=== PATIENT | male | born 1940 | race Caucasian/White ===

== ENCOUNTER 2017-09-17 08:35 | Inpatient (IN) | payer MEDICARE, BC ==
[2017-09-17] MEDS ORDERED: SODIUM CHLORIDE 0.9% 1,000 ML IV STA (09:01)
--- NOTE | 2017-09-17 09:06 | ED ---
General Adult HPI - General Chief complaint: Weakness Stated complaint: weakness Time Seen by Provider: 09/17/17 08:50 Source: patient, EMS, RN notes reviewed Mode of arrival: EMS Limitations: no limitations - History of Present Illness Initial comments: This is a 77-year-old male who presents emergency Department with a past medical history significant for neuropathy, atrial fibrillation and is on Coumadin for that. Patient comes in today stating over the last week or 2 is becoming weaker and weaker he is also noted distention of his abdomen. Patient states he is still having bowel movements but not as much but he notes that he is not eating as much either. Patient states she's also dizzy upon standing quite often. Patient denies any recent fever chills or cough. Patient denies any chest pain patient denies any palpitations patient denies any abdominal pain. Patient denies any nausea vomiting. Patient denies any headache patient denies numbness weakness patient denies any dysuria hematuria urinary frequency - Related Data Home Medications Medication Instructions Recorded Confirmed Allopurinol [Zyloprim] 300 mg PO MOWEFR 09/17/17 09/17/17 Digoxin [Lanoxin] 250 mcg PO DAILY 09/17/17 09/17/17 Furosemide [Lasix] 40 mg PO BID 09/17/17 09/17/17 Indomethacin [Indocin] 50 mg PO HS 09/17/17 09/17/17 Insulin NPH Hum/Reg Insulin Hm 15 unit SQ AC-BID 09/17/17 09/17/17 [NovoLIN 70-30 100 UNIT/ML VIAL] Lutein 10 mg PO HS 09/17/17 09/17/17 Multivit-Min/FA/Lycopen/Lutein 1 tab PO DAILY 09/17/17 09/17/17 [Centrum Silver Tablet] Potassium Chloride [Klor-Con 20] 20 meq PO DAILY 09/17/17 09/17/17 Quinapril HCl [Accupril] 5 mg PO DAILY 09/17/17 09/17/17 Tamsulosin HCl [Flomax] 0.4 mg PO HS 09/17/17 09/17/17 Warfarin [Coumadin] 5 mg PO MOTUTHFRSA 09/17/17 09/17/17 guaiFENesin-DM 600/30MG [Mucinex 1 tab PO Q12HR 09/17/17 09/17/17 Dm] Allergies Allergy/AdvReac Type Severity Reaction Status Date / Time No Known Allergies Allergy Verified 09/17/17 09:11 Review of Systems ROS Statement: Those systems with pertinent positive or pertinent negative responses have been documented in the HPI. ROS Other: All systems not noted in ROS Statement are negative. Past Medical History Past Medical History: Atrial Fibrillation, Diabetes Mellitus, Prostate Disorder Additional Past Medical History / Comment(s): Gout History of Any Multi-Drug Resistant Organisms: None Reported Past Surgical History: Cholecystectomy Additional Past Surgical History / Comment(s): bilateral cataract Past Psychological History: No Psychological Hx Reported Smoking Status: Former smoker Past Alcohol Use History: Rare Past Drug Use History: None Reported General Exam - General Exam Comments Initial Comments: GENERAL: Patient is well-developed and well-nourished. Patient is nontoxic and well- hydrated and is in mild distress. ENT: Neck is soft and supple. No significant lymphadenopathy is noted. Oropharynx is clear. Moist mucous membranes. Neck has full range of motion without eliciting any pain. EYES: The sclera were anicteric and conjunctiva were pink and moist. Extraocular movements were intact and pupils were equal round and reactive to light. Eyelids were unremarkable. PULMONARY: Patient has decreased breath sounds in the right base CARDIOVASCULAR: There is a regular rate and rhythm patient has a 1/6 murmur ABDOMEN: Soft and nontender with normal bowel sounds. Abdomen does appear distended. SKIN: Skin is clear with no lesions or rashes and otherwise unremarkable. NEUROLOGIC: Patient is alert and oriented x3. Cranial nerves II through XII are grossly intact. Motor and sensory are also intact. Normal speech, volume and content. Symmetrical smile. MUSCULOSKELETAL: Normal extremities with adequate strength and full range of motion. Patient has a wound on the medial aspect of the left leg LYMPHATICS: No significant lymphadenopathy is noted PSYCHIATRIC: Normal psychiatric evaluation. Limitations: no limitations Course Vital Signs 09/17/17 09/17/17 09/17/17 08:49 09:46 10:19 Temperature 98.5 F Pulse Rate 95 94 Pulse Rate [ 98 Sitting] Pulse Rate [ 101 H Standing] Pulse Rate [ 93 Supine] Respiratory 18 16 Rate Blood Pressure 123/74 140/72 Blood Pressure 139/75 [Sitting] Blood Pressure 140/72 [Standing] Blood Pressure 149/65 [Supine] O2 Sat by Pulse 99 96 Oximetry 09/17/17 11:06 Temperature Pulse Rate 90 Pulse Rate [ Sitting] Pulse Rate [ Standing] Pulse Rate [ Supine] Respiratory 16 Rate Blood Pressure Blood Pressure [Sitting] Blood Pressure [Standing] Blood Pressure [Supine] O2 Sat by Pulse Oximetry Medical Decision Making - Medical Decision Making EKG shows atrial fibrillation with occasional PVCs at a rate of 95 bpm QRS is 92 QT interval 350 QTC is 439. Patient's EKG shows no ST segment elevation or depression or T wave abnormalities are noted. - Lab Data Result diagrams: 09/17/17 08:43 09/17/17 08:43 Lab Results 09/17/17 09/17/17 09/17/17 Range/Units 08:43 08:43 08:43 WBC 6.7 (3.8-10.6) k/uL RBC 4.02 L (4.30-5.90) m/uL Hgb 10.5 L (13.0-17.5) gm/dL Hct 32.5 L (39.0-53.0) % MCV 80.7 (80.0-100.0) fL MCH 26.0 (25.0-35.0) pg MCHC 32.2 (31.0-37.0) g/dL RDW 17.8 H (11.5-15.5) % Plt Count 213 (150-450) k/uL Neutrophils % 66 % Lymphocytes % 22 % Monocytes % 7 % Eosinophils % 2 % Basophils % 1 % Neutrophils # 4.5 (1.3-7.7) k/uL Lymphocytes # 1.5 (1.0-4.8) k/uL Monocytes # 0.5 (0-1.0) k/uL Eosinophils # 0.1 (0-0.7) k/uL Basophils # 0.1 (0-0.2) k/uL Hypochromasia Slight Anisocytosis Slight Microcytosis Slight PT (9.0-12.0) sec INR (<1.2) APTT (22.0-30.0) sec Sodium 145 (137-145) mmol/L Potassium 4.0 (3.5-5.1) mmol/L Chloride 104 (98-107) mmol/L Carbon Dioxide 24 (22-30) mmol/L Anion Gap 17 mmol/L BUN 73 H (9-20) mg/dL Creatinine 1.12 (0.66-1.25) mg/dL Est GFR (CKD-EPI)AfAm 73 (>60 ml/min/1.73 sqM) Est GFR (CKD-EPI)NonAf 63 (>60 ml/min/1.73 sqM) Glucose 53 L (74-99) mg/dL POC Glucose (mg/dL) (75-99) mg/dL POC Glu Cosmetic Sales ID Plasma Lactic Acid Finn (0.7-2.0) mmol/L Calcium 9.2 (8.4-10.2) mg/dL Magnesium 2.5 H (1.6-2.3) mg/dL Total Bilirubin 2.7 H (0.2-1.3) mg/dL AST 23 (17-59) U/L ALT 19 L (21-72) U/L Alkaline Phosphatase 286 H (38-126) U/L Total Creatine Kinase 64 (55-170) U/L CK-MB (CK-2) 2.3 (0.0-2.4) ng/mL CK-MB (CK-2) Rel Index 3.6 Troponin I 0.056 H* (0.000-0.034) ng/mL Total Protein 7.5 (6.3-8.2) g/dL Albumin 4.0 (3.5-5.0) g/dL Urine Color Urine Appearance (Clear) Urine pH (5.0-8.0) Ur Specific Stella (1.001-1.035) Urine Protein (Negative) Urine Glucose (UA) (Negative) Urine Ketones (Negative) Urine Blood (Negative) Urine Nitrite (Negative) Urine Bilirubin (Negative) Urine Urobilinogen (<2.0) mg/dL Ur Leukocyte Esterase (Negative) 09/17/17 09/17/17 09/17/17 Range/Units 08:43 08:43 09:51 WBC (3.8-10.6) k/uL RBC (4.30-5.90) m/uL Hgb (13.0-17.5) gm/dL Hct (39.0-53.0) % MCV (80.0-100.0) fL MCH (25.0-35.0) pg MCHC (31.0-37.0) g/dL RDW (11.5-15.5) % Plt Count (150-450) k/uL Neutrophils % % Lymphocytes % % Monocytes % % Eosinophils % % Basophils % % Neutrophils # (1.3-7.7) k/uL Lymphocytes # (1.0-4.8) k/uL Monocytes # (0-1.0) k/uL Eosinophils # (0-0.7) k/uL Basophils # (0-0.2) k/uL Hypochromasia Anisocytosis Microcytosis PT 13.7 H (9.0-12.0) sec INR 1.5 H (<1.2) APTT 23.5 (22.0-30.0) sec Sodium (137-145) mmol/L Potassium (3.5-5.1) mmol/L Chloride (98-107) mmol/L Carbon Dioxide (22-30) mmol/L Anion Gap mmol/L BUN (9-20) mg/dL Creatinine (0.66-1.25) mg/dL Est GFR (CKD-EPI)AfAm (>60 ml/min/1.73 sqM) Est GFR (CKD-EPI)NonAf (>60 ml/min/1.73 sqM) Glucose (74-99) mg/dL POC Glucose (mg/dL) (75-99) mg/dL POC Glu Cosmetic Sales ID Plasma Lactic Acid Finn 1.4 (0.7-2.0) mmol/L Calcium (8.4-10.2) mg/dL Magnesium (1.6-2.3) mg/dL Total Bilirubin (0.2-1.3) mg/dL AST (17-59) U/L ALT (21-72) U/L Alkaline Phosphatase (38-126) U/L Total Creatine Kinase (55-170) U/L CK-MB (CK-2) (0.0-2.4) ng/mL CK-MB (CK-2) Rel Index Troponin I (0.000-0.034) ng/mL Total Protein (6.3-8.2) g/dL Albumin (3.5-5.0) g/dL Urine Color Yellow Urine Appearance Clear (Clear) Urine pH 5.0 (5.0-8.0) Ur Specific Stella 1.008 (1.001-1.035) Urine Protein Trace H (Negative) Urine Glucose (UA) Negative (Negative) Urine Ketones Negative (Negative) Urine Blood Negative (Negative) Urine Nitrite Negative (Negative) Urine Bilirubin Negative (Negative) Urine Urobilinogen <2.0 (<2.0) mg/dL Ur Leukocyte Esterase Negative (Negative) 09/17/17 09/17/17 Range/Units 11:01 12:28 WBC (3.8-10.6) k/uL RBC (4.30-5.90) m/uL Hgb (13.0-17.5) gm/dL Hct (39.0-53.0) % MCV (80.0-100.0) fL MCH (25.0-35.0) pg MCHC (31.0-37.0) g/dL RDW (11.5-15.5) % Plt Count (150-450) k/uL Neutrophils % % Lymphocytes % % Monocytes % % Eosinophils % % Basophils % % Neutrophils # (1.3-7.7) k/uL Lymphocytes # (1.0-4.8) k/uL Monocytes # (0-1.0) k/uL Eosinophils # (0-0.7) k/uL Basophils # (0-0.2) k/uL Hypochromasia Anisocytosis Microcytosis PT (9.0-12.0) sec INR (<1.2) APTT (22.0-30.0) sec Sodium (137-145) mmol/L Potassium (3.5-5.1) mmol/L Chloride (98-107) mmol/L Carbon Dioxide (22-30) mmol/L Anion Gap mmol/L BUN (9-20) mg/dL Creatinine (0.66-1.25) mg/dL Est GFR (CKD-EPI)AfAm (>60 ml/min/1.73 sqM) Est GFR (CKD-EPI)NonAf (>60 ml/min/1.73 sqM) Glucose (74-99) mg/dL POC Glucose (mg/dL) 71 L 111 H (75-99) mg/dL POC Glu Cosmetic Sales ID Amy Chowdhury Erin Plasma Lactic Acid Finn (0.7-2.0) mmol/L Calcium (8.4-10.2) mg/dL Magnesium (1.6-2.3) mg/dL Total Bilirubin (0.2-1.3) mg/dL AST (17-59) U/L ALT (21-72) U/L Alkaline Phosphatase (38-126) U/L Total Creatine Kinase (55-170) U/L CK-MB (CK-2) (0.0-2.4) ng/mL CK-MB (CK-2) Rel Index Troponin I (0.000-0.034) ng/mL Total Protein (6.3-8.2) g/dL Albumin (3.5-5.0) g/dL Urine Color Urine Appearance (Clear) Urine pH (5.0-8.0) Ur Specific Stella (1.001-1.035) Urine Protein (Negative) Urine Glucose (UA) (Negative) Urine Ketones (Negative) Urine Blood (Negative) Urine Nitrite (Negative) Urine Bilirubin (Negative) Urine Urobilinogen (<2.0) mg/dL Ur Leukocyte Esterase (Negative) Disposition Clinical Impression: Hyperbilirubinemia, Hypoglycemia, Pleural effusion, Ascites, Cirrhosis, Elevated troponin Disposition: ADMITTED IP TO THIS [facility] Referrals: Dov Smith MD [Primary Care Provider] - 1-2 days Time of Disposition: 12:28
[2017-09-17 09:20] LABS: Anisocytosis Slight; Basophils # (A) 0.1 k/uL (0-0.2); Basophils % (A) 1 %; Eosinophils # (A) 0.1 k/uL (0-0.7); Eosinophils % (A) 2 %; HCT 32.5 % (39.0-53.0); HGB 10.5 gm/dL (13.0-17.5); Hypochromasia Slight; Lymphocytes # (A) 1.5 k/uL (1.0-4.8); Lymphocytes % (A) 22 %; MCHC 32.2 g/dL (31.0-37.0); MCV 80.7 fL (80.0-100.0); Mean Platelet Volume 6.7; Microcytosis Slight; Monocytes # (A) 0.5 k/uL (0-1.0); Monocytes % (A) 7 %; Neutrophils # (A) 4.5 k/uL (1.3-7.7); Neutrophils % (A) 66 %; Platelet Count 213 k/uL (150-450); RBC 4.02 m/uL (4.30-5.90); RDW 17.8 % (11.5-15.5); WBC 6.7 k/uL (3.8-10.6)
[2017-09-17 09:27] LABS: INR 1.5 (<1.2); Partial Thromboplastin Time 23.5 sec (22.0-30.0); Prothrombin Time 13.7 sec (9.0-12.0)
[2017-09-17 09:29] LABS: Calcium 9.2 mg/dL (8.4-10.2); Magnesium 2.5 mg/dL (1.6-2.3); Total Bilirubin 2.7 mg/dL (0.2-1.3); Total Protein 7.5 g/dL (6.3-8.2)
[2017-09-17 09:44] LABS: Creatine Kinase MB 2.3 ng/mL (0.0-2.4)
[2017-09-17 09:52] LABS: Troponin I 0.056 ng/mL (0.000-0.034)
[2017-09-17 10:36] LABS: Appearance,Urine Clear (Clear); Bilirubin,Urine Negative (Negative); Blood,Urine Negative (Negative); Color,Urine Yellow; Glucose,Urine (UA) Negative (Negative); Ketones,Urine Negative (Negative); Leukocyte Esterase,Urine Negative (Negative); Nitrite,Urine Negative (Negative); Protein,Urine Trace (Negative); Specific Gravity,Urine 1.008 (1.001-1.035); Urobilinogen,Urine <2.0 mg/dL (<2.0)
--- NOTE | 2017-09-17 10:43 | XR ---
EXAMINATION TYPE: XR chest 2V DATE OF EXAM: 09/17/2017 COMPARISON: NONE HISTORY: Weakness. TECHNIQUE: Frontal and lateral views of the chest are obtained. FINDINGS: Low lung volumes with patchy bibasilar atelectasis is seen.. The cardiac silhouette size i s enlarged with atherosclerotic and ectatic aorta causing mass effect on trachea. Multilevel spurring in the spine is present. Osseous structures are demineralized. IMPRESSION: Low lung volumes and cardiomegaly with patchy bibasilar atelectasis and/or infiltrate.
--- NOTE | 2017-09-17 10:45 | XR ---
EXAMINATION TYPE: XR KUB DATE OF EXAM: 09/17/2017 10:36 AM CLINICAL HISTORY: Abdominal pain and distention with fluid retention TECHNIQUE: 3 supine KUB images of the abdomen are obtained. COMPARISON: None. FINDINGS: Evaluation is suboptimal secondary to patient's large body habitus. Scattered gas is seen i n non-distended small bowel loops. Gas and fecal material is seen in non-distended colon. Cholecystec ruth clips are present. There is moderate multilevel spurring and disc space narrowing most prominent in the mid to lower lumbar spine. There is moderate spurring in both hip joints. Vascular calcificat ion in the bilateral pelvis extending into groin regions is present. IMPRESSION: Overall nonobstructive bowel gas pattern.
[2017-09-17 11:03] LABS: Glucose,Whole Blood 71 mg/dL (75-99)
[2017-09-17] MEDS ORDERED: RX INFO: IV CONTRAST WAS GIVEN 1 EACH MISC MISCELLANE PRN ×2 (11:11→11:15)
--- NOTE | 2017-09-17 12:12 | CT ---
EXAMINATION TYPE: CT ChestAbdPelvis w con DATE OF EXAM: 09/17/2017 COMPARISON: NONE HISTORY: Weakness, shortness of breath CT DLP: 2771 mGycm. Automated Exposure Control for Dose Reduction was Utilized. CONTRAST: CT scan of the thorax, abdomen and pelvis is performed with IV Contrast, patient injected with 80 mL of Isovue 370. Lack of oral contrast limits evaluation of the bowel FINDINGS: LUNGS: There is a moderate right pleural effusion with associated compressive subsegmental atelectasi s. Otherwise the lungs are clear. No left pleural effusion. No pneumothorax. Main tracheobronchial tr ee is patent. MEDIASTINUM: No central pulmonary embolus is identified. The main pulmonary artery is enlarged measur ing 4.2 cm, suggesting underlying pulmonary arterial hypertension. There are no greater than 1 cm hil ar or mediastinal lymph nodes. Moderate three-vessel coronary artery calcifications are present as we ll as atheromatous changes of the thoracic aorta and cardiac valves. Scant pericardial effusion is se en LIVER/GB: There is diffuse low attenuation of the hepatic parenchyma and a nodular contour with cirrh otic morphology of the liver and hepatic atrophy. Gallbladder surgically absent. Large volume abdomin opelvic ascites is present. Phase of contrast limits evaluation for portal venous thrombus. PANCREAS: Pancreas is difficult to visualize given the surrounding abdominal ascites. SPLEEN: No splenomegaly. No splenic varices are seen. ADRENALS: Adrenal glands are symmetrically enlarged but maintain adreniform shape, most compatible wi th adrenal gland hyperplasia. KIDNEYS: No significant abnormality is seen. No hydronephrosis. BOWEL: Bowel is nondilated. Appendix is air-filled and within normal limits. GENITAL ORGANS: Prostate gland is enlarged impressing upon the urinary bladder LYMPH NODES: No gross evidence of greater than 1cm abdominal or pelvic lymph nodes are appreciated. E valuation is limited given the ascites. OSSEOUS STRUCTURES: Extensive arthropathy of the glenohumeral joints are seen. Severe multilevel dege nerative changes of the spine are present. Osseous structures are grossly intact. Moderate to severe bilateral femoral acetabular arthropathy is present. OTHER: Moderate anasarca is present. Extensive atheromatous plaquing of the abdominal aorta and its b ranches. Small umbilical hernia contains mesenteric fat and ascites. Right inguinal canal is fluid-fi lled and ascites is extends into the scrotal sac on the right. IMPRESSION: 1. Moderate right pleural effusion with associated right subsegmental multifocal compressive atelecta sis. 2. Cirrhotic morphology of the liver with abdominopelvic ascites and anasarca. No splenomegaly or eitan ss evidence of splenic varices. Evaluation of the portal vein is limited given the phase of contrast. 3. Enlarged main pulmonary artery suggesting underlying pulmonary arterial hypertension. 4. Scant pericardial effusion.
[2017-09-17 12:29] LABS: Glucose,Whole Blood 111 mg/dL (75-99)
[2017-09-17] MEDS ORDERED: SODIUM CHLORIDE 0.9% 1,000 ML IV ONE (12:31)
--- NOTE | 2017-09-17 13:57 | P.HPIM ---
History of Present Illness H&P Date: 09/17/17 Chief Complaint: Fatigue and lightheadedness, shortness of air with abdominal distention The patient is a 77-year-old male the past focal history of atrial fibrillation on anticoagulation with Coumadin who presented to the ER via EMS with chief complaint of increasing fatigue, abdominal distention occurring over the last week. The patient also reports progressing worsening dyspnea during this time, he complains of a nonproductive cough for a week along with shortness of breath. Today in particular the patient was increasingly lightheaded and dizzy with symptoms worsened from going from recumbent to sitting up. The patient has had increasing lower extremity swelling and reports a ruptured left lower extremity blister occurring 2 days ago. The patient does have a right lower extremity chronic diabetic ulcer that is seen by wound care nurse at home for the last 2 months. The patient apparently in place with a walker but has had decreased activity during to his fatigue and weakness. The patient denies any chest pain, or palpitations. The patient denies any history of severe alcohol use, he reports to being a social drinker. There is no reports of confusion, focal weakness or slurred speech. The patient denies being on oxygen chronically but is currently on nasal cannula feels much better. In the ER the patient had a comprehensive workup which included CT of the chest abdomen and pelvis that showed a moderate right pleural effusion with associated right subsegmental multifocal compressive atelectasis, cirrhotic morphology of the liver with abdominal pelvic ascites and anasarca and enlarged pulmonary artery suggesting pulmonary artery hypertension with scant pericardial effusion, patient's INR was noted to be 1.5 with a hemoglobin of 10.5 and elevated serum bilirubin at 2.5 with troponin of 0.056 Review of Systems All other 12 point of systems are negative except per HPI Past Medical History Past Medical History: Atrial Fibrillation, Diabetes Mellitus, Prostate Disorder Additional Past Medical History / Comment(s): Gout History of Any Multi-Drug Resistant Organisms: None Reported Past Surgical History: Cholecystectomy Additional Past Surgical History / Comment(s): bilateral cataract Past Psychological History: No Psychological Hx Reported Smoking Status: Former smoker Past Alcohol Use History: Rare Past Drug Use History: None Reported - Past Family History Father Family Medical History: No Reported History Additional Family Medical History / Comment(s): Father lived to be 91 yrs old. Mother Family Medical History: Cancer Additional Family Medical History / Comment(s): Mother had blood cancer and heart problems. She lived to be 83 yrs old. Medications and Allergies Home Medications Medication Instructions Recorded Confirmed Type Allopurinol [Zyloprim] 300 mg PO MOWEFR 09/17/17 09/17/17 History Digoxin [Lanoxin] 250 mcg PO DAILY 09/17/17 09/17/17 History Furosemide [Lasix] 40 mg PO BID 09/17/17 09/17/17 History Indomethacin [Indocin] 50 mg PO HS 09/17/17 09/17/17 History Insulin NPH Hum/Reg Insulin Hm 15 unit SQ AC-BID 09/17/17 09/17/17 History [NovoLIN 70-30 100 UNIT/ML VIAL] Lutein 10 mg PO HS 09/17/17 09/17/17 History Multivit-Min/FA/Lycopen/Lutein 1 tab PO DAILY 09/17/17 09/17/17 History [Centrum Silver Tablet] Potassium Chloride [Klor-Con 20] 20 meq PO DAILY 09/17/17 09/17/17 History Quinapril HCl [Accupril] 5 mg PO DAILY 09/17/17 09/17/17 History Tamsulosin HCl [Flomax] 0.4 mg PO HS 09/17/17 09/17/17 History Warfarin [Coumadin] 5 mg PO MOTUTHFRSA 09/17/17 09/17/17 History guaiFENesin-DM 600/30MG [Mucinex 1 tab PO Q12HR 09/17/17 09/17/17 History Dm] Allergies Allergy/AdvReac Type Severity Reaction Status Date / Time No Known Allergies Allergy Verified 09/17/17 09:11 Physical Exam Vitals: Vital Signs Temp Pulse Pulse Pulse Pulse Resp BP 09/17/17 11:06 90 16 09/17/17 10:19 94 16 140/72 09/17/17 09:46 98 101 H 93 09/17/17 08:49 98.5 F 95 18 123/74 BP BP BP Pulse Ox 09/17/17 11:06 09/17/17 10:19 96 09/17/17 09:46 139/75 140/72 149/65 09/17/17 08:49 99 Intake and Output 09/16/17 09/17/17 09/17/17 22:59 06:59 14:59 Other: Weight 123.196 kg Constitutional: Moderate respiratory distress, conversant, pleasant Eyes: Anicteric sclerae, moist conjunctiva, no lid-lag, PERRLA ENMT: NC/AT,Oropharynx clear, no erythema, exudates Neck:Supple, FROM, no masses, or JVD, No carotid bruits; No thyromegaly Lungs: Diminished in the bases, Clear to percussion, moderate respiratory distress in incomplete sentences with accessory muscle use Cardiovascular: Heart regular in rate and rhythm, No murmurs, gallops, or rubs , +2 pitting pedal peripheral edema Abdominal: Soft Nontender, moderate distended, no guarding, no rebound or rigidity, Normoactive bowel sounds No hepatomegaly, No splenomegaly, No palpable mass No abdominal wall hernia noted Skin: Normal temperature, tone, texture, turgor, No induration No subcutaneous nodules, No rash, lesions, No ulcers, ruptured skin blister on the left lower extremity Extremities:No digital cyanosis No clubbing, Pedal pulses intact and symmetrical Radial pulses intact and symmetrical Normal gait and station, No calf tenderness Psychiatric: Alert and oriented to person, place and time, Appropriate affect Intact judgement Neuro: Muscles Strength 5/5 in all 4 extremities, Sensation to light touch grossly present throughout, Cranial nerves II-XII grossly intact. No focal sensory deficits Results CBC & Chem 7: 09/17/17 08:43 09/17/17 08:43 Labs: Abnormal Lab Results - Last 24 Hours (Table) 09/17/17 09/17/17 09/17/17 Range/Units 08:43 08:43 08:43 RBC 4.02 L (4.30-5.90) m/uL Hgb 10.5 L (13.0-17.5) gm/dL Hct 32.5 L (39.0-53.0) % RDW 17.8 H (11.5-15.5) % PT (9.0-12.0) sec INR (<1.2) BUN 73 H (9-20) mg/dL Glucose 53 L (74-99) mg/dL POC Glucose (mg/dL) (75-99) mg/dL Magnesium 2.5 H (1.6-2.3) mg/dL Total Bilirubin 2.7 H (0.2-1.3) mg/dL ALT 19 L (21-72) U/L Alkaline Phosphatase 286 H (38-126) U/L Troponin I 0.056 H* (0.000-0.034) ng/mL Urine Protein (Negative) 09/17/17 09/17/17 09/17/17 Range/Units 08:43 09:51 11:01 RBC (4.30-5.90) m/uL Hgb (13.0-17.5) gm/dL Hct (39.0-53.0) % RDW (11.5-15.5) % PT 13.7 H (9.0-12.0) sec INR 1.5 H (<1.2) BUN (9-20) mg/dL Glucose (74-99) mg/dL POC Glucose (mg/dL) 71 L (75-99) mg/dL Magnesium (1.6-2.3) mg/dL Total Bilirubin (0.2-1.3) mg/dL ALT (21-72) U/L Alkaline Phosphatase (38-126) U/L Troponin I (0.000-0.034) ng/mL Urine Protein Trace H (Negative) 09/17/17 Range/Units 12:28 RBC (4.30-5.90) m/uL Hgb (13.0-17.5) gm/dL Hct (39.0-53.0) % RDW (11.5-15.5) % PT (9.0-12.0) sec INR (<1.2) BUN (9-20) mg/dL Glucose (74-99) mg/dL POC Glucose (mg/dL) 111 H (75-99) mg/dL Magnesium (1.6-2.3) mg/dL Total Bilirubin (0.2-1.3) mg/dL ALT (21-72) U/L Alkaline Phosphatase (38-126) U/L Troponin I (0.000-0.034) ng/mL Urine Protein (Negative) Assessment and Plan (1) Dyspnea Current Visit: Yes Status: Acute Code(s): R06.00 - DYSPNEA, UNSPECIFIED SNOMED Code(s): 667372947 (2) Ascites Current Visit: Yes Status: Acute Code(s): R18.8 - OTHER ASCITES SNOMED Code(s): 381651036 (3) Cirrhosis Current Visit: Yes Status: Acute Code(s): K74.60 - UNSPECIFIED CIRRHOSIS OF LIVER SNOMED Code(s): 70666242 (4) Elevated troponin Current Visit: Yes Status: Acute Code(s): R74.8 - ABNORMAL LEVELS OF OTHER SERUM ENZYMES SNOMED Code(s): 076019340 (5) Hyperbilirubinemia Current Visit: Yes Status: Acute Code(s): E80.6 - OTHER DISORDERS OF BILIRUBIN METABOLISM SNOMED Code(s): 63081258 (6) Pleural effusion Current Visit: Yes Status: Acute Code(s): J90 - PLEURAL EFFUSION, NOT ELSEWHERE CLASSIFIED SNOMED Code(s): 77916837 (7) Atrial fibrillation Current Visit: Yes Status: Acute Code(s): I48.91 - UNSPECIFIED ATRIAL FIBRILLATION SNOMED Code(s): 41696148 Plan: The patient is admitted with dyspnea secondary to symptomatic ascites and pleural effusion with compressive atelectasis anticipated greater than 2 midnight stay. GI and pulmonology her consulted for possible paracentesis and thoracentesis respectively. Continue with supplemental oxygen. We'll workup his anemia with Hemoccult iron studies, cardiology is consulted regarding his elevated serum troponin will continue to cycle troponins, EKG consistent with A. fib with controlled ventricular rate. We'll order echocardiogram and consult IR for ultrasound guided paracentesis. We'll resume the patient's digoxin, hold the Coumadin, patient reported being taken off his beta raymon approximately a month ago due to hypotension. Check A1c Accu-Cheks and resume his home insulin regimen. Await feedback from consultants and continue his clinical course
[2017-09-17] MEDS ORDERED: FUROSEMIDE 40 MG TAB PO SCH (16:00)
[2017-09-17 17:45] LABS: Glucose,Whole Blood 94 mg/dL (75-99)
[2017-09-17] MEDS: ALLOPURINOL 300 MG TAB PO SCH (18:52)
[2017-09-17] MEDS: DIGOXIN 250 MCG TAB PO SCH (18:53)
[2017-09-17] MEDS: INSULIN NPH/REG INSULIN 70/30 300 UNIT/3 ML VIAL SQ SCH (18:53)
[2017-09-17] MEDS: TAMSULOSIN 0.4 MG CAP.ER.24H PO SCH (20:45)
[2017-09-17 20:53] LABS: Glucose,Whole Blood 137 mg/dL (75-99)
--- NOTE | 2017-09-17 20:59 | ECHOF ---
Referral Reason:volume overload/ hx of CHF MEASUREMENTS -------- HEIGHT: 190.5 cm WEIGHT: 122.9 kg BP: 149/65 RVIDd: 3.2 cm (< 3.3) IVSd: 1.0 cm (0.6 - 1.1) LVIDd: 4.9 cm (3.9 - 5.3) LVPWd: 1.0 cm (0.6 - 1.1) IVSs: 1.3 cm LVIDs: 4.3 cm LVPWs: 1.3 cm LAESV Index (A-L): 47.44 ml/m Ao Diam: 3.2 cm (2.0 - 3.7) AV Cusp: 0.8 cm (1.5 - 2.6) LA Diam: 5.2 cm (2.7 - 3.8) MV E Britton: 1.29 m/s MV DecT: 152 ms MV A Britton: 0.01 m/s MV E/A Ratio: 215.60 AV maxP.54 mmHg AV meanP.15 mmHg RAP: 15.00 mmHg RVSP: 91.85 mmHg FINDINGS -------- Atrial fibrillation. This was a technically difficult study with suboptimal views. The left ventricular size is normal. Left ventricular wall thickness is normal. There is severe g lobal hypokinesis of LV . Overall left ventricular systolic function is severely impaired with, an EF between 25 - 30 %. The right ventricle is mildly enlarged. LA is severely dilated >40 ml/m2 The right atrium is markedly enlarged. 3ml of Lumason was utilized for enhancement of images. There is severe aortic valve sclerosis. There is moderate aortic regurgitation. There is moderate -to-severe aortic stenosis present. Peak/mean gradient across the Aortic Valve is 61.54mmHg / 38.15 mmHg. The mitral valve leaflets are mild to moderately thickened. Moderate mitral annular calcification present. Severe mitral regurgitation is present. Severe tricuspid regurgitation present. There is severe pulmonary hypertension. The right ventric ular systolic pressure, as measured by Doppler, is 91.85mmHg. The pulmonic valve was not well visualized. The aortic root size is normal. The inferior vena cava is dilated with no significant inspiratory collapse which is consistent estima olivia right atrial pressure of >20 mmHg. There is a small, generalized pericardial effusion present. CONCLUSIONS -------- 1. Atrial fibrillation. 2. This was a technically difficult study with suboptimal views. 3. The left ventricular size is normal. 4. Left ventricular wall thickness is normal. 5. There is severe global hypokinesis of LV . 6. Overall left ventricular systolic function is severely impaired with, an EF between 25 - 30 %. 7. The right ventricle is mildly enlarged. 8. LA is severely dilated >40 ml/m2 9. The right atrium is markedly enlarged. 10. 3ml of Lumason was utilized for enhancement of images. 11. There is severe aortic valve sclerosis. 12. There is moderate aortic regurgitation. 13. There is [id number] aortic stenosis present. 14. Peak/mean gradient across the Aortic Valve is 61.54mmHg / 38.15mmHg. 15. The mitral valve leaflets are mild to moderately thickened. 16. Moderate mitral annular calcification present. 17. Severe mitral regurgitation is present. 18. Severe tricuspid regurgitation present. 19. There is severe pulmonary hypertension. 20. The right ventricular systolic pressure, as measured by Doppler, is 91.85mmHg. 21. The pulmonic valve was not well visualized. 22. The aortic root size is normal. 23. The inferior vena cava is dilated with no significant inspiratory collapse which is consistent es timated right atrial pressure of >20 mmHg. 24. There is a small, generalized pericardial effusion present. [employer]ALL MOLDER: Ozzy Hess RDCS
[2017-09-17] MEDS ORDERED: INDOMETHACIN 25 MG CAP PO SCH (21:00)
[2017-09-18 05:33] LABS: Hemoglobin A1C 6.5 % (4.0-6.0)
[2017-09-18 06:06] LABS: Glucose,Whole Blood 86 mg/dL (75-99)
[2017-09-18 06:58] LABS: Anisocytosis Slight; Basophils % (A) 1 %; Eosinophils # (A) 0.2 k/uL (0-0.7); Eosinophils % (A) 3 %; HCT 31.1 % (39.0-53.0); HGB 9.7 gm/dL (13.0-17.5); Hypochromasia Moderate; Lymphocytes # (A) 1.1 k/uL (1.0-4.8); Lymphocytes % (A) 24 %; MCH 25.7 pg (25.0-35.0); MCHC 31.2 g/dL (31.0-37.0); MCV 82.5 fL (80.0-100.0); Mean Platelet Volume 7.4; Microcytosis Slight; Monocytes # (A) 0.4 k/uL (0-1.0); Monocytes % (A) 9 %; Neutrophils # (A) 2.9 k/uL (1.3-7.7); Neutrophils % (A) 61 %; Platelet Count 163 k/uL (150-450); RBC 3.77 m/uL (4.30-5.90); RDW 18.1 % (11.5-15.5); WBC 4.7 k/uL (3.8-10.6)
[2017-09-18 07:27] LABS: Albumin 3.1 g/dL (3.5-5.0); Calcium 8.4 mg/dL (8.4-10.2); Potassium 3.9 mmol/L (3.5-5.1); Total Protein 6.2 g/dL (6.3-8.2)
--- NOTE | 2017-09-18 08:40 | P.CRDCN ---
History of Present Illness Consult date: 09/18/17 Requesting physician: Giuseppe Ferrara Consult reason: shortness of breath Chief complaint: Dizziness, Shortness of breath, abdominal and leg swelling History of present illness: This is a 77-year-old gentleman with history of chronic persistent atrial fibrillation, hypertension, diabetes, who presented to the hospital with symptoms of dizziness, shortness of breath, significant swelling in his abdomen and bilateral lower extremities. Apparently the symptoms of shortness of breath and dizziness have only been going on for the past 2-3 days according to the patient, but the swelling in his abdomen has been noticeable for some time. Patient denies any history of significant cardiac problems, no myocardial infarction in the past, never been told to have any congestive cardiac failure. Chest x-ray performed on admission here showed low lung volumes and cardiomegaly with patchy bibasilar atelectasis. KUB revealed overall nonobstructive bowel gas pattern. EKG showed atrial fibrillation with occasional PVC, nonspecific ST-T wave changes. CT of the chest, abdomen, and pelvis revealed a moderate right pleural effusion. Cirrhotic morphology of the liver with abdominopelvic ascites and anasarca. No splenomegaly or gross evidence of splenic varices. Enlarged main pulmonary artery suggesting underlying pulmonary arterial hypertension and a scant amount of pericardial effusion. An echocardiogram with Doppler study was performed which revealed an ejection fraction of 25-30%. Global hypokinesia of the LV. RV mildly enlarged. Moderate to severe aortic stenosis, severe mitral regurg, severe tricuspid regurg and severe pulmonary hypertension. Blood pressure on arrival 122/70 with a heart rate in the 90s, 99% on 2 L of oxygen. Laboratory data was reviewed, white blood cell count is normal, hemoglobin on admission 10.5, 9.7 this morning. Platelet count 163, sodium 142, potassium 3.9, BUN 65, creatinine 1.1. Magnesium level 2.5. Iron level 51, total bilirubin 2.7 on admission 2.0 this morning. Alkaline phosphatase 286 on admission 224 this morning. INR on admission 1.5. Troponin 0.056, BNP level 16,300. Patient's weight on admission was documented to be 123, it is 119 this morning. He does state that he was urinating a significant amount through the night last night. He is not on IV Lasix. At the time of my examination this morning, patient continues to have significant swelling of the abdomen and edema of the lower extremities. He does state overall that he feels his breathing is mildly improved. Telemetry strips show atrial fibrillation with frequent PVCs. Past Medical History Past Medical History: Atrial Fibrillation, Diabetes Mellitus, Prostate Disorder Additional Past Medical History / Comment(s): Gout History of Any Multi-Drug Resistant Organisms: None Reported Past Surgical History: Cholecystectomy Additional Past Surgical History / Comment(s): bilateral cataract Past Anesthesia/Blood Transfusion Reactions: No Reported Reaction Past Psychological History: No Psychological Hx Reported Smoking Status: Former smoker Past Alcohol Use History: Rare Past Drug Use History: None Reported - Past Family History Father Family Medical History: No Reported History Additional Family Medical History / Comment(s): Father lived to be 91 yrs old. Mother Family Medical History: Cancer Additional Family Medical History / Comment(s): Mother had blood cancer and heart problems. She lived to be 83 yrs old. Medications and Allergies Home Medications Medication Instructions Recorded Confirmed Type Allopurinol [Zyloprim] 300 mg PO MOWEFR 09/17/17 09/17/17 History Digoxin [Lanoxin] 250 mcg PO DAILY 09/17/17 09/17/17 History Furosemide [Lasix] 40 mg PO BID 09/17/17 09/17/17 History Indomethacin [Indocin] 50 mg PO HS 09/17/17 09/17/17 History Insulin NPH Hum/Reg Insulin Hm 15 unit SQ AC-BID 09/17/17 09/17/17 History [NovoLIN 70-30 100 UNIT/ML VIAL] Lutein 10 mg PO HS 09/17/17 09/17/17 History Multivit-Min/FA/Lycopen/Lutein 1 tab PO DAILY 09/17/17 09/17/17 History [Centrum Silver Tablet] Potassium Chloride [Klor-Con 20] 20 meq PO DAILY 09/17/17 09/17/17 History Quinapril HCl [Accupril] 5 mg PO DAILY 09/17/17 09/17/17 History Tamsulosin HCl [Flomax] 0.4 mg PO HS 09/17/17 09/17/17 History Warfarin [Coumadin] 5 mg PO MOTUTHFRSA 09/17/17 09/17/17 History guaiFENesin-DM 600/30MG [Mucinex 1 tab PO Q12HR 09/17/17 09/17/17 History Dm] Allergies Allergy/AdvReac Type Severity Reaction Status Date / Time No Known Allergies Allergy Verified 09/17/17 09:11 Physical Exam Vitals: Vital Signs Temp Pulse Pulse Pulse Pulse Resp BP 09/18/17 07:30 09/18/17 04:00 97.8 F 81 18 09/18/17 03:58 18 09/18/17 00:00 98.2 F 72 72 18 09/17/17 20:00 98.3 F 94 94 18 09/17/17 18:04 68 68 68 16 09/17/17 17:07 118/62 09/17/17 17:05 97.4 F L 103 H 18 09/17/17 15:00 22 09/17/17 14:00 97.3 F L 84 18 111/73 09/17/17 11:06 90 16 09/17/17 10:19 94 16 140/72 09/17/17 09:46 98 101 H 93 09/17/17 08:49 98.5 F 95 18 123/74 BP BP BP Pulse Ox 09/18/17 07:30 99 09/18/17 04:00 114/61 99 09/18/17 03:58 09/18/17 00:00 117/58 99 09/17/17 20:00 120/62 98 09/17/17 18:04 111/69 99 09/17/17 17:07 09/17/17 17:05 99 09/17/17 15:00 96 09/17/17 14:00 97 09/17/17 11:06 09/17/17 10:19 96 09/17/17 09:46 139/75 140/72 149/65 09/17/17 08:49 99 Intake and Output 09/17/17 09/18/17 09/18/17 22:59 06:59 14:59 Other: Voiding Method Urinal # Voids 0 Weight 119.5 kg PHYSICAL EXAMINATION: HEENT: Head is atraumatic, normocephalic. Pupils equal, round. Neck is supple. There is elevated jugular venous pressure up to the angle of the jaw. HEART EXAMINATION: Heart S1-S2 not audible, systolic ejection murmur heard CHEST EXAMINATION: Lungs reveal diminished air entry bilaterally, on the right senior living up. ABDOMEN: [ Soft, distended, positive thrill. Bowel sounds are heard. EXTREMITIES:[ 1+ peripheral pulses with 1-2+ evidence of peripheral edema patient does have a dressing in place to the right and lower extremity, ulcerated weeping area underneath. NEUROLOGIC patient is awake, alert and oriented -3. . Results 09/18/17 05:51 09/18/17 05:51 Cardiac Enzymes 09/17/17 09/17/17 09/18/17 Range/Units 08:43 08:43 05:51 AST 23 20 (17-59) U/L CK-MB (CK-2) 2.3 (0.0-2.4) ng/mL Troponin I 0.056 H* (0.000-0.034) ng/mL Coagulation 09/17/17 Range/Units 08:43 PT 13.7 H (9.0-12.0) sec APTT 23.5 (22.0-30.0) sec CBC 09/17/17 09/18/17 Range/Units 08:43 05:51 WBC 6.7 4.7 (3.8-10.6) k/uL RBC 4.02 L 3.77 L (4.30-5.90) m/uL Hgb 10.5 L 9.7 L (13.0-17.5) gm/dL Hct 32.5 L 31.1 L (39.0-53.0) % Plt Count 213 163 (150-450) k/uL Comprehensive Metabolic Panel 09/17/17 09/18/17 Range/Units 08:43 05:51 Sodium 145 142 (137-145) mmol/L Potassium 4.0 3.9 (3.5-5.1) mmol/L Chloride 104 105 (98-107) mmol/L Carbon Dioxide 24 24 (22-30) mmol/L BUN 73 H 65 H (9-20) mg/dL Creatinine 1.12 1.13 (0.66-1.25) mg/dL Glucose 53 L 75 (74-99) mg/dL Calcium 9.2 8.4 (8.4-10.2) mg/dL AST 23 20 (17-59) U/L ALT 19 L 22 (21-72) U/L Alkaline Phosphatase 286 H 224 H (38-126) U/L Total Protein 7.5 6.2 L (6.3-8.2) g/dL Albumin 4.0 3.1 L (3.5-5.0) g/dL Current Medications Generic Name Dose Route Start Last Admin Trade Name Freq PRN Reason Stop Dose Admin Allopurinol 300 mg 09/17/17 14:00 09/17/17 18:52 Zyloprim PO 300 mg MoWeFr@0900 CHRIS Administration Digoxin 250 mcg 09/17/17 14:00 09/17/17 18:53 Lanoxin PO 250 mcg DAILY CHRIS Administration Furosemide 40 mg 09/17/17 16:00 09/17/17 18:53 Lasix PO 40 mg BID@0900,1600 CHRIS Administration Indomethacin 50 mg 09/17/17 21:00 09/17/17 20:46 Indocin PO 50 mg HS CHRIS Administration Insulin Human Isoph/Insulin Regular 15 unit 09/17/17 17:30 09/17/17 18:53 Humulin 70/30 Vial SQ 10 unit AC-BID CHRIS Administration Lisinopril 5 mg 09/18/17 09:00 Zestril PO DAILY [facility] Miscellaneous Information 1 each 09/17/17 11:11 Rx Info: Iv Contrast Was Given MISCELLANE 09/19/17 11:11 DAILY PRN Per Protocol Miscellaneous Information 1 each 09/17/17 11:15 Rx Info: Iv Contrast Was Given MISCELLANE 09/19/17 11:15 DAILY PRN Per Protocol Potassium Chloride 20 meq 09/18/17 09:00 K-Dur 20 PO DAILY [facility] Spironolactone 100 mg 09/18/17 09:00 Aldactone PO DAILY [facility] Tamsulosin HCl 0.4 mg 09/17/17 21:00 09/17/17 20:45 Flomax PO 0.4 mg HS CHRIS Administration Intake and Output 09/17/17 09/18/17 09/18/17 22:59 06:59 14:59 Other: Voiding Method Urinal # Voids 0 Weight 119.5 kg 09/18/17 05:51 09/18/17 05:51 EKG Interpretations (text) EKG shows atrial fibrillation with occasional PVCs. Assessment and Plan Plan: Assessment and plan #1 dyspnea, evidence of congestive heart failure, systolic, acute on chronic. Echocardiogram with Doppler study reveals an ejection fraction of 25-30%, daughter to severe aortic stenosis, severe mitral regurg and severe tricuspid regurg noted. Severe pulmonary hypertension. Evidence of significant right- sided pleural effusion. #2 chronic persistent atrial fibrillation, on Coumadin for anticoagulation, INR and admission 1.5. #3 hypertension, according to the significant other, blood pressure has been running low at home, patient had been on metoprolol which was stopped because of hypotension by the patient. #4 diabetes #5 ascites #6 abnormal troponin, likely secondary to supply and demand mismatch #7 anemia Plan We will start the patient on IV Lasix, continue Aldactone, lisinopril, discontinue Indocin, continue Lanoxin, we will also start the patient on a small dose of beta raymon as well as a statin. I did speak with the patient and his significant other regarding the new her anticoagulants, we will check to see if the patient has coverage. Further recommendations to follow. DNP note has been reviewed, I agree with a documented findings and plan of care. Patient was seen and examined.
[2017-09-18] MEDS: INSULIN NPH/REG INSULIN 70/30 300 UNIT/3 ML VIAL SQ SCH ×2 (09:09→17:19)
[2017-09-18] MEDS: DIGOXIN 250 MCG TAB PO SCH (09:25)
[2017-09-18] MEDS: LISINOPRIL 5 MG TAB PO SCH (09:25)
[2017-09-18] MEDS: POTASSIUM CHLORIDE ER 20 MEQ TAB.ER PO SCH (09:25)
[2017-09-18] MEDS: FUROSEMIDE 250 MG in SODIUM CHLORIDE 0.9% 225 ML IVP SCH (09:26)
[2017-09-18] MEDS: SPIRONOLACTONE 25 MG TAB PO SCH (09:28)
[2017-09-18] MEDS ORDERED: APIXABAN 5 MG TAB PO SCH (09:30)
[2017-09-18] MEDS: ATORVASTATIN 40 MG TAB PO SCH (09:38)
[2017-09-18] MEDS: METOPROLOL TARTRATE 12.5 MG TAB PO SCH ×2 (09:38→19:40)
--- NOTE | 2017-09-18 09:48 | P.CONS ---
History of Present Illness - Reason for Consult Consult date: 09/18/17 Ascites cirrhosis Requesting physician: Giuseppe Ferrara - History of Present Illness 77-year-old gentleman with a history of atrial fibrillation maintained on warfarin, diabetes mellitus, gout, cholecystectomy, and BPH presented with increasing abdominal distention over the last week as well as fatigue and shortness of breath. Consult requested for ascites. CT abdomen and pelvis reported a moderate right pleural effusion with cirrhotic morphology of the liver with abdominopelvic ascites. Echocardiogram ejection fraction 25-30% with global hypokinesia of the LV. Moderate to severe aortic stenosis severe pulmonary hypertension. BNP 16,300. White count 6.7. Hemoglobin 10.5. Platelet 213. INR 1.5. Total bilirubin 2.7. AST 23. ALT 19. Alkaline phosphatase 286. Albumin 4. BUN 73. Creatinine 1.1. Iron 51. No history of known liver disorders. No history of alcoholism or hepatitis. No history of ascites. Denies hematemesis hematochezia melena fever or chills. No history of EGD colonoscopy. Review of Systems Constitutional: Denies fever, chills, sweats, weight gain, or loss. Reports fatigue. HEENT: Negative for migraines, blurred vision or loss, earaches, drainage, tinnitus, oral mucosal lesions, dysphagia, or odynophagia. Cardiac: Negative for chest pain, arrhythmias, or palpitation. Respiratory: Admitted with shortness of breath. Negative for shortness of breath, hemoptysis, cough, or sputum production. Gastrointestinal: See HPI for pertinent findings. Genitourinary: Negative for hematuria, urgency, frequency, polyuria, dysuria, or penile discharge. Musculoskeletal: Negative for muscle aches, swelling, arthritis, and arthralgias. Neurologic: Negative for stroke or TIA. Endocrine: Negative for thyroid problems. Skin: Negative for rash or itching. Psychiatric: Negative history for depression and anxiety Past Medical History Past Medical History: Atrial Fibrillation, Diabetes Mellitus, Prostate Disorder Additional Past Medical History / Comment(s): Gout History of Any Multi-Drug Resistant Organisms: None Reported Past Surgical History: Cholecystectomy Additional Past Surgical History / Comment(s): bilateral cataract Past Anesthesia/Blood Transfusion Reactions: No Reported Reaction Past Psychological History: No Psychological Hx Reported Smoking Status: Former smoker Past Alcohol Use History: Rare Past Drug Use History: None Reported - Past Family History Father Family Medical History: No Reported History Additional Family Medical History / Comment(s): Father lived to be 91 yrs old. Mother Family Medical History: Cancer Additional Family Medical History / Comment(s): Mother had blood cancer and heart problems. She lived to be 83 yrs old. Medications and Allergies Home Medications Medication Instructions Recorded Confirmed Type Allopurinol [Zyloprim] 300 mg PO MOWEFR 09/17/17 09/17/17 History Digoxin [Lanoxin] 250 mcg PO DAILY 09/17/17 09/17/17 History Furosemide [Lasix] 40 mg PO BID 09/17/17 09/17/17 History Indomethacin [Indocin] 50 mg PO HS 09/17/17 09/17/17 History Insulin NPH Hum/Reg Insulin Hm 15 unit SQ AC-BID 09/17/17 09/17/17 History [NovoLIN 70-30 100 UNIT/ML VIAL] Lutein 10 mg PO HS 09/17/17 09/17/17 History Multivit-Min/FA/Lycopen/Lutein 1 tab PO DAILY 09/17/17 09/17/17 History [Centrum Silver Tablet] Potassium Chloride [Klor-Con 20] 20 meq PO DAILY 09/17/17 09/17/17 History Quinapril HCl [Accupril] 5 mg PO DAILY 09/17/17 09/17/17 History Tamsulosin HCl [Flomax] 0.4 mg PO HS 09/17/17 09/17/17 History Warfarin [Coumadin] 5 mg PO MOTUTHFRSA 09/17/17 09/17/17 History guaiFENesin-DM 600/30MG [Mucinex 1 tab PO Q12HR 09/17/17 09/17/17 History Dm] Allergies Allergy/AdvReac Type Severity Reaction Status Date / Time No Known Allergies Allergy Verified 09/17/17 09:11 Physical Exam Vitals: Vital Signs Temp Pulse Pulse Pulse Pulse Resp BP 09/18/17 04:00 97.8 F 81 18 09/18/17 03:58 18 09/18/17 00:00 98.2 F 72 72 18 09/17/17 20:00 98.3 F 94 94 18 09/17/17 18:04 68 68 68 16 09/17/17 17:07 118/62 09/17/17 17:05 97.4 F L 103 H 18 09/17/17 15:00 22 09/17/17 14:00 97.3 F L 84 18 111/73 09/17/17 11:06 90 16 09/17/17 10:19 94 16 140/72 09/17/17 09:46 98 101 H 93 09/17/17 08:49 98.5 F 95 18 123/74 BP BP BP Pulse Ox 09/18/17 04:00 114/61 99 09/18/17 03:58 09/18/17 00:00 117/58 99 09/17/17 20:00 120/62 98 09/17/17 18:04 111/69 99 09/17/17 17:07 09/17/17 17:05 99 09/17/17 15:00 96 09/17/17 14:00 97 09/17/17 11:06 09/17/17 10:19 96 09/17/17 09:46 139/75 140/72 149/65 09/17/17 08:49 99 Intake and Output 09/17/17 09/18/17 09/18/17 22:59 06:59 14:59 Other: Voiding Method Urinal # Voids 0 Weight 119.5 kg General appearance: The patient is alert, oriented, in no acute distress. HET: Head is normocephalic and atraumatic. Pupils are equal and reactive. Oropharynx is clear without lesions. Neck: Supple without lymphadenopathy. Trachea midline. Heart: S1 S2. Regular rate and rhythm. Lungs: No crackles or wheezes are heard. Abdomen: Soft, distended with moderate ascites nontender with bowel sounds. No peritoneal signs. No palpable organomegaly or masses. Extremities: +2 bilateral lower extremity edema with bilateral lower leg dressings edematous feet. Neurological: No focal deficits. Strength and sensation are grossly intact. Results CBC & Chem 7: 09/19/17 05:25 09/19/17 05:25 Labs: Abnormal Lab Results - Last 24 Hours (Table) 09/17/17 09/17/17 09/17/17 Range/Units 08:43 08:43 08:43 RBC 4.02 L (4.30-5.90) m/uL Hgb 10.5 L (13.0-17.5) gm/dL Hct 32.5 L (39.0-53.0) % RDW 17.8 H (11.5-15.5) % PT (9.0-12.0) sec INR (<1.2) BUN 73 H (9-20) mg/dL Glucose 53 L (74-99) mg/dL POC Glucose (mg/dL) (75-99) mg/dL Magnesium 2.5 H (1.6-2.3) mg/dL Total Bilirubin 2.7 H (0.2-1.3) mg/dL ALT 19 L (21-72) U/L Alkaline Phosphatase 286 H (38-126) U/L Troponin I 0.056 H* (0.000-0.034) ng/mL Urine Protein (Negative) 09/17/17 09/17/17 09/17/17 Range/Units 08:43 09:51 11:01 RBC (4.30-5.90) m/uL Hgb (13.0-17.5) gm/dL Hct (39.0-53.0) % RDW (11.5-15.5) % PT 13.7 H (9.0-12.0) sec INR 1.5 H (<1.2) BUN (9-20) mg/dL Glucose (74-99) mg/dL POC Glucose (mg/dL) 71 L (75-99) mg/dL Magnesium (1.6-2.3) mg/dL Total Bilirubin (0.2-1.3) mg/dL ALT (21-72) U/L Alkaline Phosphatase (38-126) U/L Troponin I (0.000-0.034) ng/mL Urine Protein Trace H (Negative) 09/17/17 09/17/17 Range/Units 12:28 20:52 RBC (4.30-5.90) m/uL Hgb (13.0-17.5) gm/dL Hct (39.0-53.0) % RDW (11.5-15.5) % PT (9.0-12.0) sec INR (<1.2) BUN (9-20) mg/dL Glucose (74-99) mg/dL POC Glucose (mg/dL) 111 H 137 H (75-99) mg/dL Magnesium (1.6-2.3) mg/dL Total Bilirubin (0.2-1.3) mg/dL ALT (21-72) U/L Alkaline Phosphatase (38-126) U/L Troponin I (0.000-0.034) ng/mL Urine Protein (Negative) CT scan - abdomen: report reviewed (Dr. Berry) Assessment and Plan (1) Cirrhosis Narrative/Plan: 77-year-old male admitted with shortness of breath worsening abdominal distention with radiographic imaging reporting a cirrhotic liver and abdominal pelvic ascites pleural effusion. Etiology of cirrhosis unclear at this time possible NAFLD possible ARMSTRONG possible autoimmune. Current Visit: Yes Status: Acute Code(s): K74.60 - UNSPECIFIED CIRRHOSIS OF LIVER SNOMED Code(s): 59182934 (2) Ascites Current Visit: Yes Status: Acute Code(s): R18.8 - OTHER ASCITES SNOMED Code(s): 559994391 (3) Elevated liver enzymes Narrative/Plan: Suspect secondary to passive venous congestion from underlying heart failure elevated BNP Current Visit: Yes Status: Acute Code(s): R74.8 - ABNORMAL LEVELS OF OTHER SERUM ENZYMES SNOMED Code(s): 478627162 (4) Diabetes mellitus Current Visit: Yes Status: Acute Code(s): E11.9 - TYPE 2 DIABETES MELLITUS WITHOUT COMPLICATIONS SNOMED Code(s): 51226020 (5) Warfarin-induced coagulopathy Current Visit: Yes Status: Acute Code(s): D68.32 - HEMORRHAGIC DISORD D/T EXTRINSIC CIRCULATING ANTICOAGULANTS; T45.515A - ADVERSE EFFECT OF ANTICOAGULANTS, INITIAL ENCOUNTER SNOMED Code(s): 78683166 (6) Atrial fibrillation Current Visit: Yes Status: Acute Code(s): I48.91 - UNSPECIFIED ATRIAL FIBRILLATION SNOMED Code(s): 97373094 (7) Dyspnea Current Visit: Yes Status: Acute Code(s): R06.00 - DYSPNEA, UNSPECIFIED SNOMED Code(s): 661106763 (8) Congestive heart failure Current Visit: Yes Status: Acute Code(s): I50.9 - HEART FAILURE, UNSPECIFIED SNOMED Code(s): 30460207 (9) Pleural effusion Current Visit: Yes Status: Acute Code(s): J90 - PLEURAL EFFUSION, NOT ELSEWHERE CLASSIFIED SNOMED Code(s): 12556123 Plan: 1. Diagnostic therapeutic paracentesis with cytology. Full serologic workup for chronic liver disease. Hepatitis screen. Patient to be started on intravenous Lasix drip. Hold anticoagulation until paracentesis is completed. Healthy heart low-salt diet. We'll follow closely with you. Thank you for this kind referral and the opportunity to participate in the care of your patient. This consultation was discussed with Dr. Berry. The impression and plan of care have been directed as dictated.
--- NOTE | 2017-09-18 11:16 | P.PN ---
Subjective Progress Note Date: 09/18/17 Patient reports improvement shortness of breath, reports normal diet, still complaining of abdominal distention. Has not been up and ambulatory thus far, he denies any history of congestive heart failure or PR. No acute events overnight, apparently patient is scheduled to have his abdominal paracentesis later this evening. Patient denies any fevers chills or night sweats Objective - Vital Signs Vital signs: Vital Signs Temp 97.5 F L 09/18/17 09:15 Pulse 83 09/18/17 09:15 Resp 18 09/18/17 09:15 BP 115/55 09/18/17 09:15 Pulse Ox 99 09/18/17 09:15 Intake & Output 09/17/17 09/18/17 09/18/17 18:59 06:59 18:59 Intake Total 818 Balance 818 Weight 123.196 kg 119.5 kg 119.5 kg Intake: Intake, IV Titration 20 Amount Furosemide 250 mg In 10 Sodium Chloride 0.9% 225 ml @ 10 MG/HR 10 mls/hr IVP .Q24H [facility] Rx#: [id number] Sodium Chloride 0.9% 1, 10 000 ml @ 75 mls/hr IV . [id number] [facility] Rx#:[id number] Oral 798 Other: Voiding Method Urinal Urinal # Voids 0 - Exam Constitutional: No acute distress, conversant, pleasant Eyes: Anicteric sclerae, moist conjunctiva, no lid-lag, PERRLA ENMT: NC/AT,Oropharynx clear, no erythema, exudates Neck:Supple, FROM, no masses, or JVD, No carotid bruits; No thyromegaly Lungs: Diminished in the bases with bibasilar crackles, increased tactile fremitus, Normal respiratory effort on 2 L nasal cannula, no accessory muscle use Cardiovascular: Irregularly irregular, No murmurs, gallops, or rubs no +2 pitting peripheral edema Abdominal: Soft Nontender, moderately distended, no guarding, no rebound or rigidity, Normoactive bowel sounds No hepatomegaly, No splenomegaly, No palpable mass No abdominal wall hernia noted Skin: Normal temperature, tone, texture, turgor, No induration No subcutaneous nodules, No rash, lesions, No ulcers Extremities:No digital cyanosis No clubbing, Pedal pulses intact and symmetrical Radial pulses intact and symmetrical Normal gait and station, No calf tenderness Psychiatric: Alert and oriented to person, place and time, Appropriate affect Intact judgement Neuro: Muscles Strength 5/5 in all 4 extremities, Sensation to light touch grossly present throughout, Cranial nerves II-XII grossly intact. No focal sensory deficits - Labs CBC & Chem 7: 09/18/17 05:51 09/18/17 05:51 Labs: Abnormal Lab Results - Last 24 Hours (Table) 09/17/17 09/17/17 09/17/17 Range/Units 08:42 08:43 09:51 RBC (4.30-5.90) m/uL Hgb (13.0-17.5) gm/dL Hct (39.0-53.0) % RDW (11.5-15.5) % BUN (9-20) mg/dL POC Glucose (mg/dL) (75-99) mg/dL Hemoglobin A1c 6.5 H (4.0-6.0) % Iron 51 L (65-175) ug/dL Total Bilirubin (0.2-1.3) mg/dL Alkaline Phosphatase (38-126) U/L Troponin I (0.000-0.034) ng/mL Total Protein (6.3-8.2) g/dL Albumin (3.5-5.0) g/dL Urine Protein Trace H (Negative) 09/17/17 09/17/17 09/17/17 Range/Units 11:01 12:28 20:52 RBC (4.30-5.90) m/uL Hgb (13.0-17.5) gm/dL Hct (39.0-53.0) % RDW (11.5-15.5) % BUN (9-20) mg/dL POC Glucose (mg/dL) 71 L 111 H 137 H (75-99) mg/dL Hemoglobin A1c (4.0-6.0) % Iron (65-175) ug/dL Total Bilirubin (0.2-1.3) mg/dL Alkaline Phosphatase (38-126) U/L Troponin I (0.000-0.034) ng/mL Total Protein (6.3-8.2) g/dL Albumin (3.5-5.0) g/dL Urine Protein (Negative) 09/18/17 09/18/1709/18/18 Range/Units 05:51 05:51 05:51 RBC 3.77 L (4.30-5.90) m/uL Hgb 9.7 L (13.0-17.5) gm/dL Hct 31.1 L (39.0-53.0) % RDW 18.1 H (11.5-15.5) % BUN 65 H (9-20) mg/dL POC Glucose (mg/dL) (75-99) mg/dL Hemoglobin A1c (4.0-6.0) % Iron (65-175) ug/dL Total Bilirubin 2.0 H (0.2-1.3) mg/dL Alkaline Phosphatase 224 H (38-126) U/L Troponin I 0.071 H* (0.000-0.034) ng/mL Total Protein 6.2 L (6.3-8.2) g/dL Albumin 3.1 L (3.5-5.0) g/dL Urine Protein (Negative) Assessment and Plan (1) Acute systolic CHF (congestive heart failure), NYHA class 4 Narrative/Plan: * Continue diuresis with IV Lasix drip with ongoing medical management continue Aldactone, lisinopril and low-dose beta raymon * ProBNP 16 300 , Echocardiogram ejection fraction of 25-30% severely dilated left atrium with moderate to severe aortic stenosis * Cardiology following appreciate recommendations Current Visit: Yes Status: Acute Code(s): I50.21 - ACUTE SYSTOLIC ( CONGESTIVE) HEART FAILURE SNOMED Code(s): 993209378 (2) Ascites Narrative/Plan: * GI consulted Dr. 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 fib rate is controlled * Continue digoxin, patient started on low dose beta raymon, INR subtherapeutic at 1.5 continue to hold onto coagulation until post procedure Current Visit: Yes Status: Acute Code(s): I48.91 - UNSPECIFIED ATRIAL FIBRILLATION SNOMED Code(s): 69113161 (5) Elevated troponin Current Visit: Yes Status: Acute Code(s): R74.8 - ABNORMAL LEVELS OF OTHER SERUM ENZYMES SNOMED Code(s): 337604145 (6) Hyperbilirubinemia Current Visit: Yes Status: Acute Code(s): E80.6 - OTHER DISORDERS OF BILIRUBIN METABOLISM SNOMED Code(s): 36871701 (7) Pleural effusion Current Visit: Yes Status: Acute Code(s): J90 - PLEURAL EFFUSION, NOT ELSEWHERE CLASSIFIED SNOMED Code(s): 03279741 Plan: Continue to follow anticipate discharge in the next 2-3 days, will consult PTOT
[2017-09-18 11:47] LABS: Glucose,Whole Blood 120 mg/dL (75-99)
[2017-09-18] MEDS: METOLAZONE 5 MG TAB PO SCH (12:00)
--- NOTE | 2017-09-18 13:23 | P.CNPUL ---
History of Present Illness Consult date: 09/18/17 Reason for consult: dyspnea, pleural effusion History of present illness: This is a 77-year-old male patient with known history of chronic atrial fibrillation, chronic lumbar degenerative disc disease with limited mobility and impaired performance and functional status at baseline. He is also known to have diabetes, gout, and prostate enlargement. The patient comes in with worsening shortness of breath and addition to generalized weakness and some dizziness. His chest x-ray showed low lung volumes and cardiomegaly and possibly some right-sided pleural effusion. EKG showed chronic atrial fibrillation with some nonspecific ST segment changes. Based on that the patient a CAT scan of the chest abdomen and pelvis and the CAT scan showed a small to moderate-sized right-sided pleural effusion in addition to some changes in the liver consistent with liver cirrhosis and ascites with anasarca. The patient also reports some increased lower oximetry edema and further investigation with an echo of the heart showed an ejection fraction of 25-30% and global hypokinesis of the left ventricle, RV was mildly enlarged, moderate to severe aortic stenosis, severe mitral regurgitation, severe tricuspid regurgitation, severe pulmonary hypertension was also noted. The patient is currently on 2 L of oxygen nasal cannula. His INR is at 1.5 as the patient is on warfarin. The patient's creatinine is at 1.1 and the patient was started on diuretics and he seems to be responding. He feels less short of breath compared to yesterday. He feels that the abdomen is also less distended. He is lower extremity edema is also improving. He was seen by cardiology. He was also seen by gastroenterology. He is not a drinker. No significant hepatitis. Most of alcoholism. No history of GI bleeding. The patient will have a paracentesis with the next 24 hours regarding his ascites. He is able to lay down to 20 bed elevation without any major difficulties. Review of Systems Constitutional: Denies fever, chills, sweats, weight gain, or loss. Reports fatigue. HEENT: Negative for migraines, blurred vision or loss, earaches, drainage, tinnitus, oral mucosal lesions, dysphagia, or odynophagia. Cardiac: Negative for chest pain, arrhythmias, or palpitation. Respiratory: Admitted with shortness of breath. Negative for shortness of breath, hemoptysis, cough, or sputum production. Gastrointestinal: See HPI for pertinent findings. At the same time the patient has noted some increased abdominal distention and girth consistent with ascites. Genitourinary: Negative for hematuria, urgency, frequency, polyuria, dysuria, or penile discharge. Musculoskeletal: Negative for muscle aches, swelling, arthritis, and arthralgias. There is increased lower extremities edema bilaterally Neurologic: Negative for stroke or TIA. Endocrine: Negative for thyroid problems. Skin: Negative for rash or itching. Psychiatric: Negative history for depression and anxiety Past Medical History Past Medical History: Atrial Fibrillation, Diabetes Mellitus, Prostate Disorder Additional Past Medical History / Comment(s): Gout History of Any Multi-Drug Resistant Organisms: None Reported Past Surgical History: Cholecystectomy Additional Past Surgical History / Comment(s): bilateral cataract Past Anesthesia/Blood Transfusion Reactions: No Reported Reaction Past Psychological History: No Psychological Hx Reported Smoking Status: Former smoker Past Alcohol Use History: Rare Past Drug Use History: None Reported - Past Family History Father Family Medical History: No Reported History Additional Family Medical History / Comment(s): Father lived to be 91 yrs old. Mother Family Medical History: Cancer Additional Family Medical History / Comment(s): Mother had blood cancer and heart problems. She lived to be 83 yrs old. Medications and Allergies Home Medications Medication Instructions Recorded Confirmed Type Allopurinol [Zyloprim] 300 mg PO MOWEFR 09/17/17 09/17/17 History Digoxin [Lanoxin] 250 mcg PO DAILY 09/17/17 09/17/17 History Furosemide [Lasix] 40 mg PO BID 09/17/17 09/17/17 History Indomethacin [Indocin] 50 mg PO HS 09/17/17 09/17/17 History Insulin NPH Hum/Reg Insulin Hm 15 unit SQ AC-BID 09/17/17 09/17/17 History [NovoLIN 70-30 100 UNIT/ML VIAL] Lutein 10 mg PO HS 09/17/17 09/17/17 History Multivit-Min/FA/Lycopen/Lutein 1 tab PO DAILY 09/17/17 09/17/17 History [Centrum Silver Tablet] Potassium Chloride [Klor-Con 20] 20 meq PO DAILY 09/17/17 09/17/17 History Quinapril HCl [Accupril] 5 mg PO DAILY 09/17/17 09/17/17 History Tamsulosin HCl [Flomax] 0.4 mg PO HS 09/17/17 09/17/17 History Warfarin [Coumadin] 5 mg PO MOTUTHFRSA 09/17/17 09/17/17 History guaiFENesin-DM 600/30MG [Mucinex 1 tab PO Q12HR 09/17/17 09/17/17 History Dm] Allergies Allergy/AdvReac Type Severity Reaction Status Date / Time No Known Allergies Allergy Verified 09/17/17 09:11 Physical Exam Vitals: Vital Signs Temp Pulse Pulse Pulse Pulse Resp BP 09/18/17 12:00 83 83 83 18 09/18/17 09:15 97.5 F L 83 83 83 16 09/18/17 07:30 09/18/17 04:00 97.8 F 81 18 09/18/17 03:58 18 09/18/17 00:00 98.2 F 72 72 18 09/17/17 20:00 98.3 F 94 94 18 09/17/17 18:04 68 68 68 16 09/17/17 17:07 118/62 09/17/17 17:05 97.4 F L 103 H 18 09/17/17 15:00 22 09/17/17 14:00 97.3 F L 84 18 111/73 BP BP Pulse Ox 09/18/17 12:00 09/18/17 09:15 115/55 99 09/18/17 07:30 99 09/18/17 04:00 114/61 99 09/18/17 03:58 09/18/17 00:00 117/58 99 09/17/17 20:00 120/62 98 09/17/17 18:04 111/69 99 09/17/17 17:07 09/17/17 17:05 99 09/17/17 15:00 96 09/17/17 14:00 97 Intake and Output 09/17/17 09/18/17 09/18/17 22:59 06:59 14:59 Intake Total 818 Balance 818 Intake: Intake, IV Titration 20 Amount Furosemide 250 mg In 10 Sodium Chloride 0.9% 225 ml @ 10 MG/HR 10 mls/hr IVP .Q24H [facility] Rx#: [id number] Sodium Chloride 0.9% 1, 10 000 ml @ 75 mls/hr IV . [id number] [facility] Rx#:[id number] Oral 798 Other: Voiding Method Urinal Urinal # Voids 0 Weight 119.5 kg 119.5 kg General appearance: The patient is alert, oriented, in no acute distress. The patient does not seem to be in acute respiratory distress. No use of excess amount of the breathing. HET: Head is normocephalic and atraumatic. Pupils are equal and reactive. Oropharynx is clear without lesions. Neck: Supple without lymphadenopathy. Trachea midline. There is significant jugular venous distention bilaterally. Neck is overall supple and there is no goiter or neck masses. Heart: The patient has a harsh systolic ejection murmur grade 4/6 heard throughout the precordium. The rhythm is irregular. The murmur is radiating to his neck. No right ventricular heave or thrill. Lungs: No crackles or wheezes are heard. There is diminished breath on the right lung base consistent with his underlying pleural effusion. Abdomen: Soft, distended with moderate ascites nontender with bowel sounds. No peritoneal signs. No palpable organomegaly or masses. Extremities: +1 bilateral lower extremity edema with bilateral lower leg dressings edematous feet. Neurological: No focal deficits. Strength and sensation are grossly intact. Examination of the skin revealed no evidence of significant rashes, suspicious appearing nevi or other concerning lesions. Psychiatric the patient has normal mood and affect Results - Laboratory Findings CBC and BMP: 09/18/17 05:51 09/18/17 05:51 PT/INR, D-dimer PT 13.7 sec (9.0-12.0) H 09/17/17 08:43 INR 1.5 (<1.2) H 09/17/17 08:43 Abnormal lab findings: Abnormal Labs 09/17/17 09/17/17 09/17/17 08:42 08:43 08:43 RBC 4.02 L Hgb 10.5 L Hct 32.5 L RDW 17.8 H PT INR BUN Glucose POC Glucose (mg/dL) Hemoglobin A1c 6.5 H Magnesium Iron Total Bilirubin ALT Alkaline Phosphatase Troponin I 0.056 H* Total Protein Albumin Urine Protein 09/17/17 09/17/17 09/17/17 08:43 08:43 08:43 RBC Hgb Hct RDW PT 13.7 H INR 1.5 H BUN 73 H Glucose 53 L POC Glucose (mg/dL) Hemoglobin A1c Magnesium 2.5 H Iron 51 L Total Bilirubin 2.7 H ALT 19 L Alkaline Phosphatase 286 H Troponin I Total Protein Albumin Urine Protein 09/17/17 09/17/17 09/17/17 09:51 11:01 12:28 RBC Hgb Hct RDW PT INR BUN Glucose POC Glucose (mg/dL) 71 L 111 H Hemoglobin A1c Magnesium Iron Total Bilirubin ALT Alkaline Phosphatase Troponin I Total Protein Albumin Urine Protein Trace H 09/17/17 09/18/17 09/18/17 20:52 05:51 05:51 RBC 3.77 L Hgb 9.7 L Hct 31.1 L RDW 18.1 H PT INR BUN 65 H Glucose POC Glucose (mg/dL) 137 H Hemoglobin A1c Magnesium Iron Total Bilirubin 2.0 H ALT Alkaline Phosphatase 224 H Troponin I Total Protein 6.2 L Albumin 3.1 L Urine Protein 09/18/17 09/18/17 05:51 11:45 RBC Hgb Hct RDW PT INR BUN Glucose POC Glucose (mg/dL) 120 H Hemoglobin A1c Magnesium Iron Total Bilirubin ALT Alkaline Phosphatase Troponin I 0.071 H* Total Protein Albumin Urine Protein - Diagnostic Findings Chest x-ray: image reviewed CT scan - chest: image reviewed Assessment and Plan Plan: Assessment 1 right-sided pleural effusion likely on the basis of congestion heart failure. 2 CHF with impaired left a ejection fraction of 25%. In addition the patient has severe aortic stenosis, mitral regurgitation, severe tricuspid regurgitation secondary pulmonary hypertension. 3 chronic atrial fibrillation 4 ascites and anasarca secondary to above 5 questionable liver cirrhosis although the findings could be also related to cardiac cirrhosis 6 long-term anticoagulation with warfarin and the patient's INR is at 1.5 6 diabetes mellitus 7 gout 8 BPH Plan The pleural effusions most likely related to his underlying cardiac disease. The patient is likely CHF with obvious signs of biventricular failure. The patient has diffuse anasarca. The patient will need diuretics and the patient has been started on Lasix drip at 10 mg an hour. He was also started on Zaroxolyn 5 mg by mouth daily. He was also started on Aldactone 100 mg by mouth daily. Monitor electrolytes. Monitor fluid balance. Proceed with abdominal ascitic fluid paracentesis to give the patient isn't symptomatic relieve and the fluid can be sent for evaluation. Pleural effusion may be drained at a later stage if the patient continues to BE short of breath. We'll continue to follow.
[2017-09-18 16:46] LABS: Glucose,Whole Blood 156 mg/dL (75-99)
[2017-09-18 18:43] LABS: Hepatitis A Antibody IgM Non-Reactive (Non-Reactive); Hepatitis B Core IgM Non-Reactive (Non-Reactive)
[2017-09-18] MEDS: TAMSULOSIN 0.4 MG CAP.ER.24H PO SCH (19:40)
[2017-09-18 19:55] LABS: Calcium 8.6 mg/dL (8.4-10.2); Magnesium 2.4 mg/dL (1.6-2.3); Potassium 4.6 mmol/L (3.5-5.1)
[2017-09-18 21:02] LABS: Glucose,Whole Blood 140 mg/dL (75-99)
[2017-09-19 03:30] LABS: Glucose,Whole Blood 90 mg/dL (75-99)
[2017-09-19 06:01] LABS: Glucose,Whole Blood 79 mg/dL (75-99)
[2017-09-19] MEDS: INSULIN NPH/REG INSULIN 70/30 300 UNIT/3 ML VIAL SQ SCH ×2 (06:06→17:42)
[2017-09-19] MEDS: FUROSEMIDE 250 MG in SODIUM CHLORIDE 0.9% 225 ML IVP SCH (06:22)
[2017-09-19 06:52] LABS: Anisocytosis Slight; Basophils # (A) 0.1 k/uL (0-0.2); Basophils % (A) 1 %; Eosinophils # (A) 0.2 k/uL (0-0.7); Eosinophils % (A) 3 %; HCT 31.2 % (39.0-53.0); HGB 9.5 gm/dL (13.0-17.5); Hypochromasia Slight; Lymphocytes # (A) 1.4 k/uL (1.0-4.8); Lymphocytes % (A) 21 %; MCH 25.1 pg (25.0-35.0); MCHC 30.5 g/dL (31.0-37.0); MCV 82.4 fL (80.0-100.0); Mean Platelet Volume 6.5; Monocytes # (A) 0.6 k/uL (0-1.0); Monocytes % (A) 8 %; Neutrophils # (A) 4.3 k/uL (1.3-7.7); Neutrophils % (A) 65 %; Platelet Count 176 k/uL (150-450); RBC 3.79 m/uL (4.30-5.90); RDW 17.8 % (11.5-15.5); WBC 6.7 k/uL (3.8-10.6)
[2017-09-19] MEDS: SPIRONOLACTONE 25 MG TAB PO SCH (08:31)
[2017-09-19] MEDS: POTASSIUM CHLORIDE ER 20 MEQ TAB.ER PO SCH (08:31)
[2017-09-19] MEDS: ATORVASTATIN 40 MG TAB PO SCH (08:32)
[2017-09-19] MEDS: ALLOPURINOL 300 MG TAB PO SCH (08:32)
[2017-09-19] MEDS: METOPROLOL TARTRATE 12.5 MG TAB PO SCH ×2 (08:32→20:15)
[2017-09-19] MEDS: METOLAZONE 5 MG TAB PO SCH (08:32)
[2017-09-19] MEDS: LISINOPRIL 5 MG TAB PO SCH (08:32)
[2017-09-19 09:29] LABS: INR 1.6 (<1.2); Prothrombin Time 14.6 sec (9.0-12.0)
--- NOTE | 2017-09-19 10:16 | P.PN ---
Subjective Progress Note Date: 09/19/17 Patient reports improvement shortness of breath, reports normal appetite, still complaining of abdominal distention. apparently patient is scheduled to have his abdominal paracentesis.. Patient has neuropathy and would like to restart his gabapentin Patient denies any fevers chills or night sweats.No acute events overnight. Objective - Vital Signs Vital signs: Vital Signs Temp 97.4 F L 09/19/17 08:00 Pulse 67 09/19/17 08:00 Resp 18 09/19/17 08:00 BP 92/51 09/19/17 08:00 Pulse Ox 98 09/19/17 08:00 Intake & Output 09/18/17 09/19/17 09/19/17 18:59 06:59 18:59 Intake Total 1818 809.333 490 Output Total 950 1125 Balance 868 -315.667 490 Weight 119.5 kg 118.9 kg Intake: Intake, IV Titration 20 209.333 Amount Furosemide 250 mg In 10 209.333 Sodium Chloride 0.9% 225 ml @ 10 MG/HR 10 mls/hr IVP .Q24H [facility] Rx#: [id number] Sodium Chloride 0.9% 1, 10 000 ml @ 75 mls/hr IV . [id number] ONE Rx#:[id number] Oral 1798 600 490 Output: Urine 950 1125 Other: Voiding Method Urinal Urinal # Voids 1 # Bowel Movements 1 - Exam Constitutional: No acute distress, conversant, pleasant Eyes: Anicteric sclerae, moist conjunctiva, no lid-lag, PERRLA ENMT: NC/AT,Oropharynx clear, no erythema, exudates Neck:Supple, FROM, no masses, or JVD, No carotid bruits; No thyromegaly Lungs: Diminished in the bases with bibasilar crackles, increased tactile fremitus, Normal respiratory effort on 2 L nasal cannula, no accessory muscle use Cardiovascular: Irregularly irregular, No murmurs, gallops, or rubs no +2 pitting peripheral edema Abdominal: Soft Nontender, moderately distended, no guarding, no rebound or rigidity, Normoactive bowel sounds No hepatomegaly, No splenomegaly, No palpable mass No abdominal wall hernia noted Skin: Normal temperature, tone, texture, turgor, No induration No subcutaneous nodules, No rash, lesions, No ulcers Extremities:No digital cyanosis No clubbing, Pedal pulses intact and symmetrical Radial pulses intact and symmetrical Normal gait and station, No calf tenderness Psychiatric: Alert and oriented to person, place and time, Appropriate affect Intact judgement Neuro: Muscles Strength 5/5 in all 4 extremities, Sensation to light touch grossly present throughout, Cranial nerves II-XII grossly intact. No focal sensory deficits - Labs CBC & Chem 7: 09/19/17 05:25 09/18/17 19:20 Labs: Abnormal Lab Results - Last 24 Hours (Table) 09/18/17 09/18/17 09/18/17 Range/Units 11:45 14:17 16:44 RBC (4.30-5.90) m/uL Hgb (13.0-17.5) gm/dL Hct (39.0-53.0) % MCHC (31.0-37.0) g/dL RDW (11.5-15.5) % PT (9.0-12.0) sec INR (<1.2) BUN (9-20) mg/dL Creatinine (0.66-1.25) mg/dL Glucose (74-99) mg/dL POC Glucose (mg/dL) 120 H 156 H (75-99) mg/dL Magnesium (1.6-2.3) mg/dL Troponin I 0.054 H* (0.000-0.034) ng/mL 09/18/17 09/18/17 09/18/17 Range/Units 19:20 19:20 21:00 RBC (4.30-5.90) m/uL Hgb (13.0-17.5) gm/dL Hct (39.0-53.0) % MCHC (31.0-37.0) g/dL RDW (11.5-15.5) % PT (9.0-12.0) sec INR (<1.2) BUN 66 H (9-20) mg/dL Creatinine 1.30 H (0.66-1.25) mg/dL Glucose 157 H (74-99) mg/dL POC Glucose (mg/dL) 140 H (75-99) mg/dL Magnesium 2.4 H (1.6-2.3) mg/dL Troponin I 0.056 H* (0.000-0.034) ng/mL 09/19/17 09/19/17 Range/Units 05:25 09:09 RBC 3.79 L (4.30-5.90) m/uL Hgb 9.5 L (13.0-17.5) gm/dL Hct 31.2 L (39.0-53.0) % MCHC 30.5 L (31.0-37.0) g/dL RDW 17.8 H (11.5-15.5) % PT 14.6 H (9.0-12.0) sec INR 1.6 H (<1.2) BUN (9-20) mg/dL Creatinine (0.66-1.25) mg/dL Glucose (74-99) mg/dL POC Glucose (mg/dL) (75-99) mg/dL Magnesium (1.6-2.3) mg/dL Troponin I (0.000-0.034) ng/mL Assessment and Plan (1) Acute systolic CHF (congestive heart failure), NYHA class 4 Narrative/Plan: * Continue diuresis with IV Lasix drip and metalozone with ongoing medical management continue Aldactone, lisinopril and low-dose beta raymon * ProBNP 16 300 , Echocardiogram ejection fraction of 25-30% severely dilated left atrium with moderate to severe aortic stenosis * Cardiology following appreciate recommendations Current Visit: Yes Status: Acute Code(s): I50.21 - ACUTE SYSTOLIC ( CONGESTIVE) HEART FAILURE SNOMED Code(s): 398425872 (2) Ascites Narrative/Plan: * GI consulted Dr. 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 fib rate is controlled * Continue digoxin, patient started on low dose beta raymon, INR subtherapeutic at 1.5 continue to hold onto coagulation until post procedure Current Visit: Yes Status: Acute Code(s): I48.91 - UNSPECIFIED ATRIAL FIBRILLATION SNOMED Code(s): 16472584 (5) Elevated troponin Current Visit: Yes Status: Acute Code(s): R74.8 - ABNORMAL LEVELS OF OTHER SERUM ENZYMES SNOMED Code(s): 797595850 (6) Hyperbilirubinemia Current Visit: Yes Status: Acute Code(s): E80.6 - OTHER DISORDERS OF BILIRUBIN METABOLISM SNOMED Code(s): 41113169 (7) Pleural effusion Current Visit: Yes Status: Acute Code(s): J90 - PLEURAL EFFUSION, NOT ELSEWHERE CLASSIFIED SNOMED Code(s): 01013608 Plan: Continue to follow anticipate discharge in the next 2-3 days
[2017-09-19 11:48] LABS: Glucose,Whole Blood 152 mg/dL (75-99)
[2017-09-19] MEDS: GABAPENTIN 300 MG CAP PO SCH (11:56)
[2017-09-19 12:13] LABS: Albumin 3.4 g/dL (3.5-5.0); Calcium 8.5 mg/dL (8.4-10.2); Potassium 4.3 mmol/L (3.5-5.1); Total Bilirubin 1.7 mg/dL (0.2-1.3); Total Protein 6.5 g/dL (6.3-8.2)
--- NOTE | 2017-09-19 13:15 | P.PN ---
Subjective Progress Note Date: 09/19/17 Principal diagnosis: Right-sided pleural effusion suspect secondary to congestive heart failure. This is a 77-year-old male patient with known history of chronic atrial fibrillation, chronic lumbar degenerative disc disease with limited mobility and impaired performance and functional status at baseline. He is also known to have diabetes, gout, and prostate enlargement. The patient comes in with worsening shortness of breath and addition to generalized weakness and some dizziness. His chest x-ray showed low lung volumes and cardiomegaly and possibly some right-sided pleural effusion. EKG showed chronic atrial fibrillation with some nonspecific ST segment changes. Based on that the patient a CAT scan of the chest abdomen and pelvis and the CAT scan showed a small to moderate-sized right-sided pleural effusion in addition to some changes in the liver consistent with liver cirrhosis and ascites with anasarca. The patient also reports some increased lower oximetry edema and further investigation with an echo of the heart showed an ejection fraction of 25-30% and global hypokinesis of the left ventricle, RV was mildly enlarged, moderate to severe aortic stenosis, severe mitral regurgitation, severe tricuspid regurgitation, severe pulmonary hypertension was also noted. The patient is currently on 2 L of oxygen nasal cannula. His INR is at 1.5 as the patient is on warfarin. The patient's creatinine is at 1.1 and the patient was started on diuretics and he seems to be responding. He feels less short of breath compared to yesterday. He feels that the abdomen is also less distended. He is lower extremity edema is also improving. He was seen by cardiology. He was also seen by gastroenterology. He is not a drinker. No significant hepatitis. Most of alcoholism. No history of GI bleeding. The patient will have a paracentesis with the next 24 hours regarding his ascites. He is able to lay down to 20 bed elevation without any major difficulties. The patient seen again today 09/19/2017 in follow-up on the selective care unit. He is currently sitting up at bedside. He is awake and alert in no acute distress. His abdomen remains quite distended. He is still this moment with minimal exertion. He is maintaining O2 saturations in the upper 90s on 1.5 L/m per nasal cannula. He is currently afebrile. Hemodynamically stable. INR is 1.6 today. IR will possibly do a paracentesis tomorrow. He is voiding well and remains in a negative balance. His weight is down 1 kg. Objective - Vital Signs Vital signs: Vital Signs Temp 96.2 F L 09/19/17 12:00 Pulse 75 09/19/17 12:00 Resp 18 09/19/17 12:00 BP 103/61 09/19/17 12:00 Pulse Ox 99 09/19/17 12:00 Intake & Output 09/18/17 09/19/17 09/19/17 18:59 06:59 18:59 Intake Total 1818 809.333 490 Output Total 950 1125 Balance 868 -315.667 490 Weight 119.5 kg 118.9 kg Intake: Intake, IV Titration 20 209.333 Amount Furosemide 250 mg In 10 209.333 Sodium Chloride 0.9% 225 ml @ 10 MG/HR 10 mls/hr IVP .Q24H [facility] Rx#: [id number] Sodium Chloride 0.9% 1, 10 000 ml @ 75 mls/hr IV . [id number] [facility] Rx#:[id number] Oral 1798 600 490 Output: Urine 950 1125 Other: Voiding Method Urinal Urinal # Voids 1 # Bowel Movements 1 - Exam General appearance: The patient is alert, oriented, in no acute distress. The patient does not seem to be in acute respiratory distress. No use of excess amount of the breathing. HET: Head is normocephalic and atraumatic. Pupils are equal and reactive. Oropharynx is clear without lesions. Neck: Supple without lymphadenopathy. Trachea midline. There is significant jugular venous distention bilaterally. Neck is overall supple and there is no goiter or neck masses. Heart: The patient has a harsh systolic ejection murmur grade 4/6 heard throughout the precordium. The rhythm is irregular. The murmur is radiating to his neck. No right ventricular heave or thrill. Lungs: No crackles or wheezes are heard. There is diminished breath on the right lung base consistent with his underlying pleural effusion. Abdomen: Soft, distended with moderate ascites nontender with bowel sounds. No peritoneal signs. No palpable organomegaly or masses. Extremities: +1 bilateral lower extremity edema with bilateral lower leg dressings edematous feet. Neurological: No focal deficits. Strength and sensation are grossly intact. Examination of the skin revealed no evidence of significant rashes, suspicious appearing nevi or other concerning lesions. Psychiatric the patient has normal mood and affect - Labs CBC & Chem 7: 09/19/17 05:25 09/19/17 05:25 Labs: Abnormal Lab Results - Last 24 Hours (Table) 09/18/17 09/18/17 09/18/17 Range/Units 14:17 16:44 19:20 RBC (4.30-5.90) m/uL Hgb (13.0-17.5) gm/dL Hct (39.0-53.0) % MCHC (31.0-37.0) g/dL RDW (11.5-15.5) % PT (9.0-12.0) sec INR (<1.2) BUN (9-20) mg/dL Creatinine (0.66-1.25) mg/dL Glucose (74-99) mg/dL POC Glucose (mg/dL) 156 H (75-99) mg/dL Magnesium (1.6-2.3) mg/dL Total Bilirubin (0.2-1.3) mg/dL Alkaline Phosphatase (38-126) U/L Troponin I 0.054 H* 0.056 H* (0.000-0.034) ng/mL Albumin (3.5-5.0) g/dL 09/18/17 09/18/17 09/19/17 Range/Units 19:20 21:00 05:25 RBC 3.79 L (4.30-5.90) m/uL Hgb 9.5 L (13.0-17.5) gm/dL Hct 31.2 L (39.0-53.0) % MCHC 30.5 L (31.0-37.0) g/dL RDW 17.8 H (11.5-15.5) % PT (9.0-12.0) sec INR (<1.2) BUN 66 H (9-20) mg/dL Creatinine 1.30 H (0.66-1.25) mg/dL Glucose 157 H (74-99) mg/dL POC Glucose (mg/dL) 140 H (75-99) mg/dL Magnesium 2.4 H (1.6-2.3) mg/dL Total Bilirubin (0.2-1.3) mg/dL Alkaline Phosphatase (38-126) U/L Troponin I (0.000-0.034) ng/mL Albumin (3.5-5.0) g/dL 09/19/17 09/19/17 09/19/17 Range/Units 05:25 09:09 11:45 RBC (4.30-5.90) m/uL Hgb (13.0-17.5) gm/dL Hct (39.0-53.0) % MCHC (31.0-37.0) g/dL RDW (11.5-15.5) % PT 14.6 H (9.0-12.0) sec INR 1.6 H (<1.2) BUN 69 H (9-20) mg/dL Creatinine 1.35 H (0.66-1.25) mg/dL Glucose 61 L (74-99) mg/dL POC Glucose (mg/dL) 152 H (75-99) mg/dL Magnesium (1.6-2.3) mg/dL Total Bilirubin 1.7 H (0.2-1.3) mg/dL Alkaline Phosphatase 228 H (38-126) U/L Troponin I (0.000-0.034) ng/mL Albumin 3.4 L (3.5-5.0) g/dL Assessment and Plan Assessment: Assessment 1 right-sided pleural effusion likely on the basis of congestion heart failure. 2 CHF with impaired left a ejection fraction of 25%. In addition the patient has severe aortic stenosis, mitral regurgitation, severe tricuspid regurgitation secondary pulmonary hypertension. 3 chronic atrial fibrillation 4 ascites and anasarca secondary to above 5 questionable liver cirrhosis although the findings could be also related to cardiac cirrhosis 6 long-term anticoagulation with warfarin and the patient's INR is at 1.6 6 diabetes mellitus 7 gout 8 BPH Plan 1 The patient was seen and evaluated by Dr. Armas. The patient's INR is 1.6 and the plan is for possible paracentesis tomorrow. He would prefer to do a thoracentesis on the right after the paracentesis if the patient does not get significant relief. He remains on a Lasix drip at 10 mg per hour. Continue Zaroxolyn and Aldactone. Continue to hold the Eliquis/warfarin. We will continue to follow and make further recommendations based on his clinical status. I, the cosigning physician, performed a history & physical examination of the patient. Lungs sounds with crackles more so on the right. Diminished. Maintaining good O2 saturations in the 90s on 1.5 L/m per nasal cannula. I discussed the assessment and plan of care with my nurse practitioner, Mackenzie Plata. I attest to the above note as dictated by her.
--- NOTE | 2017-09-19 14:29 | P.PN ---
Subjective Progress Note Date: 09/19/17 This is a 77-year-old gentleman with history of chronic persistent atrial fibrillation, hypertension, diabetes, who presented to the hospital with symptoms of dizziness, shortness of breath, significant swelling in his abdomen and bilateral lower extremities. Apparently the symptoms of shortness of breath and dizziness have only been going on for the past 2-3 days according to the patient, but the swelling in his abdomen has been noticeable for some time. Patient denies any history of significant cardiac problems, no myocardial infarction in the past, never been told to have any congestive cardiac failure. Chest x-ray performed on admission here showed low lung volumes and cardiomegaly with patchy bibasilar atelectasis. KUB revealed overall nonobstructive bowel gas pattern. EKG showed atrial fibrillation with occasional PVC, nonspecific ST-T wave changes. CT of the chest, abdomen, and pelvis revealed a moderate right pleural effusion. Cirrhotic morphology of the liver with abdominopelvic ascites and anasarca. No splenomegaly or gross evidence of splenic varices. Enlarged main pulmonary artery suggesting underlying pulmonary arterial hypertension and a scant amount of pericardial effusion. An echocardiogram with Doppler study was performed which revealed an ejection fraction of 25-30%. Global hypokinesia of the LV. RV mildly enlarged. Moderate to severe aortic stenosis, severe mitral regurg, severe tricuspid regurg and severe pulmonary hypertension. Blood pressure on arrival 122/70 with a heart rate in the 90s, 99% on 2 L of oxygen. Laboratory data was reviewed, white blood cell count is normal, hemoglobin on admission 10.5, 9.7 this morning. Platelet count 163, sodium 142, potassium 3.9, BUN 65, creatinine 1.1. Magnesium level 2.5. Iron level 51, total bilirubin 2.7 on admission 2.0 this morning. Alkaline phosphatase 286 on admission 224 this morning. INR on admission 1.5. Troponin 0.056, BNP level 16,300. Patient's weight on admission was documented to be 123, it is 119 this morning. He does state that he was urinating a significant amount through the night last night. He is not on IV Lasix. At the time of my examination this morning, patient continues to have significant swelling of the abdomen and edema of the lower extremities. He does state overall that he feels his breathing is mildly improved. Telemetry strips show atrial fibrillation with frequent PVCs. 09/19/2017 Patient was seen and examined this morning, he does state overall that he feels his breathing is improving. He is scheduled for paracentesis tomorrow. Weight today is down 1 kg, creatinine 1.3. Echocardiogram with Doppler study revealed an ejection fraction of 25-30%. Moderate to severe aortic stenosis, severe mitral regurgitation and severe tricuspid regurgitation. Objective - Vital Signs Vital signs: Vital Signs Temp 96.2 F L 09/19/17 12:00 Pulse 75 09/19/17 12:00 Resp 18 09/19/17 12:00 BP 103/61 09/19/17 12:00 Pulse Ox 99 09/19/17 12:00 Intake & Output 09/18/17 09/19/17 09/19/17 18:59 06:59 18:59 Intake Total 1818 809.333 608 Output Total 950 1125 Balance 868 -315.667 608 Weight 119.5 kg 118.9 kg Intake: Intake, IV Titration 20 209.333 Amount Furosemide 250 mg In 10 209.333 Sodium Chloride 0.9% 225 ml @ 10 MG/HR 10 mls/hr IVP .Q24H [facility] Rx#: [id number] Sodium Chloride 0.9% 1, 10 000 ml @ 75 mls/hr IV . [id number] [facility] Rx#:[id number] Oral 1798 600 608 Output: Urine 950 1125 Other: Voiding Method Urinal Urinal # Voids 1 # Bowel Movements 1 - Exam PHYSICAL EXAMINATION: HEENT: Head is atraumatic, normocephalic. Pupils equal, round. Neck is supple. There is elevated jugular venous pressure up to the angle of the jaw. HEART EXAMINATION: Heart S1-S2 not audible, systolic ejection murmur heard CHEST EXAMINATION: Lungs reveal diminished air entry bilaterally, on the right mcfp up. ABDOMEN: [ Soft, distended, positive thrill. Bowel sounds are heard. EXTREMITIES:[ 1+ peripheral pulses with 1-2+ evidence of peripheral edema patient does have a dressing in place to the right and lower extremity, ulcerated weeping area underneath. NEUROLOGIC patient is awake, alert and oriented -3. - Labs CBC & Chem 7: 09/19/17 05:25 09/19/17 05:25 Labs: Abnormal Lab Results - Last 24 Hours (Table) 09/18/17 09/18/17 09/18/17 Range/Units 14:17 16:44 19:20 RBC (4.30-5.90) m/uL Hgb (13.0-17.5) gm/dL Hct (39.0-53.0) % MCHC (31.0-37.0) g/dL RDW (11.5-15.5) % PT (9.0-12.0) sec INR (<1.2) BUN (9-20) mg/dL Creatinine (0.66-1.25) mg/dL Glucose (74-99) mg/dL POC Glucose (mg/dL) 156 H (75-99) mg/dL Magnesium (1.6-2.3) mg/dL Total Bilirubin (0.2-1.3) mg/dL Alkaline Phosphatase (38-126) U/L Troponin I 0.054 H* 0.056 H* (0.000-0.034) ng/mL Albumin (3.5-5.0) g/dL 09/18/17 09/18/17 09/19/17 Range/Units 19:20 21:00 05:25 RBC 3.79 L (4.30-5.90) m/uL Hgb 9.5 L (13.0-17.5) gm/dL Hct 31.2 L (39.0-53.0) % MCHC 30.5 L (31.0-37.0) g/dL RDW 17.8 H (11.5-15.5) % PT (9.0-12.0) sec INR (<1.2) BUN 66 H (9-20) mg/dL Creatinine 1.30 H (0.66-1.25) mg/dL Glucose 157 H (74-99) mg/dL POC Glucose (mg/dL) 140 H (75-99) mg/dL Magnesium 2.4 H (1.6-2.3) mg/dL Total Bilirubin (0.2-1.3) mg/dL Alkaline Phosphatase (38-126) U/L Troponin I (0.000-0.034) ng/mL Albumin (3.5-5.0) g/dL 09/19/17 09/19/17 09/19/17 Range/Units 05:25 09:09 11:45 RBC (4.30-5.90) m/uL Hgb (13.0-17.5) gm/dL Hct (39.0-53.0) % MCHC (31.0-37.0) g/dL RDW (11.5-15.5) % PT 14.6 H (9.0-12.0) sec INR 1.6 H (<1.2) BUN 69 H (9-20) mg/dL Creatinine 1.35 H (0.66-1.25) mg/dL Glucose 61 L (74-99) mg/dL POC Glucose (mg/dL) 152 H (75-99) mg/dL Magnesium (1.6-2.3) mg/dL Total Bilirubin 1.7 H (0.2-1.3) mg/dL Alkaline Phosphatase 228 H (38-126) U/L Troponin I (0.000-0.034) ng/mL Albumin 3.4 L (3.5-5.0) g/dL Assessment and Plan Plan: Assessment and plan #1 dyspnea, evidence of congestive heart failure, systolic, acute on chronic. Echocardiogram with Doppler study reveals an ejection fraction of 25-30%, moderate to severe aortic stenosis, severe mitral regurg and severe tricuspid regurg noted. Severe pulmonary hypertension. Evidence of significant right- sided pleural effusion. #2 chronic persistent atrial fibrillation, on Coumadin for anticoagulation, INR and admission 1.6. Coumadin continues to be on hold, patient is scheduled for paracentesis tomorrow. #3 hypertension, according to the significant other, blood pressure has been running low at home, patient had been on metoprolol which was stopped because of hypotension by the patient. #4 diabetes #5 ascites #6 abnormal troponin, likely secondary to supply and demand mismatch #7 anemia Plan Cardiology's perspective, we will continue the current Lasix drip. We will continue to hold the Coumadin as the patient is scheduled tomorrow to undergo paracentesis. DNP note has been reviewed, I agree with a documented findings and plan of care. Patient was seen and examined.
[2017-09-19 16:39] LABS: Glucose,Whole Blood 145 mg/dL (75-99)
[2017-09-19] MEDS: TAMSULOSIN 0.4 MG CAP.ER.24H PO SCH (20:16)
[2017-09-19 20:43] LABS: Protein, Total 6.7 g/dL (6.2-8.2)
[2017-09-19 20:52] LABS: Glucose,Whole Blood 163 mg/dL (75-99)
[2017-09-19 20:56] LABS: Alpha Fetoprotein, Tumor Mkr <1.3 ng/mL (0.0-7.9)
[2017-09-20] MEDS: FUROSEMIDE 250 MG in SODIUM CHLORIDE 0.9% 225 ML IVP SCH (04:44)
[2017-09-20 05:48] LABS: Glucose,Whole Blood 97 mg/dL (75-99)
[2017-09-20] MEDS: INSULIN NPH/REG INSULIN 70/30 300 UNIT/3 ML VIAL SQ SCH ×2 (05:50→17:40)
[2017-09-20] MEDS ORDERED: LIDOCAINE (PF) 10 MG/ML 5ML AMP SQ STA (09:28)
--- NOTE | 2017-09-20 09:56 | P.PN ---
Subjective Progress Note Date: 09/20/17 Patient reports improvement shortness of breath, reports normal appetite, still complaining of abdominal distention. apparently patient is scheduled to have his abdominal paracentesis this am. Apparently the procedures been delayed by the fact that the patient got eliquis as on Sunday Patient has neuropathy and would like to restart his gabapentin Patient denies any fevers chills or night sweats.No acute events overnight. Patient complains of left shoulder pain and requests a referral for intra-articular steroid shot. Left requesting a rehab consultation Objective - Vital Signs Vital signs: Vital Signs Temp 97.5 F L 09/20/17 04:00 Pulse 82 09/20/17 09:43 Resp 16 09/20/17 09:43 BP 87/39 09/20/17 09:43 Pulse Ox 100 09/20/17 09:43 Intake & Output 09/19/17 09/20/17 09/20/17 18:59 06:59 18:59 Intake Total 808 823.667 Output Total 625 525 Balance 183 298.667 Weight 119.8 kg Intake: Intake, IV Titration 223.667 Amount Furosemide 250 mg In 223.667 Sodium Chloride 0.9% 225 ml @ 10 MG/HR 10 mls/hr IVP .Q24H [facility] Rx#: [id number] Oral 808 600 Output: Urine 625 525 Other: Voiding Method Urinal # Voids 1 # Bowel Movements 1 - Exam Constitutional: No acute distress, conversant, pleasant Eyes: Anicteric sclerae, moist conjunctiva, no lid-lag, PERRLA ENMT: NC/AT,Oropharynx clear, no erythema, exudates Neck:Supple, FROM, no masses, or JVD, No carotid bruits; No thyromegaly Lungs: Diminished in the bases with bibasilar crackles, increased tactile fremitus, Normal respiratory effort on 2 L nasal cannula, no accessory muscle use Cardiovascular: Irregularly irregular, No murmurs, gallops, or rubs no +2 pitting peripheral edema Abdominal: Soft Nontender, moderately distended, no guarding, no rebound or rigidity, Normoactive bowel sounds No hepatomegaly, No splenomegaly, No palpable mass No abdominal wall hernia noted Skin: Normal temperature, tone, texture, turgor, No induration No subcutaneous nodules, No rash, lesions, No ulcers Extremities:No digital cyanosis No clubbing, Pedal pulses intact and symmetrical Radial pulses intact and symmetrical Normal gait and station, No calf tenderness, painful range of motion in the left shoulder Psychiatric: Alert and oriented to person, place and time, Appropriate affect Intact judgement Neuro: Muscles Strength 5/5 in all 4 extremities, Sensation to light touch grossly present throughout, Cranial nerves II-XII grossly intact. No focal sensory deficits - Labs CBC & Chem 7: 09/19/17 05:25 09/19/17 05:25 Labs: Abnormal Lab Results - Last 24 Hours (Table) 09/19/17 09/19/17 09/19/17 Range/Units 05:25 05:25 11:45 BUN 69 H (9-20) mg/dL Creatinine 1.35 H (0.66-1.25) mg/dL Glucose 61 L (74-99) mg/dL POC Glucose (mg/dL) 152 H (75-99) mg/dL Total Bilirubin 1.7 H (0.2-1.3) mg/dL Alkaline Phosphatase 228 H (38-126) U/L Albumin 3.4 L (3.5-5.0) g/dL ARIES Screen POSITIVE H (NEGATIVE) 09/19/17 09/19/17 Range/Units 16:36 20:50 BUN (9-20) mg/dL Creatinine (0.66-1.25) mg/dL Glucose (74-99) mg/dL POC Glucose (mg/dL) 145 H 163 H (75-99) mg/dL Total Bilirubin (0.2-1.3) mg/dL Alkaline Phosphatase (38-126) U/L Albumin (3.5-5.0) g/dL ARIES Screen (NEGATIVE) Assessment and Plan (1) Acute systolic CHF (congestive heart failure), NYHA class 4 Narrative/Plan: * Continue diuresis with IV Lasix drip and metalozone with ongoing medical management continue Aldactone, lisinopril and low-dose beta raymon * ProBNP 16 300 , Echocardiogram ejection fraction of 25-30% severely dilated left atrium with moderate to severe aortic stenosis * Cardiology following appreciate recommendations * Continue daily weights patient weight is down approximately 4 kg. Continue to monitor Current Visit: Yes Status: Acute Code(s): I50.21 - ACUTE SYSTOLIC ( CONGESTIVE) HEART FAILURE SNOMED Code(s): 305826273 (2) Ascites Narrative/Plan: * GI consulted Dr. 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012 - PRIMARY OSTEOARTHRITIS, LEFT SHOULDER SNOMED Code(s): 441489535 (5) Atrial fibrillation Narrative/Plan: * Chronic A. fib rate is controlled * Continue digoxin, patient started on low dose beta raymon, INR subtherapeutic at 1.5 continue to hold onto coagulation until post procedure Current Visit: Yes Status: Acute Code(s): I48.91 - UNSPECIFIED ATRIAL FIBRILLATION SNOMED Code(s): 55709689 (6) Elevated troponin Current Visit: Yes Status: Acute Code(s): R74.8 - ABNORMAL LEVELS OF OTHER SERUM ENZYMES SNOMED Code(s): 541135796 (7) Hyperbilirubinemia Current Visit: Yes Status: Acute Code(s): E80.6 - OTHER DISORDERS OF BILIRUBIN METABOLISM SNOMED Code(s): 87864417 (8) Pleural effusion Current Visit: Yes Status: Acute Code(s): J90 - PLEURAL EFFUSION, NOT ELSEWHERE CLASSIFIED SNOMED Code(s): 39775380 Plan: Anticipate discharge in the next 1-2 days, consultation for orthopedics and rehab placed. Continue with diuresis
[2017-09-20 10:56] LABS: Ceruloplasmin 27.3 mg/dL (20.0-60.0)
[2017-09-20 11:02] LABS: ANA Pattern Speckled
[2017-09-20 11:50] LABS: Glucose,Whole Blood 93 mg/dL (75-99)
--- NOTE | 2017-09-20 12:17 | XR ---
EXAMINATION TYPE: XR shoulder complete LT DATE OF EXAM: 09/20/2017 COMPARISON: NONE HISTORY: Pain TECHNIQUE: Three views are submitted. FINDINGS: The osseous structures are intact. There is no acute fracture or dislocation. Marked arthropathy of the AC joint and glenohumeral joint. Diffuse osteopenia. IMPRESSION: 1. Marked arthropathy of the AC joint and glenohumeral joint.
--- NOTE | 2017-09-20 12:18 | US ---
Therapeutic paracentesis. DATE OF EXAM: 09/20/2017 CLINICAL HISTORY: Ascites The procedure was discussed with the patient. The risks, complications, benefits, and alternatives we re discussed and any questions were answered. Informed consent was obtained. The patient was placed s upine on the ultrasound table and prepped and draped in the usual sterile fashion. All elements of maximal barrier technique were utilized. Under ultrasound guidance, access into the right lower quadrant was obtained, via the paracentesis catheter system and direct ultrasound guidanc e. Approximately 14.1 liters of straw-colored fluid was removed. The patient was stable throughout the p rocedure and remained stable upon discharge from Department of Radiology. IMPRESSION: Successful therapeutic paracentesis under ultrasound guidance.
[2017-09-20] MEDS: SPIRONOLACTONE 25 MG TAB PO SCH (12:47)
[2017-09-20] MEDS: METOPROLOL TARTRATE 12.5 MG TAB PO SCH ×2 (12:48→20:23)
[2017-09-20] MEDS: POTASSIUM CHLORIDE ER 20 MEQ TAB.ER PO SCH (12:49)
[2017-09-20] MEDS: ATORVASTATIN 40 MG TAB PO SCH (12:49)
[2017-09-20] MEDS: METOLAZONE 5 MG TAB PO SCH (12:49)
[2017-09-20] MEDS: GABAPENTIN 300 MG CAP PO SCH (12:50)
[2017-09-20] MEDS: LISINOPRIL 5 MG TAB PO SCH ×2 (12:50→12:54)
--- NOTE | 2017-09-20 13:26 | P.CNOR ---
History of Present Illness - [facility] Consult date: 09/20/17 Consult reason: joint pain History of present illness: This is a 77-year-old male who was seen and evaluated today at bedside. Patient has been Halley Yecenia Lu over the last few days on the selective care unit with regards to an extensive medical workup involving increasing fatigue and shortness of breath. Patient was noted to have a pleural effusion and significant ascites on the abdomen. He recently went for a abdominal paracentesis. He is being followed by multiple medical specialties at this point. While in hospital, he mentioned to the internal medicine group that his left shoulder had been bothering him on and off over the last few months. A consult was placed for group to evaluate the patient's left shoulder. Patient was seen today, he denies any previous surgery involving the left shoulder. He admits to pain and discomfort over the last few months. He notes stiffness in the shoulder with different positions. Patient denies any right upper extremity pain, bilateral lower extremity pain. He denies any previous orthopedic surgery involving the hips or knees. He describes a recent fall last week, there is no acute musculoskeletal skeletal injuries. Patient is a history of significant diabetes and neuropathy involving the bilateral feet. He has bilateral lower extremity ulcers from lower extremity edema. Patient states he is feeling a lot better today with regards to the shortness of breath and fatigue. Review of Systems Constitutional: Reports as per [facility] Past Medical History Past Medical History: Atrial Fibrillation, Diabetes Mellitus, Prostate Disorder Additional Past Medical History / Comment(s): Gout History of Any Multi-Drug Resistant Organisms: None Reported Past Surgical History: Cholecystectomy Additional Past Surgical History / Comment(s): bilateral cataract Past Anesthesia/Blood Transfusion Reactions: No Reported Reaction Past Psychological History: No Psychological Hx Reported Smoking Status: Former smoker Past Alcohol Use History: Rare Past Drug Use History: None Reported - Past Family History Father Family Medical History: No Reported History Additional Family Medical History / Comment(s): Father lived to be 91 yrs old. Mother Family Medical History: Cancer Additional Family Medical History / Comment(s): Mother had blood cancer and heart problems. She lived to be 83 yrs old. Medications and Allergies Home Medications Medication Instructions Recorded Confirmed Type Allopurinol [Zyloprim] 300 mg PO MOWEFR 09/17/17 09/17/17 History Digoxin [Lanoxin] 250 mcg PO DAILY 09/17/17 09/17/17 History Furosemide [Lasix] 40 mg PO BID 09/17/17 09/17/17 History Indomethacin [Indocin] 50 mg PO HS 09/17/17 09/17/17 History Insulin NPH Hum/Reg Insulin Hm 15 unit SQ AC-BID 09/17/17 09/17/17 History [NovoLIN 70-30 100 UNIT/ML VIAL] Lutein 10 mg PO HS 09/17/17 09/17/17 History Multivit-Min/FA/Lycopen/Lutein 1 tab PO DAILY 09/17/17 09/17/17 History [Centrum Silver Tablet] Potassium Chloride [Klor-Con 20] 20 meq PO DAILY 09/17/17 09/17/17 History Quinapril HCl [Accupril] 5 mg PO DAILY 09/17/17 09/17/17 History Tamsulosin HCl [Flomax] 0.4 mg PO HS 09/17/17 09/17/17 History Warfarin [Coumadin] 5 mg PO MOTUTHFRSA 09/17/17 09/17/17 History guaiFENesin-DM 600/30MG [Mucinex 1 tab PO Q12HR 09/17/17 09/17/17 History Dm] Allergies Allergy/AdvReac Type Severity Reaction Status Date / Time No Known Allergies Allergy Verified 09/17/17 09:11 Physical Examination Left upper extremity: There is no obvious open lesions or sores present at the extremity There are multiple areas of ecchymosis along the left upper extremity No significant malalignment of the shoulders noted Crepitus is felt over the anterior glenoid humeral joint line with palpation He's slightly tender with palpation of the anterior glenoid humeral joint line with palpation Patient's range of motion is intact in both forward elevation and abduction. He notices difficulty with internal rotation, there is some weakness associated with these range of motion to. Sensation to light touch is intact throughout the upper extremity Radial pulses 2+ Results - Labs Labs: Abnormal Lab Results - Last 24 Hours (Table) 09/19/17 09/19/17 09/19/17 Range/Units 05:25 16:36 20:50 POC Glucose (mg/dL) 145 H 163 H (75-99) mg/dL GEOVANI Screen POSITIVE H (NEGATIVE) H & H 09/17/17 09/18/17 09/19/17 Range/Units 08:43 05:51 05:25 Hgb 10.5 L 9.7 L 9.5 L (13.0-17.5) gm/dL Hct 32.5 L 31.1 L 31.2 L (39.0-53.0) % Coagulation 18 09/19/17 Range/Units 08:43 09:09 INR 1.5 H 1.6 H (<1.2) Result Diagrams: 09/19/17 05:25 09/19/17 05:25 - Diagnostic results Shoulder MRI: report reviewed, image reviewed Assessment and Plan Plan: Imaging: Multiple views of the left shoulder were obtained and reviewed. Images demonstrate severe glenohumeral joint osteoarthritis. There is evidence of sclerosis involving the greater tuberosity in the left shoulder. Assessment: 1. Left shoulder pain 2. Severe left shoulder osteoarthritis 3. Multiple medical comorbidities Plan: I was able to discuss the case, this including both physical exam findings imaging studies my attending Dr. Nguyen. Patient is interested in a possible cortisone injection. Patient is not a great surgical candidate at this time. I advised the patient that the cortisone injection is not a permanent fix, but it may provide symptomatic relief. I also advised the patient that his blood sugar will likely increase with administration of a cortisone injection, he is in good understanding. We will proceed with a intra-articular cortisone injection of the left shoulder , this be done on 09/21/2017. Range of motion as tolerated with regards to left upper extremity Plan for follow-up in the outpatient setting for further treatment options after discharge Patient will likely be discharged to rehab in the next few days Time with Patient: Less than 30
--- NOTE | 2017-09-20 13:42 | P.PN ---
Subjective This patient has a severe aortic stenosis and biventricular failure. 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 Patient underwent a paracentesis today and about 14 L of the fluid was removed better as any orthopnea or PND we will do ultrasound of the chest to assess the pleural effusion Objective - Vital Signs Vital signs: Vital Signs Temp 97.5 F L 09/20/17 04:00 Pulse 80 09/20/17 11:00 Resp 14 09/20/17 11:00 BP 104/59 09/20/17 11:00 Pulse Ox 100 09/20/17 11:00 Intake & Output 09/19/17 09/20/17 09/20/17 18:59 06:59 18:59 Intake Total 808 823.667 472 Output Total 625 525 71985 Balance 183 298.667 -63848 Weight 119.8 kg Intake: Intake, IV Titration 223.667 Amount Furosemide 250 mg In 223.667 Sodium Chloride 0.9% 225 ml @ 10 MG/HR 10 mls/hr IVP .Q24H [facility] Rx#: [id number] Oral 808 600 472 Output: Urine 042 574 8114 Other [id number] Other: Voiding Method Urinal Urinal # Voids 1 # Bowel Movements 1 - Exam Patient's vital signs are reviewed. The patient is alert awake and in no acute distress. HEENT negative. Neck-supple no increase in JVP noted no carotid bruits noted. Chest-symmetrical. Heart-first and second heart sounds are normal. No S3 or S4 is noted. Grade 3/ 6 ejection systolic murmur noted Lungs bilateral good at entry is noted. Bilateral diminished at entry Abdomen-soft. Liver and spleen are not enlarged. The bowel sounds are normal. No tenderness noted Extremities-peripheral pulses since are 2+. 2+ edema is noted Neuro-no significant gross abnormality noted. - Labs CBC & Chem 7: 09/19/17 05:25 09/19/17 05:25 Labs: Abnormal Lab Results - Last 24 Hours (Table) 09/19/17 09/19/17 09/19/17 Range/Units 05:25 16:36 20:50 POC Glucose (mg/dL) 145 H 163 H (75-99) mg/dL GEOVANI Screen POSITIVE H (NEGATIVE) Assessment and Plan Assessment: Congestive heart failure is improving. We will continue the current medications ultrasound of the chest would be done.
--- NOTE | 2017-09-20 15:08 | P.PN ---
Subjective Progress Note Date: 09/20/17 Principal diagnosis: Right-sided pleural effusion likely secondary to congestive heart failure This is a 77-year-old male patient with known history of chronic atrial fibrillation, chronic lumbar degenerative disc disease with limited mobility and impaired performance and functional status at baseline. He is also known to have diabetes, gout, and prostate enlargement. The patient comes in with worsening shortness of breath and addition to generalized weakness and some dizziness. His chest x-ray showed low lung volumes and cardiomegaly and possibly some right-sided pleural effusion. EKG showed chronic atrial fibrillation with some nonspecific ST segment changes. Based on that the patient a CAT scan of the chest abdomen and pelvis and the CAT scan showed a small to moderate-sized right-sided pleural effusion in addition to some changes in the liver consistent with liver cirrhosis and ascites with anasarca. The patient also reports some increased lower oximetry edema and further investigation with an echo of the heart showed an ejection fraction of 25-30% and global hypokinesis of the left ventricle, RV was mildly enlarged, moderate to severe aortic stenosis, severe mitral regurgitation, severe tricuspid regurgitation, severe pulmonary hypertension was also noted. The patient is currently on 2 L of oxygen nasal cannula. His INR is at 1.5 as the patient is on warfarin. The patient's creatinine is at 1.1 and the patient was started on diuretics and he seems to be responding. He feels less short of breath compared to yesterday. He feels that the abdomen is also less distended. He is lower extremity edema is also improving. He was seen by cardiology. He was also seen by gastroenterology. He is not a drinker. No significant hepatitis. Most of alcoholism. No history of GI bleeding. The patient will have a paracentesis with the next 24 hours regarding his ascites. He is able to lay down to 20 bed elevation without any major difficulties. The patient seen again today 09/19/2017 in follow-up on the selective care unit. He is currently sitting up at bedside. He is awake and alert in no acute distress. His abdomen remains quite distended. He is still this moment with minimal exertion. He is maintaining O2 saturations in the upper 90s on 1.5 L/m per nasal cannula. He is currently afebrile. Hemodynamically stable. INR is 1.6 today. IR will possibly do a paracentesis tomorrow. He is voiding well and remains in a negative balance. His weight is down 1 kg. On 09/20/2017 patient seen in follow-up on selective care unit, he is status post large volume paracentesis of approximately 14.1 L of straw-colored fluid. Patient tolerated the procedure well. Her weight resting in bed, in no acute distress, abdomen is a lot less distended, soft, nontender. Patient is having some soreness along the left costal margin, mild, but no acute distress. Oxygenation improved, patient is currently on 1/2 L per nasal cannula, he reports his breathing easier, vital signs are stable, he is afebrile. Patient has been started on IV Lasix drip at 10 mg per hour, in addition to the Zaroxolyn. Patient continues on potassium and Aldactone,, and lisinopril. Overall his breathing is improved, continue with current medical treatment, will obtain a follow-up chest x-ray in the morning Objective - Vital Signs Vital signs: Vital Signs Temp 97.5 F L 09/20/17 04:00 Pulse 80 09/20/17 11:00 Resp 14 09/20/17 11:00 BP 104/59 09/20/17 11:00 Pulse Ox 100 09/20/17 11:00 Intake & Output 09/19/17 09/20/17 09/20/17 18:59 06:59 18:59 Intake Total 808 823.667 472 Output Total 625 525 28239 Balance 183 298.667 -32827 Weight 119.8 kg Intake: Intake, IV Titration 223.667 Amount Furosemide 250 mg In 223.667 Sodium Chloride 0.9% 225 ml @ 10 MG/HR 10 mls/hr IVP .Q24H [facility] Rx#: [id number] Oral 808 600 472 Output: Urine 471 664 4129 Other [id number] Other: Voiding Method Urinal Urinal # Voids 1 # Bowel Movements 1 - Exam General appearance: The patient is alert, oriented, in no acute distress. The patient does not seem to be in acute respiratory distress. No use of excess amount of the breathing. HET: Head is normocephalic and atraumatic. Pupils are equal and reactive. Oropharynx is clear without lesions. Neck: Supple without lymphadenopathy. Trachea midline. There is significant jugular venous distention bilaterally. Neck is overall supple and there is no goiter or neck masses. Heart: The patient has a harsh systolic ejection murmur grade 4/6 heard throughout the precordium. The rhythm is irregular. The murmur is radiating to his neck. No right ventricular heave or thrill. Lungs: No crackles or wheezes are heard. There is diminished breath on the right lung base consistent with his underlying pleural effusion. Abdomen: Soft, nondistended, patient is status post large volume paracentesis would removal of 14.1 L of ascitic fluid. No peritoneal signs. No palpable organomegaly or masses. Extremities: +1 bilateral lower extremity edema with bilateral lower leg dressings edematous feet. Neurological: No focal deficits. Strength and sensation are grossly intact. Examination of the skin revealed no evidence of significant rashes, suspicious appearing nevi or other concerning lesions. Psychiatric the patient has normal mood and affect - Labs CBC & Chem 7: 09/19/17 05:25 09/19/17 05:25 Labs: Abnormal Lab Results - Last 24 Hours (Table) 09/19/17 09/19/17 09/19/17 Range/Units 05:25 05:25 16:36 POC Glucose (mg/dL) 145 H (75-99) mg/dL GEOVANI Screen POSITIVE H (NEGATIVE) Anti-Smooth Muscle Ab 55 H (<20) UNITS 09/19/17 Range/Units 20:50 POC Glucose (mg/dL) 163 H (75-99) mg/dL GEOVANI Screen (NEGATIVE) Anti-Smooth Muscle Ab (<20) UNITS Assessment and Plan Plan: Assessment: 1 right-sided pleural effusion likely on the basis of congestion heart failure. 2 CHF with impaired left a ejection fraction of 25%. In addition the patient has severe aortic stenosis, mitral regurgitation, severe tricuspid regurgitation secondary pulmonary hypertension. 3 chronic atrial fibrillation 4 ascites and anasarca secondary to above, there is post large volume paracentesis with removal of 14.1 L of ascitic fluid 5 questionable liver cirrhosis although the findings could be also related to cardiac cirrhosis 6 long-term anticoagulation with warfarin and the patient's INR is at 1.6 6 diabetes mellitus 7 gout 8 BPH Plan: Patient is status post large volume paracentesis with removal of 14.1 L of ascitic fluid today and on 09/20/2017, tolerated the procedure well, and he states his breathing is easier. Oxygenation is improved, FiO2 is down to 1 a half liters per nasal cannula. Patient has been started on Lasix drip and Zaroxolyn per cardiology. Monitor intake and output, vital signs, renal profile , and electrolytes. Will obtain follow-up chest x-ray in the morning. I performed a history & physical examination of the patient and discussed their management with my nurse practitioner, Sydnee Blanco. I reviewed the nurse practitioner's note and agree with the documented findings and plan of care. Lung sounds are positive for a few bibasilar crackles. The findings and the impression was discussed with the patient. I attest to the documentation by the nurse practitioner. Time with Patient: Less than 30
--- NOTE | 2017-09-20 16:20 | P.CONS ---
History of Present Illness - Chief Complaint Debility - History of Present Illness I had the opportunity to see patient for inpatient consultation with regard to debility. He was admitted to [facility] September 17 with abdominal distention and shortness of breath. Other problems of cirrhosis with ascites, atrial fibrillation with Coumadin coagulopathy, ejection fraction 25%. Seen by cardiology, Dr. Armas for right pleural effusion and CHF in orthopedist for left shoulder pain. Chest x-ray demonstrates cardiomegaly and atelectasis. KUB with nonobstructive gas pattern. CT of abdomen and pelvis demonstrated moderate right pleural effusion, cirrhosis with ascites, scant or cardial effusion and enlarged pulmonary artery. Left shoulder x-ray with moderate arthritic AC joint and glenohumeral. PT and OT prescribed but unable to see patient due to paracentesis which patient recently underwent. Previous functional history as elicited patient corroborative by and grandson: 77-year-old right-handed white male who is [facility]. does cooking, laundry, driving. Patient retired. Patient independent with sitdown shower and gait with 4 wheeled walker. History smoking in the remote past. Rare drink. Regular doctors Dr. Smith. Family history mother with cancer. Review of Systems Review of systems: ENT: Denies sneezes or discharge. Eyes: Denies discharge or photophobia. Cardiac: Denies chest pain or palpitation. Pulmonary: Shortness of breath improved. Gastrointestinal: Abdominal discomfort improved. Genitourinary: Denies discharge or frequency. Musculoskeletal: Denies muscle or bone aches. Neurologic: Denies motor or sensory change. Endocrine: Denies shakes or sweats. Oncology: Denies cancers. Dermatologic: Lower extremity cellulitic changes. ALLERGY/immunology: Denies sneezes, rashes. Past Medical History Past Medical History: Atrial Fibrillation, Diabetes Mellitus, Prostate Disorder Additional Past Medical History / Comment(s): Gout History of Any Multi-Drug Resistant Organisms: None Reported Past Surgical History: Cholecystectomy Additional Past Surgical History / Comment(s): bilateral cataract Past Anesthesia/Blood Transfusion Reactions: No Reported Reaction Past Psychological History: No Psychological Hx Reported Smoking Status: Former smoker Past Alcohol Use History: Rare Past Drug Use History: None Reported - Past Family History Father Family Medical History: No Reported History Additional Family Medical History / Comment(s): Father lived to be 91 yrs old. Mother Family Medical History: Cancer Additional Family Medical History / Comment(s): Mother had blood cancer and heart problems. She lived to be 83 yrs old. Medications and Allergies Home Medications Medication Instructions Recorded Confirmed Type Allopurinol [Zyloprim] 300 mg PO MOWEFR 09/17/17 09/17/17 History Digoxin [Lanoxin] 250 mcg PO DAILY 09/17/17 09/17/17 History Furosemide [Lasix] 40 mg PO BID 09/17/17 09/17/17 History Indomethacin [Indocin] 50 mg PO HS 09/17/17 09/17/17 History Insulin NPH Hum/Reg Insulin Hm 15 unit SQ AC-BID 09/17/17 09/17/17 History [NovoLIN 70-30 100 UNIT/ML VIAL] Lutein 10 mg PO HS 09/17/17 09/17/17 History Multivit-Min/FA/Lycopen/Lutein 1 tab PO DAILY 09/17/17 09/17/17 History [Centrum Silver Tablet] Potassium Chloride [Klor-Con 20] 20 meq PO DAILY 09/17/17 09/17/17 History Quinapril HCl [Accupril] 5 mg PO DAILY 09/17/17 09/17/17 History Tamsulosin HCl [Flomax] 0.4 mg PO HS 09/17/17 09/17/17 History Warfarin [Coumadin] 5 mg PO MOTUTHFRSA 09/17/17 09/17/17 History guaiFENesin-DM 600/30MG [Mucinex 1 tab PO Q12HR 09/17/17 09/17/17 History Dm] Allergies Allergy/AdvReac Type Severity Reaction Status Date / Time No Known Allergies Allergy Verified 09/17/17 09:11 Physical Exam Vitals: Vital Signs Temp Pulse Resp BP Pulse Ox 09/20/17 12:00 97.3 F L 70 16 112/56 99 09/20/17 11:00 80 14 104/59 100 09/20/17 10:31 77 16 105/65 100 09/20/17 10:08 75 16 98/59 100 09/20/17 09:54 73 16 103/63 100 09/20/17 09:43 82 16 87/39 100 09/20/17 09:21 85 16 104/57 100 09/20/17 08:00 77 18 09/20/17 04:00 97.5 F L 66 16 94/52 99 09/20/17 00:00 97.5 F L 80 18 101/64 99 09/19/17 20:00 97.3 F L 82 18 98/56 97 Intake and Output 09/20/17 09/20/17 09/20/17 06:59 14:59 22:59 Intake Total 523.667 472 Output Total 350 41475 Balance 173.667 -75232 Intake: Intake, IV Titration 223.667 Amount Furosemide 250 mg In 223.667 Sodium Chloride 0.9% 225 ml @ 10 MG/HR 10 mls/hr IVP .Q24H [facility] Rx#: [id number] Oral 300 472 Output: Urine 350 1031 Other 06153 Other: Voiding Method Urinal Urinal Weight 119.8 kg Skin: Forelegs with cellulitic discolorations.. General: Medium build and comfortable appearance. Head: Normocephalic, atraumatic. Eyes: Symmetric. Pupils equal round. Ears: Symmetric. Hearing within normal limits. Mouth: Clear. Neck: Supple. Carotid without bruit. Cardiac: Regular rate and rhythm. Lungs: Clear anteriorly and posteriorly. Abdomen: Soft active nontender. Extremities: Normal tone. Neurological: Mental status: Alert, cooperative, pleasant. Cranial nerves: Symmetric facial tone and trapezius. Motor: Active movement all 4 limbs. Sensation: Intact throughout. DTRs: Symmetric and equal throughout. Mobility: Would require minimal to moderate assistance for bed mobility and sitting. Results CBC & Chem 7: 09/19/17 05:25 09/19/17 05:25 Labs: Abnormal Lab Results - Last 24 Hours (Table) 09/19/17 09/19/17 09/19/17 Range/Units 05:25 05:25 16:36 POC Glucose (mg/dL) 145 H (75-99) mg/dL GEOVANI Screen POSITIVE H (NEGATIVE) Anti-Smooth Muscle Ab 55 H (<20) UNITS 09/19/17 Range/Units 20:50 POC Glucose (mg/dL) 163 H (75-99) mg/dL GEOVANI Screen (NEGATIVE) Anti-Smooth Muscle Ab (<20) UNITS Chest x-ray: report reviewed (Cardiomegaly and atelectasis.) CT scan - abdomen: report reviewed (Moderate right pleural effusion, cirrhosis with ascites change, scant pericardial effusion, enlarged pulmonary artery.) Assessment and Plan (1) Acute systolic CHF (congestive heart failure), NYHA class 4 Current Visit: Yes Status: Acute Code(s): I50.21 - ACUTE SYSTOLIC ( CONGESTIVE) HEART FAILURE SNOMED Code(s): 869148145 (2) Arthritis of left shoulder region Current Visit: Yes Status: Acute Code(s): M19.012 - PRIMARY OSTEOARTHRITIS, LEFT SHOULDER SNOMED Code(s): 622254311 (3) Ascites Current Visit: Yes Status: Acute Code(s): R18.8 - OTHER ASCITES SNOMED Code(s): 839701870 (4) Atrial fibrillation Current Visit: Yes Status: Acute Code(s): I48.91 - UNSPECIFIED ATRIAL FIBRILLATION SNOMED Code(s): 69574300 (5) Congestive heart failure Current Visit: Yes Status: Acute Code(s): I50.9 - HEART FAILURE, UNSPECIFIED SNOMED Code(s): 78599252 Plan: Impression: 1. Medical debility. 2. Cirrhosis with ascites and anasarca. 3. Congestive heart failure with with effusion. 4. Atrial fibrillation with Coumadin coagulopathy. 5. Moderate arthritis right shoulder at acromioclavicular and glenohumeral joint. 6. Lumbar DDD. 7. Diabetes. Comments and plan: At this time PT and OT are ordered. Follow therapies with yourself. has expressed concerns about taking patient home currently because of medical debility issues. Port of otherwise.
[2017-09-20 16:43] LABS: Glucose,Whole Blood 245 mg/dL (75-99)
[2017-09-20] MEDS ORDERED: WARFARIN 5 MG TAB PO SCH (18:00)
[2017-09-20] MEDS ORDERED: GABAPENTIN 100 MG CAP PO SCH (19:30)
[2017-09-20] MEDS ORDERED: GABAPENTIN 100 MG CAP PO PRN (20:08)
[2017-09-20] MEDS: TAMSULOSIN 0.4 MG CAP.ER.24H PO SCH (20:24)
[2017-09-20] MEDS: GABAPENTIN 300 MG CAP PO PRN (20:30)
[2017-09-20 20:47] LABS: Glucose,Whole Blood 144 mg/dL (75-99)
[2017-09-20 20:47] LABS: Appearance,BF Hazy; Color,BF Yellow
[2017-09-20 20:48] LABS: Mononuclear WBC,Body Fluid 95 %; Nucleated Cells, Body Fluid 310 /uL; Polynuclear WBC,Body Fluid 4 %; RBC, Body Fluid 5285 /uL
[2017-09-21] MEDS ORDERED: SODIUM CHLORIDE 0.9% 250 ML IV SCH (01:30)
[2017-09-21] MEDS ORDERED: SODIUM CHLORIDE 0.9% 250 ML IV ONE (01:41)
[2017-09-21] MEDS ORDERED: SODIUM CHLORIDE 0.9% 500 ML IV ONE ×2 (01:41→06:08)
[2017-09-21 06:12] LABS: Glucose,Whole Blood 109 mg/dL (75-99)
[2017-09-21] MEDS: INSULIN NPH/REG INSULIN 70/30 300 UNIT/3 ML VIAL SQ SCH ×2 (06:12→17:23)
[2017-09-21] MEDS ORDERED: SODIUM CHLORIDE 0.9% 1,000 ML IV SCH (06:15)
--- NOTE | 2017-09-21 08:12 | US ---
EXAMINATION TYPE: US chest DATE OF EXAM: 09/20/2017 COMPARISON: CXR CLINICAL HISTORY: possible thorocentesis. Pleural effusion EXAM MEASUREMENTS: Right Pleural Effusion fluid pocket: 7.8 cm Right skin to fluid thickness: 4.3 cm Right side marked for possible thoracentesis outside the dept. Pulmonologists are able to review the images in the patient?s EMR. IMPRESSIONS: Right-sided pleural effusion as noted.
--- NOTE | 2017-09-21 08:17 | XR ---
EXAMINATION TYPE: XR chest 2V DATE OF EXAM: 09/21/2017 COMPARISON: 09/17/2017 HISTORY: Shortness of breath TECHNIQUE: Frontal and lateral views of the chest are obtained. FINDINGS: Scattered senescent parenchymal changes noted. Hyperinflation compatible with COPD. Persistent right basilar pleural effusion and underlying compressive atelectasis. Heart size is stable. Mediastinal structures are stable and grossly unremarkable. No evidence for hilar prominence. Degenerative changes dorsal spine. IMPRESSION: 1. Persistent right basilar pleural effusion and underlying compressive atelectasis.
[2017-09-21 09:40] LABS: Albumin 2.7 g/dL (3.5-5.0); Calcium 7.7 mg/dL (8.4-10.2); Potassium 4.7 mmol/L (3.5-5.1); Total Bilirubin 1.2 mg/dL (0.2-1.3); Total Protein 5.4 g/dL (6.3-8.2)
[2017-09-21] MEDS: FUROSEMIDE 250 MG in SODIUM CHLORIDE 0.9% 225 ML IVP SCH (10:18)
[2017-09-21] MEDS: METOPROLOL TARTRATE 12.5 MG TAB PO SCH ×2 (10:26→21:36)
[2017-09-21] MEDS: SPIRONOLACTONE 25 MG TAB PO SCH (10:26)
[2017-09-21] MEDS: POTASSIUM CHLORIDE ER 20 MEQ TAB.ER PO SCH (10:27)
[2017-09-21] MEDS: ALLOPURINOL 300 MG TAB PO SCH (10:27)
[2017-09-21] MEDS: ATORVASTATIN 40 MG TAB PO SCH (10:27)
[2017-09-21] MEDS: METOLAZONE 5 MG TAB PO SCH (10:28)
--- NOTE | 2017-09-21 10:32 | P.PN ---
Subjective Progress Note Date: 09/21/17 Principal diagnosis: Left shoulder osteoarthritis Patient is seen today resting in his hospital bed, his is present at bedside. Patient states the shoulders feeling okay at this point. He notes no acute changes. He would still like to proceed with intra-articular cortisone injection today. Objective - Vital Signs Vital signs: Vital Signs Temp 97.6 F 09/21/17 08:40 Pulse 79 09/21/17 08:40 Resp 18 09/21/17 08:40 BP 87/53 09/21/17 08:40 Pulse Ox 100 09/21/17 08:40 Intake & Output 09/20/17 09/21/17 09/21/17 18:59 06:59 18:59 Intake Total 708 240 Output Total 41264 300 Balance -38401 -300 240 Weight 106 kg Intake: Oral 708 240 Output: Urine 1031 300 Other [id number] Other: Voiding Method Urinal # Voids 1 - Exam Right upper extremity: No changes from initial exam, please see orthopedic consult note for further detail - Labs CBC & Chem 7: 09/19/17 05:25 09/21/17 09:11 Labs: Abnormal Lab Results - Last 24 Hours (Table) 09/19/17 09/20/17 09/20/17 Range/Units 05:25 16:41 20:45 Sodium (137-145) mmol/L BUN (9-20) mg/dL Creatinine (0.66-1.25) mg/dL Glucose (74-99) mg/dL POC Glucose (mg/dL) 245 H 144 H (75-99) mg/dL Calcium (8.4-10.2) mg/dL Alkaline Phosphatase (38-126) U/L Total Protein (6.3-8.2) g/dL Albumin (3.5-5.0) g/dL Anti-Smooth Muscle Ab 55 H (<20) UNITS 09/21/17 09/21/17 Range/Units 06: 09:11 Sodium 134 L (137-145) mmol/L BUN 77 H (9-20) mg/dL Creatinine 1.48 H (0.66-1.25) mg/dL Glucose 140 H (74-99) mg/dL POC Glucose (mg/dL) 109 H (75-99) mg/dL Calcium 7.7 L (8.4-10.2) mg/dL Alkaline Phosphatase 187 H (38-126) U/L Total Protein 5.4 L (6.3-8.2) g/dL Albumin 2.7 L (3.5-5.0) g/dL Anti-Smooth Muscle Ab (<20) UNITS Microbiology - Last 24 Hours (Table) 09/20/17 09:30 Gram Stain - Preliminary Ascites Fluid Body Fluid Culture - Preliminary Assessment and Plan Plan: Assessment: 1. Left shoulder pain 2. Severe left shoulder osteoarthritis 3. Multiple medical comorbidities Plan: The procedure was again discussed with the patient and his . He was again notified that the blood sugars likely neuritis to the steroid. He is in good understanding would like to proceed. Please see procedure note further detail On orthopedics standpoint, patient is stable for discharge to rehab when medically cleared Time with Patient: Less than 30
--- NOTE | 2017-09-21 10:34 | P.PCN ---
Date of Procedure: 09/21/17 Preoperative Diagnosis: Left shoulder pain, left shoulder osteoarthritis Postoperative Diagnosis: Same Procedure(s) Performed: Left shoulder intra-articular steroid injection Implants: None Anesthesia: regional Surgeon: Jaziel Dooley Estimated Blood Loss (ml): 0 Pathology: none sent Condition: stable Disposition: no change Indications for Procedure: Left shoulder pain Description of Procedure: Patient was sitting bedside, the shoulder was prepped with 1 Betadine swab and one alcohol swabs. A 25-gauge needle was used to inject 1 mL of quarter percent plain Marcaine and 40 mg of Depo-Medrol into the glenohumeral joint via the anterior approach. Patient tolerated the procedure well. Patient was placed. No acute changes noted the procedure
--- NOTE | 2017-09-21 10:42 | P.PN ---
Subjective Progress Note Date: 09/21/17 Principal diagnosis: cirrhosis Status post diagnostic therapeutic paracentesis yesterday with 14 L removed. Possible thoracentesis today. Systolic blood pressures running on the lower side in the 80s but asymptomatic. Patient feels much better easier to breathe. Serologic workup for chronic liver disease with initiated earlier this week GEOVANI positive with speckled appearance 1:160, smooth muscle antibody elevated at 55. Liver enzymes stable unremarkable with the exception of alkaline phosphatase 187. Objective - Vital Signs Vital signs: Vital Signs Temp 97.6 F 09/21/17 08:40 Pulse 79 09/21/17 08:40 Resp 18 09/21/17 08:40 BP 87/53 09/21/17 08:40 Pulse Ox 100 09/21/17 08:40 Intake & Output 09/20/17 09/21/17 09/21/17 18:59 06:59 18:59 Intake Total 708 240 Output Total 27965 300 Balance -41764 -300 240 Weight 106 kg Intake: Oral 708 240 Output: Urine 1031 300 Other [id number] Other: Voiding Method Urinal # Voids 1 - Exam General appearance: The patient is alert, oriented, in no acute distress. HET: Head is normocephalic and atraumatic. Pupils are equal and reactive. Oropharynx is clear without lesions. Neck: Supple without lymphadenopathy. Trachea midline. Heart: S1 S2. Regular rate and rhythm. Lungs: Diminished in bases bilaterally rate her on right than left. Abdomen: Soft, nontender, minimally bloated minimal ascites much improved from previous exam with bowel sounds. No peritoneal signs. No palpable organomegaly or masses. Extremities: +2 lower extremity edema Neurological: No focal deficits. Strength and sensation are grossly intact. - Labs CBC & Chem 7: 09/19/17 05:25 09/21/17 09:11 Labs: Abnormal Lab Results - Last 24 Hours (Table) 09/19/17 09/20/17 09/20/17 Range/Units 05:25 16:41 20:45 Sodium (137-145) mmol/L BUN (9-20) mg/dL Creatinine (0.66-1.25) mg/dL Glucose (74-99) mg/dL POC Glucose (mg/dL) 245 H 144 H (75-99) mg/dL Calcium (8.4-10.2) mg/dL Alkaline Phosphatase (38-126) U/L Total Protein (6.3-8.2) g/dL Albumin (3.5-5.0) g/dL Anti-Smooth Muscle Ab 55 H (<20) UNITS 09/21/17 09/21/17 Range/Units 06:11 09:11 Sodium 134 L (137-145) mmol/L BUN 77 H (9-20) mg/dL Creatinine 1.48 H (0.66-1.25) mg/dL Glucose 140 H (74-99) mg/dL POC Glucose (mg/dL) 109 H (75-99) mg/dL Calcium 7.7 L (8.4-10.2) mg/dL Alkaline Phosphatase 187 H (38-126) U/L Total Protein 5.4 L (6.3-8.2) g/dL Albumin 2.7 L (3.5-5.0) g/dL Anti-Smooth Muscle Ab (<20) UNITS Microbiology - Last 24 Hours (Table) 09/20/17 09:30 Gram Stain - Preliminary Ascites Fluid Body Fluid Culture - Preliminary Assessment and Plan (1) Cirrhosis Narrative/Plan: 77-year-old male admitted with shortness of breath worsening abdominal distention with radiographic imaging reporting a cirrhotic liver and abdominal pelvic ascites pleural effusion. Etiology of cirrhosis unclear at this time possible cryptogenic secondary to NAFLD possible ARMSTRONG. Autoimmune cirrhosis cannot be entirely excluded but felt to be less likely considering LFTs within normal limits most likely LFTs were elevated to underlying heart failure and is since improved secondary to diuresis additional serologic workup for chronic liver disease still processing. Current Visit: Yes Status: Acute Code(s): K74.60 - UNSPECIFIED CIRRHOSIS OF LIVER SNOMED Code(s): 99270434 (2) Ascites Current Visit: Yes Status: Acute Code(s): R18.8 - OTHER ASCITES SNOMED Code(s): 607489956 (3) Elevated liver enzymes Narrative/Plan: Suspect secondary to passive venous congestion from underlying heart failure elevated BNP Current Visit: Yes Status: Acute Code(s): R74.8 - ABNORMAL LEVELS OF OTHER SERUM ENZYMES SNOMED Code(s): 839770435 (4) Diabetes mellitus Current Visit: Yes Status: Acute Code(s): E11.9 - TYPE 2 DIABETES MELLITUS WITHOUT COMPLICATIONS SNOMED Code(s): 84819555 (5) Warfarin-induced coagulopathy Current Visit: Yes Status: Acute Code(s): D68.32 - HEMORRHAGIC DISORD D/T EXTRINSIC CIRCULATING ANTICOAGULANTS; T45.515A - ADVERSE EFFECT OF ANTICOAGULANTS, INITIAL ENCOUNTER SNOMED Code(s): 60759802 (6) Atrial fibrillation Current Visit: Yes Status: Acute Code(s): I48.91 - UNSPECIFIED ATRIAL FIBRILLATION SNOMED Code(s): 23564758 (7) Dyspnea Current Visit: Yes Status: Acute Code(s): R06.00 - DYSPNEA, UNSPECIFIED SNOMED Code(s): 042068237 (8) Congestive heart failure Current Visit: Yes Status: Acute Code(s): I50.9 - HEART FAILURE, UNSPECIFIED SNOMED Code(s): 00397049 (9) Pleural effusion Current Visit: Yes Status: Acute Code(s): J90 - PLEURAL EFFUSION, NOT ELSEWHERE CLASSIFIED SNOMED Code(s): 93281472 Plan: 1. Dr. Berry has reviewed present laboratory studies and suspect cirrhosis is most likely cryptogenic. Continue with Aldactone 100 mg daily and Lasix 40 mg daily on discharge. Return to office in 2-3 weeks for reevaluation. Discharge per medicine and consultants. Low-salt diet. Assessment and plan a care discussed with Dr. Berry
[2017-09-21] MEDS: LISINOPRIL 5 MG TAB PO SCH (10:56)
--- NOTE | 2017-09-21 10:56 | P.PN ---
Subjective Progress Note Date: 09/21/17 Patient feeling better today, had approximately 14.1 L of ascites fluid drained yesterday during his paracentesis, patient did not receive any albumin, since then patient's blood pressures have been in the 80s systolically the patient has been asymptomatic. Reports not receiving his steroid shot as yet but was still like to proceed, does complain of hoarseness for the last 3 weeks, recommended that the patient follow up with his primary care provider. Patient worked with physical therapy was able to stand up with assistance. Patient is amenable to rehab at [facility]. No acute events overnight, patient had chest ultrasound earlier this morning still showing right-sided pleural effusion Objective - Vital Signs Vital signs: Vital Signs Temp 97.6 F 09/21/17 08:40 Pulse 79 09/21/17 08:40 Resp 18 09/21/17 08:40 BP 87/53 09/21/17 08:40 Pulse Ox 100 09/21/17 08:40 Intake & Output 09/20/17 09/21/17 09/21/17 18:59 06:59 18:59 Intake Total 708 240 Output Total 74740 300 Balance -39926 -300 240 Weight 106 kg Intake: Oral 708 240 Output: Urine 1031 300 Other [id number] Other: Voiding Method Urinal # Voids 1 - Exam Constitutional: No acute distress, conversant, pleasant Eyes: Anicteric sclerae, moist conjunctiva, no lid-lag, PERRLA ENMT: NC/AT,Oropharynx clear, no erythema, exudates Neck:Supple, FROM, no masses, or JVD, No carotid bruits; No thyromegaly Lungs: Improved aeration, mild bibasilar crackles Normal respiratory effort on room air no accessory muscle use Cardiovascular: Irregularly irregular, No murmurs, gallops, or rubs no trace peripheral edema Abdominal: Soft Nontender, moderately distended, no guarding, no rebound or rigidity, Normoactive bowel sounds No hepatomegaly, No splenomegaly, No palpable mass No abdominal wall hernia noted Skin: Normal temperature, tone, texture, turgor, No induration No subcutaneous nodules, No rash, lesions, No ulcers Extremities:No digital cyanosis No clubbing, Pedal pulses intact and symmetrical Radial pulses intact and symmetrical Normal gait and station, No calf tenderness, painful range of motion in the left shoulder Psychiatric: Alert and oriented to person, place and time, Appropriate affect Intact judgement Neuro: Muscles Strength 5/5 in all 4 extremities, Sensation to light touch grossly present throughout, Cranial nerves II-XII grossly intact. No focal sensory deficits - Labs CBC & Chem 7: 18 05:25 09/21/17 09:11 Labs: Abnormal Lab Results - Last 24 Hours (Table) 09/19/17 09/20/17 09/20/17 Range/Units 05: 16:41 20:45 Sodium (137-145) mmol/L BUN (9-20) mg/dL Creatinine (0.66-1.25) mg/dL Glucose (74-99) mg/dL POC Glucose (mg/dL) 245 H 144 H (75-99) mg/dL Calcium (8.4-10.2) mg/dL Alkaline Phosphatase (38-126) U/L Total Protein (6.3-8.2) g/dL Albumin (3.5-5.0) g/dL Anti-Smooth Muscle Ab 55 H (<20) UNITS 09/21/17 09/21/17 Range/Units 06:11 09:11 Sodium 134 L (137-145) mmol/L BUN 77 H (9-20) mg/dL Creatinine 1.48 H (0.66-1.25) mg/dL Glucose 140 H (74-99) mg/dL POC Glucose (mg/dL) 109 H (75-99) mg/dL Calcium 7.7 L (8.4-10.2) mg/dL Alkaline Phosphatase 187 H (38-126) U/L Total Protein 5.4 L (6.3-8.2) g/dL Albumin 2.7 L (3.5-5.0) g/dL Anti-Smooth Muscle Ab (<20) UNITS Microbiology - Last 24 Hours (Table) 09/20/17 09:30 Gram Stain - Preliminary Ascites Fluid Body Fluid Culture - Preliminary Assessment and Plan (1) Acute systolic CHF (congestive heart failure), NYHA class 4 Narrative/Plan: * Continue diuresis with IV Lasix drip and metalozone with ongoing medical management continue Aldactone, lisinopril and low-dose beta raymon * ProBNP 16 300 , Echocardiogram ejection fraction of 25-30% severely dilated left atrium with moderate to severe aortic stenosis * Cardiology following appreciate recommendations r Current Visit: Yes Status: Acute Code(s): I50.21 - ACUTE SYSTOLIC ( CONGESTIVE) HEART FAILURE SNOMED Code(s): 024710728 (2) Ascites Narrative/Plan: * GI consulted Dr. Berry and Amparo following * Approximately 14.1 L removed yesterday via paracentesis * Patient scheduled for abdominal paracentesis later today, workup pending hepatitis screen, ascites fluid analysis * Patient with to volume overload states idiopathic cirrhosis superimposed on severe systolic CHF Current Visit: Yes Status: Acute Code(s): R18.8 - OTHER ASCITES SNOMED Code(s): 541477215 (3) Cirrhosis Narrative/Plan: * GI following * Workup with ceruloplasmin, AFP, hepatitis panel, alpha-1 antitrypsin, Aries and ferritin, Anti-smooth muscle all pending * Continues with Lasix and Aldactone Current Visit: Yes Status: Acute Code(s): K74.60 - UNSPECIFIED CIRRHOSIS OF LIVER SNOMED Code(s): 00451183 (4) Arthritis of left shoulder region Narrative/Plan: * X-ray confirming severe left shoulder arthropathy of AC joint * Patient scheduled to have steroid shot later today Current Visit: Yes Status: Acute Code(s): M19.012 - PRIMARY OSTEOARTHRITIS, LEFT SHOULDER SNOMED Code(s): 562234348 (5) Atrial fibrillation Narrative/Plan: * Chronic A. fib rate is controlled * Continue digoxin, patient started on low dose beta raymon, INR subtherapeutic at 1.5 continue to hold onto coagulation until post procedure Current Visit: Yes Status: Acute Code(s): I48.91 - UNSPECIFIED ATRIAL FIBRILLATION SNOMED Code(s): 68872287 (6) Elevated troponin Current Visit: Yes Status: Acute Code(s): R74.8 - ABNORMAL LEVELS OF OTHER SERUM ENZYMES SNOMED Code(s): 325152865 (7) Hyperbilirubinemia Current Visit: Yes Status: Acute Code(s): E80.6 - OTHER DISORDERS OF BILIRUBIN METABOLISM SNOMED Code(s): 65132813 (8) Pleural effusion Narrative/Plan: * Likely cardiogenic in etiology * Chest ultrasound confirming pleural effusion pocket 7.8 cm Current Visit: Yes Status: Acute Code(s): J90 - PLEURAL EFFUSION, NOT ELSEWHERE CLASSIFIED SNOMED Code(s): 30302020 Plan: Patient will likely be discharged Bob, doing much better today .
[2017-09-21] MEDS: SODIUM CHLORIDE 0.9% 1,000 ML IV SCH ×2 (11:02→23:10)
[2017-09-21 11:43] LABS: Glucose,Whole Blood 159 mg/dL (75-99)
--- NOTE | 2017-09-21 13:48 | P.PN ---
Subjective Progress Note Date: 09/21/17 This is a 77-year-old male patient with known history of chronic atrial fibrillation, chronic lumbar degenerative disc disease with limited mobility and impaired performance and functional status at baseline. He is also known to have diabetes, gout, and prostate enlargement. The patient comes in with worsening shortness of breath and addition to generalized weakness and some dizziness. His chest x-ray showed low lung volumes and cardiomegaly and possibly some right-sided pleural effusion. EKG showed chronic atrial fibrillation with some nonspecific ST segment changes. Based on that the patient a CAT scan of the chest abdomen and pelvis and the CAT scan showed a small to moderate-sized right-sided pleural effusion in addition to some changes in the liver consistent with liver cirrhosis and ascites with anasarca. The patient also reports some increased lower oximetry edema and further investigation with an echo of the heart showed an ejection fraction of 25-30% and global hypokinesis of the left ventricle, RV was mildly enlarged, moderate to severe aortic stenosis, severe mitral regurgitation, severe tricuspid regurgitation, severe pulmonary hypertension was also noted. The patient is currently on 2 L of oxygen nasal cannula. His INR is at 1.5 as the patient is on warfarin. The patient's creatinine is at 1.1 and the patient was started on diuretics and he seems to be responding. He feels less short of breath compared to yesterday. He feels that the abdomen is also less distended. He is lower extremity edema is also improving. He was seen by cardiology. He was also seen by gastroenterology. He is not a drinker. No significant hepatitis. Most of alcoholism. No history of GI bleeding. The patient will have a paracentesis with the next 24 hours regarding his ascites. He is able to lay down to 20 bed elevation without any major difficulties. The patient seen again today 09/19/2017 in follow-up on the selective care unit. He is currently sitting up at bedside. He is awake and alert in no acute distress. His abdomen remains quite distended. He is still this moment with minimal exertion. He is maintaining O2 saturations in the upper 90s on 1.5 L/m per nasal cannula. He is currently afebrile. Hemodynamically stable. INR is 1.6 today. IR will possibly do a paracentesis tomorrow. He is voiding well and remains in a negative balance. His weight is down 1 kg. On 09/20/2017 patient seen in follow-up on selective care unit, he is status post large volume paracentesis of approximately 14.1 L of straw-colored fluid. Patient tolerated the procedure well. Her weight resting in bed, in no acute distress, abdomen is a lot less distended, soft, nontender. Patient is having some soreness along the left costal margin, mild, but no acute distress. Oxygenation improved, patient is currently on 1/2 L per nasal cannula, he reports his breathing easier, vital signs are stable, he is afebrile. Patient has been started on IV Lasix drip at 10 mg per hour, in addition to the Zaroxolyn. Patient continues on potassium and Aldactone,, and lisinopril. Overall his breathing is improved, continue with current medical treatment, will obtain a follow-up chest x-ray in the morning On 09/21/2017, the patient is awake and alert. The patient is looking much better as the patient had significant large volume paracentesis with evacuation of more than 10 L from the abdomen. In fact the total amount was 14 L. Subsequent chest x-ray showed a presence of a right-sided pleural effusion which is moderate in size. Nevertheless, the patient denies having any significant shortness of breath and he is not wanting a thoracentesis for the time being. I think it's reasonable as long as the patient has significant improvement in her breathing with large volume paracentesis. Meanwhile, the patient has become slightly prerenal on today's blood work. BUN is up to 77 and the creatinine is up to 1.48. The patient is currently on Lasix drip at 10 mg an hour. The patient is also on Zaroxolyn 5 mg by mouth daily. The patient is also on Aldactone 100 mg by mouth daily. No major edema lower extremities. Note that the blood work also showed positivity and GEOVANI and anti-smooth muscle antibodies were also positive raising the possibility of an underlying autoimmune related hepatitis/liver disease. This antibodies positive for autoimmune liver disease as such as primary biliary cholangitis and autoimmune hepatitis. Note that the patient also has cardiomyopathy Contributing to His Profound Edema and Fluid Overload. Objective - Vital Signs Vital signs: Vital Signs Temp 97.6 F 09/21/17 08:40 Pulse 79 09/21/17 08:40 Resp 18 09/21/17 08:40 BP 87/53 09/21/17 08:40 Pulse Ox 100 09/21/17 08:40 Intake & Output 09/20/17 09/21/17 09/21/17 18:59 06:59 18:59 Intake Total 708 240 Output Total 64447 300 Balance -56412 -300 240 Weight 106 kg Intake: Oral 708 240 Output: Urine 1031 300 Other 95975 Other: Voiding Method Urinal # Voids 1 - Exam General appearance: The patient is alert, oriented, in no acute distress. The patient does not seem to be in acute respiratory distress. No use of excess amount of the breathing. HET: Head is normocephalic and atraumatic. Pupils are equal and reactive. Oropharynx is clear without lesions. Neck: Supple without lymphadenopathy. Trachea midline. There is significant jugular venous distention bilaterally. Neck is overall supple and there is no goiter or neck masses. Heart: The patient has a harsh systolic ejection murmur grade 4/6 heard throughout the precordium. The rhythm is irregular. The murmur is radiating to his neck. No right ventricular heave or thrill. Lungs: No crackles or wheezes are heard. There is diminished breath on the right lung base consistent with his underlying pleural effusion. Abdomen: Soft, nondistended, patient is status post large volume paracentesis would removal of 14.1 L of ascitic fluid. No peritoneal signs. No palpable organomegaly or masses. Extremities: +1 bilateral lower extremity edema with bilateral lower leg dressings edematous feet. Neurological: No focal deficits. Strength and sensation are grossly intact. Examination of the skin revealed no evidence of significant rashes, suspicious appearing nevi or other concerning lesions. Psychiatric the patient has normal mood and affect - Labs CBC & Chem 7: 09/19/17 05:25 09/21/17 09:11 Labs: Abnormal Lab Results - Last 24 Hours (Table) 09/19/17 09/20/17 09/20/17 Range/Units 05:25 16:41 20:45 Sodium (137-145) mmol/L BUN (9-20) mg/dL Creatinine (0.66-1.25) mg/dL Glucose (74-99) mg/dL POC Glucose (mg/dL) 245 H 144 H (75-99) mg/dL Calcium (8.4-10.2) mg/dL Alkaline Phosphatase (38-126) U/L Total Protein (6.3-8.2) g/dL Albumin (3.5-5.0) g/dL Anti-Smooth Muscle Ab 55 H (<20) UNITS 09/21/17 09/21/17 09/21/17 Range/Units 06:11 09:11 11:41 Sodium 134 L (137-145) mmol/L BUN 77 H (9-20) mg/dL Creatinine 1.48 H (0.66-1.25) mg/dL Glucose 140 H (74-99) mg/dL POC Glucose (mg/dL) 109 H 159 H (75-99) mg/dL Calcium 7.7 L (8.4-10.2) mg/dL Alkaline Phosphatase 187 H (38-126) U/L Total Protein 5.4 L (6.3-8.2) g/dL Albumin 2.7 L (3.5-5.0) g/dL Anti-Smooth Muscle Ab (<20) UNITS Microbiology - Last 24 Hours (Table) 09/20/17 09:30 Gram Stain - Preliminary Ascites Fluid Body Fluid Culture - Preliminary Assessment and Plan Plan: Assessment: 1 right-sided pleural effusion likely on the basis of congestion heart failure. Possibility of chronic liver disease causing ascites and right-sided pleural effusion/hydrothorax cannot be completely excluded. 2 CHF with impaired left a ejection fraction of 25%. In addition the patient has severe aortic stenosis, mitral regurgitation, severe tricuspid regurgitation secondary pulmonary hypertension. 3 chronic atrial fibrillation 4 ascites and anasarca secondary to above, there is post large volume paracentesis with removal of 14.1 L of ascitic fluid 5 questionable liver cirrhosis although the findings could be also related to cardiac cirrhosis. The patient has positive anti-smooth muscle antibodies. Rule out autoimmune hepatitis. Rule out other immune related biliary disease with positive anti-smooth muscle antibodies. 6 long-term anticoagulation with warfarin 6 diabetes mellitus 7 gout 8 BPH Plan: The patient is becoming slightly prerenal with diuretics. Suggested stopping the Lasix drip. Continue oral Lasix, Zaroxolyn and Aldactone. Salt and fluid restriction. Monitor fluid balance. Awaiting results of the ascitic fluid chemical analysis and cytology. Cardiology to follow-up on the heart failure. The patient has positive anti-smooth muscle antibodies and with be awaiting further input from gastroenterology. Meanwhile, the right pleural effusion is stable and the patient is not having any significant shortness of breath and he is not ready to undergo the thoracentesis knowing that he is got significant relief following his paracentesis. We will consider thoracentesis later stage if the patient develops any worsening shortness of breath. His condition is stable for now. We'll continue to follow. The patient is looking to go to [facility] for further rehabilitation.
[2017-09-21 16:56] LABS: Glucose,Whole Blood 289 mg/dL (75-99)
[2017-09-21] MEDS: GABAPENTIN 300 MG CAP PO PRN (18:12)
[2017-09-21 20:47] LABS: Glucose,Whole Blood 342 mg/dL (75-99)
[2017-09-21] MEDS: TAMSULOSIN 0.4 MG CAP.ER.24H PO SCH (21:36)
[2017-09-21] MEDS: INSULIN ASPART 100 UNIT/ML 1 ML 10 ML VIAL SQ SCH (22:30)
[2017-09-22 03:40] LABS: Glucose,Whole Blood 199 mg/dL (75-99)
[2017-09-22 06:02] LABS: Glucose,Whole Blood 204 mg/dL (75-99)
[2017-09-22] MEDS: INSULIN ASPART 100 UNIT/ML 1 ML 10 ML VIAL SQ SCH ×4 (06:25→20:29)
[2017-09-22] MEDS: INSULIN NPH/REG INSULIN 70/30 300 UNIT/3 ML VIAL SQ SCH ×2 (06:28→17:12)
[2017-09-22] MEDS ORDERED: INSULIN ASPART 100 UNIT/ML 1 ML 10 ML VIAL SQ SCH (07:30)
[2017-09-22] MEDS: ATORVASTATIN 40 MG TAB PO SCH (08:51)
[2017-09-22] MEDS: SODIUM CHLORIDE 0.9% 1,000 ML IV SCH ×2 (08:51→21:13)
[2017-09-22] MEDS: POTASSIUM CHLORIDE ER 20 MEQ TAB.ER PO SCH (08:51)
[2017-09-22 08:52] LABS: Calcium 7.6 mg/dL (8.4-10.2); Potassium 5.2 mmol/L (3.5-5.1)
[2017-09-22] MEDS: LISINOPRIL 5 MG TAB PO SCH (10:54)
[2017-09-22] MEDS: METOPROLOL TARTRATE 12.5 MG TAB PO SCH ×2 (10:55→20:24)
--- NOTE | 2017-09-22 12:19 | P.PN ---
Subjective Progress Note Date: 09/22/17 This is a 77-year-old gentleman with history of chronic persistent atrial fibrillation, hypertension, diabetes, who presented to the hospital with symptoms of dizziness, shortness of breath, significant swelling in his abdomen and bilateral lower extremities. Apparently the symptoms of shortness of breath and dizziness have only been going on for the past 2-3 days according to the patient, but the swelling in his abdomen has been noticeable for some time. Patient denies any history of significant cardiac problems, no myocardial infarction in the past, never been told to have any congestive cardiac failure. Chest x-ray performed on admission here showed low lung volumes and cardiomegaly with patchy bibasilar atelectasis. KUB revealed overall nonobstructive bowel gas pattern. EKG showed atrial fibrillation with occasional PVC, nonspecific ST-T wave changes. CT of the chest, abdomen, and pelvis revealed a moderate right pleural effusion. Cirrhotic morphology of the liver with abdominopelvic ascites and anasarca. No splenomegaly or gross evidence of splenic varices. Enlarged main pulmonary artery suggesting underlying pulmonary arterial hypertension and a scant amount of pericardial effusion. An echocardiogram with Doppler study was performed which revealed an ejection fraction of 25-30%. Global hypokinesia of the LV. RV mildly enlarged. Moderate to severe aortic stenosis, severe mitral regurg, severe tricuspid regurg and severe pulmonary hypertension. Blood pressure on arrival 122/70 with a heart rate in the 90s, 99% on 2 L of oxygen. Laboratory data was reviewed, white blood cell count is normal, hemoglobin on admission 10.5, 9.7 this morning. Platelet count 163, sodium 142, potassium 3.9, BUN 65, creatinine 1.1. Magnesium level 2.5. Iron level 51, total bilirubin 2.7 on admission 2.0 this morning. Alkaline phosphatase 286 on admission 224 this morning. INR on admission 1.5. Troponin 0.056, BNP level 16,300. Patient's weight on admission was documented to be 123, it is 119 this morning. He does state that he was urinating a significant amount through the night last night. He is not on IV Lasix. At the time of my examination this morning, patient continues to have significant swelling of the abdomen and edema of the lower extremities. He does state overall that he feels his breathing is mildly improved. Telemetry strips show atrial fibrillation with frequent PVCs. 09/19/2017 Patient was seen and examined this morning, he does state overall that he feels his breathing is improving. He is scheduled for paracentesis tomorrow. Weight today is down 1 kg, creatinine 1.3. Echocardiogram with Doppler study revealed an ejection fraction of 25-30%. Moderate to severe aortic stenosis, severe mitral regurgitation and severe tricuspid regurgitation. 09/22/2017 Patient was seen and examined this morning up ambulating in the hallway today with physical therapy. Blood pressure 92/40 with a heart rate in the 70s. Overall patient states he's feeling better. Diuretics are currently still on hold, patient is on lisinopril 5 mg daily and metoprolol twice a day. Patient continues to be on hydration at 75 mL an hour. If blood pressure improves, we will reinitiate diuretics tomorrow. Continue PEARL inhibitor, beta raymon, patient is not currently on Aldactone because of elevated potassium, once that improves we will also initiate some Aldactone on this patient. Objective - Vital Signs Vital signs: Vital Signs Temp 96.7 F L 09/22/17 08:42 Pulse 74 09/22/17 08:42 Resp 18 09/22/17 08:42 BP 90/43 09/22/17 08:42 Pulse Ox 97 09/22/17 08:42 Intake & Output 09/21/17 09/22/17 09/22/17 18:59 06:59 18:59 Intake Total 1320 Output Total 275 300 Balance 1045 -300 Weight 111 kg Intake: Intake, IV Titration 600 Amount Sodium Chloride 0.9% 1, 600 000 ml @ 75 mls/hr IV . [id number] [facility] Rx#:[id number] Oral 720 Output: Urine 275 300 Other: Voiding Method Urinal # Voids 1 # Bowel Movements 0 - Exam PHYSICAL EXAMINATION: HEENT: Head is atraumatic, normocephalic. Pupils equal, round. Neck is supple. There is elevated jugular venous pressure up to the angle of the jaw. HEART EXAMINATION: Heart S1-S2 not audible, systolic ejection murmur heard CHEST EXAMINATION: Lungs clear to auscultation. ABDOMEN: [ Soft, distended, positive thrill. Bowel sounds are heard. EXTREMITIES:[ 1+ peripheral pulses with 1+ evidence of peripheral edema patient does have a dressing in place to the right and lower extremity, ulcerated weeping area underneath. NEUROLOGIC patient is awake, alert and oriented -3. - Labs CBC & Chem 7: 09/19/17 05:25 09/22/17 08:24 Labs: Abnormal Lab Results - Last 24 Hours (Table) 09/21/17 09/21/17 09/22/17 Range/Units 16:55 20:46 03:38 Sodium (137-145) mmol/L Potassium (3.5-5.1) mmol/L Carbon Dioxide (22-30) mmol/L BUN (9-20) mg/dL Creatinine (0.66-1.25) mg/dL Glucose (74-99) mg/dL POC Glucose (mg/dL) 289 H 342 H 199 H (75-99) mg/dL Calcium (8.4-10.2) mg/dL 09/22/17 09/22/17 Range/Units 06:00 08:24 Sodium 131 L (137-145) mmol/L Potassium 5.2 H (3.5-5.1) mmol/L Carbon Dioxide 21 L (22-30) mmol/L BUN 79 H (9-20) mg/dL Creatinine 1.37 H (0.66-1.25) mg/dL Glucose 227 H (74-99) mg/dL POC Glucose (mg/dL) 204 H (75-99) mg/dL Calcium 7.6 L (8.4-10.2) mg/dL Microbiology - Last 24 Hours (Table) 09/20/17 09:30 Gram Stain - Preliminary Ascites Fluid Body Fluid Culture - Preliminary Assessment and Plan Plan: Assessment and plan #1 dyspnea, evidence of congestive heart failure, systolic, acute on chronic. Echocardiogram with Doppler study reveals an ejection fraction of 25-30%, moderate to severe aortic stenosis, severe mitral regurg and severe tricuspid regurg noted. Severe pulmonary hypertension. Evidence of significant right- sided pleural effusion. #2 chronic persistent atrial fibrillation, on Coumadin for anticoagulation, INR and admission 1.6. Coumadin continues to be on hold, patient is scheduled for paracentesis tomorrow. #3 hypertension, according to the significant other, blood pressure has been running low at home, patient had been on metoprolol which was stopped because of hypotension by the patient. #4 diabetes #5 ascites #6 abnormal troponin, likely secondary to supply and demand mismatch #7 anemia Plan Cardiology's perspective, we'll continue to hold diuretics, continue IV fluids at 75 mL per hour. If the patient's blood pressure improves tomorrow we will reinitiate oral diuretics. Patient is currently not on Aldactone because of elevated potassium, once that level improves we will also consider the addition of Aldactone. DNP note has been reviewed, I agree with a documented findings and plan of care. Patient was seen and examined.
[2017-09-22 12:21] LABS: Glucose,Whole Blood 209 mg/dL (75-99)
--- NOTE | 2017-09-22 12:45 | P.PN ---
Subjective Progress Note Date: 09/22/17 This is a 77-year-old male patient with known history of chronic atrial fibrillation, chronic lumbar degenerative disc disease with limited mobility and impaired performance and functional status at baseline. He is also known to have diabetes, gout, and prostate enlargement. The patient comes in with worsening shortness of breath and addition to generalized weakness and some dizziness. His chest x-ray showed low lung volumes and cardiomegaly and possibly some right-sided pleural effusion. EKG showed chronic atrial fibrillation with some nonspecific ST segment changes. Based on that the patient a CAT scan of the chest abdomen and pelvis and the CAT scan showed a small to moderate-sized right-sided pleural effusion in addition to some changes in the liver consistent with liver cirrhosis and ascites with anasarca. The patient also reports some increased lower oximetry edema and further investigation with an echo of the heart showed an ejection fraction of 25-30% and global hypokinesis of the left ventricle, RV was mildly enlarged, moderate to severe aortic stenosis, severe mitral regurgitation, severe tricuspid regurgitation, severe pulmonary hypertension was also noted. The patient is currently on 2 L of oxygen nasal cannula. His INR is at 1.5 as the patient is on warfarin. The patient's creatinine is at 1.1 and the patient was started on diuretics and he seems to be responding. He feels less short of breath compared to yesterday. He feels that the abdomen is also less distended. He is lower extremity edema is also improving. He was seen by cardiology. He was also seen by gastroenterology. He is not a drinker. No significant hepatitis. Most of alcoholism. No history of GI bleeding. The patient will have a paracentesis with the next 24 hours regarding his ascites. He is able to lay down to 20 bed elevation without any major difficulties. The patient seen again today 09/19/2017 in follow-up on the selective care unit. He is currently sitting up at bedside. He is awake and alert in no acute distress. His abdomen remains quite distended. He is still this moment with minimal exertion. He is maintaining O2 saturations in the upper 90s on 1.5 L/m per nasal cannula. He is currently afebrile. Hemodynamically stable. INR is 1.6 today. IR will possibly do a paracentesis tomorrow. He is voiding well and remains in a negative balance. His weight is down 1 kg. On 09/20/2017 patient seen in follow-up on selective care unit, he is status post large volume paracentesis of approximately 14.1 L of straw-colored fluid. Patient tolerated the procedure well. Her weight resting in bed, in no acute distress, abdomen is a lot less distended, soft, nontender. Patient is having some soreness along the left costal margin, mild, but no acute distress. Oxygenation improved, patient is currently on 1/2 L per nasal cannula, he reports his breathing easier, vital signs are stable, he is afebrile. Patient has been started on IV Lasix drip at 10 mg per hour, in addition to the Zaroxolyn. Patient continues on potassium and Aldactone,, and lisinopril. Overall his breathing is improved, continue with current medical treatment, will obtain a follow-up chest x-ray in the morning On 09/21/2017, the patient is awake and alert. The patient is looking much better as the patient had significant large volume paracentesis with evacuation of more than 10 L from the abdomen. In fact the total amount was 14 L. Subsequent chest x-ray showed a presence of a right-sided pleural effusion which is moderate in size. Nevertheless, the patient denies having any significant shortness of breath and he is not wanting a thoracentesis for the time being. I think it's reasonable as long as the patient has significant improvement in her breathing with large volume paracentesis. Meanwhile, the patient has become slightly prerenal on today's blood work. BUN is up to 77 and the creatinine is up to 1.48. The patient is currently on Lasix drip at 10 mg an hour. The patient is also on Zaroxolyn 5 mg by mouth daily. The patient is also on Aldactone 100 mg by mouth daily. No major edema lower extremities. Note that the blood work also showed positivity and GEOVANI and anti-smooth muscle antibodies were also positive raising the possibility of an underlying autoimmune related hepatitis/liver disease. This antibodies positive for autoimmune liver disease as such as primary biliary cholangitis and autoimmune hepatitis. Note that the patient also has cardiomyopathy Contributing to His Profound Edema and Fluid Overload. On 09/22/2017, the patient has no specific complaints. Hemodynamically stable. The patient is currently off the Lasix drip. The patient will be started on Aldactone.. The patient has no abdominal pain. Abdominal distention is improved. We decided not to drain the pleural effusion in the lung volume the patient has been having no significant respiratory distress at this point in time. The renal function is stable and the creatinine is at 1.37. Objective - Vital Signs Vital signs: Vital Signs Temp 96.7 F L 09/22/17 08:42 Pulse 74 09/22/17 08:42 Resp 18 09/22/17 08:42 BP 90/43 09/22/17 08:42 Pulse Ox 97 09/22/17 08:42 Intake & Output 09/21/17 09/22/17 09/22/17 18:59 06:59 18:59 Intake Total 1320 Output Total 275 300 Balance 1045 -300 Weight 111 kg Intake: Intake, IV Titration 600 Amount Sodium Chloride 0.9% 1, 600 000 ml @ 75 mls/hr IV . [id number] [facility] Rx#:[id number] Oral 720 Output: Urine 275 300 Other: Voiding Method Urinal # Voids 1 # Bowel Movements 0 - Exam General appearance: The patient is alert, oriented, in no acute distress. The patient does not seem to be in acute respiratory distress. No use of excess amount of the breathing. HET: Head is normocephalic and atraumatic. Pupils are equal and reactive. Oropharynx is clear without lesions. Neck: Supple without lymphadenopathy. Trachea midline. There is significant jugular venous distention bilaterally. Neck is overall supple and there is no goiter or neck masses. Heart: The patient has a harsh systolic ejection murmur grade 4/6 heard throughout the precordium. The rhythm is irregular. The murmur is radiating to his neck. No right ventricular heave or thrill. Lungs: No crackles or wheezes are heard. There is diminished breath on the right lung base consistent with his underlying pleural effusion. Abdomen: Soft, nondistended, patient is status post large volume paracentesis would removal of 14.1 L of ascitic fluid. No peritoneal signs. No palpable organomegaly or masses. Extremities: +1 bilateral lower extremity edema with bilateral lower leg dressings edematous feet. Neurological: No focal deficits. Strength and sensation are grossly intact. Examination of the skin revealed no evidence of significant rashes, suspicious appearing nevi or other concerning lesions. Psychiatric the patient has normal mood and affect - Labs CBC & Chem 7: 09/19/17 05:25 09/22/17 08:24 Labs: Abnormal Lab Results - Last 24 Hours (Table) 09/21/17 09/21/17 09/22/17 Range/Units 16:55 20:46 03:38 Sodium (137-145) mmol/L Potassium (3.5-5.1) mmol/L Carbon Dioxide (22-30) mmol/L BUN (9-20) mg/dL Creatinine (0.66-1.25) mg/dL Glucose (74-99) mg/dL POC Glucose (mg/dL) 289 H 342 H 199 H (75-99) mg/dL Calcium (8.4-10.2) mg/dL 09/22/17 09/22/17 09/22/17 Range/Units 06:00 08:24 11:51 Sodium 131 L (137-145) mmol/L Potassium 5.2 H (3.5-5.1) mmol/L Carbon Dioxide 21 L (22-30) mmol/L BUN 79 H (9-20) mg/dL Creatinine 1.37 H (0.66-1.25) mg/dL Glucose 227 H (74-99) mg/dL POC Glucose (mg/dL) 204 H 209 H (75-99) mg/dL Calcium 7.6 L (8.4-10.2) mg/dL Microbiology - Last 24 Hours (Table) 09/20/17 09:30 Gram Stain - Preliminary Ascites Fluid Body Fluid Culture - Preliminary Assessment and Plan Plan: Assessment: 1 right-sided pleural effusion likely on the basis of congestion heart failure. Possibility of chronic liver disease causing ascites and right-sided pleural effusion/hydrothorax cannot be completely excluded. 2 CHF with impaired left a ejection fraction of 25%. In addition the patient has severe aortic stenosis, mitral regurgitation, severe tricuspid regurgitation secondary pulmonary hypertension. 3 chronic atrial fibrillation 4 ascites and anasarca secondary to above, there is post large volume paracentesis with removal of 14.1 L of ascitic fluid 5 questionable liver cirrhosis although the findings could be also related to cardiac cirrhosis. The patient has positive anti-smooth muscle antibodies. Rule out autoimmune hepatitis. Rule out other immune related biliary disease with positive anti-smooth muscle antibodies. 6 long-term anticoagulation with warfarin 6 diabetes mellitus 7 gout 8 BPH Plan: Pulmonary status is stable. Start Aldactone. Start PEARL inhibitor's and the patient was started gently on 5 mg of Zestril and the renal function was monitored very closely in addition to potassium level. Anticoagulation per cardiology. Pulmonary we'll sign off the case.
--- NOTE | 2017-09-22 16:16 | P.PN ---
Subjective Progress Note Date: 09/22/17 Principal diagnosis: Patient reports that his breathing is much better, and he is feeling much better since they have removed about 40 L of fluid from his abdomen couple days ago. Patient said that his appetite is getting better also. Patient's blood pressure is running between 80s to 90s systolic and per cardiology recommendation low-grade IV hydration. Patient will be discharged after the weekend to subacute rehabilitation. Patient did complain of having hoarseness for 3 full weeks and is persisting. She denies chest pain, palpitation, nausea , vomiting, fever, chills, diaphoresis, dizziness and denies rest of the review of system. Patient was seen by the cardiology and they pulmonary team and their recommendation appreciated. Patient potassium slightly elevated at 5.2 and I will hold on for Aldactone. Patient's blood glucose log was reviewed. Nurses report no other issues with the patient. Objective - Vital Signs Vital signs: Vital Signs Temp 96.7 F L 09/22/17 08:42 Pulse 76 09/22/17 12:00 Resp 18 09/22/17 12:00 BP 84/55 09/22/17 12:00 Pulse Ox 98 09/22/17 12:00 Intake & Output 09/21/17 09/22/17 09/22/17 18:59 06:59 18:59 Intake Total 1320 Output Total 275 300 Balance 1045 -300 Weight 111 kg Intake: Intake, IV Titration 600 Amount Sodium Chloride 0.9% 1, 600 000 ml @ 75 mls/hr IV . [id number] [facility] Rx#:[id number] Oral 720 Output: Urine 275 300 Other: Voiding Method Urinal # Voids 1 # Bowel Movements 0 - Constitutional General appearance: Present: cooperative, obese - EENT Eyes: Present: EOMI, normal appearance - Respiratory Respiratory: bilateral: CTA, negative: diminished, dullness, rales, rhonchi, wheezing, prolonged expiration, prolonged inspiration - Cardiovascular Details: Chronic 1+ bilteral lower extremity edema. Rhythm: irregularly irregular Heart sounds: normal: S1, S2 Abnormal Heart Sounds: Present: systolic murmur - Murmur systolic murmur (1) Type: mid Location: left sternal border Grade: IV/ Radiation: none - Gastrointestinal General gastrointestinal: Present: normal bowel sounds, soft. Absent: distended , rigid, tenderness - Neurologic Neurologic: Present: CNII-XII intact, focal deficits - Psychiatric Psychiatric: Present: A&O x's 3, appropriate affect, intact judgment & insight - Labs CBC & Chem 7: 09/19/17 05:25 09/22/17 08:24 Labs: Abnormal Lab Results - Last 24 Hours (Table) 09/21/17 09/21/17 09/22/17 Range/Units 16:55 20:46 03:38 Sodium (137-145) mmol/L Potassium (3.5-5.1) mmol/L Carbon Dioxide (22-30) mmol/L BUN (9-20) mg/dL Creatinine (0.66-1.25) mg/dL Glucose (74-99) mg/dL POC Glucose (mg/dL) 289 H 342 H 199 H (75-99) mg/dL Calcium (8.4-10.2) mg/dL 09/22/17 09/22/17 09/22/17 Range/Units 06:00 08:24 11:51 Sodium 131 L (137-145) mmol/L Potassium 5.2 H (3.5-5.1) mmol/L Carbon Dioxide 21 L (22-30) mmol/L BUN 79 H (9-20) mg/dL Creatinine 1.37 H (0.66-1.25) mg/dL Glucose 227 H (74-99) mg/dL POC Glucose (mg/dL) 204 H 209 H (75-99) mg/dL Calcium 7.6 L (8.4-10.2) mg/dL Microbiology - Last 24 Hours (Table) 09/20/17 09:30 Gram Stain - Preliminary Ascites Fluid Body Fluid Culture - Preliminary Assessment and Plan (1) Hoarseness of voice Current Visit: Yes Status: Acute Priority: High Onset Date: ~08/23/17 Code(s): R49.0 - DYSPHONIA SNOMED Code(s): 32959088 (2) Ascites Current Visit: Yes Status: Acute Priority: High Code(s): R18.8 - OTHER ASCITES SNOMED Code(s): 589077078 (3) Atrial fibrillation Current Visit: Yes Status: Acute Priority: High Code(s): I48.91 - UNSPECIFIED ATRIAL FIBRILLATION SNOMED Code(s): 57761541 (4) Cirrhosis Current Visit: Yes Status: Acute Priority: High Code(s): K74.60 - UNSPECIFIED CIRRHOSIS OF LIVER SNOMED Code(s): 85050087 (5) Congestive heart failure Current Visit: Yes Status: Acute Priority: High Code(s): I50.9 - HEART FAILURE, UNSPECIFIED SNOMED Code(s): 74846048 (6) Diabetes mellitus Current Visit: Yes Status: Acute Priority: Medium Code(s): E11.9 - TYPE 2 DIABETES MELLITUS WITHOUT COMPLICATIONS SNOMED Code(s): 62220631 (7) Warfarin-induced coagulopathy Current Visit: Yes Status: Acute Priority: High Code(s): D68.32 - HEMORRHAGIC DISORD D/T EXTRINSIC CIRCULATING ANTICOAGULANTS; T45.515A - ADVERSE EFFECT OF ANTICOAGULANTS, INITIAL ENCOUNTER SNOMED Code(s): 85293605 Plan: Patient medications were reviewed and will be continued. Patient will be continued on IV hydration cautiously and blood pressure will be monitored. Plan is to avoid hypotensive episodes. Patient appetite is getting better and he is eating better. Will continue current management. Patient was recommended to have Aldactone per pulmonary but due to hyperkalemia I will hold it. Patient's hoarseness will be evaluated by the ENT surgeon may need indirect versus direct laryngoscopy. This can be accomplished as an inpatient versus outpatient depending upon the data security consultant's choice. We'll continue to monitor patient's medical condition while he is in the hospital. No further changes are recommended. Patient left in. Checked in the morning. Time with Patient: Less than 30
[2017-09-22 16:38] LABS: Glucose,Whole Blood 191 mg/dL (75-99)
[2017-09-22 20:23] LABS: Glucose,Whole Blood 141 mg/dL (75-99)
[2017-09-22] MEDS: TAMSULOSIN 0.4 MG CAP.ER.24H PO SCH (20:25)
[2017-09-23 05:49] LABS: Glucose,Whole Blood 111 mg/dL (75-99)
[2017-09-23 06:09] LABS: Calcium 7.8 mg/dL (8.4-10.2); Potassium 5.4 mmol/L (3.5-5.1)
[2017-09-23] MEDS: GABAPENTIN 300 MG CAP PO PRN (06:31)
[2017-09-23] MEDS: INSULIN ASPART 100 UNIT/ML 1 ML 10 ML VIAL SQ SCH ×2 (06:32→12:15)
[2017-09-23] MEDS: INSULIN NPH/REG INSULIN 70/30 300 UNIT/3 ML VIAL SQ SCH (07:08)
[2017-09-23] MEDS: POTASSIUM CHLORIDE ER 20 MEQ TAB.ER PO SCH (08:01)
[2017-09-23] MEDS: METOPROLOL TARTRATE 12.5 MG TAB PO SCH ×2 (08:14→21:06)
[2017-09-23] MEDS: LISINOPRIL 5 MG TAB PO SCH (08:14)
[2017-09-23] MEDS: ATORVASTATIN 40 MG TAB PO SCH (08:14)
[2017-09-23] MEDS ORDERED: LISINOPRIL 2.5 MG TAB PO SCH (08:16)
[2017-09-23 08:29] LABS: Anisocytosis Slight; HGB 9.7 gm/dL (13.0-17.5); Hypochromasia Slight; MCH 25.7 pg (25.0-35.0); MCHC 31.2 g/dL (31.0-37.0); MCV 82.4 fL (80.0-100.0); Mean Platelet Volume 7.5; Microcytosis Slight; Platelet Count 163 k/uL (150-450); RBC 3.76 m/uL (4.30-5.90); RDW 18.2 % (11.5-15.5)
[2017-09-23] MEDS: SODIUM CHLORIDE 0.9% 1,000 ML IV SCH ×2 (11:02→18:06)
[2017-09-23 11:54] LABS: Glucose,Whole Blood 137 mg/dL (75-99)
[2017-09-23] MEDS ORDERED: DOPamine DRIP 800 MG in DEXTROSE/WATER 1 500ML.BAG IV SCH (12:00)
--- NOTE | 2017-09-23 12:10 | P.PN ---
Subjective Progress Note Date: 09/23/17 This is a 77-year-old now patient who presented to the hospital with significant dependent edema. He also had symptoms of shortness of breath and dizziness for approximately 2-3 days prior to admission. He is being treated for acute systolic heart failure but IV Lasix is on hold due to hypo-tension. Kidney function remained stable. He denies any shortness of breath at rest or chest discomfort. He continues to have significant lower extremity edema. He is somewhat hypotensive and we will start him on a dopamine drip at 5 g. Decrease his IV fluids to KVO. Objective - Vital Signs Vital signs: Vital Signs Temp 96.7 F L 09/23/17 08:00 Pulse 90 09/23/17 08:00 Resp 18 09/23/17 08:00 BP 95/51 09/23/17 08:00 Pulse Ox 96 09/23/17 08:00 Intake & Output 09/22/17 09/23/17 09/23/17 18:59 06:59 18:59 Intake Total 825 300 300 Output Total 550 Balance 825 -250 300 Weight 110.5 kg Intake: IV 825 Sodium Chloride 0.9% 1, 825 000 ml @ 75 mls/hr IV . [id number] [facility] Rx#:[id number] Oral 300 300 Output: Urine 550 Other: Voiding Method Urinal # Voids 1 1 - Constitutional General appearance: Present: morbidly obese - EENT Eyes: Present: normal appearance ENT: Present: normal oropharynx Ears: bilateral: normal - Neck Details: No JVD Neck: Present: normal ROM Carotids: bilateral: upstroke normal - Respiratory Respiratory: bilateral: diminished - Cardiovascular Rhythm: regular Heart sounds: normal: S1, S2 Abnormal Heart Sounds: Present: systolic murmur - Peripheral edema leg Peripheral Edema: bilateral: 2+ - Gastrointestinal General gastrointestinal: Present: soft - Integumentary Integumentary: Present: normal - Neurologic Neurologic: Present: CNII-XII intact - Musculoskeletal Musculoskeletal: Present: generalized weakness - Psychiatric Psychiatric: Present: A&O x's 3 - Labs CBC & Chem 7: 09/23/17 05:13 09/23/17 05:13 Labs: Abnormal Lab Results - Last 24 Hours (Table) 09/22/17 09/22/17 09/22/17 Range/Units 11:51 16:37 20:21 RBC (4.30-5.90) m/uL Hgb (13.0-17.5) gm/dL Hct (39.0-53.0) % RDW (11.5-15.5) % Sodium (137-145) mmol/L Potassium (3.5-5.1) mmol/L Carbon Dioxide (22-30) mmol/L BUN (9-20) mg/dL Creatinine (0.66-1.25) mg/dL POC Glucose (mg/dL) 209 H 191 H 141 H (75-99) mg/dL Calcium (8.4-10.2) mg/dL 09/23/17 09/23/17 09/23/17 Range/Units 05:13 05:13 05:48 RBC 3.76 L (4.30-5.90) m/uL Hgb 9.7 L (13.0-17.5) gm/dL Hct 31.0 L (39.0-53.0) % RDW 18.2 H (11.5-15.5) % Sodium 133 L (137-145) mmol/L Potassium 5.4 H (3.5-5.1) mmol/L Carbon Dioxide 21 L (22-30) mmol/L BUN 83 H* (9-20) mg/dL Creatinine 1.50 H (0.66-1.25) mg/dL POC Glucose (mg/dL) 111 H (75-99) mg/dL Calcium 7.8 L (8.4-10.2) mg/dL 09/23/17 Range/Units 11:53 RBC (4.30-5.90) m/uL Hgb (13.0-17.5) gm/dL Hct (39.0-53.0) % RDW (11.5-15.5) % Sodium (137-145) mmol/L Potassium (3.5-5.1) mmol/L Carbon Dioxide (22-30) mmol/L BUN (9-20) mg/dL Creatinine (0.66-1.25) mg/dL POC Glucose (mg/dL) 137 H (75-99) mg/dL Calcium (8.4-10.2) mg/dL Microbiology - Last 24 Hours (Table) 09/20/17 09:30 Gram Stain - Preliminary Ascites Fluid Body Fluid Culture - Preliminary Assessment and Plan Assessment: Acute exacerbation of systolic heart failure Chronic persistent atrial fibrillation Hypertension currently hypotensive Diabetes Ascites Elevated troponin secondary to supply demand mismatch Anemia, stable Plan: Stop IV fluids. Start dopamine at 5 g. Strict I&O and daily weights. Hold lisinopril for now. Parameters were placed on Lopressor. When the patient's blood pressure improves we will consider restarting IV Lasix and Aldactone. We will continue to follow him closely.
[2017-09-23] MEDS ORDERED: PROPOFOL 1,000 MG in EMPTY BAG 1 BAG IV SCH (13:15)
[2017-09-23 13:26] LABS: Glucose,Whole Blood 196 mg/dL (75-99)
[2017-09-23] MEDS ORDERED: NOREPINEPHRIN 4 MG-0.9% NS PMX 4 MG/250 ML ML IV ONE (13:45)
--- NOTE | 2017-09-23 13:47 | XR ---
EXAMINATION TYPE: XR chest 1V portable DATE OF EXAM: 09/23/2017 HISTORY: Tube placement. REFERENCE: Previous study dated 09/21/2017. FINDINGS: The patient has been intubated. ET tube is in satisfactory position with its tip lying 5.6 cm above the andrea. An NG tube is been passed. Its tip cannot be followed beyond the lower esophagus . The heart is enlarged. There is left basilar airspace disease and a left-sided effusion. IMPRESSION: 1. SATISFACTORY ET TUBE PLACEMENT. 2. CARDIOMEGALY. 3. RIGHT BASILAR AIRSPACE DISEASE WITH A CONCOMITANT EFFUSION.
[2017-09-23] MEDS: PROPOFOL 1,000 MG in EMPTY BAG 1 BAG IV SCH ×2 (14:00→19:06)
[2017-09-23 14:16] LABS: ABG Base Excess -4.3 mmol/L; ABG HCO3 21 mmol/L (21-25); ABG PCO2 36 mmHg (35-45); ABG PH 7.37 (7.35-7.45); ABG PO2 300 mmHg (83-108); ABG TCO2 22 mmol/L (19-24)
--- NOTE | 2017-09-23 14:25 | XR ---
EXAMINATION TYPE: XR chest 1V confirm line [facility] DATE OF EXAM: 09/23/2017 COMPARISON: 09/23/2017 HISTORY: Central line placement TECHNIQUE: Single frontal view of the chest is obtained. FINDINGS: Left-sided central venous line has been placed in the interim terminating in the superior vena cava just proximal to the cavoatrial junction. Remainder the exam is similar to the prior earlie r on the same day with stable endotracheal and enteric tube placement, cardiomegaly, small layering r ight pleural effusion, bibasilar airspace disease, and extensive degenerative changes of the osseous structures. No postprocedural pneumothorax. IMPRESSION: Newly placed left-sided central venous catheter terminating in the superior vena cava. R emainder of the exam is stable from the prior earlier on the same day
[2017-09-23] MEDS ORDERED: NALOXONE 0.4 MG/ML 1 ML VIAL IV PRN (14:54)
--- NOTE | 2017-09-23 14:59 | P.PN ---
Subjective Progress Note Date: 09/23/17 This is a 77-year-old male patient with known history of chronic atrial fibrillation, chronic lumbar degenerative disc disease with limited mobility and impaired performance and functional status at baseline. He is also known to have diabetes, gout, and prostate enlargement. The patient comes in with worsening shortness of breath and addition to generalized weakness and some dizziness. His chest x-ray showed low lung volumes and cardiomegaly and possibly some right-sided pleural effusion. EKG showed chronic atrial fibrillation with some nonspecific ST segment changes. Based on that the patient a CAT scan of the chest abdomen and pelvis and the CAT scan showed a small to moderate-sized right-sided pleural effusion in addition to some changes in the liver consistent with liver cirrhosis and ascites with anasarca. The patient also reports some increased lower oximetry edema and further investigation with an echo of the heart showed an ejection fraction of 25-30% and global hypokinesis of the left ventricle, RV was mildly enlarged, moderate to severe aortic stenosis, severe mitral regurgitation, severe tricuspid regurgitation, severe pulmonary hypertension was also noted. The patient is currently on 2 L of oxygen nasal cannula. His INR is at 1.5 as the patient is on warfarin. The patient's creatinine is at 1.1 and the patient was started on diuretics and he seems to be responding. He feels less short of breath compared to yesterday. He feels that the abdomen is also less distended. He is lower extremity edema is also improving. He was seen by cardiology. He was also seen by gastroenterology. He is not a drinker. No significant hepatitis. Most of alcoholism. No history of GI bleeding. The patient will have a paracentesis with the next 24 hours regarding his ascites. He is able to lay down to 20 bed elevation without any major difficulties. The patient seen again today 09/19/2017 in follow-up on the selective care unit. He is currently sitting up at bedside. He is awake and alert in no acute distress. His abdomen remains quite distended. He is still this moment with minimal exertion. He is maintaining O2 saturations in the upper 90s on 1.5 L/m per nasal cannula. He is currently afebrile. Hemodynamically stable. INR is 1.6 today. IR will possibly do a paracentesis tomorrow. He is voiding well and remains in a negative balance. His weight is down 1 kg. On 09/20/2017 patient seen in follow-up on selective care unit, he is status post large volume paracentesis of approximately 14.1 L of straw-colored fluid. Patient tolerated the procedure well. Her weight resting in bed, in no acute distress, abdomen is a lot less distended, soft, nontender. Patient is having some soreness along the left costal margin, mild, but no acute distress. Oxygenation improved, patient is currently on 1/2 L per nasal cannula, he reports his breathing easier, vital signs are stable, he is afebrile. Patient has been started on IV Lasix drip at 10 mg per hour, in addition to the Zaroxolyn. Patient continues on potassium and Aldactone,, and lisinopril. Overall his breathing is improved, continue with current medical treatment, will obtain a follow-up chest x-ray in the morning On 09/21/2017, the patient is awake and alert. The patient is looking much better as the patient had significant large volume paracentesis with evacuation of more than 10 L from the abdomen. In fact the total amount was 14 L. Subsequent chest x-ray showed a presence of a right-sided pleural effusion which is moderate in size. Nevertheless, the patient denies having any significant shortness of breath and he is not wanting a thoracentesis for the time being. I think it's reasonable as long as the patient has significant improvement in her breathing with large volume paracentesis. Meanwhile, the patient has become slightly prerenal on today's blood work. BUN is up to 77 and the creatinine is up to 1.48. The patient is currently on Lasix drip at 10 mg an hour. The patient is also on Zaroxolyn 5 mg by mouth daily. The patient is also on Aldactone 100 mg by mouth daily. No major edema lower extremities. Note that the blood work also showed positivity and GEOVANI and anti-smooth muscle antibodies were also positive raising the possibility of an underlying autoimmune related hepatitis/liver disease. This antibodies positive for autoimmune liver disease as such as primary biliary cholangitis and autoimmune hepatitis. Note that the patient also has cardiomyopathy Contributing to His Profound Edema and Fluid Overload. On 09/22/2017, the patient has no specific complaints. Hemodynamically stable. The patient is currently off the Lasix drip. The patient will be started on Aldactone.. The patient has no abdominal pain. Abdominal distention is improved. We decided not to drain the pleural effusion in the lung volume the patient has been having no significant respiratory distress at this point in time. The renal function is stable and the creatinine is at 1.37. On 09/23/2017, this 77-year-old male patient who got brought into the intensive care unit after he rested on the floor. I do not have the chance to evaluate this patient in the morning. The patient was seen by cardiology and apparently his IV Lasix was on hold due to issues related to hypotension. At that point the patient was placed on dopamine at 5 mics. Within 30 minutes of initiation of dopamine, the patient became tachycardic and subsequently a CODE BLUE was called and the patient went into cardiopulmonary arrest. I was on the floor and I attended to the Code and this patient was in PEA initially. CPR was initiated and ACLS protocol was followed. The patient was given epinephrine. I intubated the patient on the scene. Within 2-3 minutes a pulse on her blood pressure was obtained. The patient was interactive and moving all 4 extremities. I'm of the patient in intensive care unit. I started the prevent on him while him being intubated on a mechanical ventilator. A brief neurologic evaluation was done and the patient was fully awake and alert and moving all 4 extremities. Nevertheless, based on his underlying cardio pulmonary status, I decided not to extubate the patient. He was placed on propofol infusion for sedation. Currently is on assist control mode at a rate of 24, tidal volume of 500, FiO2 of 100% and a PEEP of 5. Blood gas showed a pH of 7.37 with a pCO2 of 36 and pO2 of 300 and the FiO2 was not down to 50%. The patient is currently on 5 mics of norepinephrine infusion for blood pressure control. The patient had a post intubation chest x-ray that showed right basilar pleural effusion in addition to cardiomegaly. ET tube was in a good location. Subsequently, I inserted a triple lumen catheter for the left subclavian vein and a chest x-ray findings remain stable and there was no evidence of any pneumothorax. Reviewing the patient's blood work from earlier this morning, the patient a white cell count of 8 with a hemoglobin of 9.7. His BUN is at 83 with a creatinine of 1.5. And note that the patient has become progressively more prerenal as the patient had large volume paracentesis and subsequently was aggressively treated with diuretics. Note that his echocardiogram showed ejection fraction of 25% along with global hypokinesis. LAD was severely dilated. There was severe aortic sclerosis and moderate aortic regurgitation and moderate to severe aortic stenosis with a PA pressure of 61 in addition to severe mitral regurgitation, severe tricuspid regurgitation and severe pulmonary hypertension with a PA pressure of 91. The CAT scan of the abdomen showed changes consistent with cirrhosis of the liver and ascites. Large volume paracentesis was done. The patient continued to have a moderate-sized right-sided pleural effusion. The cirrhosis is probably of a cardiac in nature. No significant splenomegaly or splenic varices was seen. Upon further workup the patient do not to have a positive GEOVANI and anti- smooth muscle antibody which also raises concern for autoimmune hepatitis. Objective - Vital Signs Vital signs: Vital Signs Temp 96.7 F L 09/23/17 08:00 Pulse 90 09/23/17 12:00 Resp 18 09/23/17 12:00 BP 98/53 09/23/17 12:00 Pulse Ox 100 09/23/17 12:00 Intake & Output 09/22/17 09/23/17 09/23/17 18:59 06:59 18:59 Intake Total 825 300 300 Output Total 550 Balance 825 -250 300 Weight 110.5 kg Intake: IV 825 Sodium Chloride 0.9% 1, 825 000 ml @ 75 mls/hr IV . [id number] [facility] Rx#:[id number] Oral 300 300 Output: Urine 550 Other: Voiding Method Urinal # Voids 1 1 - Exam Gen. appearance sedated, comfortable intubated on mechanical ventilator. Orogastric and orotracheal tube are both in place. Head exam was generally normal. There was no scleral icterus or corneal arcus. Mucous membranes were moist. Neck is supple and the patient is extensive JVDs bilaterally without any goiter or neck masses. Orogastric and orotracheal tube are both in place. Lung sounds are diminished in lung bases bilaterally along with some bibasilar crackles. Breath sounds are quite diminished in the right lung base. Heart sounds are irregular and the patient has a systolic ejection murmur grade 2/6 heard throughout the precordium. S1 and S2 are irregular. Abdomen is slightly distended. There is positive fluid wave. No direct tenderness rebound tensile guarding. Bowel sounds are hypoactive and the organs cannot be accurately palpated. Extremities revealed trace edema and there is no cyanosis or clubbing. There is diminished pulses in lower extremities bilaterally. Neurologically the patient was wide awake earlier to being placed on Diprivan. As such he is neurologically intact post his cardiac arrest. Examination of the skin revealed no evidence of significant rashes, suspicious appearing nevi or other concerning lesions. The patient has a triple lumen catheter in the left subclavian vein. - Labs CBC & Chem 7: 09/23/17 05:09/23/17 05:13 Labs: Abnormal Lab Results - Last 24 Hours (Table) 09/22/17 09/22/17 09/23/17 Range/Units 16:37 20:21 05:13 RBC (4.30-5.90) m/uL Hgb (13.0-17.5) gm/dL Hct (39.0-53.0) % RDW (11.5-15.5) % ABG pO2 (83-108) mmHg ABG O2 Saturation (94-97) % Sodium 133 L (137-145) mmol/L Potassium 5.4 H (3.5-5.1) mmol/L Carbon Dioxide 21 L (22-30) mmol/L BUN 83 H* (9-20) mg/dL Creatinine 1.50 H (0.66-1.25) mg/dL POC Glucose (mg/dL) 191 H 141 H (75-99) mg/dL Calcium 7.8 L (8.4-10.2) mg/dL 09/23/17 09/23/17 09/23/17 Range/Units 05:13 05:48 11:53 RBC 3.76 L (4.30-5.90) m/uL Hgb 9.7 L (13.0-17.5) gm/dL Hct 31.0 L (39.0-53.0) % RDW 18.2 H (11.5-15.5) % ABG pO2 (83-108) mmHg ABG O2 Saturation (94-97) % Sodium (137-145) mmol/L Potassium (3.5-5.1) mmol/L Carbon Dioxide (22-30) mmol/L BUN (9-20) mg/dL Creatinine (0.66-1.25) mg/dL POC Glucose (mg/dL) 111 H 137 H (75-99) mg/dL Calcium (8.4-10.2) mg/dL 09/23/17 09/23/17 Range/Units 13:25 14:13 RBC (4.30-5.90) m/uL Hgb (13.0-17.5) gm/dL Hct (39.0-53.0) % RDW (11.5-15.5) % ABG pO2 300 H (83-108) mmHg ABG O2 Saturation 100.0 H (94-97) % Sodium (137-145) mmol/L Potassium (3.5-5.1) mmol/L Carbon Dioxide (22-30) mmol/L BUN (9-20) mg/dL Creatinine (0.66-1.25) mg/dL POC Glucose (mg/dL) 196 H (75-99) mg/dL Calcium (8.4-10.2) mg/dL Microbiology - Last 24 Hours (Table) 09/20/17 09:30 Gram Stain - Preliminary Ascites Fluid Body Fluid Culture - Preliminary Assessment and Plan Plan: Assessment: 1 acute cardiac arrest. The patient was in PEA with a downtime of around 2-3 minutes. He had successful resuscitation based on ACLS protocol. Currently intubated on a mechanical ventilator. Neurologically intact and the neuro status was checked prior to the patient being sedated again. He was able to follow commands and answering questions and as such the possibility of anoxic encephalopathy is very low due to the adequate neurologic exam and the limited time for cardiac arrest. The exact cause for the cardiac arrest is not clear. Consider are negative to be under the effect of dopamine with possibly an underlying ischemic heart disease. The patient also developed atrial fibrillation. 3 right-sided pleural effusion likely on the basis of congestion heart failure. Possibility of chronic liver disease causing ascites and right-sided pleural effusion/hydrothorax cannot be completely excluded. 2 CHF with impaired left a ejection fraction of 25%. In addition the patient has severe aortic stenosis, mitral regurgitation, severe tricuspid regurgitation secondary pulmonary hypertension. 3 chronic atrial fibrillation 4 ascites and anasarca secondary to above, there is post large volume paracentesis with removal of 14.1 L of ascitic fluid 5 questionable liver cirrhosis although the findings could be also related to cardiac cirrhosis. The patient has positive anti-smooth muscle antibodies. Rule out autoimmune hepatitis. Rule out other immune related biliary disease with positive anti-smooth muscle antibodies. 6 long-term anticoagulation with warfarin 6 diabetes mellitus 7 gout 8 BPH 9 prerenal azotemia secondary to aggressive diuresis and prerenal effect secondary to heart failure Plan: Continue vent support and this is a vent changes will be done based on the blood gases. Continue sedation with Diprivan. Continue pressors. Wean off levo fed as tolerated. Kept on IV fluids to KVO. May resume diuretics and the patient is able to tolerate. May need to repeat echocardiogram in the morning. Avoid dopamine. Repeat all labs including cardiac enzymes. Repeat EKG. Informed cardiology about this changes in his status. In terms of medication, will resume the metoprolol once the blood pressure is under more stable condition. Avoid Chano inhibitors for now especially with her renal dysfunction. Will need anticoagulation I will put the patient IV heparin regarding his atrial fibrillation. Condition is critical and the patient's prognosis poor baseline above-mentioned comorbidities. He has advanced cardiomyopathy in addition to chronic liver disease. This critically care evaluation was done in more than 30 minutes. Family was updated on his condition. Time with Patient: Greater than 30
[2017-09-23 15:04] LABS: Anisocytosis Slight; Basophils # (A) 0.1 k/uL (0-0.2); Basophils % (A) 1 %; Eosinophils # (A) 0.2 k/uL (0-0.7); Eosinophils % (A) 1 %; HCT 33.5 % (39.0-53.0); HGB 10.6 gm/dL (13.0-17.5); Lymphocytes # (A) 1.6 k/uL (1.0-4.8); Lymphocytes % (A) 12 %; MCH 25.9 pg (25.0-35.0); MCHC 31.6 g/dL (31.0-37.0); MCV 82.1 fL (80.0-100.0); Mean Platelet Volume 7.3; Monocytes # (A) 0.7 k/uL (0-1.0); Monocytes % (A) 6 %; Neutrophils # (A) 10.2 k/uL (1.3-7.7); Neutrophils % (A) 79 %; Platelet Count 236 k/uL (150-450); RBC 4.07 m/uL (4.30-5.90); RDW 18.2 % (11.5-15.5); WBC 12.8 k/uL (3.8-10.6)
--- NOTE | 2017-09-23 15:08 | P.PN ---
Subjective Progress Note Date: 09/23/17 Principal diagnosis: Patient was seen earlier today and he was sitting on chair stating he is feeling fine issue blood pressure was noted to be running into systolic 80s to 90s and patient was not dizzy. Patient BUN/creatinine is been trending up and BUN is progressively worsening. Nurses was advised to have stool occult blood for possible GI bleed and digestion of the blood leading to elevated BUN and was suggested to repeat basic panel in the morning. Nephrology consult was also recommended to be placed for evaluation of possible hepatorenal syndrome leading to worsening renal function. Patient was updated per patient's verbal consent and all questions were answered. Patient denied chest pain, palpitation, diaphoresis, nausea, vomiting, diarrhea, fever, chills, dizziness and denies rest of the review of system. Objective - Vital Signs Vital signs: Vital Signs Temp 96.7 F L 09/23/17 08:00 Pulse 90 09/23/17 12:00 Resp 18 09/23/17 12:00 BP 98/53 09/23/17 12:00 Pulse Ox 100 09/23/17 12:00 Intake & Output 09/22/17 09/23/17 09/23/17 18:59 06:59 18:59 Intake Total 825 300 300 Output Total 550 Balance 825 -250 300 Weight 110.5 kg Intake: IV 825 Sodium Chloride 0.9% 1, 825 000 ml @ 75 mls/hr IV . [id number] [facility] Rx#:[id number] Oral 300 300 Output: Urine 550 Other: Voiding Method Urinal # Voids 1 1 - Constitutional General appearance: Present: cooperative, no acute distress - EENT Eyes: Present: EOMI, normal appearance - Neck Neck: Present: normal ROM. Absent: lymphadenopathy, rigidity, stridor, thyromegaly - Respiratory Respiratory: right: diminished (At the bases), dullness (At base.), left: CTA, negative: rales, rhonchi, wheezing, prolonged expiration, prolonged inspiration - Cardiovascular Rhythm: irregularly irregular Heart sounds: normal: S1, S2 Abnormal Heart Sounds: Present: systolic murmur - Gastrointestinal General gastrointestinal: Present: distended, normal bowel sounds, soft (Normal 1 month, none of 9 and is is 9 a99 there is no locking the door and a a a he is always a a he a or cannot be a a a a a and he is the only a) - Neurologic Neurologic: Present: CNII-XII intact. Absent: focal deficits - Psychiatric Psychiatric: Present: A&O x's 3, appropriate affect, intact judgment & insight - Labs CBC & Chem 7: 09/23/17 05:13 09/23/17 05:13 Labs: Abnormal Lab Results - Last 24 Hours (Table) 09/22/17 09/22/17 09/23/17 Range/Units 16:37 20:21 05:13 RBC (4.30-5.90) m/uL Hgb (13.0-17.5) gm/dL Hct (39.0-53.0) % RDW (11.5-15.5) % ABG pO2 (83-108) mmHg ABG O2 Saturation (94-97) % Sodium 133 L (137-145) mmol/L Potassium 5.4 H (3.5-5.1) mmol/L Carbon Dioxide 21 L (22-30) mmol/L BUN 83 H* (9-20) mg/dL Creatinine 1.50 H (0.66-1.25) mg/dL POC Glucose (mg/dL) 191 H 141 H (75-99) mg/dL Calcium 7.8 L (8.4-10.2) mg/dL 09/23/17 09/23/17 09/23/17 Range/Units 05:13 05:48 11:53 RBC 3.76 L (4.30-5.90) m/uL Hgb 9.7 L (13.0-17.5) gm/dL Hct 31.0 L (39.0-53.0) % RDW 18.2 H (11.5-15.5) % ABG pO2 (83-108) mmHg ABG O2 Saturation (94-97) % Sodium (137-145) mmol/L Potassium (3.5-5.1) mmol/L Carbon Dioxide (22-30) mmol/L BUN (9-20) mg/dL Creatinine (0.66-1.25) mg/dL POC Glucose (mg/dL) 111 H 137 H (75-99) mg/dL Calcium (8.4-10.2) mg/dL 09/23/17 09/23/17 Range/Units 13:25 14:13 RBC (4.30-5.90) m/uL Hgb (13.0-17.5) gm/dL Hct (39.0-53.0) % RDW (11.5-15.5) % ABG pO2 300 H (83-108) mmHg ABG O2 Saturation 100.0 H (94-97) % Sodium (137-145) mmol/L Potassium (3.5-5.1) mmol/L Carbon Dioxide (22-30) mmol/L BUN (9-20) mg/dL Creatinine (0.66-1.25) mg/dL POC Glucose (mg/dL) 196 H (75-99) mg/dL Calcium (8.4-10.2) mg/dL Microbiology - Last 24 Hours (Table) 09/20/17 09:30 Gram Stain - Preliminary Ascites Fluid Body Fluid Culture - Preliminary Assessment and Plan (1) Hoarseness of voice Current Visit: Yes Status: Acute Priority: High Onset Date: ~08/23/17 Code(s): R49.0 - DYSPHONIA SNOMED Code(s): 53694254 (2) Ascites Current Visit: Yes Status: Acute Priority: High Code(s): R18.8 - OTHER ASCITES SNOMED Code(s): 439838908 (3) Atrial fibrillation Current Visit: Yes Status: Acute Priority: High Code(s): I48.91 - UNSPECIFIED ATRIAL FIBRILLATION SNOMED Code(s): 03611729 (4) Cirrhosis Current Visit: Yes Status: Acute Priority: High Code(s): K74.60 - UNSPECIFIED CIRRHOSIS OF LIVER SNOMED Code(s): 46916459 (5) Congestive heart failure Current Visit: Yes Status: Acute Priority: High Code(s): I50.9 - HEART FAILURE, UNSPECIFIED SNOMED Code(s): 84190290 (6) Diabetes mellitus Current Visit: Yes Status: Acute Priority: Medium Code(s): E11.9 - TYPE 2 DIABETES MELLITUS WITHOUT COMPLICATIONS SNOMED Code(s): 72534977 (7) Warfarin-induced coagulopathy Current Visit: Yes Status: Acute Priority: High Code(s): D68.32 - HEMORRHAGIC DISORD D/T EXTRINSIC CIRCULATING ANTICOAGULANTS; T45.515A - ADVERSE EFFECT OF ANTICOAGULANTS, INITIAL ENCOUNTER SNOMED Code(s): 64478360 Plan: Patient was at updated per patient's verbal consent as she was sitting with him at the time of interview. Patient lisinopril will be decreased to 2.5 mg with holding parameters. Lopressor will be continued with holding parameters. Nephrotic consult was placed to Dr. Saldaña regarding elevated BUN/ creatinine and stool test was ordered for occult blood testing for possible GI bleed. Patient requested increase in Neurontin to control his pain. Which will be increased to twice a day. Patient basic panel will be checked in the morning.
[2017-09-23] MEDS ORDERED: HEPARIN SODIUM,PORCINE 5,000 UNIT/ML 1 ML VIAL IV ONE (15:12)
[2017-09-23 15:13] LABS: Calcium 7.7 mg/dL (8.4-10.2); Magnesium 2.2 mg/dL (1.6-2.3); Potassium 5.3 mmol/L (3.5-5.1); Total Bilirubin 1.1 mg/dL (0.2-1.3); Total Protein 5.8 g/dL (6.3-8.2)
[2017-09-23] MEDS ORDERED: WATER FOR INJECTION IV SCH (15:15)
[2017-09-23] MEDS ORDERED: HEPARIN SODIUM PORCINE IV SCH (15:15)
[2017-09-23] MEDS ORDERED: D5W PMX IV SCH (15:15)
[2017-09-23 15:18] LABS: INR 1.5 (<1.2)
[2017-09-23 15:19] LABS: Partial Thromboplastin Time 22.9 sec (22.0-30.0); Prothrombin Time 13.6 sec (9.0-12.0)
[2017-09-23 15:28] LABS: Albumin 3.66 g/dL (3.80-4.90); Gamma Globulin 1.46 g/dL (0.70-1.50)
[2017-09-23] MEDS ORDERED: NOREPINEPHRIN 16 MG-0.9%NS PMX 16 MG/250 ML ML IV SCH (15:30)
[2017-09-23 15:37] LABS: Appearance,Urine Clear (Clear); Bilirubin,Urine Negative (Negative); Blood,Urine Trace (Negative); Color,Urine Yellow; Glucose,Urine (UA) Negative (Negative); Ketones,Urine Negative (Negative); Leukocyte Esterase,Urine Negative (Negative); Nitrite,Urine Negative (Negative); PH, Urine 5.5 (5.0-8.0); Protein,Urine Trace (Negative); RBC,Urine <1 /hpf (0-5); Specific Gravity,Urine 1.012 (1.001-1.035); Squamous Epithelial Cell,Urine <1 /hpf (0-4); WBC,Urine <1 /hpf (0-5)
[2017-09-23] MEDS: HEPARIN SODIUM,PORCINE/D5W PMX 25,000 UNIT in DEXTROSE/WATER 1 500ML.BAG IV SCH (15:49)
[2017-09-23 15:54] LABS: Creatine Kinase MB 3.9 ng/mL (0.0-2.4)
[2017-09-23 18:14] LABS: Glucose,Whole Blood 151 mg/dL (75-99)
[2017-09-23] MEDS: INSULIN REGULAR 100 UNIT/ML VIAL SQ SCH (18:36)
[2017-09-23] MEDS: PANTOPRAZOLE 40 MG/10 ML VIAL IVP SCH (19:07)
[2017-09-23] MEDS: CHLORHEXIDINE GLUCONATE 15 ML CUP MUCOUS MEM SCH (21:06)
[2017-09-23] MEDS: TAMSULOSIN 0.4 MG CAP.ER.24H PO SCH (21:07)
[2017-09-23] MEDS: PIPERACILLIN-TAZOBACTAM 3.375 GM in DEXTROSE/WATER 1 50ML.BAG IVPB SCH (22:19)
[2017-09-23] MEDS: HEPARIN SODIUM,PORCINE 5,000 UNIT/ML 1 ML VIAL IV PRN (22:44)
[2017-09-24 00:05] LABS: Glucose,Whole Blood 205 mg/dL (75-99)
[2017-09-24] MEDS: INSULIN REGULAR 100 UNIT/ML VIAL SQ SCH ×5 (00:08→23:33)
[2017-09-24] MEDS: PROPOFOL 1,000 MG in EMPTY BAG 1 BAG IV SCH ×2 (03:43→06:40)
[2017-09-24 04:49] LABS: ABG Base Excess -2.3 mmol/L; ABG HCO3 22 mmol/L (21-25); ABG Oxygen Saturation 99.2 % (94-97); ABG PCO2 32 mmHg (35-45); ABG PH 7.45 (7.35-7.45); ABG PO2 217 mmHg (83-108); ABG TCO2 23 mmol/L (19-24)
[2017-09-24 04:51] LABS: Anisocytosis Slight; Basophils # (A) 0.1 k/uL (0-0.2); Basophils % (A) 0 %; Eosinophils # (A) 0.1 k/uL (0-0.7); Eosinophils % (A) 1 %; HCT 33.6 % (39.0-53.0); HGB 10.7 gm/dL (13.0-17.5); Hypochromasia Slight; Lymphocytes % (A) 17 %; MCH 25.7 pg (25.0-35.0); MCHC 31.7 g/dL (31.0-37.0); MCV 80.9 fL (80.0-100.0); Mean Platelet Volume 7.6; Microcytosis Slight; Monocytes # (A) 0.9 k/uL (0-1.0); Monocytes % (A) 7 %; Neutrophils # (A) 8.8 k/uL (1.3-7.7); Neutrophils % (A) 74 %; Platelet Count 211 k/uL (150-450); RBC 4.16 m/uL (4.30-5.90); RDW 18.5 % (11.5-15.5)
[2017-09-24 05:06] LABS: Calcium 7.9 mg/dL (8.4-10.2); Magnesium 2.3 mg/dL (1.6-2.3); Phosphorus 3.2 mg/dL (2.5-4.5); Potassium 4.8 mmol/L (3.5-5.1)
--- NOTE | 2017-09-24 06:09 | PCN ---
PROCEDURE NOTE DIAGNOSES: Cardiac failure due to acute cardiac arrest. POSTOP DIAGNOSIS: Cardiac failure due to acute cardiac arrest. ENDOTRACHEAL INTUBATION: INDICATION: Respiratory compromise. A time-out was completed verifying correct patient, procedure, site, positioning, and implant(s) or special equipment if applicable. The patient was positioned appropriately and a #4 MAC blade by a #8 orotracheal tube was placed under direct laryngoscopy. The tube was anchored at 22 cm at the teeth. Correct placement was confirmed by presence of bilateral breath sounds without air sounds in the abdomen on auscultation. An end-tidal CO2 monitor was also used to confirm tracheal placement of the ET tube. A chest x-ray was ordered to assess for pneumothorax and verify endotracheal tube placement. The patient tolerated the procedure well and there were no complications. MMODL / IJN: [id number] /
--- NOTE | 2017-09-24 06:12 | PCN ---
PROCEDURE NOTE ARTERIAL LINE PLACEMENT: Indications: Hemodynamic monitoring. A time-out was completed verifying correct patient, procedure, site, positioning, and implant(s) or special equipment if applicable. Jr's test was performed to ensure adequate perfusion. The patient's left wrist was prepped and draped in sterile fashion. 1% Lidocaine was used to anesthetize the area. An 18G Arrow arterial line was introduced into the radial artery. The catheter was threaded over the guide wire and the needle was removed with appropriate pulsatile blood return. Blood loss was minimal. The catheter was then sutured in place to the skin and a sterile dressing applied. Perfusion to the extremity distal to the point of catheter insertion was checked and found to be adequate. The patient tolerated the procedure well and there were no complications. No complications. MMODL / IJN: [id number] /
--- NOTE | 2017-09-24 06:12 | PCN ---
PROCEDURE NOTE TRIPLE LUMEN CATHETER PLACEMENT: Indication Hemodynamic monitoring/Intravenous access. A time-out was completed verifying correct patient, procedure, site, positioning, and implant(s) or special equipment if applicable. The patient was placed in a dependent position appropriate for triple lumen catheter placement based on the vein to be cannulated. The patient's left shoulder was prepped and draped in sterile fashion. 1% Lidocaine was used to anesthetize the surrounding skin area. A triple lumen 9F Cordis catheter was introduced into the subclavian vein using Seldinger technique. The catheter was threaded smoothly over the guide wire and appropriate blood return was obtained. Each lumen of the catheter was evacuated of air and flushed with sterile saline. The catheter was then sutured in place to the skin and a sterile dressing applied. Perfusion to the extremity distal to the point of catheter insertion was checked and found to be adequate. No complications occurred. MMODL / IJN: [id number] /
--- NOTE | 2017-09-24 08:02 | XR ---
EXAMINATION TYPE: XR chest 1V portable DATE OF EXAM: 09/24/2017 COMPARISON: 09/23/2017 HISTORY: Central line placement TECHNIQUE: Single frontal view of the chest is obtained. FINDINGS: Bilateral consolidation and pleural effusion. ET and NG tube noted and there is a left-herve ed PICC line. Arthropathy of the shoulders. No pneumothorax. IMPRESSION: Bilateral consolidation and pleural effusion.
[2017-09-24] MEDS: ATORVASTATIN 40 MG TAB PO SCH (08:39)
[2017-09-24] MEDS: CHLORHEXIDINE GLUCONATE 15 ML CUP MUCOUS MEM SCH ×2 (08:39→20:18)
[2017-09-24] MEDS: PANTOPRAZOLE 40 MG/10 ML VIAL IVP SCH (08:39)
[2017-09-24] MEDS: METOPROLOL TARTRATE 12.5 MG TAB PO SCH ×2 (08:39→20:18)
[2017-09-24] MEDS: ALLOPURINOL 300 MG TAB PO SCH (08:40)
[2017-09-24] MEDS: PIPERACILLIN-TAZOBACTAM 3.375 GM in DEXTROSE/WATER 1 50ML.BAG IVPB SCH ×2 (08:41→20:47)
--- NOTE | 2017-09-24 10:42 | P.PN ---
Subjective Progress Note Date: 09/24/17 Principal diagnosis: Acute cardiac arrest and acute hypoxic respiratory failure requiring intubation and mechanical ventilation. This is a 77-year-old male patient with known history of chronic atrial fibrillation, chronic lumbar degenerative disc disease with limited mobility and impaired performance and functional status at baseline. He is also known to have diabetes, gout, and prostate enlargement. The patient comes in with worsening shortness of breath and addition to generalized weakness and some dizziness. His chest x-ray showed low lung volumes and cardiomegaly and possibly some right-sided pleural effusion. EKG showed chronic atrial fibrillation with some nonspecific ST segment changes. Based on that the patient a CAT scan of the chest abdomen and pelvis and the CAT scan showed a small to moderate-sized right-sided pleural effusion in addition to some changes in the liver consistent with liver cirrhosis and ascites with anasarca. The patient also reports some increased lower oximetry edema and further investigation with an echo of the heart showed an ejection fraction of 25-30% and global hypokinesis of the left ventricle, RV was mildly enlarged, moderate to severe aortic stenosis, severe mitral regurgitation, severe tricuspid regurgitation, severe pulmonary hypertension was also noted. The patient is currently on 2 L of oxygen nasal cannula. His INR is at 1.5 as the patient is on warfarin. The patient's creatinine is at 1.1 and the patient was started on diuretics and he seems to be responding. He feels less short of breath compared to yesterday. He feels that the abdomen is also less distended. He is lower extremity edema is also improving. He was seen by cardiology. He was also seen by gastroenterology. He is not a drinker. No significant hepatitis. Most of alcoholism. No history of GI bleeding. The patient will have a paracentesis with the next 24 hours regarding his ascites. He is able to lay down to 20 bed elevation without any major difficulties. The patient seen again today 09/19/2017 in follow-up on the selective care unit. He is currently sitting up at bedside. He is awake and alert in no acute distress. His abdomen remains quite distended. He is still this moment with minimal exertion. He is maintaining O2 saturations in the upper 90s on 1.5 L/m per nasal cannula. He is currently afebrile. Hemodynamically stable. INR is 1.6 today. IR will possibly do a paracentesis tomorrow. He is voiding well and remains in a negative balance. His weight is down 1 kg. On 09/20/2017 patient seen in follow-up on selective care unit, he is status post large volume paracentesis of approximately 14.1 L of straw-colored fluid. Patient tolerated the procedure well. Her weight resting in bed, in no acute distress, abdomen is a lot less distended, soft, nontender. Patient is having some soreness along the left costal margin, mild, but no acute distress. Oxygenation improved, patient is currently on 1/2 L per nasal cannula, he reports his breathing easier, vital signs are stable, he is afebrile. Patient has been started on IV Lasix drip at 10 mg per hour, in addition to the Zaroxolyn. Patient continues on potassium and Aldactone,, and lisinopril. Overall his breathing is improved, continue with current medical treatment, will obtain a follow-up chest x-ray in the morning On 09/21/2017, the patient is awake and alert. The patient is looking much better as the patient had significant large volume paracentesis with evacuation of more than 10 L from the abdomen. In fact the total amount was 14 L. Subsequent chest x-ray showed a presence of a right-sided pleural effusion which is moderate in size. Nevertheless, the patient denies having any significant shortness of breath and he is not wanting a thoracentesis for the time being. I think it's reasonable as long as the patient has significant improvement in her breathing with large volume paracentesis. Meanwhile, the patient has become slightly prerenal on today's blood work. BUN is up to 77 and the creatinine is up to 1.48. The patient is currently on Lasix drip at 10 mg an hour. The patient is also on Zaroxolyn 5 mg by mouth daily. The patient is also on Aldactone 100 mg by mouth daily. No major edema lower extremities. Note that the blood work also showed positivity and GEOVANI and anti-smooth muscle antibodies were also positive raising the possibility of an underlying autoimmune related hepatitis/liver disease. This antibodies positive for autoimmune liver disease as such as primary biliary cholangitis and autoimmune hepatitis. Note that the patient also has cardiomyopathy Contributing to His Profound Edema and Fluid Overload. On 09/22/2017, the patient has no specific complaints. Hemodynamically stable. The patient is currently off the Lasix drip. The patient will be started on Aldactone.. The patient has no abdominal pain. Abdominal distention is improved. We decided not to drain the pleural effusion in the lung volume the patient has been having no significant respiratory distress at this point in time. The renal function is stable and the creatinine is at 1.37. On 09/23/2017, this 77-year-old male patient who got brought into the intensive care unit after he rested on the floor. I do not have the chance to evaluate this patient in the morning. The patient was seen by cardiology and apparently his IV Lasix was on hold due to issues related to hypotension. At that point the patient was placed on dopamine at 5 mics. Within 30 minutes of initiation of dopamine, the patient became tachycardic and subsequently a CODE BLUE was called and the patient went into cardiopulmonary arrest. I was on the floor and I attended to the Code and this patient was in PEA initially. CPR was initiated and ACLS protocol was followed. The patient was given epinephrine. I intubated the patient on the scene. Within 2-3 minutes a pulse on her blood pressure was obtained. The patient was interactive and moving all 4 extremities. I'm of the patient in intensive care unit. I started the prevent on him while him being intubated on a mechanical ventilator. A brief neurologic evaluation was done and the patient was fully awake and alert and moving all 4 extremities. Nevertheless, based on his underlying cardio pulmonary status, I decided not to extubate the patient. He was placed on propofol infusion for sedation. Currently is on assist control mode at a rate of 24, tidal volume of 500, FiO2 of 100% and a PEEP of 5. Blood gas showed a pH of 7.37 with a pCO2 of 36 and pO2 of 300 and the FiO2 was not down to 50%. The patient is currently on 5 mics of norepinephrine infusion for blood pressure control. The patient had a post intubation chest x-ray that showed right basilar pleural effusion in addition to cardiomegaly. ET tube was in a good location. Subsequently, I inserted a triple lumen catheter for the left subclavian vein and a chest x-ray findings remain stable and there was no evidence of any pneumothorax. Reviewing the patient's blood work from earlier this morning, the patient a white cell count of 8 with a hemoglobin of 9.7. His BUN is at 83 with a creatinine of 1.5. And note that the patient has become progressively more prerenal as the patient had large volume paracentesis and subsequently was aggressively treated with diuretics. Note that his echocardiogram showed ejection fraction of 25% along with global hypokinesis. LAD was severely dilated. There was severe aortic sclerosis and moderate aortic regurgitation and moderate to severe aortic stenosis with a PA pressure of 61 in addition to severe mitral regurgitation, severe tricuspid regurgitation and severe pulmonary hypertension with a PA pressure of 91. The CAT scan of the abdomen showed changes consistent with cirrhosis of the liver and ascites. Large volume paracentesis was done. The patient continued to have a moderate-sized right-sided pleural effusion. The cirrhosis is probably of a cardiac in nature. No significant splenomegaly or splenic varices was seen. Upon further workup the patient do not to have a positive GEOVANI and anti- smooth muscle antibody which also raises concern for autoimmune hepatitis. Patient was reevaluated today on 09/24/2017, remains on mechanical ventilation, remains on 2 g of norepinephrine, chest x-ray is showing some improvement, but patient continues to have bilateral pleural effusions. Right more so than left , and I believe the right pleural effusion is related to his underlying liver disease and ascites. May or may not consider thoracentesis at this point. His ventilator settings were reviewed, patient was awakened, I gave him a trial of pressure support and CPAP, patient did quite well, and I went ahead and recommended extubating the patient. His weaning parameters were great. His labs were also reviewed WBC count is 12 hemoglobin is 10.7. ABG showed a pO2 of 217 pCO2 of 32 pH of 7.45. PTT is 47.7, patient remains on heparin. Electrolytes are normal BUN is 73 creatinine 1.20. Patient was noted to be appropriate, responsive, and in no distress on pressure support and CPAP. Then I proceeded to extubating the patient. Objective - Vital Signs Vital signs: Vital Signs Temp 97.6 F 09/24/17 10:00 Pulse 64 09/24/17 10:00 Resp 22 09/24/17 10:00 BP 99/56 09/23/17 23:00 Pulse Ox 100 09/24/17 10:00 Intake & Output 09/23/17 09/24/17 09/24/17 18:59 06:59 18:59 Intake Total 730.663 7273.902 342.438 Output Total 725 1580 400 Balance -85.623 -402.098 -57.562 Weight 117.1 kg 117.1 kg Intake: IV 250 853.27 74.2 Heparin Sodium,Porcine/ 253.27 24.2 D5w Pmx 25,000 unit In Dextrose/Water 1 500ml. bag @ 9 UNITS/KG/HR 19.89 mls/hr IV .Q24H [facility] Rx#: [id number] Sodium Chloride 0.9% 1, 50 600 50 000 ml @ 50 mls/hr IV . Q20H [facility] Rx#:[id number] Sodium Chloride 0.9% 1, 200 000 ml @ 75 mls/hr IV . [id number] [facility] Rx#:[id number] Intake, IV Titration 89.377 324.632 118.238 Amount Heparin Sodium,Porcine/ 137.573 D5w Pmx 25,000 unit In Dextrose/Water 1 500ml. bag @ 9 UNITS/KG/HR 19.89 mls/hr IV .Q24H [facility] Rx#: [id number] Norepinephrin 16 mg-0.9% 10.594 5.175 47.438 Ns Pmx 16 mg In 250 ml @ Titrate IV .Q0M [facility] Rx#: [id number] Propofol 1,000 mg In 78.783 181.884 70.8 Empty Bag 1 bag @ Titrate IV .Q0M [facility] Rx#: [id number] Oral 300 150 Output: Urine 725 1380 400 Oral Regurgitation 200 Other: Voiding Method Indwelling Catheter Indwelling Catheter Indwelling Catheter # Voids 1 # Bowel Movements 0 ABP, PAP, CO, CI - Last Documented Arterial Blood Pressure 105/52 - Exam Gen. appearance sedated, comfortable intubated on mechanical ventilator. Orogastric and orotracheal tube are both in place. Head exam was generally normal. There was no scleral icterus or corneal arcus. Mucous membranes were moist. Neck is supple and the patient is extensive JVDs bilaterally without any goiter or neck masses. Orogastric and orotracheal tube are both in place. Lung sounds are diminished in lung bases bilaterally along with some bibasilar crackles. Breath sounds are quite diminished in the right lung base. Heart sounds are irregular and the patient has a systolic ejection murmur grade 2/6 heard throughout the precordium. S1 and S2 are irregular. Abdomen is slightly distended. There is positive fluid wave. No direct tenderness rebound tensile guarding. Bowel sounds are hypoactive and the organs cannot be accurately palpated. Extremities revealed trace edema and there is no cyanosis or clubbing. There is diminished pulses in lower extremities bilaterally. Neurologically the patient was wide awake earlier to being placed on Diprivan. As such he is neurologically intact post his cardiac arrest. Examination of the skin revealed no evidence of significant rashes, suspicious appearing nevi or other concerning lesions. The patient has a triple lumen catheter in the left subclavian vein. - Labs CBC & Chem 7: 09/24/17 04:45 09/24/17 04:45 Labs: Abnormal Lab Results - Last 24 Hours (Table) 09/19/17 09/23/17 09/23/17 Range/Units 05:25 11:53 13:25 WBC (3.8-10.6) k/uL RBC (4.30-5.90) m/uL Hgb (13.0-17.5) gm/dL Hct (39.0-53.0) % RDW (11.5-15.5) % Neutrophils # (1.3-7.7) k/uL PT (9.0-12.0) sec INR (<1.2) APTT (22.0-30.0) sec ABG pCO2 (35-45) mmHg ABG pO2 (83-108) mmHg ABG O2 Saturation (94-97) % Sodium (137-145) mmol/L Potassium (3.5-5.1) mmol/L Carbon Dioxide (22-30) mmol/L BUN (9-20) mg/dL Creatinine (0.66-1.25) mg/dL Glucose (74-99) mg/dL POC Glucose (mg/dL) 137 H 196 H (75-99) mg/dL Calcium (8.4-10.2) mg/dL Alkaline Phosphatase (38-126) U/L CK-MB (CK-2) (0.0-2.4) ng/mL Troponin I (0.000-0.034) ng/mL Total Protein (6.3-8.2) g/dL Albumin (3.5-5.0) g/dL Albumin (PEP) 3.66 L (3.80-4.90) g/dL Urine Protein (Negative) Urine Blood (Negative) 09/23/17 09/23/17 09/23/17 Range/Units 14:13 14:40 14:40 WBC 12.8 H (3.8-10.6) k/uL RBC 4.07 L (4.30-5.90) m/uL Hgb 10.6 L (13.0-17.5) gm/dL Hct 33.5 L (39.0-53.0) % RDW 18.2 H (11.5-15.5) % Neutrophils # 10.2 H (1.3-7.7) k/uL PT 13.6 H (9.0-12.0) sec INR 1.5 H (<1.2) APTT (22.0-30.0) sec ABG pCO2 (35-45) mmHg ABG pO2 300 H (83-108) mmHg ABG O2 Saturation 100.0 H (94-97) % Sodium (137-145) mmol/L Potassium (3.5-5.1) mmol/L Carbon Dioxide (22-30) mmol/L BUN (9-20) mg/dL Creatinine (0.66-1.25) mg/dL Glucose (74-99) mg/dL POC Glucose (mg/dL) (75-99) mg/dL Calcium (8.4-10.2) mg/dL Alkaline Phosphatase (38-126) U/L CK-MB (CK-2) (0.0-2.4) ng/mL Troponin I (0.000-0.034) ng/mL Total Protein (6.3-8.2) g/dL Albumin (3.5-5.0) g/dL Albumin (PEP) (3.80-4.90) g/dL Urine Protein (Negative) Urine Blood (Negative) 09/23/17 09/23/17 09/23/17 Range/Units 14:40 15:20 15:20 WBC (3.8-10.6) k/uL RBC (4.30-5.90) m/uL Hgb (13.0-17.5) gm/dL Hct (39.0-53.0) % RDW (11.5-15.5) % Neutrophils # (1.3-7.7) k/uL PT (9.0-12.0) sec INR (<1.2) APTT (22.0-30.0) sec ABG pCO2 (35-45) mmHg ABG pO2 (83-108) mmHg ABG O2 Saturation (94-97) % Sodium 132 L (137-145) mmol/L Potassium 5.3 H (3.5-5.1) mmol/L Carbon Dioxide (22-30) mmol/L BUN 84 H* (9-20) mg/dL Creatinine 1.41 H (0.66-1.25) mg/dL Glucose 157 H (74-99) mg/dL POC Glucose (mg/dL) (75-99) mg/dL Calcium 7.7 L (8.4-10.2) mg/dL Alkaline Phosphatase 214 H (38-126) U/L CK-MB (CK-2) (0.0-2.4) ng/mL Troponin I 0.198 H* (0.000-0.034) ng/mL Total Protein 5.8 L (6.3-8.2) g/dL Albumin 3.0 L (3.5-5.0) g/dL Albumin (PEP) (3.80-4.90) g/dL Urine Protein Trace H (Negative) Urine Blood Trace H (Negative) 09/23/17 09/23/17 09/23/17 Range/Units 15:20 18:11 22:10 WBC (3.8-10.6) k/uL RBC (4.30-5.90) m/uL Hgb (13.0-17.5) gm/dL Hct (39.0-53.0) % RDW (11.5-15.5) % Neutrophils # (1.3-7.7) k/uL PT (9.0-12.0) sec INR (<1.2) APTT 41.2 H (22.0-30.0) sec ABG pCO2 (35-45) mmHg ABG pO2 (83-108) mmHg ABG O2 Saturation (94-97) % Sodium (137-145) mmol/L Potassium (3.5-5.1) mmol/L Carbon Dioxide (22-30) mmol/L BUN (9-20) mg/dL Creatinine (0.66-1.25) mg/dL Glucose (74-99) mg/dL POC Glucose (mg/dL) 151 H (75-99) mg/dL Calcium (8.4-10.2) mg/dL Alkaline Phosphatase (38-126) U/L CK-MB (CK-2) 3.9 H* (0.0-2.4) ng/mL Troponin I (0.000-0.034) ng/mL Total Protein (6.3-8.2) g/dL Albumin (3.5-5.0) g/dL Albumin (PEP) (3.80-4.90) g/dL Urine Protein (Negative) Urine Blood (Negative) 09/24/17 09/24/17 09/24/17 Range/Units 00:03 04:45 04:45 WBC 12.0 H (3.8-10.6) k/uL RBC 4.16 L (4.30-5.90) m/uL Hgb 10.7 L (13.0-17.5) gm/dL Hct 33.6 L (39.0-53.0) % RDW 18.5 H (11.5-15.5) % Neutrophils # 8.8 H (1.3-7.7) k/uL PT (9.0-12.0) sec INR (<1.2) APTT (22.0-30.0) sec ABG pCO2 (35-45) mmHg ABG pO2 (83-108) mmHg ABG O2 Saturation (94-97) % Sodium 133 L (137-145) mmol/L Potassium (3.5-5.1) mmol/L Carbon Dioxide 21 L (22-30) mmol/L BUN 73 H (9-20) mg/dL Creatinine (0.66-1.25) mg/dL Glucose 175 H (74-99) mg/dL POC Glucose (mg/dL) 205 H (75-99) mg/dL Calcium 7.9 L (8.4-10.2) mg/dL Alkaline Phosphatase (38-126) U/L CK-MB (CK-2) (0.0-2.4) ng/mL Troponin I (0.000-0.034) ng/mL Total Protein (6.3-8.2) g/dL Albumin (3.5-5.0) g/dL Albumin (PEP) (3.80-4.90) g/dL Urine Protein (Negative) Urine Blood (Negative) 09/24/17 09/24/17 Range/Units 04:45 06:45 WBC (3.8-10.6) k/uL RBC (4.30-5.90) m/uL Hgb (13.0-17.5) gm/dL Hct (39.0-53.0) % RDW (11.5-15.5) % Neutrophils # (1.3-7.7) k/uL PT (9.0-12.0) sec INR (<1.2) APTT 47.7 H (22.0-30.0) sec ABG pCO2 32 L (35-45) mmHg ABG pO2 217 H (83-108) mmHg ABG O2 Saturation 99.2 H (94-97) % Sodium (137-145) mmol/L Potassium (3.5-5.1) mmol/L Carbon Dioxide (22-30) mmol/L BUN (9-20) mg/dL Creatinine (0.66-1.25) mg/dL Glucose (74-99) mg/dL POC Glucose (mg/dL) (75-99) mg/dL Calcium (8.4-10.2) mg/dL Alkaline Phosphatase (38-126) U/L CK-MB (CK-2) (0.0-2.4) ng/mL Troponin I (0.000-0.034) ng/mL Total Protein (6.3-8.2) g/dL Albumin (3.5-5.0) g/dL Albumin (PEP) (3.80-4.90) g/dL Urine Protein (Negative) Urine Blood (Negative) Microbiology - Last 24 Hours (Table) 09/20/17 09:30 Gram Stain - Preliminary Ascites Fluid Body Fluid Culture - Preliminary Assessment and Plan Assessment: 1 acute cardiac arrest. The patient was in PEA with a downtime of around 2-3 minutes. He had successful resuscitation based on ACLS protocol. Currently intubated on a mechanical ventilator. Patient was noted to be arousable, follows simple instructions, spontaneous breathing trial was noted to be adequate, hence proceeded to extubating the patient. 3 right-sided pleural effusion likely on the basis of congestion heart failure. Possibility of chronic liver disease causing ascites and right-sided pleural effusion/hydrothorax cannot be completely excluded. 2 CHF with impaired left a ejection fraction of 25%. In addition the patient has severe aortic stenosis, mitral regurgitation, severe tricuspid regurgitation secondary pulmonary hypertension. 3 chronic atrial fibrillation 4 ascites and anasarca secondary to above, there is post large volume paracentesis with removal of 14.1 L of ascitic fluid 5 questionable liver cirrhosis although the findings could be also related to cardiac cirrhosis. The patient has positive anti-smooth muscle antibodies. Rule out autoimmune hepatitis. Rule out other immune related biliary disease with positive anti-smooth muscle antibodies. 6 long-term anticoagulation with warfarin 6 diabetes mellitus 7 gout 8 BPH 9 prerenal azotemia secondary to aggressive diuresis and prerenal effect secondary to heart failure Recommendation: Patient was extubated to a nasal cannula, I plan to keep him in the ICU, titrate and possibly discontinue levo fed, cardiology is following the patient, and we'll make certain recommendations regarding his overall cardiac status. Overall prognosis considering his cardiac issues and his liver issues seems to be extremely poor and guarded. CODE STATUS may have to be addressed with the patient and family members later today or in a.m. Critical care time is 35 minutes. Time with Patient: Greater than 30
--- NOTE | 2017-09-24 10:43 | P.PN ---
Subjective Progress Note Date: 09/24/17 This is a 77-year-old gentleman with history of moderate to severe aortic stenosis and mitral regurgitation and also cardiomyopathy who was admitted to the hospital with increasing shortness of breath and CHF. Patient was given IV Lasix initially, but patient became hypotensive. The Lasix was discontinued. Patient still has significant edema and symptoms of exertional shortness of breath. Patient was given IV dopamine yesterday. Apparently a Half hour after initiation of the dopamine, patient became tachycardic and became unresponsive. Patient apparently was pulseless. Patient was intubated and was given epinephrine IV. CPR was carried out. Patient regained pulse within few minutes. Patient was brought to the intensive care unit. Patient is extubated this morning. Patient is alert and seemed to be oriented. He is complaining of not feeling well and short of. Patient is having urine output at 40-50 mL an hour. He is on a small dose of Levophed and also on heparin. He is urine is bloody this morning. If the urine doesn't clear up and may have to stop the heparin and may require urology consult. His lungs show expiratory rhonchi and diminished breath sounds at bases. Patient is in atrial fibrillation with controlled ventricular response. His blood pressure is running about 100 systolic. Small dose of diuretic may be given. Patient prognosis is guarded at this time. Given significant valvular abnormalities. Cardiomyopathy, his long-term prognosis is poor. Will discuss with the regarding further management Objective - Vital Signs Vital signs: Vital Signs Temp 97.6 F 09/24/17 10:00 Pulse 64 09/24/17 10:00 Resp 22 09/24/17 10:00 BP 99/56 09/23/17 23:00 Pulse Ox 100 09/24/17 10:00 Intake & Output 09/23/17 09/24/17 09/24/17 18:59 06:59 18:59 Intake Total 383.755 7137.902 342.438 Output Total 725 1580 400 Balance -85.623 -402.098 -57.562 Weight 117.1 kg 117.1 kg Intake: IV 250 853.27 74.2 Heparin Sodium,Porcine/ 253.27 24.2 D5w Pmx 25,000 unit In Dextrose/Water 1 500ml. bag @ 9 UNITS/KG/HR 19.89 mls/hr IV .Q24H [facility] Rx#: [id number] Sodium Chloride 0.9% 1, 50 600 50 000 ml @ 50 mls/hr IV . Q20H [facility] Rx#:[id number] Sodium Chloride 0.9% 1, 200 000 ml @ 75 mls/hr IV . [id number] [facility] Rx#:[id number] Intake, IV Titration 89.377 324.632 118.238 Amount Heparin Sodium,Porcine/ 137.573 D5w Pmx 25,000 unit In Dextrose/Water 1 500ml. bag @ 9 UNITS/KG/HR 19.89 mls/hr IV .Q24H [facility] Rx#: [id number] Norepinephrin 16 mg-0.9% 10.594 5.175 47.438 Ns Pmx 16 mg In 250 ml @ Titrate IV .Q0M [facility] Rx#: [id number] Propofol 1,000 mg In 78.783 181.884 70.8 Empty Bag 1 bag @ Titrate IV .Q0M [facility] Rx#: [id number] Oral 300 150 Output: Urine 725 1380 400 Oral Regurgitation 200 Other: Voiding Method Indwelling Catheter Indwelling Catheter Indwelling Catheter # Voids 1 # Bowel Movements 0 ABP, PAP, CO, CI - Last Documented Arterial Blood Pressure 105/52 - Exam GENERAL EXAM: Patient is alert and oriented and doesn't appear to be in any acute distress HEENT: Normocephalic. Normal reaction of pupils, equal size, normal range of extraocular motion. No erythema or exudates in the throat. NECK: No masses, no nuchal rigidity. CHEST: No chest wall deformity. LUNGS: Expiratory rhonchi HEART: S1 and S2 normal, systolic murmur ABDOMEN: No hepatosplenomegaly, normal bowel sounds, no guarding or rigidity. SKIN: No rashes CENTRAL NERVOUS SYSTEM: No focal deficits. Moving all the extremities EXTREMITIES: No cyanosis, clubbing or edema. - Labs CBC & Chem 7: 09/24/17 04:45 09/24/17 04:45 Labs: Abnormal Lab Results - Last 24 Hours (Table) 09/19/17 09/23/17 09/23/17 Range/Units 05:25 11:53 13:25 WBC (3.8-10.6) k/uL RBC (4.30-5.90) m/uL Hgb (13.0-17.5) gm/dL Hct (39.0-53.0) % RDW (11.5-15.5) % Neutrophils # (1.3-7.7) k/uL PT (9.0-12.0) sec INR (<1.2) APTT (22.0-30.0) sec ABG pCO2 (35-45) mmHg ABG pO2 (83-108) mmHg ABG O2 Saturation (94-97) % Sodium (137-145) mmol/L Potassium (3.5-5.1) mmol/L Carbon Dioxide (22-30) mmol/L BUN (9-20) mg/dL Creatinine (0.66-1.25) mg/dL Glucose (74-99) mg/dL POC Glucose (mg/dL) 137 H 196 H (75-99) mg/dL Calcium (8.4-10.2) mg/dL Alkaline Phosphatase (38-126) U/L CK-MB (CK-2) (0.0-2.4) ng/mL Troponin I (0.000-0.034) ng/mL Total Protein (6.3-8.2) g/dL Albumin (3.5-5.0) g/dL Albumin (PEP) 3.66 L (3.80-4.90) g/dL Urine Protein (Negative) Urine Blood (Negative) 09/23/17 09/23/17 09/23/17 Range/Units 14:13 14:40 14:40 WBC 12.8 H (3.8-10.6) k/uL RBC 4.07 L (4.30-5.90) m/uL Hgb 10.6 L (13.0-17.5) gm/dL Hct 33.5 L (39.0-53.0) % RDW 18.2 H (11.5-15.5) % Neutrophils # 10.2 H (1.3-7.7) k/uL PT 13.6 H (9.0-12.0) sec INR 1.5 H (<1.2) APTT (22.0-30.0) sec ABG pCO2 (35-45) mmHg ABG pO2 300 H (83-108) mmHg ABG O2 Saturation 100.0 H (94-97) % Sodium (137-145) mmol/L Potassium (3.5-5.1) mmol/L Carbon Dioxide (22-30) mmol/L BUN (9-20) mg/dL Creatinine (0.66-1.25) mg/dL Glucose (74-99) mg/dL POC Glucose (mg/dL) (75-99) mg/dL Calcium (8.4-10.2) mg/dL Alkaline Phosphatase (38-126) U/L CK-MB (CK-2) (0.0-2.4) ng/mL Troponin I (0.000-0.034) ng/mL Total Protein (6.3-8.2) g/dL Albumin (3.5-5.0) g/dL Albumin (PEP) (3.80-4.90) g/dL Urine Protein (Negative) Urine Blood (Negative) 09/23/17 09/23/17 09/23/17 Range/Units 14:40 15:20 15:20 WBC (3.8-10.6) k/uL RBC (4.30-5.90) m/uL Hgb (13.0-17.5) gm/dL Hct (39.0-53.0) % RDW (11.5-15.5) % Neutrophils # (1.3-7.7) k/uL PT (9.0-12.0) sec INR (<1.2) APTT (22.0-30.0) sec ABG pCO2 (35-45) mmHg ABG pO2 (83-108) mmHg ABG O2 Saturation (94-97) % Sodium 132 L (137-145) mmol/L Potassium 5.3 H (3.5-5.1) mmol/L Carbon Dioxide (22-30) mmol/L BUN 84 H* (9-20) mg/dL Creatinine 1.41 H (0.66-1.25) mg/dL Glucose 157 H (74-99) mg/dL POC Glucose (mg/dL) (75-99) mg/dL Calcium 7.7 L (8.4-10.2) mg/dL Alkaline Phosphatase 214 H (38-126) U/L CK-MB (CK-2) (0.0-2.4) ng/mL Troponin I 0.198 H* (0.000-0.034) ng/mL Total Protein 5.8 L (6.3-8.2) g/dL Albumin 3.0 L (3.5-5.0) g/dL Albumin (PEP) (3.80-4.90) g/dL Urine Protein Trace H (Negative) Urine Blood Trace H (Negative) 09/23/17 09/23/17 09/23/17 Range/Units 15:20 18:11 22:10 WBC (3.8-10.6) k/uL RBC (4.30-5.90) m/uL Hgb (13.0-17.5) gm/dL Hct (39.0-53.0) % RDW (11.5-15.5) % Neutrophils # (1.3-7.7) k/uL PT (9.0-12.0) sec INR (<1.2) APTT 41.2 H (22.0-30.0) sec ABG pCO2 (35-45) mmHg ABG pO2 (83-108) mmHg ABG O2 Saturation (94-97) % Sodium (137-145) mmol/L Potassium (3.5-5.1) mmol/L Carbon Dioxide (22-30) mmol/L BUN (9-20) mg/dL Creatinine (0.66-1.25) mg/dL Glucose (74-99) mg/dL POC Glucose (mg/dL) 151 H (75-99) mg/dL Calcium (8.4-10.2) mg/dL Alkaline Phosphatase (38-126) U/L CK-MB (CK-2) 3.9 H* (0.0-2.4) ng/mL Troponin I (0.000-0.034) ng/mL Total Protein (6.3-8.2) g/dL Albumin (3.5-5.0) g/dL Albumin (PEP) (3.80-4.90) g/dL Urine Protein (Negative) Urine Blood (Negative) 09/24/17 09/24/17 09/24/17 Range/Units 00:03 04:45 04:45 WBC 12.0 H (3.8-10.6) k/uL RBC 4.16 L (4.30-5.90) m/uL Hgb 10.7 L (13.0-17.5) gm/dL Hct 33.6 L (39.0-53.0) % RDW 18.5 H (11.5-15.5) % Neutrophils # 8.8 H (1.3-7.7) k/uL PT (9.0-12.0) sec INR (<1.2) APTT (22.0-30.0) sec ABG pCO2 (35-45) mmHg ABG pO2 (83-108) mmHg ABG O2 Saturation (94-97) % Sodium 133 L (137-145) mmol/L Potassium (3.5-5.1) mmol/L Carbon Dioxide 21 L (22-30) mmol/L BUN 73 H (9-20) mg/dL Creatinine (0.66-1.25) mg/dL Glucose 175 H (74-99) mg/dL POC Glucose (mg/dL) 205 H (75-99) mg/dL Calcium 7.9 L (8.4-10.2) mg/dL Alkaline Phosphatase (38-126) U/L CK-MB (CK-2) (0.0-2.4) ng/mL Troponin I (0.000-0.034) ng/mL Total Protein (6.3-8.2) g/dL Albumin (3.5-5.0) g/dL Albumin (PEP) (3.80-4.90) g/dL Urine Protein (Negative) Urine Blood (Negative) 09/24/17 09/24/17 Range/Units 04:45 06:45 WBC (3.8-10.6) k/uL RBC (4.30-5.90) m/uL Hgb (13.0-17.5) gm/dL Hct (39.0-53.0) % RDW (11.5-15.5) % Neutrophils # (1.3-7.7) k/uL PT (9.0-12.0) sec INR (<1.2) APTT 47.7 H (22.0-30.0) sec ABG pCO2 32 L (35-45) mmHg ABG pO2 217 H (83-108) mmHg ABG O2 Saturation 99.2 H (94-97) % Sodium (137-145) mmol/L Potassium (3.5-5.1) mmol/L Carbon Dioxide (22-30) mmol/L BUN (9-20) mg/dL Creatinine (0.66-1.25) mg/dL Glucose (74-99) mg/dL POC Glucose (mg/dL) (75-99) mg/dL Calcium (8.4-10.2) mg/dL Alkaline Phosphatase (38-126) U/L CK-MB (CK-2) (0.0-2.4) ng/mL Troponin I (0.000-0.034) ng/mL Total Protein (6.3-8.2) g/dL Albumin (3.5-5.0) g/dL Albumin (PEP) (3.80-4.90) g/dL Urine Protein (Negative) Urine Blood (Negative) Microbiology - Last 24 Hours (Table) 09/20/17 09:30 Gram Stain - Preliminary Ascites Fluid Body Fluid Culture - Preliminary Assessment and Plan Assessment: Patient is status post cardiac pulmonary arrest. Patient was started on dopamine and became tachycardic. It is possible that because severe valvar heart disease and cardiomyopathy, patient might have developed became hypotensive and became pulseless. Patient prognosis is guarded. Careful gentle diuresis. We'll continue. I don't think patient is a good candidate for valve replacement
[2017-09-24] MEDS: HEPARIN SODIUM,PORCINE/D5W PMX 25,000 UNIT in DEXTROSE/WATER 1 500ML.BAG IV SCH (11:48)
[2017-09-24 11:50] LABS: Glucose,Whole Blood 199 mg/dL (75-99)
--- NOTE | 2017-09-24 12:34 | ECHOF ---
Referral Reason:post cardiac arrest MEASUREMENTS -------- HEIGHT: 190.5 cm WEIGHT: 110.2 kg BP: 101/51 RVIDd: 4.1 cm (< 3.3) IVSd: 1.2 cm (0.6 - 1.1) LVIDd: 5.7 cm (3.9 - 5.3) LVPWd: 1.0 cm (0.6 - 1.1) IVSs: 1.3 cm LVIDs: 5.0 cm LVPWs: 1.5 cm LA Diam: 4.5 cm (2.7 - 3.8) LAESV Index (A-L): 37.17 ml/m Ao Diam: 3.5 cm (2.0 - 3.7) AV Cusp: 1.4 cm (1.5 - 2.6) AV maxP.57 mmHg AV meanP.34 mmHg RAP: 15.00 mmHg RVSP: 36.79 mmHg FINDINGS -------- Atrial fibrillation. This was a technically adequate study. The left ventricular size is normal. There is borderline concentric left ventricular hypertrophy. There is severe global hypokinesis of LV . Overall left ventricular systolic function is severely impaired with, an EF between 25 - 30 %. The right ventricle is moderately enlarged. LA is moderately dilated 34-39 ml/m2 The right atrium is normal in size. There is moderate to severe aortic valve sclerosis. There is ikzy-wo-slktpzmx aortic regurgitation. There is moderate aortic stenosis present. Peak/mean gradient across the Aortic Valve is 55.57mm Hg / 36.34mmHg. Moderate mitral annular calcification present. Lzem-sr-ujepnwsy mitral regurgitation is present. Mild tricuspid regurgitation present. There is mild pulmonary hypertension. The right ventricular systolic pressure, as measured by Doppler, is 36.79mmHg. The pulmonic valve was not well visualized. There is no pulmonic regurgitation present. The aortic root size is normal. The inferior vena cava is dilated with no significant inspiratory collapse which is consistent estima olivia right atrial pressure of >15 mmHg. There is no pericardial effusion. CONCLUSIONS -------- 1. Atrial fibrillation. 2. This was a technically adequate study. 3. The left ventricular size is normal. 4. There is borderline concentric left ventricular hypertrophy. 5. There is severe global hypokinesis of LV . 6. Overall left ventricular systolic function is severely impaired with, an EF between 25 - 30 %. 7. The right ventricle is moderately enlarged. 8. LA is moderately dilated 34-39 ml/m2 9. There is moderate to severe aortic valve sclerosis. 10. There is meqi-un-oardqlkm aortic regurgitation. 11. There is moderate aortic stenosis present. 12. Peak/mean gradient across the Aortic Valve is 55.57mmHg / 36.34mmHg. 13. Moderate mitral annular calcification present. 14. Mjdj-xm-uwxkghaj mitral regurgitation is present. 15. Mild tricuspid regurgitation present. 16. There is mild pulmonary hypertension. 17. The pulmonic valve was not well visualized. 18. There is no pulmonic regurgitation present. 19. The aortic root size is normal. 20. The inferior vena cava is dilated with no significant inspiratory collapse which is consistent es timated right atrial pressure of >15 mmHg. 21. There is no pericardial effusion. SPORTS MEDICINE COORDINATOR: Zoila Ramos RDCS
[2017-09-24] MEDS: SODIUM CHLORIDE 0.9% 1,000 ML IV SCH (14:47)
--- NOTE | 2017-09-24 15:30 | PN ---
PROGRESS NOTE DATE OF SERVICE: 09/21/2017 This patient is admitted with biventricular failure with significant right-sided failure and the patient has a significant ascites. Patient had about 14 L of the fluid removed yesterday. Patient absolutely has remained hypotensive. The blood pressure is 80-90 systolic. Patient is otherwise lying comfortably. The patient denies any dizziness or lightheadedness. Heart: First and second heart sounds are normal. Lungs examination is bilateral diminished air entry. Abdomen is soft. It is mildly distended. The patient's hemoglobin is 9.7, creatinine 1.48. ASSESSMENT AND PLAN: Patient has severe aortic stenosis with biventricular failure. We will hold all the diuretics for the next 24 hours and see how the patient is doing. If the patient's blood pressure is stabilized, diuretics will be resumed. MMODL / IJN: [id number] /
--- NOTE | 2017-09-24 15:36 | CONS ---
CONSULTATION REASON FOR CONSULT: The renal failure. HISTORY OF PRESENT ILLNESS: The patient is a 77-year-old male who was initially admitted to the hospital on 09/17/2017, with abdominal distention, fatigue and lightheadedness. The patient was found to have pleural effusion and CHF with ejection fraction of 25%. The patient was being diuresed. He was on Lasix drip at 10 mg an hour. The patient was apparently started on dopamine and it appears that he had a cardiac arrest. He was in PE and was transferred to the ICU yesterday. He has already been extubated. He states he is feeling fair. He is maintained on small dose of Levophed at about 4 mcg. Patient is also on IV heparin. He has had bloody urine in the Miranda catheter. PAST MEDICAL HISTORY: Significant for coronary artery disease, history of atrial fibrillation, type 2 diabetes, BPH, gout. PAST SURGICAL HISTORY: Cholecystectomy. SOCIAL HISTORY: Patient is a former smoker. MEDICATIONS: Prior to admission included Zyloprim, Lanoxin, Lasix, Indocin, insulin, Accupril, potassium, Flomax, Coumadin. ALLERGIES: None. PHYSICAL EXAMINATION: Patient is currently comfortable. He is not in any acute distress. Blood pressure this afternoon was 119/49, heart rate 80 per minute. Patient is afebrile. Examination of the heart S1, S2. Examination of the lungs bilateral breath sounds are heard. Abdomen is soft, nontender. Examination of lower extremities shows bilateral extremities to be wrapped. 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 Patient moving all 4 extremities. LAB: Show sodium 133, potassium 4.8, chloride 103, CO2 of 21, BUN 73, serum creatinine 1.2 mg/dL. ASSESSMENT: 1. Acute kidney injury, mostly cardiorenal. Renal function is slightly improved. At this time patient is on small dose of Levophed at 4 mics. He is not on any IV fluids or diuretics. He has had good urine output. His atrial fibrillation is fairly well controlled. I will continue off of diuretics and IV fluids for now and we can likely resume loop diuretics in a.m. Currently, patient is not short of breath. His x-ray did show evidence of bilateral consolidation. 2. Status post cardiac arrest, currently extubated and awake. 3. Severe cardiomyopathy ejection fraction 25%. 4. Type 2 diabetes, maintained on insulin. 5. 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 He is being followed by Gastroenterology. PLAN: Continue off of diuretics and IV fluids. Repeat labs in a.m. Repeat chest x-ray in a.m. Continue to avoid nephrotoxic agents. Thank you for this consultation. We will continue to follow the patient with you during his hospitalization. MMODL / IJN: [id number] /
--- NOTE | 2017-09-24 16:00 | P.PN ---
Subjective Progress Note Date: 09/24/17 Principal diagnosis: s/p cardiac arrest extubated earlier today, no fever,no sob,some pain in the chest secondary to cpr Objective - Vital Signs Vital signs: Vital Signs Temp 97.0 F L 09/24/17 12:00 Pulse 80 09/24/17 14:00 Resp 20 09/24/17 14:00 BP 99/56 09/23/17 23:00 Pulse Ox 100 09/24/17 14:00 Intake & Output 09/23/17 09/24/17 09/24/17 18:59 06:59 18:59 Intake Total 421.186 2368.902 834.168 Output Total 725 1580 835 Balance -85.623 -402.098 -0.832 Weight 117.1 kg 117.1 kg Intake: IV 250 853.27 224.2 Heparin Sodium,Porcine/ 253.27 24.2 D5w Pmx 25,000 unit In Dextrose/Water 1 500ml. bag @ 9 UNITS/KG/HR 19.89 mls/hr IV .Q24H [facility] Rx#: [id number] Sodium Chloride 0.9% 1, 50 600 200 000 ml @ 50 mls/hr IV . Q20H [facility] Rx#:[id number] Sodium Chloride 0.9% 1, 200 000 ml @ 75 mls/hr IV . [id number] [facility] Rx#:[id number] Intake, IV Titration 89.377 324.632 459.968 Amount Heparin Sodium,Porcine/ 137.573 317.651 D5w Pmx 25,000 unit In Dextrose/Water 1 500ml. bag @ 9 UNITS/KG/HR 19.89 mls/hr IV .Q24H [facility] Rx#: [id number] Norepinephrin 16 mg-0.9% 10.594 5.175 71.517 Ns Pmx 16 mg In 250 ml @ Titrate IV .Q0M [facility] Rx#: [id number] Propofol 1,000 mg In 78.783 181.884 70.8 Empty Bag 1 bag @ Titrate IV .Q0M [facility] Rx#: [id number] Oral 300 150 Output: Urine 725 1380 835 Oral Regurgitation 200 Other: Voiding Method Indwelling Catheter Indwelling Catheter Indwelling Catheter # Voids 1 # Bowel Movements 0 ABP, PAP, CO, CI - Last Documented Arterial Blood Pressure 111/44 - EENT Eyes: Present: EOMI, PERRLA - Respiratory Respiratory: bilateral: CTA - Cardiovascular Rhythm: regular Heart sounds: normal: S1, S2 - Peripheral edema foot Peripheral Edema: bilateral: 1+ ankle Peripheral Edema: absent: None - Labs CBC & Chem 7: 09/24/17 04:45 09/24/17 04:45 Labs: Abnormal Lab Results - Last 24 Hours (Table) 09/19/17 09/23/17 09/23/17 Range/Units 05:25 14:40 14:40 WBC 12.8 H (3.8-10.6) k/uL RBC 4.07 L (4.30-5.90) m/uL Hgb 10.6 L (13.0-17.5) gm/dL Hct 33.5 L (39.0-53.0) % RDW 18.2 H (11.5-15.5) % Neutrophils # 10.2 H (1.3-7.7) k/uL PT 13.6 H (9.0-12.0) sec INR 1.5 H (<1.2) APTT (22.0-30.0) sec ABG pCO2 (35-45) mmHg ABG pO2 (83-108) mmHg ABG O2 Saturation (94-97) % Sodium (137-145) mmol/L Potassium (3.5-5.1) mmol/L Carbon Dioxide (22-30) mmol/L BUN (9-20) mg/dL Creatinine (0.66-1.25) mg/dL Glucose (74-99) mg/dL POC Glucose (mg/dL) (75-99) mg/dL Calcium (8.4-10.2) mg/dL Alkaline Phosphatase (38-126) U/L CK-MB (CK-2) (0.0-2.4) ng/mL Troponin I (0.000-0.034) ng/mL Total Protein (6.3-8.2) g/dL Albumin (3.5-5.0) g/dL Albumin (PEP) 3.66 L (3.80-4.90) g/dL Urine Protein (Negative) Urine Blood (Negative) 09/23/17 09/23/17 09/23/17 Range/Units 14:40 15:20 15:20 WBC (3.8-10.6) k/uL RBC (4.30-5.90) m/uL Hgb (13.0-17.5) gm/dL Hct (39.0-53.0) % RDW (11.5-15.5) % Neutrophils # (1.3-7.7) k/uL PT (9.0-12.0) sec INR (<1.2) APTT (22.0-30.0) sec ABG pCO2 (35-45) mmHg ABG pO2 (83-108) mmHg ABG O2 Saturation (94-97) % Sodium 132 L (137-145) mmol/L Potassium 5.3 H (3.5-5.1) mmol/L Carbon Dioxide (22-30) mmol/L BUN 84 H* (9-20) mg/dL Creatinine 1.41 H (0.66-1.25) mg/dL Glucose 157 H (74-99) mg/dL POC Glucose (mg/dL) (75-99) mg/dL Calcium 7.7 L (8.4-10.2) mg/dL Alkaline Phosphatase 214 H (38-126) U/L CK-MB (CK-2) (0.0-2.4) ng/mL Troponin I 0.198 H* (0.000-0.034) ng/mL Total Protein 5.8 L (6.3-8.2) g/dL Albumin 3.0 L (3.5-5.0) g/dL Albumin (PEP) (3.80-4.90) g/dL Urine Protein Trace H (Negative) Urine Blood Trace H (Negative) 09/23/17 09/23/17 09/23/17 Range/Units 15:20 18:11 22:10 WBC (3.8-10.6) k/uL RBC (4.30-5.90) m/uL Hgb (13.0-17.5) gm/dL Hct (39.0-53.0) % RDW (11.5-15.5) % Neutrophils # (1.3-7.7) k/uL PT (9.0-12.0) sec INR (<1.2) APTT 41.2 H (22.0-30.0) sec ABG pCO2 (35-45) mmHg ABG pO2 (83-108) mmHg ABG O2 Saturation (94-97) % Sodium (137-145) mmol/L Potassium (3.5-5.1) mmol/L Carbon Dioxide (22-30) mmol/L BUN (9-20) mg/dL Creatinine (0.66-1.25) mg/dL Glucose (74-99) mg/dL POC Glucose (mg/dL) 151 H (75-99) mg/dL Calcium (8.4-10.2) mg/dL Alkaline Phosphatase (38-126) U/L CK-MB (CK-2) 3.9 H* (0.0-2.4) ng/mL Troponin I (0.000-0.034) ng/mL Total Protein (6.3-8.2) g/dL Albumin (3.5-5.0) g/dL Albumin (PEP) (3.80-4.90) g/dL Urine Protein (Negative) Urine Blood (Negative) 09/24/17 09/24/17 09/24/17 Range/Units 00:03 04:45 04:45 WBC 12.0 H (3.8-10.6) k/uL RBC 4.16 L (4.30-5.90) m/uL Hgb 10.7 L (13.0-17.5) gm/dL Hct 33.6 L (39.0-53.0) % RDW 18.5 H (11.5-15.5) % Neutrophils # 8.8 H (1.3-7.7) k/uL PT (9.0-12.0) sec INR (<1.2) APTT (22.0-30.0) sec ABG pCO2 (35-45) mmHg ABG pO2 (83-108) mmHg ABG O2 Saturation (94-97) % Sodium 133 L (137-145) mmol/L Potassium (3.5-5.1) mmol/L Carbon Dioxide 21 L (22-30) mmol/L BUN 73 H (9-20) mg/dL Creatinine (0.66-1.25) mg/dL Glucose 175 H (74-99) mg/dL POC Glucose (mg/dL) 205 H (75-99) mg/dL Calcium 7.9 L (8.4-10.2) mg/dL Alkaline Phosphatase (38-126) U/L CK-MB (CK-2) (0.0-2.4) ng/mL Troponin I (0.000-0.034) ng/mL Total Protein (6.3-8.2) g/dL Albumin (3.5-5.0) g/dL Albumin (PEP) (3.80-4.90) g/dL Urine Protein (Negative) Urine Blood (Negative) 09/24/17 09/24/17 09/24/17 Range/Units 04:45 06:45 11:47 WBC (3.8-10.6) k/uL RBC (4.30-5.90) m/uL Hgb (13.0-17.5) gm/dL Hct (39.0-53.0) % RDW (11.5-15.5) % Neutrophils # (1.3-7.7) k/uL PT (9.0-12.0) sec INR (<1.2) APTT 47.7 H (22.0-30.0) sec ABG pCO2 32 L (35-45) mmHg ABG pO2 217 H (83-108) mmHg ABG O2 Saturation 99.2 H (94-97) % Sodium (137-145) mmol/L Potassium (3.5-5.1) mmol/L Carbon Dioxide (22-30) mmol/L BUN (9-20) mg/dL Creatinine (0.66-1.25) mg/dL Glucose (74-99) mg/dL POC Glucose (mg/dL) 199 H (75-99) mg/dL Calcium (8.4-10.2) mg/dL Alkaline Phosphatase (38-126) U/L CK-MB (CK-2) (0.0-2.4) ng/mL Troponin I (0.000-0.034) ng/mL Total Protein (6.3-8.2) g/dL Albumin (3.5-5.0) g/dL Albumin (PEP) (3.80-4.90) g/dL Urine Protein (Negative) Urine Blood (Negative) Microbiology - Last 24 Hours (Table) 09/20/17 09:30 Gram Stain - Preliminary Ascites Fluid Body Fluid Culture - Preliminary Assessment and Plan (1) Cardiac arrest Narrative/Plan: Patient wasn't P 84.3 minutes Current Visit: Yes Status: Acute Code(s): I46.9 - CARDIAC ARREST, CAUSE UNSPECIFIED SNOMED Code(s): 748173751 (2) Respiratory failure Narrative/Plan: Extubated earlier today Current Visit: Yes Status: Acute Code(s): J96.90 - RESPIRATORY FAILURE, UNSP , UNSP W HYPOXIA OR HYPERCAPNIA SNOMED Code(s): 930305577 (3) Acute systolic CHF (congestive heart failure), NYHA class 4 Current Visit: Yes Status: Acute Code(s): I50.21 - ACUTE SYSTOLIC ( CONGESTIVE) HEART FAILURE SNOMED Code(s): 396291411 (4) Atrial fibrillation Narrative/Plan: Metoprolol controlled on heparin drip Current Visit: Yes Status: Acute Priority: High Code(s): I48.91 - UNSPECIFIED ATRIAL FIBRILLATION SNOMED Code(s): 60340127 (5) Diabetes mellitus Narrative/Plan: ac and HS SSI Current Visit: Yes Status: Acute Priority: Medium Code(s): E11.9 - TYPE 2 DIABETES MELLITUS WITHOUT COMPLICATIONS SNOMED Code(s): 59759694 (6) Elevated liver enzymes Current Visit: Yes Status: Acute Code(s): R74.8 - ABNORMAL LEVELS OF OTHER SERUM ENZYMES SNOMED Code(s): 868898871 (7) Pleural effusion Current Visit: Yes Status: Acute Code(s): J90 - PLEURAL EFFUSION, NOT ELSEWHERE CLASSIFIED SNOMED Code(s): 21711033 (8) Shock Narrative/Plan: Still on Levophed Weaning off slowly Current Visit: Yes Status: Acute Code(s): R57.9 - SHOCK, UNSPECIFIED SNOMED Code(s): 45660961
[2017-09-24] MEDS: GABAPENTIN 300 MG CAP PO PRN (16:46)
[2017-09-24 17:50] LABS: Glucose,Whole Blood 231 mg/dL (75-99)
[2017-09-24] MEDS: TAMSULOSIN 0.4 MG CAP.ER.24H PO SCH (20:54)
[2017-09-24 23:35] LABS: Glucose,Whole Blood 176 mg/dL (75-99)
[2017-09-25 03:55] LABS: Anisocytosis Slight; Basophils % (A) 0 %; Eosinophils # (A) 0.3 k/uL (0-0.7); Eosinophils % (A) 3 %; HCT 30.1 % (39.0-53.0); HGB 9.3 gm/dL (13.0-17.5); Hypochromasia Slight; Lymphocytes # (A) 1.6 k/uL (1.0-4.8); Lymphocytes % (A) 18 %; MCH 25.2 pg (25.0-35.0); MCV 81.4 fL (80.0-100.0); Mean Platelet Volume 7.6; Microcytosis Slight; Monocytes # (A) 0.6 k/uL (0-1.0); Monocytes % (A) 7 %; Neutrophils # (A) 6.5 k/uL (1.3-7.7); Neutrophils % (A) 71 %; Platelet Count 165 k/uL (150-450); RBC 3.69 m/uL (4.30-5.90); RDW 18.7 % (11.5-15.5); WBC 9.1 k/uL (3.8-10.6)
[2017-09-25 04:10] LABS: Calcium 7.7 mg/dL (8.4-10.2); Magnesium 2.3 mg/dL (1.6-2.3); Phosphorus 3.5 mg/dL (2.5-4.5); Potassium 4.6 mmol/L (3.5-5.1)
[2017-09-25] MEDS: INSULIN REGULAR 100 UNIT/ML VIAL SQ SCH (05:02)
[2017-09-25] MEDS: GABAPENTIN 300 MG CAP PO PRN ×2 (05:59→20:10)
[2017-09-25] MEDS: PANTOPRAZOLE 40 MG/10 ML VIAL IVP SCH (08:31)
[2017-09-25] MEDS: PIPERACILLIN-TAZOBACTAM 3.375 GM in DEXTROSE/WATER 1 50ML.BAG IVPB SCH ×2 (08:31→20:11)
[2017-09-25] MEDS: ATORVASTATIN 40 MG TAB PO SCH (08:31)
[2017-09-25] MEDS: METOPROLOL TARTRATE 12.5 MG TAB PO SCH ×2 (08:35→21:50)
[2017-09-25] MEDS: SODIUM CHLORIDE 0.9% 1,000 ML IV SCH (08:35)
[2017-09-25] MEDS: HEPARIN SODIUM,PORCINE/D5W PMX 25,000 UNIT in DEXTROSE/WATER 1 500ML.BAG IV SCH (08:36)
--- NOTE | 2017-09-25 10:17 | XR ---
EXAMINATION TYPE: XR chest 1V portable DATE OF EXAM: 09/25/2017 Comparison: 09/24/2017 Clinical History: 77-year-old male pleural effusions Findings: Heart remains enlarged. Left PICC tip at the mid SVC level. ET tube and NG tube removed in the interv al. Diffuse interstitial and vascular prominence persists with moderate effusions and bibasilar densi ties. Degenerative changes at the shoulders. Impression: Similar moderate pleural effusions with adjacent atelectasis and/or consolidation. Correlate for back ground of mild pulmonary vascular congestion.
--- NOTE | 2017-09-25 10:46 | P.PN ---
Subjective Progress Note Date: 09/25/17 Principal diagnosis: Acute cardiac arrest and acute hypoxic respiratory failure requiring intubation and mechanical ventilation. This is a 77-year-old male patient with known history of chronic atrial fibrillation, chronic lumbar degenerative disc disease with limited mobility and impaired performance and functional status at baseline. He is also known to have diabetes, gout, and prostate enlargement. The patient comes in with worsening shortness of breath and addition to generalized weakness and some dizziness. His chest x-ray showed low lung volumes and cardiomegaly and possibly some right-sided pleural effusion. EKG showed chronic atrial fibrillation with some nonspecific ST segment changes. Based on that the patient a CAT scan of the chest abdomen and pelvis and the CAT scan showed a small to moderate-sized right-sided pleural effusion in addition to some changes in the liver consistent with liver cirrhosis and ascites with anasarca. The patient also reports some increased lower oximetry edema and further investigation with an echo of the heart showed an ejection fraction of 25-30% and global hypokinesis of the left ventricle, RV was mildly enlarged, moderate to severe aortic stenosis, severe mitral regurgitation, severe tricuspid regurgitation, severe pulmonary hypertension was also noted. The patient is currently on 2 L of oxygen nasal cannula. His INR is at 1.5 as the patient is on warfarin. The patient's creatinine is at 1.1 and the patient was started on diuretics and he seems to be responding. He feels less short of breath compared to yesterday. He feels that the abdomen is also less distended. He is lower extremity edema is also improving. He was seen by cardiology. He was also seen by gastroenterology. He is not a drinker. No significant hepatitis. Most of alcoholism. No history of GI bleeding. The patient will have a paracentesis with the next 24 hours regarding his ascites. He is able to lay down to 20 bed elevation without any major difficulties. The patient seen again today 09/19/2017 in follow-up on the selective care unit. He is currently sitting up at bedside. He is awake and alert in no acute distress. His abdomen remains quite distended. He is still this moment with minimal exertion. He is maintaining O2 saturations in the upper 90s on 1.5 L/m per nasal cannula. He is currently afebrile. Hemodynamically stable. INR is 1.6 today. IR will possibly do a paracentesis tomorrow. He is voiding well and remains in a negative balance. His weight is down 1 kg. On 09/20/2017 patient seen in follow-up on selective care unit, he is status post large volume paracentesis of approximately 14.1 L of straw-colored fluid. Patient tolerated the procedure well. Her weight resting in bed, in no acute distress, abdomen is a lot less distended, soft, nontender. Patient is having some soreness along the left costal margin, mild, but no acute distress. Oxygenation improved, patient is currently on 1/2 L per nasal cannula, he reports his breathing easier, vital signs are stable, he is afebrile. Patient has been started on IV Lasix drip at 10 mg per hour, in addition to the Zaroxolyn. Patient continues on potassium and Aldactone,, and lisinopril. Overall his breathing is improved, continue with current medical treatment, will obtain a follow-up chest x-ray in the morning On 09/21/2017, the patient is awake and alert. The patient is looking much better as the patient had significant large volume paracentesis with evacuation of more than 10 L from the abdomen. In fact the total amount was 14 L. Subsequent chest x-ray showed a presence of a right-sided pleural effusion which is moderate in size. Nevertheless, the patient denies having any significant shortness of breath and he is not wanting a thoracentesis for the time being. I think it's reasonable as long as the patient has significant improvement in her breathing with large volume paracentesis. Meanwhile, the patient has become slightly prerenal on today's blood work. BUN is up to 77 and the creatinine is up to 1.48. The patient is currently on Lasix drip at 10 mg an hour. The patient is also on Zaroxolyn 5 mg by mouth daily. The patient is also on Aldactone 100 mg by mouth daily. No major edema lower extremities. Note that the blood work also showed positivity and GEOVANI and anti-smooth muscle antibodies were also positive raising the possibility of an underlying autoimmune related hepatitis/liver disease. This antibodies positive for autoimmune liver disease as such as primary biliary cholangitis and autoimmune hepatitis. Note that the patient also has cardiomyopathy Contributing to His Profound Edema and Fluid Overload. On 09/22/2017, the patient has no specific complaints. Hemodynamically stable. The patient is currently off the Lasix drip. The patient will be started on Aldactone.. The patient has no abdominal pain. Abdominal distention is improved. We decided not to drain the pleural effusion in the lung volume the patient has been having no significant respiratory distress at this point in time. The renal function is stable and the creatinine is at 1.37. On 09/23/2017, this 77-year-old male patient who got brought into the intensive care unit after he rested on the floor. I do not have the chance to evaluate this patient in the morning. The patient was seen by cardiology and apparently his IV Lasix was on hold due to issues related to hypotension. At that point the patient was placed on dopamine at 5 mics. Within 30 minutes of initiation of dopamine, the patient became tachycardic and subsequently a CODE BLUE was called and the patient went into cardiopulmonary arrest. I was on the floor and I attended to the Code and this patient was in PEA initially. CPR was initiated and ACLS protocol was followed. The patient was given epinephrine. I intubated the patient on the scene. Within 2-3 minutes a pulse on her blood pressure was obtained. The patient was interactive and moving all 4 extremities. I'm of the patient in intensive care unit. I started the prevent on him while him being intubated on a mechanical ventilator. A brief neurologic evaluation was done and the patient was fully awake and alert and moving all 4 extremities. Nevertheless, based on his underlying cardio pulmonary status, I decided not to extubate the patient. He was placed on propofol infusion for sedation. Currently is on assist control mode at a rate of 24, tidal volume of 500, FiO2 of 100% and a PEEP of 5. Blood gas showed a pH of 7.37 with a pCO2 of 36 and pO2 of 300 and the FiO2 was not down to 50%. The patient is currently on 5 mics of norepinephrine infusion for blood pressure control. The patient had a post intubation chest x-ray that showed right basilar pleural effusion in addition to cardiomegaly. ET tube was in a good location. Subsequently, I inserted a triple lumen catheter for the left subclavian vein and a chest x-ray findings remain stable and there was no evidence of any pneumothorax. Reviewing the patient's blood work from earlier this morning, the patient a white cell count of 8 with a hemoglobin of 9.7. His BUN is at 83 with a creatinine of 1.5. And note that the patient has become progressively more prerenal as the patient had large volume paracentesis and subsequently was aggressively treated with diuretics. Note that his echocardiogram showed ejection fraction of 25% along with global hypokinesis. LAD was severely dilated. There was severe aortic sclerosis and moderate aortic regurgitation and moderate to severe aortic stenosis with a PA pressure of 61 in addition to severe mitral regurgitation, severe tricuspid regurgitation and severe pulmonary hypertension with a PA pressure of 91. The CAT scan of the abdomen showed changes consistent with cirrhosis of the liver and ascites. Large volume paracentesis was done. The patient continued to have a moderate-sized right-sided pleural effusion. The cirrhosis is probably of a cardiac in nature. No significant splenomegaly or splenic varices was seen. Upon further workup the patient do not to have a positive GEOVANI and anti- smooth muscle antibody which also raises concern for autoimmune hepatitis. Patient was reevaluated today on 09/24/2017, remains on mechanical ventilation, remains on 2 g of norepinephrine, chest x-ray is showing some improvement, but patient continues to have bilateral pleural effusions. Right more so than left , and I believe the right pleural effusion is related to his underlying liver disease and ascites. May or may not consider thoracentesis at this point. His ventilator settings were reviewed, patient was awakened, I gave him a trial of pressure support and CPAP, patient did quite well, and I went ahead and recommended extubating the patient. His weaning parameters were great. His labs were also reviewed WBC count is 12 hemoglobin is 10.7. ABG showed a pO2 of 217 pCO2 of 32 pH of 7.45. PTT is 47.7, patient remains on heparin. Electrolytes are normal BUN is 73 creatinine 1.20. Patient was noted to be appropriate, responsive, and in no distress on pressure support and CPAP. Then I proceeded to extubating the patient. Patient was reevaluated today on 09/25/2017, he is presently on room air, extubated yesterday, and tolerated the extubation quite well. Patient is off mechanical ventilation, off pressors, seems to be very comfortable, in no distress. Continues to have multiple complex medical problems including pulmonary, cardiac, and her renal issues. And most definitely liver issues/ hepatitis. Based on the notes from the transportation engineer, patient was felt to have cirrhotic liver and abdominal pelvic ascites with pleural effusion secondary to cirrhosis possibly cryptogenic secondary to Parekh. Chest x-ray today continues to show some pleural effusion and consolidation of the right lower lobe, but seems to be a bit improved compared to the chest x-ray yesterday. Labs showed relatively normal CBC hemoglobin is 9.3. Normal BUN is improving down to 63, and creatinine is also improving down to 1.20. At this point the patient seems to be making good amount of urine, and he is off diuretics. Being followed closely by nephrology. Objective - Vital Signs Vital signs: Vital Signs Temp 98.8 F 09/25/17 04:00 Pulse 84 09/25/17 07:00 Resp 17 09/25/17 07:00 BP 99/56 09/23/17 23:00 Pulse Ox 100 09/25/17 07:00 Intake & Output 09/24/17 09/25/17 09/25/17 18:59 06:59 18:59 Intake Total 5151.003 5019.132 161.634 Output Total 1385 1350 125 Balance -43.987 -131.868 36.634 Weight 117.1 kg 120.1 kg Intake: IV 224.2 550 50 Heparin Sodium,Porcine/ 24.2 D5w Pmx 25,000 unit In Dextrose/Water 1 500ml. bag @ 9 UNITS/KG/HR 19.89 mls/hr IV .Q24H [facility] Rx#: [id number] Sodium Chloride 0.9% 1, 200 550 50 000 ml @ 50 mls/hr IV . Q20H [facility] Rx#:[id number] Intake, IV Titration 466.813 418.132 111.634 Amount Heparin Sodium,Porcine/ 317.651 418.132 81.868 D5w Pmx 25,000 unit In Dextrose/Water 1 500ml. bag @ 9 UNITS/KG/HR 19.89 mls/hr IV .Q24H [facility] Rx#: [id number] Norepinephrin 16 mg-0.9% 78.362 29.766 Ns Pmx 16 mg In 250 ml @ Titrate IV .Q0M [facility] Rx#: [id number] Propofol 1,000 mg In 70.8 Empty Bag 1 bag @ Titrate IV .Q0M [facility] Rx#: [id number] Oral 650 250 Output: Urine 1385 1350 125 Other: Voiding Method Indwelling Catheter Indwelling Catheter # Bowel Movements 0 ABP, PAP, CO, CI - Last Documented Arterial Blood Pressure 110/57 - Exam Gen. appearance revealed a 77-year-old white male, on room air, in no distress. Head exam was generally normal. There was no scleral icterus or corneal arcus. Mucous membranes were moist. Neck is supple and the patient is negative JVDs bilaterally without any goiter or neck masses. Lung sounds are diminished in lung bases bilaterally along with some bibasilar crackles. Breath sounds are quite diminished in the right lung base. Heart sounds are irregular and the patient has a systolic ejection murmur grade 2/6 heard throughout the precordium. S1 and S2 are irregular. Abdomen is slightly distended. There is positive fluid wave. No rebound, no guarding. Extremities revealed trace edema and there is no cyanosis or clubbing. There is diminished pulses in lower extremities bilaterally. Neurologically the patient was wide awake, appropriate, alert oriented 3, no gross focal neurologic deficit. Examination of the skin revealed no evidence of significant rashes, suspicious appearing nevi or other concerning lesions. The patient has a triple lumen catheter in the left subclavian vein. - Labs CBC & Chem 7: 09/25/17 03:35 09/25/17 03:35 Labs: Abnormal Lab Results - Last 24 Hours (Table) 09/24/17 09/24/17 09/24/17 Range/Units 11:47 17:48 23:32 RBC (4.30-5.90) m/uL Hgb (13.0-17.5) gm/dL Hct (39.0-53.0) % RDW (11.5-15.5) % APTT (22.0-30.0) sec Sodium (137-145) mmol/L Carbon Dioxide (22-30) mmol/L BUN (9-20) mg/dL Glucose (74-99) mg/dL POC Glucose (mg/dL) 199 H 231 H 176 H (75-99) mg/dL Calcium (8.4-10.2) mg/dL 09/25/17 09/25/17 09/25/17 Range/Units 03:35 03:35 03:35 RBC 3.69 L (4.30-5.90) m/uL Hgb 9.3 L (13.0-17.5) gm/dL Hct 30.1 L (39.0-53.0) % RDW 18.7 H (11.5-15.5) % APTT 45.3 H (22.0-30.0) sec Sodium 133 L (137-145) mmol/L Carbon Dioxide 21 L (22-30) mmol/L BUN 63 H (9-20) mg/dL Glucose 149 H (74-99) mg/dL POC Glucose (mg/dL) (75-99) mg/dL Calcium 7.7 L (8.4-10.2) mg/dL Microbiology - Last 24 Hours (Table) 09/20/17 09:30 Gram Stain - Final Ascites Fluid Body Fluid Culture - Final Assessment and Plan Assessment: 1 acute cardiac arrest. The patient was in PEA with a downtime of around 2-3 minutes. He had successful resuscitation based on ACLS protocol. Extubated yesterday, tolerated the extubation well, and no evidence of any anoxic brain injury. 3 right-sided pleural effusion likely on the basis of congestion heart failure. Possibility of chronic liver disease causing ascites and right-sided pleural effusion/hydrothorax cannot be completely excluded. 2 CHF with impaired left a ejection fraction of 25%. In addition the patient has severe aortic stenosis, mitral regurgitation, severe tricuspid regurgitation secondary pulmonary hypertension. 3 chronic atrial fibrillation 4 ascites and anasarca secondary to above, there is post large volume paracentesis with removal of 14.1 L of ascitic fluid 5 questionable liver cirrhosis although the findings could be also related to parekh. I also believe his heart failure is another contributing factor to his liver hepatopathy and congestion and possibly contributing to his massive ascites. 6 long-term anticoagulation with warfarin , presently patient is on heparin. 6 diabetes mellitus 7 gout 8 BPH 9 prerenal azotemia secondary to aggressive diuresis and prerenal effect secondary to heart failure Recommendation: Patient was successfully extubated yesterday, he remains critically ill, but stable, discussed his condition with his daughter was here from [place] to visit her bed, and touch bases on all his medical problems, we'll continue to monitor the patient in the ICU today, may transfer out of the ICU tomorrow. Family is very well aware that long-term prognosis is definitely poor. We'll continue to follow. Time with Patient: Less than 30
--- NOTE | 2017-09-25 11:03 | P.PN ---
Subjective Progress Note Date: 09/25/17 Principal diagnosis: s/p cardiac arrest Denies any shortness of breath today, no nausea, no fever, chest wall pain from CPR Objective - Vital Signs Vital signs: Vital Signs Temp 97.9 F 09/25/17 08:00 Pulse 82 09/25/17 10:00 Resp 16 09/25/17 10:00 BP 99/56 09/23/17 23:00 Pulse Ox 99 09/25/17 10:00 Intake & Output 09/24/17 09/25/17 09/25/17 18:59 06:59 18:59 Intake Total 3543.583 1450.132 161.634 Output Total 1385 1350 125 Balance -43.987 -131.868 36.634 Weight 117.1 kg 120.1 kg 120.1 kg Intake: IV 224.2 550 50 Heparin Sodium,Porcine/ 24.2 D5w Pmx 25,000 unit In Dextrose/Water 1 500ml. bag @ 9 UNITS/KG/HR 19.89 mls/hr IV .Q24H [facility] Rx#: [id number] Sodium Chloride 0.9% 1, 200 550 50 000 ml @ 50 mls/hr IV . Q20H [facility] Rx#:[id number] Intake, IV Titration 466.813 418.132 111.634 Amount Heparin Sodium,Porcine/ 317.651 418.132 81.868 D5w Pmx 25,000 unit In Dextrose/Water 1 500ml. bag @ 9 UNITS/KG/HR 19.89 mls/hr IV .Q24H [facility] Rx#: [id number] Norepinephrin 16 mg-0.9% 78.362 29.766 Ns Pmx 16 mg In 250 ml @ Titrate IV .Q0M [facility] Rx#: [id number] Propofol 1,000 mg In 70.8 Empty Bag 1 bag @ Titrate IV .Q0M [facility] Rx#: [id number] Oral 650 250 Output: Urine 1385 1350 125 Other: Voiding Method Indwelling Catheter Indwelling Catheter # Bowel Movements 0 ABP, PAP, CO, CI - Last Documented Arterial Blood Pressure 110/55 - Exam gen:alert and oriented lungs:clear to auscultation heart:s1s2 abdomen:soft and depressible,non tender ext: Edema improved Dressing in place - Labs CBC & Chem 7: 09/25/17 03:35 05/15/18 03:35 Labs: Abnormal Lab Results - Last 24 Hours (Table) 09/24/17 09/24/17 09/24/17 Range/Units 11:47 17:48 23:32 RBC (4.30-5.90) m/uL Hgb (13.0-17.5) gm/dL Hct (39.0-53.0) % RDW (11.5-15.5) % APTT (22.0-30.0) sec Sodium (137-145) mmol/L Carbon Dioxide (22-30) mmol/L BUN (9-20) mg/dL Glucose (74-99) mg/dL POC Glucose (mg/dL) 199 H 231 H 176 H (75-99) mg/dL Calcium (8.4-10.2) mg/dL 09/25/17 09/25/17 09/25/17 Range/Units 03:35 03:35 03:35 RBC 3.69 L (4.30-5.90) m/uL Hgb 9.3 L (13.0-17.5) gm/dL Hct 30.1 L (39.0-53.0) % RDW 18.7 H (11.5-15.5) % APTT 45.3 H (22.0-30.0) sec Sodium 133 L (137-145) mmol/L Carbon Dioxide 21 L (22-30) mmol/L BUN 63 H (9-20) mg/dL Glucose 149 H (74-99) mg/dL POC Glucose (mg/dL) (75-99) mg/dL Calcium 7.7 L (8.4-10.2) mg/dL Microbiology - Last 24 Hours (Table) 09/20/17 09:30 Gram Stain - Final Ascites Fluid Body Fluid Culture - Final Assessment and Plan (1) Cardiac arrest Current Visit: Yes Status: Acute Code(s): I46.9 - CARDIAC ARREST, CAUSE UNSPECIFIED SNOMED Code(s): 916306347 (2) Respiratory failure Narrative/Plan: Status post extubation yesterday Stable no shortness of breath Current Visit: Yes Status: Acute Code(s): J96.90 - RESPIRATORY FAILURE, UNSP , UNSP W HYPOXIA OR HYPERCAPNIA SNOMED Code(s): 049724566 (3) Acute systolic CHF (congestive heart failure), NYHA class 4 Narrative/Plan: Better compensated Current Visit: Yes Status: Acute Code(s): I50.21 - ACUTE SYSTOLIC ( CONGESTIVE) HEART FAILURE SNOMED Code(s): 545999389 (4) Atrial fibrillation Narrative/Plan: Continue metoprolol On heparin drip Current Visit: Yes Status: Acute Priority: High Code(s): I48.91 - UNSPECIFIED ATRIAL FIBRILLATION SNOMED Code(s): 92247063 (5) Diabetes mellitus Narrative/Plan: Better control We'll change Accu-Cheks to before meals and at bedtime Start sliding scale insulin We'll start 7030 as diet as tolerated Current Visit: Yes Status: Acute Priority: Medium Code(s): E11.9 - TYPE 2 DIABETES MELLITUS WITHOUT COMPLICATIONS SNOMED Code(s): 27652553 (6) Elevated liver enzymes Narrative/Plan: We'll add liver enzymes today Current Visit: Yes Status: Acute Code(s): R74.8 - ABNORMAL LEVELS OF OTHER SERUM ENZYMES SNOMED Code(s): 606889377 (7) Pleural effusion Narrative/Plan: Continue to monitor KUB secondary to CHF liver disease Current Visit: Yes Status: Acute Code(s): J90 - PLEURAL EFFUSION, NOT ELSEWHERE CLASSIFIED SNOMED Code(s): 27945614 (8) Shock Narrative/Plan: Off pressors today Current Visit: Yes Status: Acute Code(s): R57.9 - SHOCK, UNSPECIFIED SNOMED Code(s): 60929966
[2017-09-25 11:54] LABS: Glucose,Whole Blood 216 mg/dL (75-99)
[2017-09-25] MEDS: ACETAMINOPHEN TAB 500 MG TAB PO PRN (12:21)
[2017-09-25] MEDS: INSULIN ASPART 100 UNIT/ML 1 ML 10 ML VIAL SQ SCH ×3 (12:21→21:22)
--- NOTE | 2017-09-25 15:55 | PN ---
PROGRESS NOTE The patient is seen for follow up for acute kidney injury which was secondary to hypotension, hypoperfusion and cardiac arrest. Currently, patient has good urine output. His creatinine is down to 1.2 from a peak of 1.5 mg/dL. The patient is maintained on IV fluids at 50 mL an hour. He has had good oral intake. He has an indwelling Miranda catheter which has bloody urine. PHYSICAL EXAMINATION: On examination today, blood pressure was 101/44, heart rate 86 per minute. Patient is afebrile. Examination of the heart S1, S2. Examination of the lungs bilateral breath sounds are heard. Abdomen is soft, nontender. Examination of the extremities shows chronic skin changes edema and bilateral extremities are wrapped. Some edema is noted as well. LABS SHOW: Sodium 133, potassium 4.6, chloride 103, BUN 63, serum creatinine 1.2, hemoglobin 9.3 g/dL. ASSESSMENT: 1. Acute kidney injury secondary to hypotension hypoperfusion and cardiac arrest, currently improved. We can discontinue the IV fluids and encourage increased oral intake. Repeat labs in a.m. 2. Status post cardiac arrest. Dopamine was started, being followed by Cardiology. Cardiac enzymes have been negative. 3. Fluid overload on initial admission, status post diuresis. 4. Severe cardiomyopathy, ejection fraction 25%. 5. Ascites and anasarca on initial admission with concern for cardiac cirrhosis versus autoimmune hepatitis. Patient had positive anti smooth muscle antibodies. He is being followed by Gastroenterology. PLAN: Discontinue IV fluids. Encourage increased oral intake. Repeat labs in a.m. and continue to avoid nephrotoxic agents. Avoid hypotension. Continue the antibiotics. MMODL / IJN: [id number] /
[2017-09-25 17:19] LABS: Glucose,Whole Blood 153 mg/dL (75-99)
[2017-09-25] MEDS: TAMSULOSIN 0.4 MG CAP.ER.24H PO SCH (20:11)
[2017-09-25 21:26] LABS: Glucose,Whole Blood 187 mg/dL (75-99)
[2017-09-26 06:16] LABS: Anisocytosis Slight; Basophils % (A) 1 %; Eosinophils # (A) 0.4 k/uL (0-0.7); Eosinophils % (A) 5 %; HCT 27.9 % (39.0-53.0); HGB 8.8 gm/dL (13.0-17.5); Hypochromasia Slight; Lymphocytes # (A) 1.2 k/uL (1.0-4.8); Lymphocytes % (A) 18 %; MCH 25.6 pg (25.0-35.0); MCHC 31.4 g/dL (31.0-37.0); MCV 81.6 fL (80.0-100.0); Mean Platelet Volume 6.8; Microcytosis Slight; Monocytes # (A) 0.5 k/uL (0-1.0); Monocytes % (A) 7 %; Neutrophils # (A) 4.7 k/uL (1.3-7.7); Neutrophils % (A) 68 %; Platelet Count 153 k/uL (150-450); RBC 3.42 m/uL (4.30-5.90); RDW 18.5 % (11.5-15.5); WBC 6.9 k/uL (3.8-10.6)
[2017-09-26 06:50] LABS: Albumin 2.5 g/dL (3.5-5.0); Bilirubin, Delta 0.8 mg/dL (0.0-0.2); Bilirubin,Unconjugated 0.2 mg/dL (0.0-1.1); Calcium 7.8 mg/dL (8.4-10.2); Magnesium 2.4 mg/dL (1.6-2.3); Phosphorus 3.7 mg/dL (2.5-4.5); Potassium 4.4 mmol/L (3.5-5.1); Total Protein 5.3 g/dL (6.3-8.2)
[2017-09-26 07:10] LABS: Glucose,Whole Blood 143 mg/dL (75-99)
[2017-09-26] MEDS: INSULIN ASPART 100 UNIT/ML 1 ML 10 ML VIAL SQ SCH ×4 (07:14→20:59)
--- NOTE | 2017-09-26 08:17 | XR ---
EXAMINATION TYPE: XR chest 1V DATE OF EXAM: 09/26/2017 COMPARISON: Prior chest x-ray 09/25/2017 HISTORY: Shortness of breath TECHNIQUE: frontal view of the chest is obtained on 2 images. FINDINGS: Left subclavian central venous catheter shows the distal tip overlying the superior vena c anjali level. There is no evident pneumothorax. Bibasilar increased density persists, pulmonary artery i s prominent, correlate for possible pulmonary artery hypertension. Heart remains enlarged. IMPRESSION: Pleural effusions, cardiomegaly, correlate for possible associated atelectasis versus ed herman, pneumonia not excluded. Consider pulmonary artery hypertension. Additional findings above.
[2017-09-26] MEDS: ALLOPURINOL 300 MG TAB PO SCH (08:24)
[2017-09-26] MEDS: ATORVASTATIN 40 MG TAB PO SCH (08:24)
[2017-09-26] MEDS: PIPERACILLIN-TAZOBACTAM 3.375 GM in DEXTROSE/WATER 1 50ML.BAG IVPB SCH ×2 (08:24→16:31)
[2017-09-26] MEDS: PANTOPRAZOLE 40 MG TABLET PO SCH (08:24)
[2017-09-26] MEDS: METOPROLOL TARTRATE 12.5 MG TAB PO SCH ×2 (08:24→20:59)
[2017-09-26] MEDS ORDERED: FUROSEMIDE 10 MG/ML 4 ML VIAL IV STA (09:51)
--- NOTE | 2017-09-26 09:52 | P.PN ---
Subjective Patient is seen in follow-up for acute kidney injury. Renal function is a little worse with creatinine at 1.3 today. Sodium level is 131. He remains off all vasopressors. He is not on any Lasix or IV fluids. Oral intake is improving. Denies chest pain or shortness of breath. He does of systolic CHF with ejection fraction of 20-25%. He is status post cardiac arrest. Vital signs are stable. General: The patient appeared well nourished and normally developed. HEENT: Head exam is unremarkable. Neck is without jugular venous distension. LUNGS: Lungs are clear to auscultation and percussion. Breath sounds decreased. HEART: Rate and Rhythm are regular. First and second heart sounds normal. No murmurs, rubs or gallops. ABDOMEN: Abdominal exam reveals normal bowel sounds. Non-tender and non- distended. No evidence of peritonitis. EXTREMITITES: No clubbing, cyanosis, or edema. Objective - Vital Signs Vital signs: Vital Signs Temp 98.0 F 09/26/17 08:00 Pulse 82 09/26/17 08:00 Resp 20 09/26/17 08:00 BP 99/56 09/23/17 23:00 Pulse Ox 94 L 09/26/17 08:00 Intake & Output 09/25/17 09/26/17 09/26/17 18:59 06:59 18:59 Intake Total 2021.634 290.0 372.5 Output Total 890 565 140 Balance 1131.634 -275.0 232.5 Weight 120.1 kg 122.2 kg Intake: IV 350.0 50.0 12.5 Piperacillin-Tazobactam 3 50.0 50.0 12.5 .375 gm In Dextrose/Water 1 50ml.bag @ 12.5 mls/hr IVPB Q12HR [facility] Rx#: [id number] Sodium Chloride 0.9% 1, 300 000 ml @ 50 mls/hr IV . Q20H [facility] Rx#:[id number] Intake, IV Titration 111.634 Amount Heparin Sodium,Porcine/ 81.868 D5w Pmx 25,000 unit In Dextrose/Water 1 500ml. bag @ 9 UNITS/KG/HR 19.89 mls/hr IV .Q24H [facility] Rx#: [id number] Norepinephrin 16 mg-0.9% 29.766 Ns Pmx 16 mg In 250 ml @ Titrate IV .Q0M [facility] Rx#: [id number] Oral 1560 240 360 Output: Urine 890 565 140 Other: Voiding Method Indwelling Catheter Indwelling Catheter Indwelling Catheter ABP, PAP, CO, CI - Last Documented Arterial Blood Pressure 90/46 - Labs CBC & Chem 7: 09/26/17 05:50 09/26/17 05:50 Labs: Abnormal Lab Results - Last 24 Hours (Table) 09/25/17 09/25/17 09/25/17 Range/Units 11:53 12:00 17:17 RBC (4.30-5.90) m/uL Hgb (13.0-17.5) gm/dL Hct (39.0-53.0) % RDW (11.5-15.5) % APTT 57.4 H (22.0-30.0) sec Sodium (137-145) mmol/L BUN (9-20) mg/dL Creatinine (0.66-1.25) mg/dL Glucose (74-99) mg/dL POC Glucose (mg/dL) 216 H 153 H (75-99) mg/dL Calcium (8.4-10.2) mg/dL Magnesium (1.6-2.3) mg/dL Delta Bilirubin (0.0-0.2) mg/dL Alkaline Phosphatase (38-126) U/L Total Protein (6.3-8.2) g/dL Albumin (3.5-5.0) g/dL 09/25/17 09/26/17 09/26/17 Range/Units 21:20 05:50 05:50 RBC 3.42 L (4.30-5.90) m/uL Hgb 8.8 L (13.0-17.5) gm/dL Hct 27.9 L (39.0-53.0) % RDW 18.5 H (11.5-15.5) % APTT (22.0-30.0) sec Sodium 131 L (137-145) mmol/L BUN 60 H (9-20) mg/dL Creatinine 1.30 H (0.66-1.25) mg/dL Glucose 131 H (74-99) mg/dL POC Glucose (mg/dL) 187 H (75-99) mg/dL Calcium 7.8 L (8.4-10.2) mg/dL Magnesium 2.4 H (1.6-2.3) mg/dL Delta Bilirubin 0.8 H (0.0-0.2) mg/dL Alkaline Phosphatase 177 H (38-126) U/L Total Protein 5.3 L (6.3-8.2) g/dL Albumin 2.5 L (3.5-5.0) g/dL 09/26/17 09/26/17 Range/Units 05:50 07:08 RBC (4.30-5.90) m/uL Hgb (13.0-17.5) gm/dL Hct (39.0-53.0) % RDW (11.5-15.5) % APTT 55.9 H (22.0-30.0) sec Sodium (137-145) mmol/L BUN (9-20) mg/dL Creatinine (0.66-1.25) mg/dL Glucose (74-99) mg/dL POC Glucose (mg/dL) 143 H (75-99) mg/dL Calcium (8.4-10.2) mg/dL Magnesium (1.6-2.3) mg/dL Delta Bilirubin (0.0-0.2) mg/dL Alkaline Phosphatase (38-126) U/L Total Protein (6.3-8.2) g/dL Albumin (3.5-5.0) g/dL Assessment and Plan Plan: Assessment: 1. Nonoliguric acute kidney injury secondary to ATN secondary to hypotension and cardiac arrest. Creatinine 1.3 today. 2. Hypervolemic hyponatremia. 3. Systolic CHF with ejection fraction of 20-25%. 4. Ascites status post paracentesis on September 20 with over 14 L removed. 5. Liver cirrhosis. Questionable etiology. 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 6. Anemia. Rule out iron deficiency. Plan: Lasix 40 mg IV once today. 1500 mL fluid restriction. Avoid nephrotoxic agents and hypotensive episodes. Continue to monitor renal function and urine output. Check iron studies.
--- NOTE | 2017-09-26 11:05 | P.PN ---
Subjective Progress Note Date: 09/26/17 Principal diagnosis: Acute cardiac arrest and acute hypoxic respiratory failure requiring intubation and mechanical ventilation. This is a 77-year-old male patient with known history of chronic atrial fibrillation, chronic lumbar degenerative disc disease with limited mobility and impaired performance and functional status at baseline. He is also known to have diabetes, gout, and prostate enlargement. The patient comes in with worsening shortness of breath and addition to generalized weakness and some dizziness. His chest x-ray showed low lung volumes and cardiomegaly and possibly some right-sided pleural effusion. EKG showed chronic atrial fibrillation with some nonspecific ST segment changes. Based on that the patient a CAT scan of the chest abdomen and pelvis and the CAT scan showed a small to moderate-sized right-sided pleural effusion in addition to some changes in the liver consistent with liver cirrhosis and ascites with anasarca. The patient also reports some increased lower oximetry edema and further investigation with an echo of the heart showed an ejection fraction of 25-30% and global hypokinesis of the left ventricle, RV was mildly enlarged, moderate to severe aortic stenosis, severe mitral regurgitation, severe tricuspid regurgitation, severe pulmonary hypertension was also noted. The patient is currently on 2 L of oxygen nasal cannula. His INR is at 1.5 as the patient is on warfarin. The patient's creatinine is at 1.1 and the patient was started on diuretics and he seems to be responding. He feels less short of breath compared to yesterday. He feels that the abdomen is also less distended. He is lower extremity edema is also improving. He was seen by cardiology. He was also seen by gastroenterology. He is not a drinker. No significant hepatitis. Most of alcoholism. No history of GI bleeding. The patient will have a paracentesis with the next 24 hours regarding his ascites. He is able to lay down to 20 bed elevation without any major difficulties. The patient seen again today 09/19/2017 in follow-up on the selective care unit. He is currently sitting up at bedside. He is awake and alert in no acute distress. His abdomen remains quite distended. He is still this moment with minimal exertion. He is maintaining O2 saturations in the upper 90s on 1.5 L/m per nasal cannula. He is currently afebrile. Hemodynamically stable. INR is 1.6 today. IR will possibly do a paracentesis tomorrow. He is voiding well and remains in a negative balance. His weight is down 1 kg. On 09/20/2017 patient seen in follow-up on selective care unit, he is status post large volume paracentesis of approximately 14.1 L of straw-colored fluid. Patient tolerated the procedure well. Her weight resting in bed, in no acute distress, abdomen is a lot less distended, soft, nontender. Patient is having some soreness along the left costal margin, mild, but no acute distress. Oxygenation improved, patient is currently on 1/2 L per nasal cannula, he reports his breathing easier, vital signs are stable, he is afebrile. Patient has been started on IV Lasix drip at 10 mg per hour, in addition to the Zaroxolyn. Patient continues on potassium and Aldactone,, and lisinopril. Overall his breathing is improved, continue with current medical treatment, will obtain a follow-up chest x-ray in the morning On 09/21/2017, the patient is awake and alert. The patient is looking much better as the patient had significant large volume paracentesis with evacuation of more than 10 L from the abdomen. In fact the total amount was 14 L. Subsequent chest x-ray showed a presence of a right-sided pleural effusion which is moderate in size. Nevertheless, the patient denies having any significant shortness of breath and he is not wanting a thoracentesis for the time being. I think it's reasonable as long as the patient has significant improvement in her breathing with large volume paracentesis. Meanwhile, the patient has become slightly prerenal on today's blood work. BUN is up to 77 and the creatinine is up to 1.48. The patient is currently on Lasix drip at 10 mg an hour. The patient is also on Zaroxolyn 5 mg by mouth daily. The patient is also on Aldactone 100 mg by mouth daily. No major edema lower extremities. Note that the blood work also showed positivity and GEOVANI and anti-smooth muscle antibodies were also positive raising the possibility of an underlying autoimmune related hepatitis/liver disease. This antibodies positive for autoimmune liver disease as such as primary biliary cholangitis and autoimmune hepatitis. Note that the patient also has cardiomyopathy Contributing to His Profound Edema and Fluid Overload. On 09/22/2017, the patient has no specific complaints. Hemodynamically stable. The patient is currently off the Lasix drip. The patient will be started on Aldactone.. The patient has no abdominal pain. Abdominal distention is improved. We decided not to drain the pleural effusion in the lung volume the patient has been having no significant respiratory distress at this point in time. The renal function is stable and the creatinine is at 1.37. On 09/23/2017, this 77-year-old male patient who got brought into the intensive care unit after he rested on the floor. I do not have the chance to evaluate this patient in the morning. The patient was seen by cardiology and apparently his IV Lasix was on hold due to issues related to hypotension. At that point the patient was placed on dopamine at 5 mics. Within 30 minutes of initiation of dopamine, the patient became tachycardic and subsequently a CODE BLUE was called and the patient went into cardiopulmonary arrest. I was on the floor and I attended to the Code and this patient was in PEA initially. CPR was initiated and ACLS protocol was followed. The patient was given epinephrine. I intubated the patient on the scene. Within 2-3 minutes a pulse on her blood pressure was obtained. The patient was interactive and moving all 4 extremities. I'm of the patient in intensive care unit. I started the prevent on him while him being intubated on a mechanical ventilator. A brief neurologic evaluation was done and the patient was fully awake and alert and moving all 4 extremities. Nevertheless, based on his underlying cardio pulmonary status, I decided not to extubate the patient. He was placed on propofol infusion for sedation. Currently is on assist control mode at a rate of 24, tidal volume of 500, FiO2 of 100% and a PEEP of 5. Blood gas showed a pH of 7.37 with a pCO2 of 36 and pO2 of 300 and the FiO2 was not down to 50%. The patient is currently on 5 mics of norepinephrine infusion for blood pressure control. The patient had a post intubation chest x-ray that showed right basilar pleural effusion in addition to cardiomegaly. ET tube was in a good location. Subsequently, I inserted a triple lumen catheter for the left subclavian vein and a chest x-ray findings remain stable and there was no evidence of any pneumothorax. Reviewing the patient's blood work from earlier this morning, the patient a white cell count of 8 with a hemoglobin of 9.7. His BUN is at 83 with a creatinine of 1.5. And note that the patient has become progressively more prerenal as the patient had large volume paracentesis and subsequently was aggressively treated with diuretics. Note that his echocardiogram showed ejection fraction of 25% along with global hypokinesis. LAD was severely dilated. There was severe aortic sclerosis and moderate aortic regurgitation and moderate to severe aortic stenosis with a PA pressure of 61 in addition to severe mitral regurgitation, severe tricuspid regurgitation and severe pulmonary hypertension with a PA pressure of 91. The CAT scan of the abdomen showed changes consistent with cirrhosis of the liver and ascites. Large volume paracentesis was done. The patient continued to have a moderate-sized right-sided pleural effusion. The cirrhosis is probably of a cardiac in nature. No significant splenomegaly or splenic varices was seen. Upon further workup the patient do not to have a positive GEOVANI and anti- smooth muscle antibody which also raises concern for autoimmune hepatitis. Patient was reevaluated today on 09/24/2017, remains on mechanical ventilation, remains on 2 g of norepinephrine, chest x-ray is showing some improvement, but patient continues to have bilateral pleural effusions. Right more so than left , and I believe the right pleural effusion is related to his underlying liver disease and ascites. May or may not consider thoracentesis at this point. His ventilator settings were reviewed, patient was awakened, I gave him a trial of pressure support and CPAP, patient did quite well, and I went ahead and recommended extubating the patient. His weaning parameters were great. His labs were also reviewed WBC count is 12 hemoglobin is 10.7. ABG showed a pO2 of 217 pCO2 of 32 pH of 7.45. PTT is 47.7, patient remains on heparin. Electrolytes are normal BUN is 73 creatinine 1.20. Patient was noted to be appropriate, responsive, and in no distress on pressure support and CPAP. Then I proceeded to extubating the patient. Patient was reevaluated today on 09/25/2017, he is presently on room air, extubated yesterday, and tolerated the extubation quite well. Patient is off mechanical ventilation, off pressors, seems to be very comfortable, in no distress. Continues to have multiple complex medical problems including pulmonary, cardiac, and her renal issues. And most definitely liver issues/ hepatitis. Based on the notes from the sat act instructor, patient was felt to have cirrhotic liver and abdominal pelvic ascites with pleural effusion secondary to cirrhosis possibly cryptogenic secondary to Parekh. Chest x-ray today continues to show some pleural effusion and consolidation of the right lower lobe, but seems to be a bit improved compared to the chest x-ray yesterday. Labs showed relatively normal CBC hemoglobin is 9.3. Normal BUN is improving down to 63, and creatinine is also improving down to 1.20. At this point the patient seems to be making good amount of urine, and he is off diuretics. Being followed closely by nephrology. On 09/26/2017, patient remains in the ICU, tolerated extubation over the last 2 days quite well, presently on 2 L nasal cannula. Patient denies any shortness of breath, he is off all the pressors, not receiving any diuretics, but early today, he was seen by nephrology and recommended a dose of Lasix. His chest x- ray continues to show a good sized right-sided pleural effusion, patient is diuresing well, hence I have no plans to do a thoracentesis at this point. His mentation seems to be intact. Patient does have low ejection fraction, and cardiomyopathy with LV dysfunction, his ejection fraction is 25%. Continues to have some swelling in the lower extremities, and that is being addressed with diuretics. Patient denies any shortness of breath, no chest pain, no cough, no wheezing, no nausea no vomiting and no abdominal pain. Labs WBC count is 6.9 hemoglobin is 8.8 ETT is therapeutic at 54.6 electrolytes were noted BUN is 60 creatinine is 1.30. Liver enzymes were noted to be relatively normal. Chest x- ray as noted above. Objective - Vital Signs Vital signs: Vital Signs Temp 98.0 F 09/26/17 08:00 Pulse 82 09/26/17 08:00 Resp 20 09/26/17 08:00 BP 99/56 09/23/17 23:00 Pulse Ox 94 L 09/26/17 08:00 Intake & Output 09/25/17 09/26/17 09/26/17 18:59 06:59 18:59 Intake Total 2021.634 290.0 372.5 Output Total 890 565 140 Balance 1131.634 -275.0 232.5 Weight 120.1 kg 122.2 kg Intake: IV 350.0 50.0 12.5 Piperacillin-Tazobactam 3 50.0 50.0 12.5 .375 gm In Dextrose/Water 1 50ml.bag @ 12.5 mls/hr IVPB Q12HR [facility] Rx#: [id number] Sodium Chloride 0.9% 1, 300 000 ml @ 50 mls/hr IV . Q20H [facility] Rx#:[id number] Intake, IV Titration 111.634 Amount Heparin Sodium,Porcine/ 81.868 D5w Pmx 25,000 unit In Dextrose/Water 1 500ml. bag @ 9 UNITS/KG/HR 19.89 mls/hr IV .Q24H [facility] Rx#: [id number] Norepinephrin 16 mg-0.9% 29.766 Ns Pmx 16 mg In 250 ml @ Titrate IV .Q0M [facility] Rx#: [id number] Oral 1560 240 360 Output: Urine 890 565 140 Other: Voiding Method Indwelling Catheter Indwelling Catheter Indwelling Catheter ABP, PAP, CO, CI - Last Documented Arterial Blood Pressure 90/46 - Exam Gen. appearance revealed a 77-year-old white male, on 2 L nasal cannula, in no form of respiratory distress, Head exam was generally normal. There was no scleral icterus or corneal arcus. Mucous membranes were moist. Neck is supple and the patient is negative JVDs bilaterally without any goiter or neck masses. Lung sounds are diminished in lung bases bilaterally along with some bibasilar crackles. Breath sounds are quite diminished in the right lung base. Heart sounds are irregular and the patient has a systolic ejection murmur grade 2/6 heard throughout the precordium. S1 and S2 are irregular. Abdomen is slightly distended. There is positive fluid wave. No rebound, no guarding. Extremities revealed trace edema and there is no cyanosis or clubbing. There is diminished pulses in lower extremities bilaterally. Neurologically the patient was wide awake, appropriate, alert oriented 3, no gross focal neurologic deficit. Examination of the skin revealed no evidence of significant rashes, suspicious appearing nevi or other concerning lesions. The patient has a triple lumen catheter in the left subclavian vein. - Labs CBC & Chem 7: 09/26/17 05:50 09/26/17 05:50 Labs: Abnormal Lab Results - Last 24 Hours (Table) 09/25/17 09/25/17 09/25/17 Range/Units 11:53 12:00 17:17 RBC (4.30-5.90) m/uL Hgb (13.0-17.5) gm/dL Hct (39.0-53.0) % RDW (11.5-15.5) % APTT 57.4 H (22.0-30.0) sec Sodium (137-145) mmol/L BUN (9-20) mg/dL Creatinine (0.66-1.25) mg/dL Glucose (74-99) mg/dL POC Glucose (mg/dL) 216 H 153 H (75-99) mg/dL Calcium (8.4-10.2) mg/dL Magnesium (1.6-2.3) mg/dL Delta Bilirubin (0.0-0.2) mg/dL Alkaline Phosphatase (38-126) U/L Total Protein (6.3-8.2) g/dL Albumin (3.5-5.0) g/dL 09/25/17 09/26/17 09/26/17 Range/Units 21:20 05:50 05:50 RBC 3.42 L (4.30-5.90) m/uL Hgb 8.8 L (13.0-17.5) gm/dL Hct 27.9 L (39.0-53.0) % RDW 18.5 H (11.5-15.5) % APTT (22.0-30.0) sec Sodium 131 L (137-145) mmol/L BUN 60 H (9-20) mg/dL Creatinine 1.30 H (0.66-1.25) mg/dL Glucose 131 H (74-99) mg/dL POC Glucose (mg/dL) 187 H (75-99) mg/dL Calcium 7.8 L (8.4-10.2) mg/dL Magnesium 2.4 H (1.6-2.3) mg/dL Delta Bilirubin 0.8 H (0.0-0.2) mg/dL Alkaline Phosphatase 177 H (38-126) U/L Total Protein 5.3 L (6.3-8.2) g/dL Albumin 2.5 L (3.5-5.0) g/dL 09/26/17 09/26/17 09/26/17 Range/Units 05:50 07:08 10:40 RBC (4.30-5.90) m/uL Hgb (13.0-17.5) gm/dL Hct (39.0-53.0) % RDW (11.5-15.5) % APTT 55.9 H 54.6 H (22.0-30.0) sec Sodium (137-145) mmol/L BUN (9-20) mg/dL Creatinine (0.66-1.25) mg/dL Glucose (74-99) mg/dL POC Glucose (mg/dL) 143 H (75-99) mg/dL Calcium (8.4-10.2) mg/dL Magnesium (1.6-2.3) mg/dL Delta Bilirubin (0.0-0.2) mg/dL Alkaline Phosphatase (38-126) U/L Total Protein (6.3-8.2) g/dL Albumin (3.5-5.0) g/dL Assessment and Plan Assessment: 1 acute cardiac arrest. The patient was in PEA with a downtime of around 2-3 minutes. He had successful resuscitation based on ACLS protocol. Extubated a few days ago, tolerated the extubation well. 3 right-sided pleural effusion likely on the basis of congestion heart failure. Possibility of chronic liver disease causing ascites and right-sided pleural effusion/hydrothorax cannot be completely excluded. 2 CHF with impaired left a ejection fraction of 25%. In addition the patient has severe aortic stenosis, mitral regurgitation, severe tricuspid regurgitation secondary pulmonary hypertension. 3 chronic atrial fibrillation 4 ascites and anasarca secondary to above, there is post large volume paracentesis with removal of 14.1 L of ascitic fluid 5 questionable liver cirrhosis although the findings could be also related to parekh. I also believe his heart failure is another contributing factor to his liver hepatopathy and congestion and possibly contributing to his massive ascites. 6 long-term anticoagulation with warfarin , presently patient is on heparin. 6 diabetes mellitus 7 gout 8 BPH 9 prerenal azotemia secondary to aggressive diuresis and prerenal effect secondary to heart failure Recommendation: Continue present treatment plan, will continue to monitor in the ICU, continue heparin, continue diuretics, CVP was measured today around 11, plan to transfer the patient out of the ICU in the next 24 hours. Again long-term prognosis remains very poor and guarded. Discussed his condition with the admitting physician. Time with Patient: Less than 30
--- NOTE | 2017-09-26 11:12 | P.PN ---
Subjective Progress Note Date: 09/26/17 Principal diagnosis: s/p cardiac arrest Shortness of breath today no fever no cough Objective - Vital Signs Vital signs: Vital Signs Temp 98.0 F 09/26/17 08:00 Pulse 82 09/26/17 08:00 Resp 20 09/26/17 08:00 BP 99/56 09/23/17 23:00 Pulse Ox 94 L 09/26/17 08:00 Intake & Output 09/25/17 09/26/17 09/26/17 18:59 06:59 18:59 Intake Total 2021.634 290.0 372.5 Output Total 890 565 140 Balance 1131.634 -275.0 232.5 Weight 120.1 kg 122.2 kg Intake: IV 350.0 50.0 12.5 Piperacillin-Tazobactam 3 50.0 50.0 12.5 .375 gm In Dextrose/Water 1 50ml.bag @ 12.5 mls/hr IVPB Q12HR [facility] Rx#: [id number] Sodium Chloride 0.9% 1, 300 000 ml @ 50 mls/hr IV . Q20H [facility] Rx#:[id number] Intake, IV Titration 111.634 Amount Heparin Sodium,Porcine/ 81.868 D5w Pmx 25,000 unit In Dextrose/Water 1 500ml. bag @ 9 UNITS/KG/HR 19.89 mls/hr IV .Q24H [facility] Rx#: [id number] Norepinephrin 16 mg-0.9% 29.766 Ns Pmx 16 mg In 250 ml @ Titrate IV .Q0M [facility] Rx#: [id number] Oral 1560 240 360 Output: Urine 890 565 140 Other: Voiding Method Indwelling Catheter Indwelling Catheter Indwelling Catheter ABP, PAP, CO, CI - Last Documented Arterial Blood Pressure 90/46 - Exam gen:alert and oriented lungs:clear to auscultation heart:s1s2 abdomen:soft and depressible,non tender ext: Improved edema in lower extremity - Labs CBC & Chem 7: 09/26/17 05:50 09/26/17 05:50 Labs: Abnormal Lab Results - Last 24 Hours (Table) 09/25/17 09/25/17 09/25/17 Range/Units 11:53 12:00 17:17 RBC (4.30-5.90) m/uL Hgb (13.0-17.5) gm/dL Hct (39.0-53.0) % RDW (11.5-15.5) % APTT 57.4 H (22.0-30.0) sec Sodium (137-145) mmol/L BUN (9-20) mg/dL Creatinine (0.66-1.25) mg/dL Glucose (74-99) mg/dL POC Glucose (mg/dL) 216 H 153 H (75-99) mg/dL Calcium (8.4-10.2) mg/dL Magnesium (1.6-2.3) mg/dL Delta Bilirubin (0.0-0.2) mg/dL Alkaline Phosphatase (38-126) U/L Total Protein (6.3-8.2) g/dL Albumin (3.5-5.0) g/dL 09/25/17 09/26/17 09/26/17 Range/Units 21:20 05:50 05:50 RBC 3.42 L (4.30-5.90) m/uL Hgb 8.8 L (13.0-17.5) gm/dL Hct 27.9 L (39.0-53.0) % RDW 18.5 H (11.5-15.5) % APTT (22.0-30.0) sec Sodium 131 L (137-145) mmol/L BUN 60 H (9-20) mg/dL Creatinine 1.30 H (0.66-1.25) mg/dL Glucose 131 H (74-99) mg/dL POC Glucose (mg/dL) 187 H (75-99) mg/dL Calcium 7.8 L (8.4-10.2) mg/dL Magnesium 2.4 H (1.6-2.3) mg/dL Delta Bilirubin 0.8 H (0.0-0.2) mg/dL Alkaline Phosphatase 177 H (38-126) U/L Total Protein 5.3 L (6.3-8.2) g/dL Albumin 2.5 L (3.5-5.0) g/dL 09/26/17 09/26/17 Range/Units 05:50 07:08 RBC (4.30-5.90) m/uL Hgb (13.0-17.5) gm/dL Hct (39.0-53.0) % RDW (11.5-15.5) % APTT 55.9 H (22.0-30.0) sec Sodium (137-145) mmol/L BUN (9-20) mg/dL Creatinine (0.66-1.25) mg/dL Glucose (74-99) mg/dL POC Glucose (mg/dL) 143 H (75-99) mg/dL Calcium (8.4-10.2) mg/dL Magnesium (1.6-2.3) mg/dL Delta Bilirubin (0.0-0.2) mg/dL Alkaline Phosphatase (38-126) U/L Total Protein (6.3-8.2) g/dL Albumin (3.5-5.0) g/dL Assessment and Plan (1) Cardiac arrest Narrative/Plan: patient was in pea for 2-3 min Current Visit: Yes Status: Acute Code(s): I46.9 - CARDIAC ARREST, CAUSE UNSPECIFIED SNOMED Code(s): 489982413 (2) Respiratory failure Narrative/Plan: Status post extubation days ago Stable no shortness of breath Current Visit: Yes Status: Acute Code(s): J96.90 - RESPIRATORY FAILURE, UNSP , UNSP W HYPOXIA OR HYPERCAPNIA SNOMED Code(s): 019096700 (3) Acute systolic CHF (congestive heart failure), NYHA class 4 Narrative/Plan: better compensated lasix given today Current Visit: Yes Status: Acute Code(s): I50.21 - ACUTE SYSTOLIC ( CONGESTIVE) HEART FAILURE SNOMED Code(s): 194711411 (4) Atrial fibrillation Narrative/Plan: continue metoprolol on heparin drip Current Visit: Yes Status: Acute Priority: High Code(s): I48.91 - UNSPECIFIED ATRIAL FIBRILLATION SNOMED Code(s): 84714632 (5) Diabetes mellitus Narrative/Plan: well controlled We'll change Accu-Cheks to before meals and at bedtime Start sliding scale insulin We'll start 7030 as diet as tolerated Current Visit: Yes Status: Acute Priority: Medium Code(s): E11.9 - TYPE 2 DIABETES MELLITUS WITHOUT COMPLICATIONS SNOMED Code(s): 19530145 (6) Elevated liver enzymes Current Visit: Yes Status: Acute Code(s): R74.8 - ABNORMAL LEVELS OF OTHER SERUM ENZYMES SNOMED Code(s): 546183699 (7) Pleural effusion Narrative/Plan: discussed with Dr Norton awaiting to see response to treament no for thorascentesis now Current Visit: Yes Status: Acute Code(s): J90 - PLEURAL EFFUSION, NOT ELSEWHERE CLASSIFIED SNOMED Code(s): 55739341 (8) Shock Narrative/Plan: resolved Current Visit: Yes Status: Acute Code(s): R57.9 - SHOCK, UNSPECIFIED SNOMED Code(s): 83007060
[2017-09-26 12:25] LABS: Glucose,Whole Blood 201 mg/dL (75-99)
[2017-09-26] MEDS: HEPARIN SODIUM,PORCINE/D5W PMX 25,000 UNIT in DEXTROSE/WATER 1 500ML.BAG IV SCH (16:30)
[2017-09-26 17:05] LABS: Glucose,Whole Blood 199 mg/dL (75-99)
--- NOTE | 2017-09-26 17:07 | P.PN ---
Subjective Progress Note Date: 09/26/17 This is a 77-year-old gentleman with history of moderate to severe aortic stenosis and mitral regurgitation and also cardiomyopathy who was admitted to the hospital with increasing shortness of breath and CHF. Patient was given IV Lasix initially, but patient became hypotensive. The Lasix was discontinued. Patient still has significant edema and symptoms of exertional shortness of breath. Patient was given IV dopamine yesterday. Apparently a Half hour after initiation of the dopamine, patient became tachycardic and became unresponsive. Patient apparently was pulseless. Patient was intubated and was given epinephrine IV. CPR was carried out. Patient regained pulse within few minutes. Patient was brought to the intensive care unit. Patient is extubated this morning. Patient is alert and seemed to be oriented. He is complaining of not feeling well and short of. Patient is having urine output at 40-50 mL an hour. He is on a small dose of Levophed and also on heparin. He is urine is bloody this morning. If the urine doesn't clear up and may have to stop the heparin and may require urology consult. His lungs show expiratory rhonchi and diminished breath sounds at bases. Patient is in atrial fibrillation with controlled ventricular response. His blood pressure is running about 100 systolic. Small dose of diuretic may be given. Patient prognosis is guarded at this time. Given significant valvular abnormalities. Cardiomyopathy, his long-term prognosis is poor. Will discuss with the regarding further management. Patient is reevaluated on September and patient seemed to be much more alert and comfortable. Denies any chest pain. Denies any significant shortness of breath. Patient is in atrial fibrillation with controlled ventricular response. He is diuresing fairly well. His creatinine is relatively stable. A chest x-ray. Continue show to show right-sided pleural effusion. 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 Having some hematuria. Urologist advised that fully catheter to be removed. Most probably we'll continue the fully catheter tomorrow. Transfer patient to telemetry unit. Within 24 hours. Will discuss with family regarding long-term plan for his valvular disease Objective - Vital Signs Vital signs: Vital Signs Temp 97.9 F 09/26/17 16:00 Pulse 92 09/26/17 16:00 Resp 15 09/26/17 16:00 BP 115/48 09/26/17 13:13 Pulse Ox 100 09/26/17 16:00 Intake & Output 09/25/17 09/26/17 09/26/17 18:59 06:59 18:59 Intake Total 2021.634 290.0 1240.0 Output Total 818 166 7574 Balance 1131.634 -275.0 -30.0 Weight 120.1 kg 122.2 kg Intake: IV 350.0 50.0 50.0 Piperacillin-Tazobactam 3 50.0 50.0 50.0 .375 gm In Dextrose/Water 1 50ml.bag @ 12.5 mls/hr IVPB Q12HR [facility] Rx#: [id number] Sodium Chloride 0.9% 1, 300 000 ml @ 50 mls/hr IV . Q20H [facility] Rx#:[id number] Intake, IV Titration 111.634 500 Amount Heparin Sodium,Porcine/ 81.868 500 D5w Pmx 25,000 unit In Dextrose/Water 1 500ml. bag @ 9 UNITS/KG/HR 19.89 mls/hr IV .Q24H [facility] Rx#: [id number] Norepinephrin 16 mg-0.9% 29.766 Ns Pmx 16 mg In 250 ml @ Titrate IV .Q0M [facility] Rx#: [id number] Oral 1560 240 690 Output: Urine 980 144 3637 Other: Voiding Method Indwelling Catheter Indwelling Catheter Indwelling Catheter ABP, PAP, CO, CI - Last Documented Arterial Blood Pressure 118/51 - Labs CBC & Chem 7: 09/26/17 05:50 09/26/17 05:50 Labs: Abnormal Lab Results - Last 24 Hours (Table) 09/25/17 09/25/17 09/26/17 Range/Units 17:17 21:20 05:50 RBC 3.42 L (4.30-5.90) m/uL Hgb 8.8 L (13.0-17.5) gm/dL Hct 27.9 L (39.0-53.0) % RDW 18.5 H (11.5-15.5) % APTT (22.0-30.0) sec Sodium (137-145) mmol/L BUN (9-20) mg/dL Creatinine (0.66-1.25) mg/dL Glucose (74-99) mg/dL POC Glucose (mg/dL) 153 H 187 H (75-99) mg/dL Calcium (8.4-10.2) mg/dL Magnesium (1.6-2.3) mg/dL Delta Bilirubin (0.0-0.2) mg/dL Alkaline Phosphatase (38-126) U/L Total Protein (6.3-8.2) g/dL Albumin (3.5-5.0) g/dL 09/26/17 09/26/17 09/26/17 Range/Units 05:50 05:50 07:08 RBC (4.30-5.90) m/uL Hgb (13.0-17.5) gm/dL Hct (39.0-53.0) % RDW (11.5-15.5) % APTT 55.9 H (22.0-30.0) sec Sodium 131 L (137-145) mmol/L BUN 60 H (9-20) mg/dL Creatinine 1.30 H (0.66-1.25) mg/dL Glucose 131 H (74-99) mg/dL POC Glucose (mg/dL) 143 H (75-99) mg/dL Calcium 7.8 L (8.4-10.2) mg/dL Magnesium 2.4 H (1.6-2.3) mg/dL Delta Bilirubin 0.8 H (0.0-0.2) mg/dL Alkaline Phosphatase 177 H (38-126) U/L Total Protein 5.3 L (6.3-8.2) g/dL Albumin 2.5 L (3.5-5.0) g/dL 09/26/17 09/26/17 Range/Units 10:40 12:22 RBC (4.30-5.90) m/uL Hgb (13.0-17.5) gm/dL Hct (39.0-53.0) % RDW (11.5-15.5) % APTT 54.6 H (22.0-30.0) sec Sodium (137-145) mmol/L BUN (9-20) mg/dL Creatinine (0.66-1.25) mg/dL Glucose (74-99) mg/dL POC Glucose (mg/dL) 201 H (75-99) mg/dL Calcium (8.4-10.2) mg/dL Magnesium (1.6-2.3) mg/dL Delta Bilirubin (0.0-0.2) mg/dL Alkaline Phosphatase (38-126) U/L Total Protein (6.3-8.2) g/dL Albumin (3.5-5.0) g/dL Assessment and Plan Assessment: Patient is relatively stable. We'll continue current management. Possible transfer to telemetry unit tomorrow. Will discuss with family and Dr. VC Reynoso regarding long-term management of his valvular heart disease
[2017-09-26] MEDS: HEPARIN SODIUM,PORCINE 5,000 UNIT/ML 1 ML VIAL IV PRN (19:06)
[2017-09-26 20:46] LABS: Glucose,Whole Blood 219 mg/dL (75-99)
[2017-09-26] MEDS: TAMSULOSIN 0.4 MG CAP.ER.24H PO SCH (20:59)
[2017-09-26] MEDS: GABAPENTIN 300 MG CAP PO PRN (21:01)
[2017-09-27] MEDS: PIPERACILLIN-TAZOBACTAM 3.375 GM in DEXTROSE/WATER 1 50ML.BAG IVPB SCH ×3 (00:14→17:00)
[2017-09-27 01:13] LABS: Iron Saturation 9.52 (15.00-50.00)
[2017-09-27 05:30] LABS: Anisocytosis Slight; Basophils % (A) 0 %; Eosinophils # (A) 0.3 k/uL (0-0.7); Eosinophils % (A) 4 %; HCT 26.2 % (39.0-53.0); HGB 8.1 gm/dL (13.0-17.5); Lymphocytes # (A) 1.2 k/uL (1.0-4.8); Lymphocytes % (A) 19 %; MCH 25.2 pg (25.0-35.0); MCHC 30.9 g/dL (31.0-37.0); MCV 81.5 fL (80.0-100.0); Mean Platelet Volume 7.1; Microcytosis Slight; Monocytes # (A) 0.5 k/uL (0-1.0); Monocytes % (A) 9 %; Neutrophils # (A) 4.1 k/uL (1.3-7.7); Neutrophils % (A) 66 %; Platelet Count 156 k/uL (150-450); RBC 3.21 m/uL (4.30-5.90); WBC 6.1 k/uL (3.8-10.6)
[2017-09-27 05:55] LABS: Calcium 7.7 mg/dL (8.4-10.2); Magnesium 2.4 mg/dL (1.6-2.3); Phosphorus 3.9 mg/dL (2.5-4.5); Potassium 4.3 mmol/L (3.5-5.1)
--- NOTE | 2017-09-27 07:31 | P.GSCN ---
History of Present Illness Consult date: 09/26/17 Reason for Consult: Hematuria Requesting physician: Mike Summers History of present illness: The patient is a 77 year old male admitted with dyspnea, ascites, and lower extremity edema. He underwent paracentesis. A Miranda catheter was placed several days ago when he coded; the initial urine return was clear but he has developed hematuria. He denies hematuria prior to admission but states that he develops hematuria whenever a Miranda is placed. This patient was seen in 1996 for evaluation of gross hematuria with clots. 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 Urine cytology was negative. A CT scan of the kidneys was normal. Cystoscopy revealed trilobar BPH, and the prostate was noted to be congested. This was felt to be the source of the hematuria. He was seen back in 2001 with recurrent gross hematuria. His evaluation at that time consisted of a renal ultrasound, urine cytology, and cystoscopy. A renal ultrasound and cytology were normal. Cystoscopy again revealed a congested prostate, the likely source of hematuria. He was hospitalized in 2013, and was seen then for hematuria and urinary retention. Review of Systems - Genitourinary Denies dysuria Past Medical History Past Medical History: Atrial Fibrillation, Diabetes Mellitus, Prostate Disorder Additional Past Medical History / Comment(s): Gout History of Any Multi-Drug Resistant Organisms: None Reported Past Surgical History: Cholecystectomy Additional Past Surgical History / Comment(s): bilateral cataract Past Anesthesia/Blood Transfusion Reactions: No Reported Reaction Past Psychological History: No Psychological Hx Reported Smoking Status: Former smoker Past Alcohol Use History: Rare Past Drug Use History: None Reported - Past Family History Father Family Medical History: No Reported History Additional Family Medical History / Comment(s): Father lived to be 91 yrs old. Mother Family Medical History: Cancer Additional Family Medical History / Comment(s): Mother had blood cancer and heart problems. She lived to be 83 yrs old. Medications and Allergies Home Medications Medication Instructions Recorded Confirmed Type Allopurinol [Zyloprim] 300 mg PO MOWEFR 09/17/17 09/17/17 History Digoxin [Lanoxin] 250 mcg PO DAILY 09/17/17 09/17/17 History Furosemide [Lasix] 40 mg PO BID 09/17/17 09/17/17 History Indomethacin [Indocin] 50 mg PO HS 09/17/17 09/17/17 History Insulin NPH Hum/Reg Insulin Hm 15 unit SQ AC-BID 09/17/17 09/17/17 History [NovoLIN 70-30 100 UNIT/ML VIAL] Lutein 10 mg PO HS 09/17/17 09/17/17 History Multivit-Min/FA/Lycopen/Lutein 1 tab PO DAILY 09/17/17 09/17/17 History [Centrum Silver Tablet] Potassium Chloride [Klor-Con 20] 20 meq PO DAILY 09/17/17 09/17/17 History Quinapril HCl [Accupril] 5 mg PO DAILY 09/17/17 09/17/17 History Tamsulosin HCl [Flomax] 0.4 mg PO HS 09/17/17 09/17/17 History Warfarin [Coumadin] 5 mg PO MOTUTHFRSA 09/17/17 09/17/17 History guaiFENesin-DM 600/30MG [Mucinex 1 tab PO Q12HR 09/17/17 09/17/17 History Dm] Allergies Allergy/AdvReac Type Severity Reaction Status Date / Time No Known Allergies Allergy Verified 09/17/17 09:11 Surgical - Exam Vital Signs Temp Pulse Resp BP Pulse Ox 98.5 F 95 18 123/74 99 09/17/17 08:49 09/17/17 08:49 09/17/17 08:49 09/17/17 08:49 09/17/17 08:49 - General well developed, well nourished, no distress - Abdomen Abdomen: soft, non tender - Genitourinary mild penoscrotal edema normal penis with no external lesions, testicles non-tender, other - Psychiatric oriented to time, oriented to person, oriented to place, speech is normal, memory intact Results - Labs 09/27/17 04:40 09/27/17 04:40 Abnormal Lab Results - Last 24 Hours (Table) 09/25/17 09/25/17 09/25/17 Range/Units 11:53 12:00 17:17 RBC (4.30-5.90) m/uL Hgb (13.0-17.5) gm/dL Hct (39.0-53.0) % RDW (11.5-15.5) % APTT 57.4 H (22.0-30.0) sec POC Glucose (mg/dL) 216 H 153 H (75-99) mg/dL 09/25/17 09/26/17 09/26/17 Range/Units 21:20 05:50 05:50 RBC 3.42 L (4.30-5.90) m/uL Hgb 8.8 L (13.0-17.5) gm/dL Hct 27.9 L (39.0-53.0) % RDW 18.5 H (11.5-15.5) % APTT 55.9 H (22.0-30.0) sec POC Glucose (mg/dL) 187 H (75-99) mg/dL - Imaging CT scan - abdomen: report reviewed, image reviewed Assessment and Plan (1) Gross hematuria Current Visit: Yes Status: Acute Code(s): R31.0 - GROSS HEMATURIA SNOMED Code(s): 717735588 Plan: Mr. Valero appears to have gross hematuria due to Miranda catheter trauma. The CT scan shows no renal abnormalities. I would suggest that the Miranda be removed as soon as it is no longer medically needed. Please notify us if the hematuria persists, or if we can be of further assistance.
[2017-09-27 07:48] LABS: Glucose,Whole Blood 150 mg/dL (75-99)
[2017-09-27] MEDS: INSULIN ASPART 100 UNIT/ML 1 ML 10 ML VIAL SQ SCH ×4 (07:53→21:15)
[2017-09-27] MEDS: PANTOPRAZOLE 40 MG TABLET PO SCH (07:54)
[2017-09-27] MEDS: METOPROLOL TARTRATE 12.5 MG TAB PO SCH ×2 (08:02→21:18)
[2017-09-27] MEDS: ATORVASTATIN 40 MG TAB PO SCH (08:03)
--- NOTE | 2017-09-27 08:05 | XR ---
EXAMINATION TYPE: XR chest 1V DATE OF EXAM: 09/27/2017 COMPARISON: 09/26/2017 HISTORY: Shortness of breath TECHNIQUE: Single frontal view of the chest is obtained. FINDINGS: Bilateral consolidation and pleural effusion. Left-sided central line stable. No sizable p neumothorax. Arthropathy of the shoulders. Prominence the hilum noted. IMPRESSION: 1. Stable bilateral consolidation and pleural effusion correlate for pneumonia versus pulmonary edema . Bilateral hilar enlargement is noted. In the basis of adenopathy or pulmonary arterial enlargement. Correlate clinically.
--- NOTE | 2017-09-27 09:05 | P.PN ---
Subjective Progress Note Date: 09/27/17 Principal diagnosis: Status post cardiac arrest No shortness of breath no chest pain or palpitations. Objective - Vital Signs Vital signs: Vital Signs Temp 97.9 F 09/27/17 08:00 Pulse 90 09/27/17 08:00 Resp 18 09/27/17 08:00 BP 115/48 09/26/17 13:13 Pulse Ox 97 09/27/17 08:00 Intake & Output 09/26/17 09/27/17 09/27/17 18:59 06:59 18:59 Intake Total 1677.5 630.168 250 Output Total 1495 845 85 Balance 182.5 -214.832 165 Weight 120.2 kg 120.2 kg Intake: IV 87.5 62.5 Piperacillin-Tazobactam 3 87.5 62.5 .375 gm In Dextrose/Water 1 50ml.bag @ 12.5 mls/hr IVPB Q12HR [facility] Rx#: [id number] Intake, IV Titration 500 267.668 Amount Heparin Sodium,Porcine/ 500 267.668 D5w Pmx 25,000 unit In Dextrose/Water 1 500ml. bag @ 9 UNITS/KG/HR 19.89 mls/hr IV .Q24H [facility] Rx#: [id number] Oral 1090 300 250 Output: Urine 1495 845 85 Other: Voiding Method Indwelling Catheter Indwelling Catheter Indwelling Catheter ABP, PAP, CO, CI - Last Documented Arterial Blood Pressure 111/60 - Exam gen:alert and oriented lungs:clear to auscultation heart:s1s2 abdomen:soft and depressible,non tender ext: Evidence edema over the right foot - Labs CBC & Chem 7: 09/27/17 04:40 09/27/17 04:40 Labs: Abnormal Lab Results - Last 24 Hours (Table) 09/26/17 09/26/17 09/26/17 Range/Units 05:50 10:40 12:22 RBC (4.30-5.90) m/uL Hgb (13.0-17.5) gm/dL Hct (39.0-53.0) % MCHC (31.0-37.0) g/dL RDW (11.5-15.5) % APTT 54.6 H (22.0-30.0) sec Sodium (137-145) mmol/L BUN (9-20) mg/dL Creatinine (0.66-1.25) mg/dL Glucose (74-99) mg/dL POC Glucose (mg/dL) 201 H (75-99) mg/dL Calcium (8.4-10.2) mg/dL Magnesium (1.6-2.3) mg/dL Iron 26 L (65-175) ug/dL Iron Saturation 10.00 L (15.00-50.00) 09/26/17 09/26/17 09/26/17 Range/Units 17:04 18:40 18:40 RBC (4.30-5.90) m/uL Hgb (13.0-17.5) gm/dL Hct (39.0-53.0) % MCHC (31.0-37.0) g/dL RDW (11.5-15.5) % APTT 41.3 H (22.0-30.0) sec Sodium (137-145) mmol/L BUN (9-20) mg/dL Creatinine (0.66-1.25) mg/dL Glucose (74-99) mg/dL POC Glucose (mg/dL) 199 H (75-99) mg/dL Calcium (8.4-10.2) mg/dL Magnesium (1.6-2.3) mg/dL Iron 26 L (65-175) ug/dL Iron Saturation 9.52 L (15.00-50.00) 09/26/17 09/27/17 09/27/17 Range/Units 20:43 00:20 04:40 RBC 3.21 L (4.30-5.90) m/uL Hgb 8.1 L (13.0-17.5) gm/dL Hct 26.2 L (39.0-53.0) % MCHC 30.9 L (31.0-37.0) g/dL RDW 19.0 H (11.5-15.5) % APTT 59.8 H (22.0-30.0) sec Sodium (137-145) mmol/L BUN (9-20) mg/dL Creatinine (0.66-1.25) mg/dL Glucose (74-99) mg/dL POC Glucose (mg/dL) 219 H (75-99) mg/dL Calcium (8.4-10.2) mg/dL Magnesium (1.6-2.3) mg/dL Iron (65-175) ug/dL Iron Saturation (15.00-50.00) 09/27/17 09/27/17 09/27/17 Range/Units 04:40 07:30 07:50 RBC (4.30-5.90) m/uL Hgb (13.0-17.5) gm/dL Hct (39.0-53.0) % MCHC (31.0-37.0) g/dL RDW (11.5-15.5) % APTT 49.5 H (22.0-30.0) sec Sodium 130 L (137-145) mmol/L BUN 60 H (9-20) mg/dL Creatinine 1.30 H (0.66-1.25) mg/dL Glucose 128 H (74-99) mg/dL POC Glucose (mg/dL) 150 H (75-99) mg/dL Calcium 7.7 L (8.4-10.2) mg/dL Magnesium 2.4 H (1.6-2.3) mg/dL Iron (65-175) ug/dL Iron Saturation (15.00-50.00) Assessment and Plan (1) Cardiac arrest Narrative/Plan: Patient has been stable, recovering well Current Visit: Yes Status: Acute Code(s): I46.9 - CARDIAC ARREST, CAUSE UNSPECIFIED SNOMED Code(s): 181699204 (2) Respiratory failure Narrative/Plan: Status post extubation day #3 No shortness of breath Current Visit: Yes Status: Acute Code(s): J96.90 - RESPIRATORY FAILURE, UNSP , UNSP W HYPOXIA OR HYPERCAPNIA SNOMED Code(s): 869086554 (3) Acute systolic CHF (congestive heart failure), NYHA class 4 Narrative/Plan: Some edema in right lower extremity. Status post Lasix yesterday Current Visit: Yes Status: Acute Code(s): I50.21 - ACUTE SYSTOLIC ( CONGESTIVE) HEART FAILURE SNOMED Code(s): 727927242 (4) Atrial fibrillation Narrative/Plan: Rate controlled Continue metoprolol On heparin drip Current Visit: Yes Status: Acute Priority: High Code(s): I48.91 - UNSPECIFIED ATRIAL FIBRILLATION SNOMED Code(s): 82161728 (5) Diabetes mellitus Narrative/Plan: Accu-Chek before meals and at bedtime Controlled Current Visit: Yes Status: Acute Priority: Medium Code(s): E11.9 - TYPE 2 DIABETES MELLITUS WITHOUT COMPLICATIONS SNOMED Code(s): 71309687 (6) Elevated liver enzymes Current Visit: Yes Status: Acute Code(s): R74.8 - ABNORMAL LEVELS OF OTHER SERUM ENZYMES SNOMED Code(s): 584216529 (7) Pleural effusion Current Visit: Yes Status: Acute Code(s): J90 - PLEURAL EFFUSION, NOT ELSEWHERE CLASSIFIED SNOMED Code(s): 15436861 (8) Shock Narrative/Plan: Has been off pressors Current Visit: Yes Status: Acute Code(s): R57.9 - SHOCK, UNSPECIFIED SNOMED Code(s): 19120188
[2017-09-27] MEDS: SODIUM FERRIC GLUCONAT-SUCROSE 125 MG in SODIUM CHLORIDE 0.9% 100 ML IVPB SCH (09:53)
[2017-09-27] MEDS: GABAPENTIN 300 MG CAP PO PRN ×2 (10:33→21:14)
--- NOTE | 2017-09-27 10:33 | P.PN ---
Subjective Patient is seen in follow-up for acute kidney injury. Renal function is stable with creatinine at 1.3 today. Sodium level is 130. He remains off all vasopressors. He did receive 1 dose of Lasix 40 mg IV on September 26. Oral intake is improving. Denies chest pain or shortness of breath. He does of systolic CHF with ejection fraction of 20-25%. He is status post cardiac arrest. Vital signs are stable. General: The patient appeared well nourished and normally developed. HEENT: Head exam is unremarkable. Neck is without jugular venous distension. LUNGS: Lungs are clear to auscultation and percussion. Breath sounds decreased. HEART: Rate and Rhythm are regular. First and second heart sounds normal. No murmurs, rubs or gallops. ABDOMEN: Abdominal exam reveals normal bowel sounds. Non-tender and non- distended. No evidence of peritonitis. EXTREMITITES: No clubbing, cyanosis, or edema. Objective - Vital Signs Vital signs: Vital Signs Temp 97.9 F 09/27/17 08:00 Pulse 81 09/27/17 10:00 Resp 15 09/27/17 10:00 BP 115/48 09/26/17 13:13 Pulse Ox 84 L 09/27/17 10:00 Intake & Output 09/26/17 09/27/17 09/27/17 18:59 06:59 18:59 Intake Total 1677.5 630.168 250 Output Total 1495 845 175 Balance 182.5 -214.832 75 Weight 120.2 kg 120.2 kg Intake: IV 87.5 62.5 Piperacillin-Tazobactam 3 87.5 62.5 .375 gm In Dextrose/Water 1 50ml.bag @ 12.5 mls/hr IVPB Q12HR [facility] Rx#: [id number] Intake, IV Titration 500 267.668 Amount Heparin Sodium,Porcine/ 500 267.668 D5w Pmx 25,000 unit In Dextrose/Water 1 500ml. bag @ 9 UNITS/KG/HR 19.89 mls/hr IV .Q24H [facility] Rx#: [id number] Oral 1090 300 250 Output: Urine 1495 845 175 Other: Voiding Method Indwelling Catheter Indwelling Catheter Indwelling Catheter ABP, PAP, CO, CI - Last Documented Arterial Blood Pressure 109/57 - Labs CBC & Chem 7: 09/27/17 04:40 09/27/17 04:40 Labs: Abnormal Lab Results - Last 24 Hours (Table) 09/26/17 09/26/17 09/26/17 Range/Units 05:50 10:40 12:22 RBC (4.30-5.90) m/uL Hgb (13.0-17.5) gm/dL Hct (39.0-53.0) % MCHC (31.0-37.0) g/dL RDW (11.5-15.5) % APTT 54.6 H (22.0-30.0) sec Sodium (137-145) mmol/L BUN (9-20) mg/dL Creatinine (0.66-1.25) mg/dL Glucose (74-99) mg/dL POC Glucose (mg/dL) 201 H (75-99) mg/dL Calcium (8.4-10.2) mg/dL Magnesium (1.6-2.3) mg/dL Iron 26 L (65-175) ug/dL Iron Saturation 10.00 L (15.00-50.00) 09/26/17 09/26/17 09/26/17 Range/Units 17:04 18:40 18:40 RBC (4.30-5.90) m/uL Hgb (13.0-17.5) gm/dL Hct (39.0-53.0) % MCHC (31.0-37.0) g/dL RDW (11.5-15.5) % APTT 41.3 H (22.0-30.0) sec Sodium (137-145) mmol/L BUN (9-20) mg/dL Creatinine (0.66-1.25) mg/dL Glucose (74-99) mg/dL POC Glucose (mg/dL) 199 H (75-99) mg/dL Calcium (8.4-10.2) mg/dL Magnesium (1.6-2.3) mg/dL Iron 26 L (65-175) ug/dL Iron Saturation 9.52 L (15.00-50.00) 09/26/17 09/27/17 09/27/17 Range/Units 20:43 00:20 04:40 RBC 3.21 L (4.30-5.90) m/uL Hgb 8.1 L (13.0-17.5) gm/dL Hct 26.2 L (39.0-53.0) % MCHC 30.9 L (31.0-37.0) g/dL RDW 19.0 H (11.5-15.5) % APTT 59.8 H (22.0-30.0) sec Sodium (137-145) mmol/L BUN (9-20) mg/dL Creatinine (0.66-1.25) mg/dL Glucose (74-99) mg/dL POC Glucose (mg/dL) 219 H (75-99) mg/dL Calcium (8.4-10.2) mg/dL Magnesium (1.6-2.3) mg/dL Iron (65-175) ug/dL Iron Saturation (15.00-50.00) 09/27/17 09/27/17 09/27/17 Range/Units 04:40 07:30 07:50 RBC (4.30-5.90) m/uL Hgb (13.0-17.5) gm/dL Hct (39.0-53.0) % MCHC (31.0-37.0) g/dL RDW (11.5-15.5) % APTT 49.5 H (22.0-30.0) sec Sodium 130 L (137-145) mmol/L BUN 60 H (9-20) mg/dL Creatinine 1.30 H (0.66-1.25) mg/dL Glucose 128 H (74-99) mg/dL POC Glucose (mg/dL) 150 H (75-99) mg/dL Calcium 7.7 L (8.4-10.2) mg/dL Magnesium 2.4 H (1.6-2.3) mg/dL Iron (65-175) ug/dL Iron Saturation (15.00-50.00) Assessment and Plan Plan: Assessment: 1. Nonoliguric acute kidney injury secondary to ATN secondary to hypotension and cardiac arrest. Creatinine 1.3 today. 2. Hyponatremia now euvolemic. He did receive Lasix 40 mg yesterday. 3. Systolic CHF with ejection fraction of 20-25%. 4. Ascites status post paracentesis on September 20 with over 14 L removed. 5. Liver cirrhosis. Questionable etiology. 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 6. Anemia. Iron deficiency noted. Plan: Hold off on diuretics today. Maintain 1500 mL fluid restriction. Avoid nephrotoxic agents and hypotensive episodes. Continue to monitor renal function and urine output. Ferrlecit 125 mg IV daily for 3 days. First dose today. Check urine sodium and osmolality. Repeat electrolytes in the morning.
[2017-09-27 11:10] LABS: Glucose,Whole Blood 176 mg/dL (75-99)
[2017-09-27 12:28] LABS: Glucose,Whole Blood 165 mg/dL (75-99)
--- NOTE | 2017-09-27 12:38 | P.PN ---
Subjective Progress Note Date: 09/27/17 Principal diagnosis: Acute cardiac arrest and acute hypoxic respiratory failure requiring intubation and mechanical ventilation. This is a 77-year-old male patient with known history of chronic atrial fibrillation, chronic lumbar degenerative disc disease with limited mobility and impaired performance and functional status at baseline. He is also known to have diabetes, gout, and prostate enlargement. The patient comes in with worsening shortness of breath and addition to generalized weakness and some dizziness. His chest x-ray showed low lung volumes and cardiomegaly and possibly some right-sided pleural effusion. EKG showed chronic atrial fibrillation with some nonspecific ST segment changes. Based on that the patient a CAT scan of the chest abdomen and pelvis and the CAT scan showed a small to moderate-sized right-sided pleural effusion in addition to some changes in the liver consistent with liver cirrhosis and ascites with anasarca. The patient also reports some increased lower oximetry edema and further investigation with an echo of the heart showed an ejection fraction of 25-30% and global hypokinesis of the left ventricle, RV was mildly enlarged, moderate to severe aortic stenosis, severe mitral regurgitation, severe tricuspid regurgitation, severe pulmonary hypertension was also noted. The patient is currently on 2 L of oxygen nasal cannula. His INR is at 1.5 as the patient is on warfarin. The patient's creatinine is at 1.1 and the patient was started on diuretics and he seems to be responding. He feels less short of breath compared to yesterday. He feels that the abdomen is also less distended. He is lower extremity edema is also improving. He was seen by cardiology. He was also seen by gastroenterology. He is not a drinker. No significant hepatitis. Most of alcoholism. No history of GI bleeding. The patient will have a paracentesis with the next 24 hours regarding his ascites. He is able to lay down to 20 bed elevation without any major difficulties. The patient seen again today 09/19/2017 in follow-up on the selective care unit. He is currently sitting up at bedside. He is awake and alert in no acute distress. His abdomen remains quite distended. He is still this moment with minimal exertion. He is maintaining O2 saturations in the upper 90s on 1.5 L/m per nasal cannula. He is currently afebrile. Hemodynamically stable. INR is 1.6 today. IR will possibly do a paracentesis tomorrow. He is voiding well and remains in a negative balance. His weight is down 1 kg. On 09/20/2017 patient seen in follow-up on selective care unit, he is status post large volume paracentesis of approximately 14.1 L of straw-colored fluid. Patient tolerated the procedure well. Her weight resting in bed, in no acute distress, abdomen is a lot less distended, soft, nontender. Patient is having some soreness along the left costal margin, mild, but no acute distress. Oxygenation improved, patient is currently on 1/2 L per nasal cannula, he reports his breathing easier, vital signs are stable, he is afebrile. Patient has been started on IV Lasix drip at 10 mg per hour, in addition to the Zaroxolyn. Patient continues on potassium and Aldactone,, and lisinopril. Overall his breathing is improved, continue with current medical treatment, will obtain a follow-up chest x-ray in the morning On 09/21/2017, the patient is awake and alert. The patient is looking much better as the patient had significant large volume paracentesis with evacuation of more than 10 L from the abdomen. In fact the total amount was 14 L. Subsequent chest x-ray showed a presence of a right-sided pleural effusion which is moderate in size. Nevertheless, the patient denies having any significant shortness of breath and he is not wanting a thoracentesis for the time being. I think it's reasonable as long as the patient has significant improvement in her breathing with large volume paracentesis. Meanwhile, the patient has become slightly prerenal on today's blood work. BUN is up to 77 and the creatinine is up to 1.48. The patient is currently on Lasix drip at 10 mg an hour. The patient is also on Zaroxolyn 5 mg by mouth daily. The patient is also on Aldactone 100 mg by mouth daily. No major edema lower extremities. Note that the blood work also showed positivity and GEOVANI and anti-smooth muscle antibodies were also positive raising the possibility of an underlying autoimmune related hepatitis/liver disease. This antibodies positive for autoimmune liver disease as such as primary biliary cholangitis and autoimmune hepatitis. Note that the patient also has cardiomyopathy Contributing to His Profound Edema and Fluid Overload. On 09/22/2017, the patient has no specific complaints. Hemodynamically stable. The patient is currently off the Lasix drip. The patient will be started on Aldactone.. The patient has no abdominal pain. Abdominal distention is improved. We decided not to drain the pleural effusion in the lung volume the patient has been having no significant respiratory distress at this point in time. The renal function is stable and the creatinine is at 1.37. On 09/23/2017, this 77-year-old male patient who got brought into the intensive care unit after he rested on the floor. I do not have the chance to evaluate this patient in the morning. The patient was seen by cardiology and apparently his IV Lasix was on hold due to issues related to hypotension. At that point the patient was placed on dopamine at 5 mics. Within 30 minutes of initiation of dopamine, the patient became tachycardic and subsequently a CODE BLUE was called and the patient went into cardiopulmonary arrest. I was on the floor and I attended to the Code and this patient was in PEA initially. CPR was initiated and ACLS protocol was followed. The patient was given epinephrine. I intubated the patient on the scene. Within 2-3 minutes a pulse on her blood pressure was obtained. The patient was interactive and moving all 4 extremities. I'm of the patient in intensive care unit. I started the prevent on him while him being intubated on a mechanical ventilator. A brief neurologic evaluation was done and the patient was fully awake and alert and moving all 4 extremities. Nevertheless, based on his underlying cardio pulmonary status, I decided not to extubate the patient. He was placed on propofol infusion for sedation. Currently is on assist control mode at a rate of 24, tidal volume of 500, FiO2 of 100% and a PEEP of 5. Blood gas showed a pH of 7.37 with a pCO2 of 36 and pO2 of 300 and the FiO2 was not down to 50%. The patient is currently on 5 mics of norepinephrine infusion for blood pressure control. The patient had a post intubation chest x-ray that showed right basilar pleural effusion in addition to cardiomegaly. ET tube was in a good location. Subsequently, I inserted a triple lumen catheter for the left subclavian vein and a chest x-ray findings remain stable and there was no evidence of any pneumothorax. Reviewing the patient's blood work from earlier this morning, the patient a white cell count of 8 with a hemoglobin of 9.7. His BUN is at 83 with a creatinine of 1.5. And note that the patient has become progressively more prerenal as the patient had large volume paracentesis and subsequently was aggressively treated with diuretics. Note that his echocardiogram showed ejection fraction of 25% along with global hypokinesis. LAD was severely dilated. There was severe aortic sclerosis and moderate aortic regurgitation and moderate to severe aortic stenosis with a PA pressure of 61 in addition to severe mitral regurgitation, severe tricuspid regurgitation and severe pulmonary hypertension with a PA pressure of 91. The CAT scan of the abdomen showed changes consistent with cirrhosis of the liver and ascites. Large volume paracentesis was done. The patient continued to have a moderate-sized right-sided pleural effusion. The cirrhosis is probably of a cardiac in nature. No significant splenomegaly or splenic varices was seen. Upon further workup the patient do not to have a positive GEOVANI and anti- smooth muscle antibody which also raises concern for autoimmune hepatitis. Patient was reevaluated today on 09/24/2017, remains on mechanical ventilation, remains on 2 g of norepinephrine, chest x-ray is showing some improvement, but patient continues to have bilateral pleural effusions. Right more so than left , and I believe the right pleural effusion is related to his underlying liver disease and ascites. May or may not consider thoracentesis at this point. His ventilator settings were reviewed, patient was awakened, I gave him a trial of pressure support and CPAP, patient did quite well, and I went ahead and recommended extubating the patient. His weaning parameters were great. His labs were also reviewed WBC count is 12 hemoglobin is 10.7. ABG showed a pO2 of 217 pCO2 of 32 pH of 7.45. PTT is 47.7, patient remains on heparin. Electrolytes are normal BUN is 73 creatinine 1.20. Patient was noted to be appropriate, responsive, and in no distress on pressure support and CPAP. Then I proceeded to extubating the patient. Patient was reevaluated today on 09/25/2017, he is presently on room air, extubated yesterday, and tolerated the extubation quite well. Patient is off mechanical ventilation, off pressors, seems to be very comfortable, in no distress. Continues to have multiple complex medical problems including pulmonary, cardiac, and her renal issues. And most definitely liver issues/ hepatitis. Based on the notes from the bibliographic services specialist, patient was felt to have cirrhotic liver and abdominal pelvic ascites with pleural effusion secondary to cirrhosis possibly cryptogenic secondary to Parekh. Chest x-ray today continues to show some pleural effusion and consolidation of the right lower lobe, but seems to be a bit improved compared to the chest x-ray yesterday. Labs showed relatively normal CBC hemoglobin is 9.3. Normal BUN is improving down to 63, and creatinine is also improving down to 1.20. At this point the patient seems to be making good amount of urine, and he is off diuretics. Being followed closely by nephrology. On 09/26/2017, patient remains in the ICU, tolerated extubation over the last 2 days quite well, presently on 2 L nasal cannula. Patient denies any shortness of breath, he is off all the pressors, not receiving any diuretics, but early today, he was seen by nephrology and recommended a dose of Lasix. His chest x- ray continues to show a good sized right-sided pleural effusion, patient is diuresing well, hence I have no plans to do a thoracentesis at this point. His mentation seems to be intact. Patient does have low ejection fraction, and cardiomyopathy with LV dysfunction, his ejection fraction is 25%. Continues to have some swelling in the lower extremities, and that is being addressed with diuretics. Patient denies any shortness of breath, no chest pain, no cough, no wheezing, no nausea no vomiting and no abdominal pain. Labs WBC count is 6.9 hemoglobin is 8.8 ETT is therapeutic at 54.6 electrolytes were noted BUN is 60 creatinine is 1.30. Liver enzymes were noted to be relatively normal. Chest x- ray as noted above. Reevaluated today on 09/27/2017, patient remains in the ICU, he was extubated a few days back, and he continues to tolerate extubation. Presently on room air. Denies any specific complaints, feeling great compared to how he felt over the last few days. All his labs were reviewed including a CBC showed a hemoglobin of 8.1, WBC count of 6.1 PTT is therapeutic at 49.5. Basic metabolic profile was relatively normal. BUN is 60 creatinine 1.30 unchanged compared to yesterday. Urine sodium is 23 urine osmolality is 423. Objective - Vital Signs Vital signs: Vital Signs Temp 97.9 F 09/27/17 12:00 Pulse 79 09/27/17 12:00 Resp 20 09/27/17 12:00 BP 115/48 09/26/17 13:13 Pulse Ox 93 L 09/27/17 12:00 Intake & Output 09/26/17 09/27/17 09/27/17 18:59 06:59 18:59 Intake Total 1677.5 630.168 250 Output Total 1495 845 275 Balance 182.5 -214.832 -25 Weight 120.2 kg 120.2 kg Intake: IV 87.5 62.5 Piperacillin-Tazobactam 3 87.5 62.5 .375 gm In Dextrose/Water 1 50ml.bag @ 12.5 mls/hr IVPB Q12HR [facility] Rx#: [id number] Intake, IV Titration 500 267.668 Amount Heparin Sodium,Porcine/ 500 267.668 D5w Pmx 25,000 unit In Dextrose/Water 1 500ml. bag @ 9 UNITS/KG/HR 19.89 mls/hr IV .Q24H [facility] Rx#: [id number] Oral 1090 300 250 Output: Urine 1495 845 275 Other: Voiding Method Indwelling Catheter Indwelling Catheter Indwelling Catheter ABP, PAP, CO, CI - Last Documented Arterial Blood Pressure 109/53 - Exam Gen. appearance revealed a 77-year-old white male, on room air, in no form of respiratory distress, Head exam was generally normal. There was no scleral icterus or corneal arcus. Mucous membranes were moist. Neck is supple and the patient is negative JVDs bilaterally without any goiter or neck masses. Lung sounds are diminished in lung bases bilaterally along with some bibasilar crackles. Breath sounds are quite diminished in the right lung base. Heart sounds are irregular and the patient has a systolic ejection murmur grade 2/6 heard throughout the precordium. S1 and S2 are irregular. Abdomen is slightly distended. There is positive fluid wave. No rebound, no guarding. Extremities revealed trace edema and there is no cyanosis or clubbing. There is diminished pulses in lower extremities bilaterally. Neurologically the patient was wide awake, appropriate, alert oriented 3, no gross focal neurologic deficit. Examination of the skin revealed no evidence of significant rashes, suspicious appearing nevi or other concerning lesions. The patient has a triple lumen catheter in the left subclavian vein. - Labs CBC & Chem 7: 09/27/17 04:40 09/27/17 04:40 Labs: Abnormal Lab Results - Last 24 Hours (Table) 09/26/17 09/26/17 09/26/17 Range/Units 05:50 17:04 18:40 RBC (4.30-5.90) m/uL Hgb (13.0-17.5) gm/dL Hct (39.0-53.0) % MCHC (31.0-37.0) g/dL RDW (11.5-15.5) % APTT 41.3 H (22.0-30.0) sec Sodium (137-145) mmol/L BUN (9-20) mg/dL Creatinine (0.66-1.25) mg/dL Glucose (74-99) mg/dL POC Glucose (mg/dL) 199 H (75-99) mg/dL Calcium (8.4-10.2) mg/dL Magnesium (1.6-2.3) mg/dL Iron 26 L (65-175) ug/dL Iron Saturation 10.00 L (15.00-50.00) Ur Random Sodium (30-90) mmol/L 09/26/17 09/26/17 09/27/17 Range/Units 18:40 20:43 00:20 RBC (4.30-5.90) m/uL Hgb (13.0-17.5) gm/dL Hct (39.0-53.0) % MCHC (31.0-37.0) g/dL RDW (11.5-15.5) % APTT 59.8 H (22.0-30.0) sec Sodium (137-145) mmol/L BUN (9-20) mg/dL Creatinine (0.66-1.25) mg/dL Glucose (74-99) mg/dL POC Glucose (mg/dL) 219 H (75-99) mg/dL Calcium (8.4-10.2) mg/dL Magnesium (1.6-2.3) mg/dL Iron 26 L (65-175) ug/dL Iron Saturation 9.52 L (15.00-50.00) Ur Random Sodium (30-90) mmol/L 09/27/17 09/27/17 09/27/17 Range/Units 04:40 04:40 07:30 RBC 3.21 L (4.30-5.90) m/uL Hgb 8.1 L (13.0-17.5) gm/dL Hct 26.2 L (39.0-53.0) % MCHC 30.9 L (31.0-37.0) g/dL RDW 19.0 H (11.5-15.5) % APTT (22.0-30.0) sec Sodium 130 L (137-145) mmol/L BUN 60 H (9-20) mg/dL Creatinine 1.30 H (0.66-1.25) mg/dL Glucose 128 H (74-99) mg/dL POC Glucose (mg/dL) 150 H (75-99) mg/dL Calcium 7.7 L (8.4-10.2) mg/dL Magnesium 2.4 H (1.6-2.3) mg/dL Iron (65-175) ug/dL Iron Saturation (15.00-50.00) Ur Random Sodium (30-90) mmol/L 09/27/17 09/27/17 09/27/17 Range/Units 07:50 10:20 11:08 RBC (4.30-5.90) m/uL Hgb (13.0-17.5) gm/dL Hct (39.0-53.0) % MCHC (31.0-37.0) g/dL RDW (11.5-15.5) % APTT 49.5 H (22.0-30.0) sec Sodium (137-145) mmol/L BUN (9-20) mg/dL Creatinine (0.66-1.25) mg/dL Glucose (74-99) mg/dL POC Glucose (mg/dL) 176 H (75-99) mg/dL Calcium (8.4-10.2) mg/dL Magnesium (1.6-2.3) mg/dL Iron (65-175) ug/dL Iron Saturation (15.00-50.00) Ur Random Sodium 23 L (30-90) mmol/L 09/27/17 Range/Units 12:21 RBC (4.30-5.90) m/uL Hgb (13.0-17.5) gm/dL Hct (39.0-53.0) % MCHC (31.0-37.0) g/dL RDW (11.5-15.5) % APTT (22.0-30.0) sec Sodium (137-145) mmol/L BUN (9-20) mg/dL Creatinine (0.66-1.25) mg/dL Glucose (74-99) mg/dL POC Glucose (mg/dL) 165 H (75-99) mg/dL Calcium (8.4-10.2) mg/dL Magnesium (1.6-2.3) mg/dL Iron (65-175) ug/dL Iron Saturation (15.00-50.00) Ur Random Sodium (30-90) mmol/L Assessment and Plan Assessment: 1 acute cardiac arrest. Acute hypoxic respiratory failure secondary to acute cardiac arrest The patient was in PEA with a downtime of around 2-3 minutes. He had successful resuscitation based on ACLS protocol. Postextubation day #3. 3 right-sided pleural effusion likely on the basis of congestion heart failure. Possibility of chronic liver disease causing ascites and right-sided pleural effusion/hydrothorax cannot be completely excluded. 2 CHF with impaired left a ejection fraction of 25%. In addition the patient has severe aortic stenosis, mitral regurgitation, severe tricuspid regurgitation secondary pulmonary hypertension. 3 chronic atrial fibrillation 4 ascites and anasarca secondary to above, there is post large volume paracentesis with removal of 14.1 L of ascitic fluid 5 questionable liver cirrhosis although the findings could be also related to parkeh. I also believe his heart failure is another contributing factor to his liver hepatopathy and congestion and possibly contributing to his massive ascites. 6 long-term anticoagulation with warfarin , presently patient is on heparin. 6 diabetes mellitus 7 gout 8 BPH 9 prerenal azotemia secondary to aggressive diuresis and prerenal effect secondary to heart failure Recommendation: Continue present treatment plan, can transfer the patient out of the ICU today, we'll continue to follow. Time with Patient: Less than 30
[2017-09-27] MEDS: HEPARIN SODIUM,PORCINE/D5W PMX 25,000 UNIT in DEXTROSE/WATER 1 500ML.BAG IV SCH (15:30)
[2017-09-27 17:06] LABS: Glucose,Whole Blood 229 mg/dL (75-99)
--- NOTE | 2017-09-27 18:11 | P.PN ---
Subjective Progress Note Date: 09/27/17 This is a 77-year-old gentleman with severe aortic stenosis and mitral regurgitation and also CHF. There is questionable history of chronic liver disease. He also has chronic atrial fibrillation. He is in ICU. Status post cardiac arrest. Patient seemed to be doing well. Doesn't appear to be in acute distress. Hemodynamically stable. He is off all pressors. Waiting to be transferred to telemetry unit. His urine also has cleared. We may have to start him on anticoagulants. We'll have a discussion with family regarding further management of his valvular disease. Patient is otherwise a poor surgical candidate Objective - Vital Signs Vital signs: Vital Signs Temp 97.9 F 09/27/17 17:00 Pulse 95 09/27/17 17:00 Resp 18 09/27/17 17:00 BP 115/48 09/26/17 13:13 Pulse Ox 96 09/27/17 17:00 Intake & Output 09/26/17 09/27/17 09/27/17 18:59 06:59 18:59 Intake Total 1677.5 630.168 482.332 Output Total 1495 845 520 Balance 182.5 -214.832 -37.668 Weight 120.2 kg 120.2 kg Intake: IV 87.5 62.5 Piperacillin-Tazobactam 3 87.5 62.5 .375 gm In Dextrose/Water 1 50ml.bag @ 12.5 mls/hr IVPB Q12HR [facility] Rx#: [id number] Intake, IV Titration 500 267.668 232.332 Amount Heparin Sodium,Porcine/ 500 267.668 232.332 D5w Pmx 25,000 unit In Dextrose/Water 1 500ml. bag @ 9 UNITS/KG/HR 19.89 mls/hr IV .Q24H [facility] Rx#: [id number] Oral 1090 300 250 Output: Urine 1495 845 520 Other: Voiding Method Indwelling Catheter Indwelling Catheter Indwelling Catheter ABP, PAP, CO, CI - Last Documented Arterial Blood Pressure 124/62 - Exam GENERAL EXAM: Patient is alert and oriented and doesn't appear to be in any acute distress HEENT: Normocephalic. Normal reaction of pupils, equal size, normal range of extraocular motion. No erythema or exudates in the throat. NECK: No masses, no nuchal rigidity. CHEST: No chest wall deformity. LUNGS: Expiratory rhonchi HEART: S1 and S2 normal, systolic murmur ABDOMEN: No hepatosplenomegaly, normal bowel sounds, no guarding or rigidity. SKIN: No rashes CENTRAL NERVOUS SYSTEM: No focal deficits. Moving all the extremities EXTREMITIES: No cyanosis, clubbing or edema. - Labs CBC & Chem 7: 09/27/17 04:40 09/27/17 04:40 Labs: Abnormal Lab Results - Last 24 Hours (Table) 09/26/17 09/26/17 09/26/17 Range/Units 05:50 18:40 18:40 RBC (4.30-5.90) m/uL Hgb (13.0-17.5) gm/dL Hct (39.0-53.0) % MCHC (31.0-37.0) g/dL RDW (11.5-15.5) % APTT 41.3 H (22.0-30.0) sec Sodium (137-145) mmol/L BUN (9-20) mg/dL Creatinine (0.66-1.25) mg/dL Glucose (74-99) mg/dL POC Glucose (mg/dL) (75-99) mg/dL Calcium (8.4-10.2) mg/dL Magnesium (1.6-2.3) mg/dL Iron 26 L 26 L (65-175) ug/dL Iron Saturation 10.00 L 9.52 L (15.00-50.00) Ur Random Sodium (30-90) mmol/L 09/26/17 09/27/17 09/27/17 Range/Units 20:43 00:20 04:40 RBC 3.21 L (4.30-5.90) m/uL Hgb 8.1 L (13.0-17.5) gm/dL Hct 26.2 L (39.0-53.0) % MCHC 30.9 L (31.0-37.0) g/dL RDW 19.0 H (11.5-15.5) % APTT 59.8 H (22.0-30.0) sec Sodium (137-145) mmol/L BUN (9-20) mg/dL Creatinine (0.66-1.25) mg/dL Glucose (74-99) mg/dL POC Glucose (mg/dL) 219 H (75-99) mg/dL Calcium (8.4-10.2) mg/dL Magnesium (1.6-2.3) mg/dL Iron (65-175) ug/dL Iron Saturation (15.00-50.00) Ur Random Sodium (30-90) mmol/L 09/27/17 09/27/17 09/27/17 Range/Units 04:40 07:30 07:50 RBC (4.30-5.90) m/uL Hgb (13.0-17.5) gm/dL Hct (39.0-53.0) % MCHC (31.0-37.0) g/dL RDW (11.5-15.5) % APTT 49.5 H (22.0-30.0) sec Sodium 130 L (137-145) mmol/L BUN 60 H (9-20) mg/dL Creatinine 1.30 H (0.66-1.25) mg/dL Glucose 128 H (74-99) mg/dL POC Glucose (mg/dL) 150 H (75-99) mg/dL Calcium 7.7 L (8.4-10.2) mg/dL Magnesium 2.4 H (1.6-2.3) mg/dL Iron (65-175) ug/dL Iron Saturation (15.00-50.00) Ur Random Sodium (30-90) mmol/L 09/27/17 09/27/17 09/27/17 Range/Units 10:20 11:08 12:21 RBC (4.30-5.90) m/uL Hgb (13.0-17.5) gm/dL Hct (39.0-53.0) % MCHC (31.0-37.0) g/dL RDW (11.5-15.5) % APTT (22.0-30.0) sec Sodium (137-145) mmol/L BUN (9-20) mg/dL Creatinine (0.66-1.25) mg/dL Glucose (74-99) mg/dL POC Glucose (mg/dL) 176 H 165 H (75-99) mg/dL Calcium (8.4-10.2) mg/dL Magnesium (1.6-2.3) mg/dL Iron (65-175) ug/dL Iron Saturation (15.00-50.00) Ur Random Sodium 23 L (30-90) mmol/L 09/27/17 Range/Units 16:55 RBC (4.30-5.90) m/uL Hgb (13.0-17.5) gm/dL Hct (39.0-53.0) % MCHC (31.0-37.0) g/dL RDW (11.5-15.5) % APTT (22.0-30.0) sec Sodium (137-145) mmol/L BUN (9-20) mg/dL Creatinine (0.66-1.25) mg/dL Glucose (74-99) mg/dL POC Glucose (mg/dL) 229 H (75-99) mg/dL Calcium (8.4-10.2) mg/dL Magnesium (1.6-2.3) mg/dL Iron (65-175) ug/dL Iron Saturation (15.00-50.00) Ur Random Sodium (30-90) mmol/L Assessment and Plan (1) Atrial fibrillation Current Visit: Yes Status: Acute Priority: High Code(s): I48.91 - UNSPECIFIED ATRIAL FIBRILLATION SNOMED Code(s): 71272284 (2) Cardiac arrest Current Visit: Yes Status: Acute Code(s): I46.9 - CARDIAC ARREST, CAUSE UNSPECIFIED SNOMED Code(s): 729571296 (3) Congestive heart failure Current Visit: Yes Status: Acute Priority: High Code(s): I50.9 - HEART FAILURE, UNSPECIFIED SNOMED Code(s): 86576092 (4) Diabetes mellitus Current Visit: Yes Status: Acute Priority: Medium Code(s): E11.9 - TYPE 2 DIABETES MELLITUS WITHOUT COMPLICATIONS SNOMED Code(s): 66846401 Plan: We'll continue current medical therapy. May consider adding oral anticoagulants. May also discontinue Miranda catheter. Increase activity as tolerated. Prognosis is guarded
[2017-09-27 20:34] LABS: Glucose,Whole Blood 230 mg/dL (75-99)
[2017-09-27] MEDS: TAMSULOSIN 0.4 MG CAP.ER.24H PO SCH (21:14)
[2017-09-28] MEDS: PIPERACILLIN-TAZOBACTAM 3.375 GM in DEXTROSE/WATER 1 50ML.BAG IVPB SCH ×4 (00:20→23:51)
[2017-09-28 04:02] LABS: Anisocytosis Slight; Basophils # (A) 0.1 k/uL (0-0.2); Basophils % (A) 1 %; Eosinophils # (A) 0.3 k/uL (0-0.7); Eosinophils % (A) 4 %; HCT 27.2 % (39.0-53.0); HGB 8.4 gm/dL (13.0-17.5); Lymphocytes # (A) 1.4 k/uL (1.0-4.8); Lymphocytes % (A) 22 %; MCH 25.5 pg (25.0-35.0); MCV 82.2 fL (80.0-100.0); Mean Platelet Volume 7.8; Microcytosis Slight; Monocytes # (A) 0.6 k/uL (0-1.0); Monocytes % (A) 10 %; Neutrophils # (A) 3.9 k/uL (1.3-7.7); Neutrophils % (A) 61 %; Platelet Count 159 k/uL (150-450); RDW 18.9 % (11.5-15.5); WBC 6.4 k/uL (3.8-10.6)
[2017-09-28 04:25] LABS: Calcium 7.7 mg/dL (8.4-10.2); Magnesium 2.4 mg/dL (1.6-2.3); Phosphorus 3.9 mg/dL (2.5-4.5); Potassium 4.4 mmol/L (3.5-5.1)
[2017-09-28 07:35] LABS: Glucose,Whole Blood 141 mg/dL (75-99)
--- NOTE | 2017-09-28 07:39 | XR ---
EXAMINATION TYPE: XR chest 1V DATE OF EXAM: 09/28/2017 COMPARISON: 09/27/2017 HISTORY: Shortness of breath TECHNIQUE: Single frontal view of the chest is obtained. FINDINGS: Bilateral consolidation and pleural effusion. Left-sided central line stable. No sizable p neumothorax. Arthropathy of the shoulders. Prominence the hilum noted. IMPRESSION: 1. Stable bilateral consolidation and pleural effusion correlate for pneumonia versus pulmonary edema . Bilateral hilar enlargement is noted and could be on the basis of adenopathy or pulmonary arterial enlargement. Correlate clinically.
[2017-09-28] MEDS: INSULIN ASPART 100 UNIT/ML 1 ML 10 ML VIAL SQ SCH ×4 (08:16→22:24)
[2017-09-28] MEDS: SODIUM FERRIC GLUCONAT-SUCROSE 125 MG in SODIUM CHLORIDE 0.9% 100 ML IVPB SCH (09:18)
[2017-09-28] MEDS: GABAPENTIN 300 MG CAP PO PRN ×2 (10:05→22:29)
[2017-09-28] MEDS: ALLOPURINOL 300 MG TAB PO SCH (10:06)
[2017-09-28] MEDS: ATORVASTATIN 40 MG TAB PO SCH (10:06)
[2017-09-28] MEDS: PANTOPRAZOLE 40 MG TABLET PO SCH (10:06)
[2017-09-28] MEDS: METOPROLOL TARTRATE 12.5 MG TAB PO SCH ×2 (10:07→20:29)
--- NOTE | 2017-09-28 10:40 | P.PN ---
Subjective Progress Note Date: 09/28/17 Principal diagnosis: Acute cardiac arrest and acute hypoxic respiratory failure requiring intubation and mechanical ventilation. This is a 77-year-old male patient with known history of chronic atrial fibrillation, chronic lumbar degenerative disc disease with limited mobility and impaired performance and functional status at baseline. He is also known to have diabetes, gout, and prostate enlargement. The patient comes in with worsening shortness of breath and addition to generalized weakness and some dizziness. His chest x-ray showed low lung volumes and cardiomegaly and possibly some right-sided pleural effusion. EKG showed chronic atrial fibrillation with some nonspecific ST segment changes. Based on that the patient a CAT scan of the chest abdomen and pelvis and the CAT scan showed a small to moderate-sized right-sided pleural effusion in addition to some changes in the liver consistent with liver cirrhosis and ascites with anasarca. The patient also reports some increased lower oximetry edema and further investigation with an echo of the heart showed an ejection fraction of 25-30% and global hypokinesis of the left ventricle, RV was mildly enlarged, moderate to severe aortic stenosis, severe mitral regurgitation, severe tricuspid regurgitation, severe pulmonary hypertension was also noted. The patient is currently on 2 L of oxygen nasal cannula. His INR is at 1.5 as the patient is on warfarin. The patient's creatinine is at 1.1 and the patient was started on diuretics and he seems to be responding. He feels less short of breath compared to yesterday. He feels that the abdomen is also less distended. He is lower extremity edema is also improving. He was seen by cardiology. He was also seen by gastroenterology. He is not a drinker. No significant hepatitis. Most of alcoholism. No history of GI bleeding. The patient will have a paracentesis with the next 24 hours regarding his ascites. He is able to lay down to 20 bed elevation without any major difficulties. The patient seen again today 09/19/2017 in follow-up on the selective care unit. He is currently sitting up at bedside. He is awake and alert in no acute distress. His abdomen remains quite distended. He is still this moment with minimal exertion. He is maintaining O2 saturations in the upper 90s on 1.5 L/m per nasal cannula. He is currently afebrile. Hemodynamically stable. INR is 1.6 today. IR will possibly do a paracentesis tomorrow. He is voiding well and remains in a negative balance. His weight is down 1 kg. On 09/20/2017 patient seen in follow-up on selective care unit, he is status post large volume paracentesis of approximately 14.1 L of straw-colored fluid. Patient tolerated the procedure well. Her weight resting in bed, in no acute distress, abdomen is a lot less distended, soft, nontender. Patient is having some soreness along the left costal margin, mild, but no acute distress. Oxygenation improved, patient is currently on 1/2 L per nasal cannula, he reports his breathing easier, vital signs are stable, he is afebrile. Patient has been started on IV Lasix drip at 10 mg per hour, in addition to the Zaroxolyn. Patient continues on potassium and Aldactone,, and lisinopril. Overall his breathing is improved, continue with current medical treatment, will obtain a follow-up chest x-ray in the morning On 09/21/2017, the patient is awake and alert. The patient is looking much better as the patient had significant large volume paracentesis with evacuation of more than 10 L from the abdomen. In fact the total amount was 14 L. Subsequent chest x-ray showed a presence of a right-sided pleural effusion which is moderate in size. Nevertheless, the patient denies having any significant shortness of breath and he is not wanting a thoracentesis for the time being. I think it's reasonable as long as the patient has significant improvement in her breathing with large volume paracentesis. Meanwhile, the patient has become slightly prerenal on today's blood work. BUN is up to 77 and the creatinine is up to 1.48. The patient is currently on Lasix drip at 10 mg an hour. The patient is also on Zaroxolyn 5 mg by mouth daily. The patient is also on Aldactone 100 mg by mouth daily. No major edema lower extremities. Note that the blood work also showed positivity and GEOVANI and anti-smooth muscle antibodies were also positive raising the possibility of an underlying autoimmune related hepatitis/liver disease. This antibodies positive for autoimmune liver disease as such as primary biliary cholangitis and autoimmune hepatitis. Note that the patient also has cardiomyopathy Contributing to His Profound Edema and Fluid Overload. On 09/22/2017, the patient has no specific complaints. Hemodynamically stable. The patient is currently off the Lasix drip. The patient will be started on Aldactone.. The patient has no abdominal pain. Abdominal distention is improved. We decided not to drain the pleural effusion in the lung volume the patient has been having no significant respiratory distress at this point in time. The renal function is stable and the creatinine is at 1.37. On 09/23/2017, this 77-year-old male patient who got brought into the intensive care unit after he rested on the floor. I do not have the chance to evaluate this patient in the morning. The patient was seen by cardiology and apparently his IV Lasix was on hold due to issues related to hypotension. At that point the patient was placed on dopamine at 5 mics. Within 30 minutes of initiation of dopamine, the patient became tachycardic and subsequently a CODE BLUE was called and the patient went into cardiopulmonary arrest. I was on the floor and I attended to the Code and this patient was in PEA initially. CPR was initiated and ACLS protocol was followed. The patient was given epinephrine. I intubated the patient on the scene. Within 2-3 minutes a pulse on her blood pressure was obtained. The patient was interactive and moving all 4 extremities. I'm of the patient in intensive care unit. I started the prevent on him while him being intubated on a mechanical ventilator. A brief neurologic evaluation was done and the patient was fully awake and alert and moving all 4 extremities. Nevertheless, based on his underlying cardio pulmonary status, I decided not to extubate the patient. He was placed on propofol infusion for sedation. Currently is on assist control mode at a rate of 24, tidal volume of 500, FiO2 of 100% and a PEEP of 5. Blood gas showed a pH of 7.37 with a pCO2 of 36 and pO2 of 300 and the FiO2 was not down to 50%. The patient is currently on 5 mics of norepinephrine infusion for blood pressure control. The patient had a post intubation chest x-ray that showed right basilar pleural effusion in addition to cardiomegaly. ET tube was in a good location. Subsequently, I inserted a triple lumen catheter for the left subclavian vein and a chest x-ray findings remain stable and there was no evidence of any pneumothorax. Reviewing the patient's blood work from earlier this morning, the patient a white cell count of 8 with a hemoglobin of 9.7. His BUN is at 83 with a creatinine of 1.5. And note that the patient has become progressively more prerenal as the patient had large volume paracentesis and subsequently was aggressively treated with diuretics. Note that his echocardiogram showed ejection fraction of 25% along with global hypokinesis. LAD was severely dilated. There was severe aortic sclerosis and moderate aortic regurgitation and moderate to severe aortic stenosis with a PA pressure of 61 in addition to severe mitral regurgitation, severe tricuspid regurgitation and severe pulmonary hypertension with a PA pressure of 91. The CAT scan of the abdomen showed changes consistent with cirrhosis of the liver and ascites. Large volume paracentesis was done. The patient continued to have a moderate-sized right-sided pleural effusion. The cirrhosis is probably of a cardiac in nature. No significant splenomegaly or splenic varices was seen. Upon further workup the patient do not to have a positive GEOVANI and anti- smooth muscle antibody which also raises concern for autoimmune hepatitis. Patient was reevaluated today on 09/24/2017, remains on mechanical ventilation, remains on 2 g of norepinephrine, chest x-ray is showing some improvement, but patient continues to have bilateral pleural effusions. Right more so than left , and I believe the right pleural effusion is related to his underlying liver disease and ascites. May or may not consider thoracentesis at this point. His ventilator settings were reviewed, patient was awakened, I gave him a trial of pressure support and CPAP, patient did quite well, and I went ahead and recommended extubating the patient. His weaning parameters were great. His labs were also reviewed WBC count is 12 hemoglobin is 10.7. ABG showed a pO2 of 217 pCO2 of 32 pH of 7.45. PTT is 47.7, patient remains on heparin. Electrolytes are normal BUN is 73 creatinine 1.20. Patient was noted to be appropriate, responsive, and in no distress on pressure support and CPAP. Then I proceeded to extubating the patient. Patient was reevaluated today on 09/25/2017, he is presently on room air, extubated yesterday, and tolerated the extubation quite well. Patient is off mechanical ventilation, off pressors, seems to be very comfortable, in no distress. Continues to have multiple complex medical problems including pulmonary, cardiac, and her renal issues. And most definitely liver issues/ hepatitis. Based on the notes from the yarn dumper, patient was felt to have cirrhotic liver and abdominal pelvic ascites with pleural effusion secondary to cirrhosis possibly cryptogenic secondary to Parekh. Chest x-ray today continues to show some pleural effusion and consolidation of the right lower lobe, but seems to be a bit improved compared to the chest x-ray yesterday. Labs showed relatively normal CBC hemoglobin is 9.3. Normal BUN is improving down to 63, and creatinine is also improving down to 1.20. At this point the patient seems to be making good amount of urine, and he is off diuretics. Being followed closely by nephrology. On 09/26/2017, patient remains in the ICU, tolerated extubation over the last 2 days quite well, presently on 2 L nasal cannula. Patient denies any shortness of breath, he is off all the pressors, not receiving any diuretics, but early today, he was seen by nephrology and recommended a dose of Lasix. His chest x- ray continues to show a good sized right-sided pleural effusion, patient is diuresing well, hence I have no plans to do a thoracentesis at this point. His mentation seems to be intact. Patient does have low ejection fraction, and cardiomyopathy with LV dysfunction, his ejection fraction is 25%. Continues to have some swelling in the lower extremities, and that is being addressed with diuretics. Patient denies any shortness of breath, no chest pain, no cough, no wheezing, no nausea no vomiting and no abdominal pain. Labs WBC count is 6.9 hemoglobin is 8.8 ETT is therapeutic at 54.6 electrolytes were noted BUN is 60 creatinine is 1.30. Liver enzymes were noted to be relatively normal. Chest x- ray as noted above. Reevaluated today on 09/27/2017, patient remains in the ICU, he was extubated a few days back, and he continues to tolerate extubation. Presently on room air. Denies any specific complaints, feeling great compared to how he felt over the last few days. All his labs were reviewed including a CBC showed a hemoglobin of 8.1, WBC count of 6.1 PTT is therapeutic at 49.5. Basic metabolic profile was relatively normal. BUN is 60 creatinine 1.30 unchanged compared to yesterday. Urine sodium is 23 urine osmolality is 423. Reevaluated today on 09/28/2017, patient remains as an overflow in the ICU, doing great. He is basically asymptomatic. However his sodium seems to be drifting down, and his renal functioning is a bit worse today. X-ray is showing improvement in his bilateral pleural effusions. Patient remains on room air, denies any shortness of breath. Remains edematous and swollen in the lower extremities, but clinically the patient is relatively dry. Has been making over 200 mL of urine per hour without any diuretics. Hence I will restart the patient on a 0.9 normal saline at 70 mL per hour. His BUN today is 61 creatinine is 1.40 and his sodium is 129. WBC count is 6.4 hemoglobin is 8.4 , patient remains on heparin, and his PTT is therapeutic, he is also receiving IV iron. Objective - Vital Signs Vital signs: Vital Signs Temp 97.5 F L 09/28/17 08:00 Pulse 87 09/28/17 10:00 Resp 6 L 09/28/17 10:00 BP 115/48 09/26/17 13:13 Pulse Ox 99 09/28/17 10:00 Intake & Output 09/27/17 09/28/17 09/28/17 18:59 06:59 18:59 Intake Total 482.332 480 250 Output Total 580 565 125 Balance -97.668 -85 125 Weight 120.2 kg 120.5 kg Intake: Intake, IV Titration 232.332 Amount Heparin Sodium,Porcine/ 232.332 D5w Pmx 25,000 unit In Dextrose/Water 1 500ml. bag @ 9 UNITS/KG/HR 19.89 mls/hr IV .Q24H [facility] Rx#: [id number] Oral 250 480 250 Output: Urine 580 565 125 Other: Voiding Method Indwelling Catheter Indwelling Catheter ABP, PAP, CO, CI - Last Documented Arterial Blood Pressure 98/51 - Exam Gen. appearance revealed a 77-year-old white male, on room air, in no form of respiratory distress, Head exam was generally normal. There was no scleral icterus or corneal arcus. Mucous membranes noted to be quite dry today. Neck is supple and the patient is negative JVDs bilaterally without any goiter or neck masses. Lung sounds are diminished in lung bases bilaterally along with some bibasilar crackles. Breath sounds are quite diminished in the right lung base. Heart sounds are irregular and the patient has a systolic ejection murmur grade 2/6 heard throughout the precordium. S1 and S2 are irregular. Abdomen is slightly distended. There is positive fluid wave. No rebound, no guarding. Extremities revealed 1+ bipedal edema and there is no cyanosis or clubbing. There is diminished pulses in lower extremities bilaterally. Neurologically the patient was wide awake, appropriate, alert oriented 3, no gross focal neurologic deficit. Examination of the skin revealed no evidence of significant rashes, suspicious appearing nevi or other concerning lesions. The patient has a triple lumen catheter in the left subclavian vein. - Labs CBC & Chem 7: 09/28/17 03:54 09/28/17 03:54 Labs: Abnormal Lab Results - Last 24 Hours (Table) 09/27/17 09/27/17 09/27/17 Range/Units 10:20 11:08 12:21 RBC (4.30-5.90) m/uL Hgb (13.0-17.5) gm/dL Hct (39.0-53.0) % RDW (11.5-15.5) % APTT (22.0-30.0) sec Sodium (137-145) mmol/L BUN (9-20) mg/dL Creatinine (0.66-1.25) mg/dL Glucose (74-99) mg/dL POC Glucose (mg/dL) 176 H 165 H (75-99) mg/dL Calcium (8.4-10.2) mg/dL Magnesium (1.6-2.3) mg/dL Ur Random Sodium 23 L (30-90) mmol/L 09/27/17 09/27/17 09/28/17 Range/Units 16:55 20:32 03:54 RBC 3.30 L (4.30-5.90) m/uL Hgb 8.4 L (13.0-17.5) gm/dL Hct 27.2 L (39.0-53.0) % RDW 18.9 H (11.5-15.5) % APTT (22.0-30.0) sec Sodium (137-145) mmol/L BUN (9-20) mg/dL Creatinine (0.66-1.25) mg/dL Glucose (74-99) mg/dL POC Glucose (mg/dL) 229 H 230 H (75-99) mg/dL Calcium (8.4-10.2) mg/dL Magnesium (1.6-2.3) mg/dL Ur Random Sodium (30-90) mmol/L 05/09/28/17 09/28/17 Range/Units 03:54 04:50 07:33 RBC (4.30-5.90) m/uL Hgb (13.0-17.5) gm/dL Hct (39.0-53.0) % RDW (11.5-15.5) % APTT 45.9 H (22.0-30.0) sec Sodium 129 L (137-145) mmol/L BUN 61 H (9-20) mg/dL Creatinine 1.40 H (0.66-1.25) mg/dL Glucose 123 H (74-99) mg/dL POC Glucose (mg/dL) 141 H (75-99) mg/dL Calcium 7.7 L (8.4-10.2) mg/dL Magnesium 2.4 H (1.6-2.3) mg/dL Ur Random Sodium (30-90) mmol/L Assessment and Plan Assessment: 1 acute cardiac arrest. Acute hypoxic respiratory failure secondary to acute cardiac arrest The patient was in PEA with a downtime of around 2-3 minutes. He had successful resuscitation based on ACLS protocol. Postextubation day #4 3 right-sided pleural effusion likely on the basis of congestion heart failure. Possibility of chronic liver disease causing ascites and right-sided pleural effusion/hydrothorax cannot be completely excluded. 2 CHF with impaired left a ejection fraction of 25%. In addition the patient has severe aortic stenosis, mitral regurgitation, severe tricuspid regurgitation secondary pulmonary hypertension. 3 chronic atrial fibrillation 4 ascites and anasarca secondary to above, there is post large volume paracentesis with removal of 14.1 L of ascitic fluid 5 questionable liver cirrhosis although the findings could be also related to parekh. I also believe his heart failure is another contributing factor to his liver hepatopathy and congestion and possibly contributing to his massive ascites. 6 long-term anticoagulation with warfarin , presently patient is on heparin. 6 diabetes mellitus 7 gout 8 BPH 9 prerenal azotemia secondary to aggressive diuresis and prerenal effect secondary to heart failure Recommendation: Continue present treatment plan, will start the patient on 0.9 normal saline at 70 mL per hour, monitor his serum sodium, monitor his renal profile. Again I believe the patient is clinically dehydrated, intravascularly depleted, his urine output is over 200 mL per hour today. We will hydrate but cautiously. Time with Patient: Less than 30
[2017-09-28 12:36] LABS: Glucose,Whole Blood 192 mg/dL (75-99)
--- NOTE | 2017-09-28 12:58 | P.PN ---
Subjective Progress Note Date: 09/28/17 Patient feeling better today, has minimal complaints, denies any shortness of breath or chest pain. Reports that he's been ambulating around the room at times. Reports that his urine is clear No acute events overnight Objective - Vital Signs Vital signs: Vital Signs Temp 98.7 F 09/28/17 12:00 Pulse 96 09/28/17 12:00 Resp 16 09/28/17 12:00 BP 115/48 09/26/17 13:13 Pulse Ox 98 09/28/17 12:00 Intake & Output 09/27/17 09/28/17 09/28/17 18:59 06:59 18:59 Intake Total 482.332 480 490 Output Total 580 565 525 Balance -97.668 -85 -35 Weight 120.2 kg 120.5 kg Intake: IV 240 0.9 140 Sodium Ferric Gluconat- 100 Sucrose 125 mg In Sodium Chloride 0.9% 100 ml @ 100 mls/hr IVPB DAILY [facility] Rx#:[id number] Intake, IV Titration 232.332 Amount Heparin Sodium,Porcine/ 232.332 D5w Pmx 25,000 unit In Dextrose/Water 1 500ml. bag @ 9 UNITS/KG/HR 19.89 mls/hr IV .Q24H [facility] Rx#: [id number] Oral 250 480 250 Output: Urine 580 565 525 Other: Voiding Method Indwelling Catheter Indwelling Catheter Indwelling Catheter ABP, PAP, CO, CI - Last Documented Arterial Blood Pressure 93/47 - Exam Constitutional: No acute distress, conversant, pleasant Eyes: Anicteric sclerae, moist conjunctiva, no lid-lag, PERRLA ENMT: NC/AT,Oropharynx clear, no erythema, exudates Neck:Supple, FROM, no masses, or JVD, No carotid bruits; No thyromegaly Lungs: Improved aeration, Normal respiratory effort on room air no accessory muscle use Cardiovascular: Irregularly irregular, holosystolic murmur, gallops, or rubs + 2 pedal peripheral edema Abdominal: Soft Nontender, moderately distended, no guarding, no rebound or rigidity, Normoactive bowel sounds No hepatomegaly, No splenomegaly, No palpable mass No abdominal wall hernia noted Skin: Normal temperature, tone, texture, turgor, No induration No subcutaneous nodules, No rash, lesions, No ulcers Extremities:No digital cyanosis No clubbing, Pedal pulses intact and symmetrical Radial pulses intact and symmetrical Normal gait and station, No calf tenderness, painful range of motion in the left shoulder Psychiatric: Alert and oriented to person, place and time, Appropriate affect Intact judgement Neuro: Muscles Strength 5/5 in all 4 extremities, Sensation to light touch grossly present throughout, Cranial nerves II-XII grossly intact. No focal sensory deficits - Labs CBC & Chem 7: 09/28/17 03:54 09/28/17 03:54 Labs: Abnormal Lab Results - Last 24 Hours (Table) 09/27/17 09/27/17 09/28/17 Range/Units 16:55 20:32 03:54 RBC 3.30 L (4.30-5.90) m/uL Hgb 8.4 L (13.0-17.5) gm/dL Hct 27.2 L (39.0-53.0) % RDW 18.9 H (11.5-15.5) % APTT (22.0-30.0) sec Sodium (137-145) mmol/L BUN (9-20) mg/dL Creatinine (0.66-1.25) mg/dL Glucose (74-99) mg/dL POC Glucose (mg/dL) 229 H 230 H (75-99) mg/dL Calcium (8.4-10.2) mg/dL Magnesium (1.6-2.3) mg/dL 09/28/17 09/28/17 09/28/17 Range/Units 03:54 04:50 07:33 RBC (4.30-5.90) m/uL Hgb (13.0-17.5) gm/dL Hct (39.0-53.0) % RDW (11.5-15.5) % APTT 45.9 H (22.0-30.0) sec Sodium 129 L (137-145) mmol/L BUN 61 H (9-20) mg/dL Creatinine 1.40 H (0.66-1.25) mg/dL Glucose 123 H (74-99) mg/dL POC Glucose (mg/dL) 141 H (75-99) mg/dL Calcium 7.7 L (8.4-10.2) mg/dL Magnesium 2.4 H (1.6-2.3) mg/dL 09/28/17 Range/Units 12:34 RBC (4.30-5.90) m/uL Hgb (13.0-17.5) gm/dL Hct (39.0-53.0) % RDW (11.5-15.5) % APTT (22.0-30.0) sec Sodium (137-145) mmol/L BUN (9-20) mg/dL Creatinine (0.66-1.25) mg/dL Glucose (74-99) mg/dL POC Glucose (mg/dL) 192 H (75-99) mg/dL Calcium (8.4-10.2) mg/dL Magnesium (1.6-2.3) mg/dL Assessment and Plan (1) Acute systolic CHF (congestive heart failure), NYHA class 4 Narrative/Plan: * Continue diuresis with IV Lasix and metalozone with ongoing medical management continued low-dose beta raymon * ProBNP 16 300 on presentation, Echocardiogram ejection fraction of 25-30% severely dilated left atrium with moderate to severe aortic stenosis (patient deemed to be a poor surgical candidate given his comorbidities by cardiothoracic surgery) * Cardiology following appreciate recommendations * Status post cardiac arrest with PeA with ROSC after approximately 3-4 minutes. r Current Visit: Yes Status: Acute Code(s): I50.21 - ACUTE SYSTOLIC ( CONGESTIVE) HEART FAILURE SNOMED Code(s): 212951323 (2) Ascites Narrative/Plan: * GI consulted Dr. 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 fib rate is controlled * patient continued on low dose metoprolol continue with heparin drip Current Visit: Yes Status: Acute Priority: High Code(s): I48.91 - UNSPECIFIED ATRIAL FIBRILLATION SNOMED Code(s): 76692882 (5) Elevated troponin Current Visit: Yes Status: Acute Code(s): R74.8 - ABNORMAL LEVELS OF OTHER SERUM ENZYMES SNOMED Code(s): 517534257 (6) Pleural effusion Current Visit: Yes Status: Acute Code(s): J90 - PLEURAL EFFUSION, NOT ELSEWHERE CLASSIFIED SNOMED Code(s): 50051086 (7) Arthritis of left shoulder region Current Visit: Yes Status: Acute Priority: Medium Code(s): M19.012 - PRIMARY OSTEOARTHRITIS, LEFT SHOULDER SNOMED Code(s): 885966791 (8) Hyperbilirubinemia Current Visit: Yes Status: Acute Code(s): E80.6 - OTHER DISORDERS OF BILIRUBIN METABOLISM SNOMED Code(s): 50562643 Plan: We'll plan to transition to oral diuretics and to them telemetry unit/ continue to follow clinical
[2017-09-28] MEDS ORDERED: SODIUM CHLORIDE 0.9% 1,000 ML IV SCH (14:15)
--- NOTE | 2017-09-28 14:56 | P.PN ---
Subjective Patient is seen in follow-up for acute kidney injury. Renal function is a little worse with creatinine at 1.4 today. Sodium level is 129. He remains off all vasopressors. Oral intake is improving. Denies chest pain or shortness of breath. He does of systolic CHF with ejection fraction of 20-25%. He is status post cardiac arrest. Vital signs are stable. General: The patient appeared well nourished and normally developed. HEENT: Head exam is unremarkable. Neck is without jugular venous distension. LUNGS: Lungs are clear to auscultation and percussion. Breath sounds decreased. HEART: Rate and Rhythm are regular. First and second heart sounds normal. No murmurs, rubs or gallops. ABDOMEN: Abdominal exam reveals normal bowel sounds. Non-tender and non- distended. No evidence of peritonitis. EXTREMITITES: No clubbing, cyanosis, or edema. Objective - Vital Signs Vital signs: Vital Signs Temp 98.7 F 09/28/17 12:00 Pulse 90 09/28/17 14:00 Resp 20 09/28/17 14:00 BP 115/48 09/26/17 13:13 Pulse Ox 98 09/28/17 14:00 Intake & Output 09/27/17 09/28/17 09/28/17 18:59 06:59 18:59 Intake Total 482.332 480 737.5 Output Total 580 565 875 Balance -97.668 -85 -137.5 Weight 120.2 kg 120.5 kg Intake: IV 487.5 0.9 350 Piperacillin-Tazobactam 3 37.5 .375 gm In Dextrose/Water 1 50ml.bag @ 12.5 mls/hr IVPB Q12HR [facility] Rx#: [id number] Sodium Ferric Gluconat- 100 Sucrose 125 mg In Sodium Chloride 0.9% 100 ml @ 100 mls/hr IVPB DAILY [facility] Rx#:[id number] Intake, IV Titration 232.332 Amount Heparin Sodium,Porcine/ 232.332 D5w Pmx 25,000 unit In Dextrose/Water 1 500ml. bag @ 9 UNITS/KG/HR 19.89 mls/hr IV .Q24H [facility] Rx#: [id number] Oral 250 480 250 Output: Urine 580 565 875 Other: Voiding Method Indwelling Catheter Indwelling Catheter Indwelling Catheter ABP, PAP, CO, CI - Last Documented Arterial Blood Pressure 101/55 - Labs CBC & Chem 7: 09/28/17 03:54 09/28/17 03:54 Labs: Abnormal Lab Results - Last 24 Hours (Table) 09/27/17 09/27/17 09/28/17 Range/Units 16:55 20:32 03:54 RBC 3.30 L (4.30-5.90) m/uL Hgb 8.4 L (13.0-17.5) gm/dL Hct 27.2 L (39.0-53.0) % RDW 18.9 H (11.5-15.5) % APTT (22.0-30.0) sec Sodium (137-145) mmol/L BUN (9-20) mg/dL Creatinine (0.66-1.25) mg/dL Glucose (74-99) mg/dL POC Glucose (mg/dL) 229 H 230 H (75-99) mg/dL Calcium (8.4-10.2) mg/dL Magnesium (1.6-2.3) mg/dL 09/28/17 09/28/17 09/28/17 Range/Units 03:54 04:50 07:33 RBC (4.30-5.90) m/uL Hgb (13.0-17.5) gm/dL Hct (39.0-53.0) % RDW (11.5-15.5) % APTT 45.9 H (22.0-30.0) sec Sodium 129 L (137-145) mmol/L BUN 61 H (9-20) mg/dL Creatinine 1.40 H (0.66-1.25) mg/dL Glucose 123 H (74-99) mg/dL POC Glucose (mg/dL) 141 H (75-99) mg/dL Calcium 7.7 L (8.4-10.2) mg/dL Magnesium 2.4 H (1.6-2.3) mg/dL 09/28/17 Range/Units 12:34 RBC (4.30-5.90) m/uL Hgb (13.0-17.5) gm/dL Hct (39.0-53.0) % RDW (11.5-15.5) % APTT (22.0-30.0) sec Sodium (137-145) mmol/L BUN (9-20) mg/dL Creatinine (0.66-1.25) mg/dL Glucose (74-99) mg/dL POC Glucose (mg/dL) 192 H (75-99) mg/dL Calcium (8.4-10.2) mg/dL Magnesium (1.6-2.3) mg/dL Assessment and Plan Plan: Assessment: 1. Nonoliguric acute kidney injury secondary to ATN secondary to hypotension and cardiac arrest. Creatinine slightly worse at 1.4 today. 2. Hyponatremia now euvolemic. Urine sodium noted to be low at 23. Urine osmolality 423. 3. Systolic CHF with ejection fraction of 20-25%. 4. Ascites status post paracentesis on September 20 with over 14 L removed. 5. Liver cirrhosis. Questionable etiology. 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 6. Anemia. Iron deficiency noted. 7. Atrial fibrillation maintained on heparin drip. Rate controlled. Plan: Hold off on diuretics today. Maintain 1500 mL fluid restriction. He was started on normal saline at 70 mL an hour this morning. I will repeat sodium level at 6 PM today. Avoid nephrotoxic agents and hypotensive episodes. Continue to monitor renal function and urine output. Ferrlecit 125 mg IV daily for 3 days. Second dose today.
--- NOTE | 2017-09-28 15:31 | P.PN ---
Subjective Progress Note Date: 09/28/17 This is a 77-year-old gentleman who was admitted to the hospital with ascites edema CHF and artery myopathy with aortic stenosis and also mitral regurgitation. Patient had an episode of PEA after she was initiated on dopamine. Patient was briefly resuscitated. Patient has been intubated but currently extubated and has been stable for the last 48 hours. Patient has good urine output. He denies any chest pain. He still has some edema of the legs. His lungs show some diminished breath sounds at bases. Patient has atrial fibrillation. It is controlled. His sodium is low. Patient is being given some IV saline. We'll continue to monitor him. I discussed with and patient regarding significance of valvular abnormalities. I also discussed the option of surgical intervention were continued medical therapy.. Family wants to think about it. Meanwhile we'll continue current medical therapy. Prognosis is guarded Objective - Vital Signs Vital signs: Vital Signs Temp 98.7 F 09/28/17 12:00 Pulse 85 09/28/17 15:00 Resp 17 09/28/17 15:00 BP 115/48 09/26/17 13:13 Pulse Ox 97 09/28/17 15:00 Intake & Output 09/27/17 09/28/17 09/28/17 18:59 06:59 18:59 Intake Total 482.332 480 807.5 Output Total 580 565 925 Balance -97.668 -85 -117.5 Weight 120.2 kg 120.5 kg Intake: IV 557.5 0.9 420 Piperacillin-Tazobactam 3 37.5 .375 gm In Dextrose/Water 1 50ml.bag @ 12.5 mls/hr IVPB Q12HR [facility] Rx#: [id number] Sodium Ferric Gluconat- 100 Sucrose 125 mg In Sodium Chloride 0.9% 100 ml @ 100 mls/hr IVPB DAILY [facility] Rx#:[id number] Intake, IV Titration 232.332 Amount Heparin Sodium,Porcine/ 232.332 D5w Pmx 25,000 unit In Dextrose/Water 1 500ml. bag @ 9 UNITS/KG/HR 19.89 mls/hr IV .Q24H [facility] Rx#: [id number] Oral 250 480 250 Output: Urine 580 565 925 Other: Voiding Method Indwelling Catheter Indwelling Catheter Indwelling Catheter ABP, PAP, CO, CI - Last Documented Arterial Blood Pressure 109/51 - Exam GENERAL EXAM: Patient is alert and oriented and doesn't appear to be in any acute distress HEENT: Normocephalic. Normal reaction of pupils, equal size, normal range of extraocular motion. No erythema or exudates in the throat. NECK: No masses, no nuchal rigidity. CHEST: No chest wall deformity. LUNGS: Expiratory rhonchi HEART: S1 and S2 normal, systolic murmur ABDOMEN: No hepatosplenomegaly, normal bowel sounds, no guarding or rigidity. SKIN: No rashes CENTRAL NERVOUS SYSTEM: No focal deficits. Moving all the extremities EXTREMITIES: No cyanosis, clubbing or edema. - Labs CBC & Chem 7: 09/28/17 03:54 09/28/17 03:54 Labs: Abnormal Lab Results - Last 24 Hours (Table) 09/27/17 09/27/17 09/28/17 Range/Units 16:55 20:32 03:54 RBC 3.30 L (4.30-5.90) m/uL Hgb 8.4 L (13.0-17.5) gm/dL Hct 27.2 L (39.0-53.0) % RDW 18.9 H (11.5-15.5) % APTT (22.0-30.0) sec Sodium (137-145) mmol/L BUN (9-20) mg/dL Creatinine (0.66-1.25) mg/dL Glucose (74-99) mg/dL POC Glucose (mg/dL) 229 H 230 H (75-99) mg/dL Calcium (8.4-10.2) mg/dL Magnesium (1.6-2.3) mg/dL 09/28/17 09/28/17 09/28/17 Range/Units 03:54 04:50 07:33 RBC (4.30-5.90) m/uL Hgb (13.0-17.5) gm/dL Hct (39.0-53.0) % RDW (11.5-15.5) % APTT 45.9 H (22.0-30.0) sec Sodium 129 L (137-145) mmol/L BUN 61 H (9-20) mg/dL Creatinine 1.40 H (0.66-1.25) mg/dL Glucose 123 H (74-99) mg/dL POC Glucose (mg/dL) 141 H (75-99) mg/dL Calcium 7.7 L (8.4-10.2) mg/dL Magnesium 2.4 H (1.6-2.3) mg/dL 09/28/17 Range/Units 12:34 RBC (4.30-5.90) m/uL Hgb (13.0-17.5) gm/dL Hct (39.0-53.0) % RDW (11.5-15.5) % APTT (22.0-30.0) sec Sodium (137-145) mmol/L BUN (9-20) mg/dL Creatinine (0.66-1.25) mg/dL Glucose (74-99) mg/dL POC Glucose (mg/dL) 192 H (75-99) mg/dL Calcium (8.4-10.2) mg/dL Magnesium (1.6-2.3) mg/dL Assessment and Plan (1) Atrial fibrillation Current Visit: Yes Status: Acute Priority: High Code(s): I48.91 - UNSPECIFIED ATRIAL FIBRILLATION SNOMED Code(s): 46306186 (2) Cardiac arrest Current Visit: Yes Status: Acute Code(s): I46.9 - CARDIAC ARREST, CAUSE UNSPECIFIED SNOMED Code(s): 320627813 (3) Congestive heart failure Current Visit: Yes Status: Acute Priority: High Code(s): I50.9 - HEART FAILURE, UNSPECIFIED SNOMED Code(s): 24037010 (4) Diabetes mellitus Current Visit: Yes Status: Acute Priority: Medium Code(s): E11.9 - TYPE 2 DIABETES MELLITUS WITHOUT COMPLICATIONS SNOMED Code(s): 15821328 Plan: Hold diuretics. Patient is getting IV fluids. We'll follow his electrolytes. Family wants to think about surgical options for the valvular disease. Prognosis is guarded
[2017-09-28] MEDS: HEPARIN SODIUM,PORCINE/D5W PMX 25,000 UNIT in DEXTROSE/WATER 1 500ML.BAG IV SCH (15:35)
[2017-09-28 18:46] LABS: Glucose,Whole Blood 205 mg/dL (75-99)
[2017-09-28] MEDS ORDERED: FUROSEMIDE 10 MG/ML 4 ML VIAL IV STA (19:58)
[2017-09-28] MEDS: TAMSULOSIN 0.4 MG CAP.ER.24H PO SCH (20:42)
[2017-09-28 22:17] LABS: Glucose,Whole Blood 187 mg/dL (75-99)
[2017-09-29 05:53] LABS: Glucose,Whole Blood 145 mg/dL (75-99)
[2017-09-29 06:28] LABS: Anisocytosis Slight; Basophils % (A) 1 %; Eosinophils # (A) 0.2 k/uL (0-0.7); Eosinophils % (A) 4 %; HCT 26.7 % (39.0-53.0); HGB 8.4 gm/dL (13.0-17.5); Lymphocytes # (A) 1.2 k/uL (1.0-4.8); Lymphocytes % (A) 20 %; MCHC 31.5 g/dL (31.0-37.0); MCV 82.3 fL (80.0-100.0); Mean Platelet Volume 6.8; Microcytosis Slight; Monocytes # (A) 0.5 k/uL (0-1.0); Monocytes % (A) 9 %; Neutrophils # (A) 3.8 k/uL (1.3-7.7); Neutrophils % (A) 65 %; Platelet Count 169 k/uL (150-450); RBC 3.25 m/uL (4.30-5.90); RDW 19.1 % (11.5-15.5); WBC 5.9 k/uL (3.8-10.6)
[2017-09-29 06:38] LABS: Calcium 7.9 mg/dL (8.4-10.2); Potassium 4.5 mmol/L (3.5-5.1)
[2017-09-29] MEDS: HEPARIN SODIUM,PORCINE/D5W PMX 25,000 UNIT in DEXTROSE/WATER 1 500ML.BAG IV SCH (06:48)
[2017-09-29] MEDS: PANTOPRAZOLE 40 MG TABLET PO SCH (06:53)
[2017-09-29] MEDS: INSULIN ASPART 100 UNIT/ML 1 ML 10 ML VIAL SQ SCH ×4 (06:54→21:39)
--- NOTE | 2017-09-29 07:34 | P.PN ---
Subjective Principal diagnosis: This is a 77-year-old gentleman who was admitted to the hospital with ascites edema CHF and artery myopathy with aortic stenosis and also mitral regurgitation. Patient had an episode of PEA after she was initiated on dopamine. Patient was briefly resuscitated. Patient has been intubated but currently extubated Yesterday his Lasix was discontinued because of worsening creatinine slowly from 1.3-1.5. He continues to have slow worsening of creatinine to 1.5 this morning. He denies any nausea vomiting has a fair appetite. Denies any shortness of breath but has mild cough and he feels that he has some postnasal drip. No abdominal pain Miranda catheter has been discontinued. His total 24-hour urine output was 975 mL. Objective - Vital Signs Vital signs: Vital Signs Temp 97.6 F 09/29/17 03:47 Pulse 81 09/29/17 03:50 Resp 18 09/29/17 03:50 BP 95/54 09/29/17 03:47 Pulse Ox 97 09/29/17 03:47 Intake & Output 09/28/17 09/29/17 09/29/17 18:59 06:59 18:59 Intake Total 1017.5 870 Output Total 975 0 Balance 42.5 870 Weight 123.5 kg Intake: IV 767.5 70 0.9 630 70 Piperacillin-Tazobactam 3 37.5 .375 gm In Dextrose/Water 1 50ml.bag @ 12.5 mls/hr IVPB Q12HR [facility] Rx#: [id number] Sodium Ferric Gluconat- 100 Sucrose 125 mg In Sodium Chloride 0.9% 100 ml @ 100 mls/hr IVPB DAILY [facility] Rx#:[id number] Intake, IV Titration 500 Amount Heparin Sodium,Porcine/ 500 D5w Pmx 25,000 unit In Dextrose/Water 1 500ml. bag @ 9 UNITS/KG/HR 19.89 mls/hr IV .Q24H [facility] Rx#: [id number] Oral 250 300 Output: Urine 975 0 Other: Voiding Method Indwelling Catheter Urinal # Voids 1 # Bowel Movements 0 ABP, PAP, CO, CI - Last Documented Arterial Blood Pressure 115/58 On examination is awake alert oriented comfortable. A chin exam no JVP neck is supple no facial asymmetry Lungs are clear to auscultation fair air entry bilaterally Heart sounds are unremarkable for any murmur rub gallop Abdomen soft nontender slightly distended Extremity exam was 2+ edema with a linear bleb on his right gusman. Neurologically awake alert oriented but generalized weakness. - Labs CBC & Chem 7: 09/29/17 05:35 09/29/17 05:35 Labs: Abnormal Lab Results - Last 24 Hours (Table) 09/28/17 09/28/17 09/28/17 Range/Units 07:33 12:34 18:40 RBC (4.30-5.90) m/uL Hgb (13.0-17.5) gm/dL Hct (39.0-53.0) % RDW (11.5-15.5) % APTT (22.0-30.0) sec Sodium 128 L (137-145) mmol/L Chloride (98-107) mmol/L BUN (9-20) mg/dL Creatinine (0.66-1.25) mg/dL Glucose (74-99) mg/dL POC Glucose (mg/dL) 141 H 192 H (75-99) mg/dL Calcium (8.4-10.2) mg/dL 09/28/17 09/28/17 09/29/17 Range/Units 18:45 22:14 05:35 RBC (4.30-5.90) m/uL Hgb (13.0-17.5) gm/dL Hct (39.0-53.0) % RDW (11.5-15.5) % APTT 46.2 H (22.0-30.0) sec Sodium (137-145) mmol/L Chloride (98-107) mmol/L BUN (9-20) mg/dL Creatinine (0.66-1.25) mg/dL Glucose (74-99) mg/dL POC Glucose (mg/dL) 205 H 187 H (75-99) mg/dL Calcium (8.4-10.2) mg/dL 09/29/17 09/29/17 09/29/17 Range/Units 05:35 05:35 05:52 RBC 3.25 L (4.30-5.90) m/uL Hgb 8.4 L (13.0-17.5) gm/dL Hct 26.7 L (39.0-53.0) % RDW 19.1 H (11.5-15.5) % APTT (22.0-30.0) sec Sodium 129 L (137-145) mmol/L Chloride 96 L (98-107) mmol/L BUN 62 H (9-20) mg/dL Creatinine 1.50 H (0.66-1.25) mg/dL Glucose 122 H (74-99) mg/dL POC Glucose (mg/dL) 145 H (75-99) mg/dL Calcium 7.9 L (8.4-10.2) mg/dL Assessment and Plan Assessment: Impression. 1. Acute kidney injury with ATN secondary to hypotension and cardiac arrest. Slight worsening of creatinine from 1.2-1.5 slowly suggestive of a ongoing ATN. 2. Hyponatremia secondary to about acute kidney injury, stable. 3. Anemia with hemoglobin of 8.4, stable last few days. 4. Iron deficiency. Saturation is 90% on 09/26/2017. Plan-. 1. Check postvoid residual with a bladder scan. 2. Check orthostatics. 3. Maintain off of Lasix for now as his lungs are clear although he has edema but we'll wait and see if he can safely tolerate some diuretics to reduce the edema but not at the cause of his creatinine going up
[2017-09-29] MEDS: PIPERACILLIN-TAZOBACTAM 3.375 GM in DEXTROSE/WATER 1 50ML.BAG IVPB SCH ×2 (08:36→17:18)
[2017-09-29] MEDS: ATORVASTATIN 40 MG TAB PO SCH (08:36)
[2017-09-29] MEDS: METOPROLOL TARTRATE 12.5 MG TAB PO SCH ×2 (08:36→20:48)
--- NOTE | 2017-09-29 09:04 | P.PN ---
Subjective Progress Note Date: 09/29/17 Patient feeling better today, reports a mild cough, no shortness of air, patient unhappy about the amount of swelling in his legs. Apparently his Lasix was discontinued due to worsening kidney function. Patient still contemplating surgical options for his severe valvular heart disease. Prognosis is guarded otherwise no acute events overnight Objective - Vital Signs Vital signs: Vital Signs Temp 96.7 F L 09/29/17 08:00 Pulse 85 09/29/17 08:00 Resp 18 09/29/17 08:00 BP 106/56 09/29/17 08:00 Pulse Ox 100 09/29/17 08:00 Intake & Output 09/28/17 09/29/17 09/29/17 18:59 06:59 18:59 Intake Total 1017.5 870 4.862 Output Total 975 0 Balance 42.5 870 4.862 Weight 123.5 kg Intake: IV 767.5 70 0.9 630 70 Piperacillin-Tazobactam 3 37.5 .375 gm In Dextrose/Water 1 50ml.bag @ 12.5 mls/hr IVPB Q12HR [facility] Rx#: [id number] Sodium Ferric Gluconat- 100 Sucrose 125 mg In Sodium Chloride 0.9% 100 ml @ 100 mls/hr IVPB DAILY [facility] Rx#:[id number] Intake, IV Titration 500 4.862 Amount Heparin Sodium,Porcine/ 500 4.862 D5w Pmx 25,000 unit In Dextrose/Water 1 500ml. bag @ 9 UNITS/KG/HR 19.89 mls/hr IV .Q24H [facility] Rx#: [id number] Oral 250 300 Output: Urine 975 0 Other: Voiding Method Indwelling Catheter Urinal # Voids 1 # Bowel Movements 0 ABP, PAP, CO, CI - Last Documented Arterial Blood Pressure 115/58 - Exam Constitutional: No acute distress, conversant, pleasant Eyes: Anicteric sclerae, moist conjunctiva, no lid-lag, PERRLA ENMT: NC/AT,Oropharynx clear, no erythema, exudates Neck:Supple, FROM, no masses, or JVD, No carotid bruits; No thyromegaly Lungs: Improved aeration, Normal respiratory effort on room air no accessory muscle use Cardiovascular: Irregularly irregular, holosystolic murmur, gallops, or rubs + 2 pedal peripheral edema Abdominal: Soft Nontender, moderately distended, no guarding, no rebound or rigidity, Normoactive bowel sounds No hepatomegaly, No splenomegaly, No palpable mass No abdominal wall hernia noted Skin: Normal temperature, tone, texture, turgor, No induration No subcutaneous nodules, No rash, lesions, No ulcers Extremities:No digital cyanosis No clubbing, Pedal pulses intact and symmetrical Radial pulses intact and symmetrical Normal gait and station, No calf tenderness, painful range of motion in the left shoulder Psychiatric: Alert and oriented to person, place and time, Appropriate affect Intact judgement Neuro: Muscles Strength 5/5 in all 4 extremities, Sensation to light touch grossly present throughout, Cranial nerves II-XII grossly intact. No focal sensory deficits - Labs CBC & Chem 7: 09/29/17 05:35 09/29/17 05:35 Labs: Abnormal Lab Results - Last 24 Hours (Table) 09/28/17 09/28/17 09/28/17 Range/Units 12:34 18:40 18:45 RBC (4.30-5.90) m/uL Hgb (13.0-17.5) gm/dL Hct (39.0-53.0) % RDW (11.5-15.5) % APTT (22.0-30.0) sec Sodium 128 L (137-145) mmol/L Chloride (98-107) mmol/L BUN (9-20) mg/dL Creatinine (0.66-1.25) mg/dL Glucose (74-99) mg/dL POC Glucose (mg/dL) 192 H 205 H (75-99) mg/dL Calcium (8.4-10.2) mg/dL 09/28/17 09/29/17 09/29/17 Range/Units 22:14 05:35 05:35 RBC 3.25 L (4.30-5.90) m/uL Hgb 8.4 L (13.0-17.5) gm/dL Hct 26.7 L (39.0-53.0) % RDW 19.1 H (11.5-15.5) % APTT 46.2 H (22.0-30.0) sec Sodium (137-145) mmol/L Chloride (98-107) mmol/L BUN (9-20) mg/dL Creatinine (0.66-1.25) mg/dL Glucose (74-99) mg/dL POC Glucose (mg/dL) 187 H (75-99) mg/dL Calcium (8.4-10.2) mg/dL 09/29/17 09/29/17 Range/Units 05:35 05:52 RBC (4.30-5.90) m/uL Hgb (13.0-17.5) gm/dL Hct (39.0-53.0) % RDW (11.5-15.5) % APTT (22.0-30.0) sec Sodium 129 L (137-145) mmol/L Chloride 96 L (98-107) mmol/L BUN 62 H (9-20) mg/dL Creatinine 1.50 H (0.66-1.25) mg/dL Glucose 122 H (74-99) mg/dL POC Glucose (mg/dL) 145 H (75-99) mg/dL Calcium 7.9 L (8.4-10.2) mg/dL Assessment and Plan (1) Acute systolic CHF (congestive heart failure), NYHA class 4 Narrative/Plan: * Lasix and other diuretics discontinued secondary to worsening kidney function , ongoing medical management with low-dose beta raymon * ProBNP 16 300 on presentation, Echocardiogram ejection fraction of 25-30% severely dilated left atrium with moderate to severe aortic stenosis (patient deemed to be a poor surgical candidate given his comorbidities by cardiothoracic surgery) * Cardiology following appreciate recommendations * Status post cardiac arrest with PeA after being started on dopamine with ROSC after approximately 3-4 minutes. r Current Visit: Yes Status: Acute Code(s): I50.21 - ACUTE SYSTOLIC ( CONGESTIVE) HEART FAILURE SNOMED Code(s): 611515883 (2) Acute kidney injury Narrative/Plan: * nonoliguric acute kidney injury secondary to ATN secondary to hypotension and cardiac arrest. * Creatinine slightly worse at 1.5 today * Continue to monitor Current Visit: Yes Status: Acute Code(s): N17.9 - ACUTE KIDNEY FAILURE, UNSPECIFIED SNOMED Code(s): 89743266 (3) Ascites Narrative/Plan: * GI consulted Dr. 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 fib rate is controlled * patient continued on low dose metoprolol continue with heparin drip Current Visit: Yes Status: Chronic Priority: High Code(s): I48.91 - UNSPECIFIED ATRIAL FIBRILLATION SNOMED Code(s): 07653782 (6) Elevated troponin Current Visit: Yes Status: Acute Code(s): R74.8 - ABNORMAL LEVELS OF OTHER SERUM ENZYMES SNOMED Code(s): 732986108 (7) Pleural effusion Current Visit: Yes Status: Acute Code(s): J90 - PLEURAL EFFUSION, NOT ELSEWHERE CLASSIFIED SNOMED Code(s): 45082396 (8) Arthritis of left shoulder region Narrative/Plan: * X-ray confirming severe left shoulder arthropathy of AC joint * Patient scheduled to have steroid shot later today Current Visit: Yes Status: Chronic Priority: Medium Code(s): M19.012 - PRIMARY OSTEOARTHRITIS, LEFT SHOULDER SNOMED Code(s): 605463108 (9) Hyperbilirubinemia Current Visit: Yes Status: Resolved Code(s): E80.6 - OTHER DISORDERS OF BILIRUBIN METABOLISM SNOMED Code(s): 65795283 Plan: * Family still contemplating surgical options at this time
[2017-09-29] MEDS: SODIUM FERRIC GLUCONAT-SUCROSE 125 MG in SODIUM CHLORIDE 0.9% 100 ML IVPB SCH (09:09)
[2017-09-29 11:49] LABS: Glucose,Whole Blood 238 mg/dL (75-99)
--- NOTE | 2017-09-29 13:59 | P.PN ---
Subjective Progress Note Date: 09/29/17 Principal diagnosis: Right-sided pleural effusion likely secondary to congestive heart failure This is a 77-year-old male patient with known history of chronic atrial fibrillation, chronic lumbar degenerative disc disease with limited mobility and impaired performance and functional status at baseline. He is also known to have diabetes, gout, and prostate enlargement. The patient comes in with worsening shortness of breath and addition to generalized weakness and some dizziness. His chest x-ray showed low lung volumes and cardiomegaly and possibly some right-sided pleural effusion. EKG showed chronic atrial fibrillation with some nonspecific ST segment changes. Based on that the patient a CAT scan of the chest abdomen and pelvis and the CAT scan showed a small to moderate-sized right-sided pleural effusion in addition to some changes in the liver consistent with liver cirrhosis and ascites with anasarca. The patient also reports some increased lower oximetry edema and further investigation with an echo of the heart showed an ejection fraction of 25-30% and global hypokinesis of the left ventricle, RV was mildly enlarged, moderate to severe aortic stenosis, severe mitral regurgitation, severe tricuspid regurgitation, severe pulmonary hypertension was also noted. The patient is currently on 2 L of oxygen nasal cannula. His INR is at 1.5 as the patient is on warfarin. The patient's creatinine is at 1.1 and the patient was started on diuretics and he seems to be responding. He feels less short of breath compared to yesterday. He feels that the abdomen is also less distended. He is lower extremity edema is also improving. He was seen by cardiology. He was also seen by gastroenterology. He is not a drinker. No significant hepatitis. Most of alcoholism. No history of GI bleeding. The patient will have a paracentesis with the next 24 hours regarding his ascites. He is able to lay down to 20 bed elevation without any major difficulties. The patient seen again today 09/19/2017 in follow-up on the selective care unit. He is currently sitting up at bedside. He is awake and alert in no acute distress. His abdomen remains quite distended. He is still this moment with minimal exertion. He is maintaining O2 saturations in the upper 90s on 1.5 L/m per nasal cannula. He is currently afebrile. Hemodynamically stable. INR is 1.6 today. IR will possibly do a paracentesis tomorrow. He is voiding well and remains in a negative balance. His weight is down 1 kg. On 09/20/2017 patient seen in follow-up on selective care unit, he is status post large volume paracentesis of approximately 14.1 L of straw-colored fluid. Patient tolerated the procedure well. Her weight resting in bed, in no acute distress, abdomen is a lot less distended, soft, nontender. Patient is having some soreness along the left costal margin, mild, but no acute distress. Oxygenation improved, patient is currently on 1/2 L per nasal cannula, he reports his breathing easier, vital signs are stable, he is afebrile. Patient has been started on IV Lasix drip at 10 mg per hour, in addition to the Zaroxolyn. Patient continues on potassium and Aldactone,, and lisinopril. Overall his breathing is improved, continue with current medical treatment, will obtain a follow-up chest x-ray in the morning OnOn 09/21/2017, the patient is awake and alert. The patient is looking much better as the patient had significant large volume paracentesis with evacuation of more than 10 L from the abdomen. In fact the total amount was 14 L. Subsequent chest x-ray showed a presence of a right-sided pleural effusion which is moderate in size. Nevertheless, the patient denies having any significant shortness of breath and he is not wanting a thoracentesis for the time being. I think it's reasonable as long as the patient has significant improvement in her breathing with large volume paracentesis. Meanwhile, the patient has become slightly prerenal on today's blood work. BUN is up to 77 and the creatinine is up to 1.48. The patient is currently on Lasix drip at 10 mg an hour. The patient is also on Zaroxolyn 5 mg by mouth daily. The patient is also on Aldactone 100 mg by mouth daily. No major edema lower extremities. Note that the blood work also showed positivity and GEOVANI and anti-smooth muscle antibodies were also positive raising the possibility of an underlying autoimmune related hepatitis/liver disease. This antibodies positive for autoimmune liver disease as such as primary biliary cholangitis and autoimmune hepatitis. Note that the patient also has cardiomyopathy Contributing to His Profound Edema and Fluid Overload. 09/22/2017, the patient has no specific complaints. Hemodynamically stable. The patient is currently off the Lasix drip. The patient will be started on Aldactone.. The patient has no abdominal pain. Abdominal distention is improved. We decided not to drain the pleural effusion in the lung volume the patient has been having no significant respiratory distress at this point in time. The renal function is stable and the creatinine is at 1.37. On 09/23/2017, this 77-year-old male patient who got brought into the intensive care unit after he rested on the floor. I do not have the chance to evaluate this patient in the morning. The patient was seen by cardiology and apparently his IV Lasix was on hold due to issues related to hypotension. At that point the patient was placed on dopamine at 5 mics. Within 30 minutes of initiation of dopamine, the patient became tachycardic and subsequently a CODE BLUE was called and the patient went into cardiopulmonary arrest. I was on the floor and I attended to the Code and this patient was in PEA initially. CPR was initiated and ACLS protocol was followed. The patient was given epinephrine. I intubated the patient on the scene. Within 2-3 minutes a pulse on her blood pressure was obtained. The patient was interactive and moving all 4 extremities. I'm of the patient in intensive care unit. I started the prevent on him while him being intubated on a mechanical ventilator. A brief neurologic evaluation was done and the patient was fully awake and alert and moving all 4 extremities. Nevertheless, based on his underlying cardio pulmonary status, I decided not to extubate the patient. He was placed on propofol infusion for sedation. Currently is on assist control mode at a rate of 24, tidal volume of 500, FiO2 of 100% and a PEEP of 5. Blood gas showed a pH of 7.37 with a pCO2 of 36 and pO2 of 300 and the FiO2 was not down to 50%. The patient is currently on 5 mics of norepinephrine infusion for blood pressure control. The patient had a post intubation chest x-ray that showed right basilar pleural effusion in addition to cardiomegaly. ET tube was in a good location. Subsequently, I inserted a triple lumen catheter for the left subclavian vein and a chest x-ray findings remain stable and there was no evidence of any pneumothorax. Reviewing the patient's blood work from earlier this morning, the patient a white cell count of 8 with a hemoglobin of 9.7. His BUN is at 83 with a creatinine of 1.5. And note that the patient has become progressively more prerenal as the patient had large volume paracentesis and subsequently was aggressively treated with diuretics. Note that his echocardiogram showed ejection fraction of 25% along with global hypokinesis. LAD was severely dilated. There was severe aortic sclerosis and moderate aortic regurgitation and moderate to severe aortic stenosis with a PA pressure of 61 in addition to severe mitral regurgitation, severe tricuspid regurgitation and severe pulmonary hypertension with a PA pressure of 91. The CAT scan of the abdomen showed changes consistent with cirrhosis of the liver and ascites. Large volume paracentesis was done. The patient continued to have a moderate-sized right-sided pleural effusion. The cirrhosis is probably of a cardiac in nature. No significant splenomegaly or splenic varices was seen. Upon further workup the patient do not to have a positive GEOVANI and anti- smooth muscle antibody which also raises concern for autoimmune hepatitis. Patient was reevaluated today on 09/24/2017, remains on mechanical ventilation, remains on 2 g of norepinephrine, chest x-ray is showing some improvement, but patient continues to have bilateral pleural effusions. Right more so than left , and I believe the right pleural effusion is related to his underlying liver disease and ascites. May or may not consider thoracentesis at this point. His ventilator settings were reviewed, patient was awakened, I gave him a trial of pressure support and CPAP, patient did quite well, and I went ahead and recommended extubating the patient. His weaning parameters were great. His labs were also reviewed WBC count is 12 hemoglobin is 10.7. ABG showed a pO2 of 217 pCO2 of 32 pH of 7.45. PTT is 47.7, patient remains on heparin. Electrolytes are normal BUN is 73 creatinine 1.20. Patient was noted to be appropriate, responsive, and in no distress on pressure support and CPAP. Then I proceeded to extubating the patient. Patient was reevaluated today on 09/25/2017, he is presently on room air, extubated yesterday, and tolerated the extubation quite well. Patient is off mechanical ventilation, off pressors, seems to be very comfortable, in no distress. Continues to have multiple complex medical problems including pulmonary, cardiac, and her renal issues. And most definitely liver issues/ hepatitis. Based on the notes from the brace maker, patient was felt to have cirrhotic liver and abdominal pelvic ascites with pleural effusion secondary to cirrhosis possibly cryptogenic secondary to [place]. Chest x-ray today continues to show some pleural effusion and consolidation of the right lower lobe, but seems to be a bit improved compared to the chest x-ray yesterday. Labs showed relatively normal CBC hemoglobin is 9.3. Normal BUN is improving down to 63, and creatinine is also improving down to 1.20. At this point the patient seems to be making good amount of urine, and he is off diuretics. Being followed closely by nephrology. On 09/26/2017, patient remains in the ICU, tolerated extubation over the last 2 days quite well, presently on 2 L nasal cannula. Patient denies any shortness of breath, he is off all the pressors, not receiving any diuretics, but early today, he was seen by nephrology and recommended a dose of Lasix. His chest x- ray continues to show a good sized right-sided pleural effusion, patient is diuresing well, hence I have no plans to do a thoracentesis at this point. His mentation seems to be intact. Patient does have low ejection fraction, and cardiomyopathy with LV dysfunction, his ejection fraction is 25%. Continues to have some swelling in the lower extremities, and that is being addressed with diuretics. Patient denies any shortness of breath, no chest pain, no cough, no wheezing, no nausea no vomiting and no abdominal pain. Labs WBC count is 6.9 hemoglobin is 8.8 ETT is therapeutic at 54.6 electrolytes were noted BUN is 60 creatinine is 1.30. Liver enzymes were noted to be relatively normal. Chest x- ray as noted above. Reevaluated today on 09/27/2017, patient remains in the ICU, he was extubated a few days back, and he continues to tolerate extubation. Presently on room air. Denies any specific complaints, feeling great compared to how he felt over the last few days. All his labs were reviewed including a CBC showed a hemoglobin of 8.1, WBC count of 6.1 PTT is therapeutic at 49.5. Basic metabolic profile was relatively normal. BUN is 60 creatinine 1.30 unchanged compared to yesterday. Urine sodium is 23 urine osmolality is 423. Reevaluated today on 09/28/2017, patient remains as an overflow in the ICU, doing great. He is basically asymptomatic. However his sodium seems to be drifting down, and his renal functioning is a bit worse today. X-ray is showing improvement in his bilateral pleural effusions. Patient remains on room air, denies any shortness of breath. Remains edematous and swollen in the lower extremities, but clinically the patient is relatively dry. Has been making over 200 mL of urine per hour without any diuretics. Hence I will restart the patient on a 0.9 normal saline at 70 mL per hour. His BUN today is 61 creatinine is 1.40 and his sodium is 129. WBC count is 6.4 hemoglobin is 8.4 , patient remains on heparin, and his PTT is therapeutic, he is also receiving IV iron. On 09/29/2017 patient seen in follow-up on selective care unit. He is resting in bed, in no acute distress, currently on room air, and the pulse ox of 97%, lung sounds are positive for bibasilar rales, and chest x-ray was reviewed and shows stable bilateral consolidation and pleural effusion. Patient continue is on empiric antibiotics in the form of Zosyn, and ascites fluid culture has been negative so far. No chest congestion, no sputum production or chest pain. No hemoptysis. Denies any fever or chills, today's lab work shows the BBC of 5.9, hemoglobin of 8.4, sodium is improving slightly, and is currently is at 129, B UN is 62, creatinine is 1.5. Patient remains on heparin infusion and tidal coagulation for his atrial fibrillation, cardiology discussed the possibility of surgical intervention for patient's valvular disease, and the patient and the family would like to think about their options. For now he remains stable, no specific complaints. Objective - Vital Signs Vital signs: Vital Signs Temp 96.7 F L 09/29/17 08:00 Pulse 71 09/29/17 12:00 Resp 18 09/29/17 12:00 BP 100/34 09/29/17 12:00 Pulse Ox 97 09/29/17 12:00 Intake & Output 09/28/17 09/29/17 09/29/17 18:59 06:59 18:59 Intake Total 1017.5 870 154.862 Output Total 975 0 550 Balance 42.5 870 -395.138 Weight 123.5 kg Intake: IV 767.5 70 100 0.9 630 70 Piperacillin-Tazobactam 3 37.5 .375 gm In Dextrose/Water 1 50ml.bag @ 12.5 mls/hr IVPB Q12HR [facility] Rx#: [id number] Sodium Ferric Gluconat- 100 100 Sucrose 125 mg In Sodium Chloride 0.9% 100 ml @ 100 mls/hr IVPB DAILY [facility] Rx#:[id number] Intake, IV Titration 500 54.862 Amount Heparin Sodium,Porcine/ 500 4.862 D5w Pmx 25,000 unit In Dextrose/Water 1 500ml. bag @ 9 UNITS/KG/HR 19.89 mls/hr IV .Q24H [facility] Rx#: [id number] Piperacillin-Tazobactam 3 50 .375 gm In Dextrose/Water 1 50ml.bag @ 12.5 mls/hr IVPB Q8HR [facility] Rx#: [id number] Oral 250 300 Output: Urine 975 0 550 Other: Voiding Method Indwelling Catheter Urinal # Voids 1 # Bowel Movements 0 ABP, PAP, CO, CI - Last Documented Arterial Blood Pressure 115/58 - Exam General appearance: The patient is alert, oriented, in no acute distress. The patient does not seem to be in acute respiratory distress. No use of excess amount of the breathing. HET: Head is normocephalic and atraumatic. Pupils are equal and reactive. Oropharynx is clear without lesions. Neck: Supple without lymphadenopathy. Trachea midline. There is significant jugular venous distention bilaterally. Neck is overall supple and there is no goiter or neck masses. Heart: The patient has a harsh systolic ejection murmur grade 4/6 heard throughout the precordium. The rhythm is irregular. The murmur is radiating to his neck. No right ventricular heave or thrill. Lungs: No crackles or wheezes are heard. There is diminished breath on the right lung base consistent with his underlying pleural effusion. Abdomen: Soft, nondistended, patient is status post large volume paracentesis would removal of 14.1 L of ascitic fluid. No peritoneal signs. No palpable organomegaly or masses. Extremities: +1 bilateral lower extremity edema with bilateral lower leg dressings edematous feet. Neurological: No focal deficits. Strength and sensation are grossly intact. Examination of the skin revealed no evidence of significant rashes, suspicious appearing nevi or other concerning lesions. Psychiatric the patient has normal mood and affect - Labs CBC & Chem 7: 09/29/17 05:35 09/29/17 05:35 Labs: Abnormal Lab Results - Last 24 Hours (Table) 09/28/17 09/28/17 09/28/17 Range/Units 18:40 18:45 22:14 RBC (4.30-5.90) m/uL Hgb (13.0-17.5) gm/dL Hct (39.0-53.0) % RDW (11.5-15.5) % APTT (22.0-30.0) sec Sodium 128 L (137-145) mmol/L Chloride (98-107) mmol/L BUN (9-20) mg/dL Creatinine (0.66-1.25) mg/dL Glucose (74-99) mg/dL POC Glucose (mg/dL) 205 H 187 H (75-99) mg/dL Calcium (8.4-10.2) mg/dL 09/29/17 09/29/17 09/29/17 Range/Units 05:35 05:35 05:35 RBC 3.25 L (4.30-5.90) m/uL Hgb 8.4 L (13.0-17.5) gm/dL Hct 26.7 L (39.0-53.0) % RDW 19.1 H (11.5-15.5) % APTT 46.2 H (22.0-30.0) sec Sodium 129 L (137-145) mmol/L Chloride 96 L (98-107) mmol/L BUN 62 H (9-20) mg/dL Creatinine 1.50 H (0.66-1.25) mg/dL Glucose 122 H (74-99) mg/dL POC Glucose (mg/dL) (75-99) mg/dL Calcium 7.9 L (8.4-10.2) mg/dL 09/29/17 09/29/17 Range/Units 05:52 11:28 RBC (4.30-5.90) m/uL Hgb (13.0-17.5) gm/dL Hct (39.0-53.0) % RDW (11.5-15.5) % APTT (22.0-30.0) sec Sodium (137-145) mmol/L Chloride (98-107) mmol/L BUN (9-20) mg/dL Creatinine (0.66-1.25) mg/dL Glucose (74-99) mg/dL POC Glucose (mg/dL) 145 H 238 H (75-99) mg/dL Calcium (8.4-10.2) mg/dL Assessment and Plan Plan: Assessment: 1 acute cardiac arrest, acute hypoxic respiratory failure secondary to acute cardiac arrest. The patient wasn't PA with the downtime of about 2-3 minutes. He had successful resuscitation based on ACS protocol, post extubation day #5 2 right-sided pleural effusion likely on the basis of congestive heart failure. Possibility of chronic liver disease causing ascites and right-sided pleural effusion/hydrothorax cannot be completely excluded 3 CHF with impaired left a ejection fraction of 25%. In addition the patient has severe aortic stenosis, mitral regurgitation, severe tricuspid regurgitation secondary pulmonary hypertension. 4 chronic atrial fibrillation 5 ascites and anasarca secondary to above, there is post large volume paracentesis with removal of 14.1 L of ascitic fluid 6 questionable liver cirrhosis although the findings could also be related to [place]. I also believe his heart failure is another contributing factor to his liver hepatopathy and congestion and possibly contributing to his massive ascites 7 long-term anticoagulation with warfarin, and presently the patient is on heparin infusion for anticoagulation 8 diabetes mellitus 9 gout 10 BPH Plan: Clinically patient is stable from pulmonary standpoint, denies any worsening dyspnea, he is currently on room air, maintaining stable O2 saturations above 95 %. Serum sodium is improving, nephrology is following. Remains on IV heparin infusion for anticoagulation for his chronic atrial fibrillation. Continue with current plan of treatment, continue empiric antibiotics. I performed a history & physical examination of the patient and discussed their management with my nurse practitioner, Sydnee Blanco. I reviewed the nurse practitioner's note and agree with the documented findings and plan of care. Lung sounds are positive for a few bibasilar crackles. The findings and the impression was discussed with the patient. I attest to the documentation by the nurse practitioner. Time with Patient: Less than 30
--- NOTE | 2017-09-29 15:04 | P.PN ---
Subjective Progress Note Date: 09/29/17 This is a 77-year-old gentleman who was admitted to the hospital with ascites edema CHF and artery myopathy with aortic stenosis and also mitral regurgitation. Patient had an episode of PEA after she was initiated on dopamine. Patient was briefly resuscitated. Patient has been intubated but currently extubated and has been stable for the last 48 hours. Patient has good urine output. He denies any chest pain. He still has some edema of the legs. His lungs show some diminished breath sounds at bases. Patient has atrial fibrillation. It is controlled. His sodium is low. Patient is being given some IV saline. We'll continue to monitor him. I discussed with and patient regarding significance of valvular abnormalities. I also discussed the option of surgical intervention were continued medical therapy.. Family wants to think about it. Meanwhile we'll continue current medical therapy. Prognosis is guarded. 09/29/2017: Patient is clinically stable. Able to lie in bed flat and seemed to be in no acute distress. Chest x-ray continued to show bilateral infiltrates and effusions. Patient still has significant edema. Creatinine is about 1.5. Sodium is about 129. Not having any chest pain. We'll continue current medical therapy. It appears that patient had a poor candidate for any valvular surgery. We'll continue discussed with family Objective - Vital Signs Vital signs: Vital Signs Temp 96.7 F L 09/29/17 08:00 Pulse 71 09/29/17 12:00 Resp 18 09/29/17 12:00 BP 100/34 09/29/17 12:00 Pulse Ox 97 09/29/17 12:00 Intake & Output 09/28/17 09/29/17 09/29/17 18:59 06:59 18:59 Intake Total 1017.5 870 154.862 Output Total 975 0 550 Balance 42.5 870 -395.138 Weight 123.5 kg Intake: IV 767.5 70 100 0.9 630 70 Piperacillin-Tazobactam 3 37.5 .375 gm In Dextrose/Water 1 50ml.bag @ 12.5 mls/hr IVPB Q12HR [facility] Rx#: [id number] Sodium Ferric Gluconat- 100 100 Sucrose 125 mg In Sodium Chloride 0.9% 100 ml @ 100 mls/hr IVPB DAILY [facility] Rx#:[id number] Intake, IV Titration 500 54.862 Amount Heparin Sodium,Porcine/ 500 4.862 D5w Pmx 25,000 unit In Dextrose/Water 1 500ml. bag @ 9 UNITS/KG/HR 19.89 mls/hr IV .Q24H [facility] Rx#: [id number] Piperacillin-Tazobactam 3 50 .375 gm In Dextrose/Water 1 50ml.bag @ 12.5 mls/hr IVPB Q8HR [facility] Rx#: [id number] Oral 250 300 Output: Urine 975 0 550 Other: Voiding Method Indwelling Catheter Urinal # Voids 1 # Bowel Movements 0 ABP, PAP, CO, CI - Last Documented Arterial Blood Pressure 115/58 - Exam GENERAL EXAM: Patient is alert and oriented and doesn't appear to be in any acute distress HEENT: Normocephalic. Normal reaction of pupils, equal size, normal range of extraocular motion. No erythema or exudates in the throat. NECK: No masses, no nuchal rigidity. CHEST: No chest wall deformity. LUNGS: Expiratory rhonchi HEART: S1 and S2 normal, systolic murmur ABDOMEN: No hepatosplenomegaly, normal bowel sounds, no guarding or rigidity. SKIN: No rashes CENTRAL NERVOUS SYSTEM: No focal deficits. Moving all the extremities EXTREMITIES significant edema and blisters. - Labs CBC & Chem 7: 09/29/17 05:35 09/29/17 05:35 Labs: Abnormal Lab Results - Last 24 Hours (Table) 09/28/17 09/28/17 09/28/17 Range/Units 18:40 18:45 22:14 RBC (4.30-5.90) m/uL Hgb (13.0-17.5) gm/dL Hct (39.0-53.0) % RDW (11.5-15.5) % APTT (22.0-30.0) sec Sodium 128 L (137-145) mmol/L Chloride (98-107) mmol/L BUN (9-20) mg/dL Creatinine (0.66-1.25) mg/dL Glucose (74-99) mg/dL POC Glucose (mg/dL) 205 H 187 H (75-99) mg/dL Calcium (8.4-10.2) mg/dL 09/29/17 09/29/17 09/29/17 Range/Units 05:35 05:35 05:35 RBC 3.25 L (4.30-5.90) m/uL Hgb 8.4 L (13.0-17.5) gm/dL Hct 26.7 L (39.0-53.0) % RDW 19.1 H (11.5-15.5) % APTT 46.2 H (22.0-30.0) sec Sodium 129 L (137-145) mmol/L Chloride 96 L (98-107) mmol/L BUN 62 H (9-20) mg/dL Creatinine 1.50 H (0.66-1.25) mg/dL Glucose 122 H (74-99) mg/dL POC Glucose (mg/dL) (75-99) mg/dL Calcium 7.9 L (8.4-10.2) mg/dL 18 09/29/17 Range/Units 05:52 11:28 RBC (4.30-5.90) m/uL Hgb (13.0-17.5) gm/dL Hct (39.0-53.0) % RDW (11.5-15.5) % APTT (22.0-30.0) sec Sodium (137-145) mmol/L Chloride (98-107) mmol/L BUN (9-20) mg/dL Creatinine (0.66-1.25) mg/dL Glucose (74-99) mg/dL POC Glucose (mg/dL) 145 H 238 H (75-99) mg/dL Calcium (8.4-10.2) mg/dL Assessment and Plan (1) Atrial fibrillation Current Visit: Yes Status: Chronic Priority: High Code(s): I48.91 - UNSPECIFIED ATRIAL FIBRILLATION SNOMED Code(s): 50264493 (2) Cardiac arrest Current Visit: Yes Status: Acute Code(s): I46.9 - CARDIAC ARREST, CAUSE UNSPECIFIED SNOMED Code(s): 147871665 (3) Congestive heart failure Current Visit: Yes Status: Acute Priority: High Code(s): I50.9 - HEART FAILURE, UNSPECIFIED SNOMED Code(s): 68701349 (4) Diabetes mellitus Current Visit: Yes Status: Acute Priority: Medium Code(s): E11.9 - TYPE 2 DIABETES MELLITUS WITHOUT COMPLICATIONS SNOMED Code(s): 92818764 Plan: Continue current medical therapy. Activity as tolerated. He will continue discussed with family regarding various option for valvular disease
[2017-09-29] MEDS: GABAPENTIN 300 MG CAP PO PRN (16:34)
[2017-09-29 17:11] LABS: Glucose,Whole Blood 207 mg/dL (75-99)
[2017-09-29] MEDS: TAMSULOSIN 0.4 MG CAP.ER.24H PO SCH (20:48)
[2017-09-29 21:07] LABS: Glucose,Whole Blood 221 mg/dL (75-99)
[2017-09-30] MEDS: PIPERACILLIN-TAZOBACTAM 3.375 GM in DEXTROSE/WATER 1 50ML.BAG IVPB SCH ×4 (00:04→23:19)
[2017-09-30] MEDS: HEPARIN SODIUM,PORCINE/D5W PMX 25,000 UNIT in DEXTROSE/WATER 1 500ML.BAG IV SCH (01:33)
[2017-09-30 06:03] LABS: Glucose,Whole Blood 161 mg/dL (75-99)
[2017-09-30] MEDS: PANTOPRAZOLE 40 MG TABLET PO SCH (06:29)
[2017-09-30] MEDS: INSULIN ASPART 100 UNIT/ML 1 ML 10 ML VIAL SQ SCH ×4 (06:29→22:26)
[2017-09-30 07:49] LABS: Anisocytosis Slight; Basophils # (A) 0.1 k/uL (0-0.2); Basophils % (A) 1 %; Eosinophils # (A) 0.1 k/uL (0-0.7); Eosinophils % (A) 2 %; HCT 26.9 % (39.0-53.0); HGB 8.4 gm/dL (13.0-17.5); Hypochromasia Slight; Lymphocytes # (A) 1.4 k/uL (1.0-4.8); Lymphocytes % (A) 19 %; MCHC 31.3 g/dL (31.0-37.0); Mean Platelet Volume 7.2; Microcytosis Slight; Monocytes # (A) 0.7 k/uL (0-1.0); Monocytes % (A) 9 %; Neutrophils # (A) 4.8 k/uL (1.3-7.7); Neutrophils % (A) 68 %; Platelet Count 183 k/uL (150-450); RBC 3.24 m/uL (4.30-5.90); RDW 19.6 % (11.5-15.5); WBC 7.1 k/uL (3.8-10.6)
[2017-09-30 08:10] LABS: Calcium 7.7 mg/dL (8.4-10.2)
[2017-09-30] MEDS: ATORVASTATIN 40 MG TAB PO SCH (08:41)
[2017-09-30] MEDS: METOPROLOL TARTRATE 12.5 MG TAB PO SCH ×2 (08:41→22:26)
[2017-09-30] MEDS: GABAPENTIN 300 MG CAP PO PRN (08:58)
--- NOTE | 2017-09-30 09:47 | P.PN ---
Subjective Progress Note Date: 09/30/17 Patient feeling better today with present at bedside. Apparently the patient is still pretty weak needing 3 person assist to get to the bedside commode. He thinks his swelling in his extremities are improved since yesterday. In discussing ongoing plan of care and surgical options and appears that the patient seems to be leaning the direction of ongoing medical therapy at this time but would still like to discuss options with cardiology and CTS surgery. No acute events overnight Objective - Vital Signs Vital signs: Vital Signs Temp 97.1 F L 09/30/17 08:00 Pulse 81 09/30/17 08:00 Resp 18 09/30/17 08:00 BP 83/39 09/30/17 08:00 Pulse Ox 98 09/30/17 08:00 Intake & Output 09/29/17 09/30/17 09/30/17 18:59 06:59 18:59 Intake Total 354.862 790.951 Output Total 550 325 Balance -195.138 465.951 Weight 124.2 kg Intake: IV 100 90 0.9 90 Sodium Ferric Gluconat- 100 Sucrose 125 mg In Sodium Chloride 0.9% 100 ml @ 100 mls/hr IVPB DAILY [facility] Rx#:[id number] Intake, IV Titration 54.862 500.951 Amount Heparin Sodium,Porcine/ 4.862 450.951 D5w Pmx 25,000 unit In Dextrose/Water 1 500ml. bag @ 9 UNITS/KG/HR 19.89 mls/hr IV .Q24H [facility] Rx#: [id number] Piperacillin-Tazobactam 3 50 50 .375 gm In Dextrose/Water 1 50ml.bag @ 12.5 mls/hr IVPB Q8HR [facility] Rx#: [id number] Oral 200 200 Output: Urine 550 325 Other: Voiding Method Urinal Urinal ABP, PAP, CO, CI - Last Documented Arterial Blood Pressure 115/58 - Exam Constitutional: No acute distress, conversant, pleasant Eyes: Anicteric sclerae, moist conjunctiva, no lid-lag, PERRLA ENMT: NC/AT,Oropharynx clear, no erythema, exudates Neck:Supple, FROM, no masses, or JVD, No carotid bruits; No thyromegaly Lungs: Improved aeration, Normal respiratory effort on room air no accessory muscle use Cardiovascular: Irregularly irregular, holosystolic murmur, gallops, or rubs + 1 pedal peripheral edema Abdominal: Soft Nontender, moderately distended, no guarding, no rebound or rigidity, Normoactive bowel sounds No hepatomegaly, No splenomegaly, No palpable mass No abdominal wall hernia noted Skin: Normal temperature, tone, texture, turgor, No induration No subcutaneous nodules, No rash, lesions, No ulcers Extremities:No digital cyanosis No clubbing, Pedal pulses intact and symmetrical Radial pulses intact and symmetrical Normal gait and station, No calf tenderness, painful range of motion in the left shoulder Psychiatric: Alert and oriented to person, place and time, Appropriate affect Intact judgement Neuro: Muscles Strength 5/5 in all 4 extremities, Sensation to light touch grossly present throughout, Cranial nerves II-XII grossly intact. No focal sensory deficits - Labs CBC & Chem 7: 09/30/17 06:00 09/30/17 06:00 Labs: Abnormal Lab Results - Last 24 Hours (Table) 09/29/17 09/29/17 09/29/17 Range/Units 11:28 16:35 21:06 RBC (4.30-5.90) m/uL Hgb (13.0-17.5) gm/dL Hct (39.0-53.0) % RDW (11.5-15.5) % APTT (22.0-30.0) sec Sodium (137-145) mmol/L Chloride (98-107) mmol/L BUN (9-20) mg/dL Creatinine (0.66-1.25) mg/dL Glucose (74-99) mg/dL POC Glucose (mg/dL) 238 H 207 H 221 H (75-99) mg/dL Calcium (8.4-10.2) mg/dL 09/30/17 09/30/17 09/30/17 Range/Units 06:00 06:00 06:00 RBC 3.24 L (4.30-5.90) m/uL Hgb 8.4 L (13.0-17.5) gm/dL Hct 26.9 L (39.0-53.0) % RDW 19.6 H (11.5-15.5) % APTT (22.0-30.0) sec Sodium 128 L (137-145) mmol/L Chloride 95 L (98-107) mmol/L BUN 67 H (9-20) mg/dL Creatinine 1.81 H (0.66-1.25) mg/dL Glucose 128 H (74-99) mg/dL POC Glucose (mg/dL) 161 H (75-99) mg/dL Calcium 7.7 L (8.4-10.2) mg/dL 09/30/17 Range/Units 08:50 RBC (4.30-5.90) m/uL Hgb (13.0-17.5) gm/dL Hct (39.0-53.0) % RDW (11.5-15.5) % APTT 51.0 H (22.0-30.0) sec Sodium (137-145) mmol/L Chloride (98-107) mmol/L BUN (9-20) mg/dL Creatinine (0.66-1.25) mg/dL Glucose (74-99) mg/dL POC Glucose (mg/dL) (75-99) mg/dL Calcium (8.4-10.2) mg/dL Assessment and Plan (1) Acute systolic CHF (congestive heart failure), NYHA class 4 Narrative/Plan: * Lasix and other diuretics discontinued secondary to worsening kidney function , ongoing medical management with low-dose beta raymon * ProBNP 16 300 on presentation, Echocardiogram ejection fraction of 25-30% severely dilated left atrium with moderate to severe aortic stenosis (patient deemed to be a poor surgical candidate given his comorbidities by cardiothoracic surgery) * Cardiology following appreciate recommendations * Status post cardiac arrest with PeA after being started on dopamine with ROSC after approximately 3-4 minutes. * We will likely need a LifeVest prior to discharge r Current Visit: Yes Status: Acute Code(s): I50.21 - ACUTE SYSTOLIC ( CONGESTIVE) HEART FAILURE SNOMED Code(s): 164112243 (2) Acute kidney injury Narrative/Plan: * nonoliguric acute kidney injury secondary to ATN secondary to hypotension and cardiac arrest. * Creatinine slightly worse at 1.8 today * Continue to monitor Current Visit: Yes Status: Acute Code(s): N17.9 - ACUTE KIDNEY FAILURE, UNSPECIFIED SNOMED Code(s): 46390655 (3) Ascites Narrative/Plan: * GI consulted Dr. 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 fib rate is controlled * patient continued on low dose metoprolol continue with heparin drip Current Visit: Yes Status: Chronic Priority: High Code(s): I48.91 - UNSPECIFIED ATRIAL FIBRILLATION SNOMED Code(s): 66696957 (6) Elevated troponin Current Visit: Yes Status: Acute Code(s): R74.8 - ABNORMAL LEVELS OF OTHER SERUM ENZYMES SNOMED Code(s): 897706023 (7) Pleural effusion Current Visit: Yes Status: Acute Code(s): J90 - PLEURAL EFFUSION, NOT ELSEWHERE CLASSIFIED SNOMED Code(s): 48906823 (8) Arthritis of left shoulder region Current Visit: Yes Status: Chronic Priority: Medium Code(s): M19.012 - PRIMARY OSTEOARTHRITIS, LEFT SHOULDER SNOMED Code(s): 048700356 (9) Hyperbilirubinemia Current Visit: Yes Status: Resolved Code(s): E80.6 - OTHER DISORDERS OF BILIRUBIN METABOLISM SNOMED Code(s): 65067378 Plan: * Patient seems to be leaning towards ongoing medical care versus surgery but still like to discuss options with cardiology and cardiothoracic surgery, once the patient has been his final decision will transition him to oral anticoagulation, will also likely need a LifeVest prior to discharge to rehab
[2017-09-30] MEDS: SODIUM FERRIC GLUCONAT-SUCROSE 125 MG in SODIUM CHLORIDE 0.9% 100 ML IVPB SCH (09:56)
--- NOTE | 2017-09-30 10:50 | P.PN ---
Subjective Principal diagnosis: This is a 77-year-old gentleman who was admitted to the hospital with ascites edema CHF and cardiomyopathy with aortic stenosis and also mitral regurgitation. Patient had an episode of PEA on 09/24/2017 after she was initiated on dopamine. Patient was briefly resuscitated. Patient has been intubated but currently extubated on 09/28/2017 his Lasix was discontinued because of worsening creatinine slowly from 1.3-1.5. He continues to have slow worsening of creatinine to 1.8 this morning. His urine output is 875 mL. Remains erythematous. He is awake and alert and seen to be oriented 3 has profound weakness but is able to move all his extremities. He denies any shortness of breath. Appetite is poor but is starting to eat. Objective - Vital Signs Vital signs: Vital Signs Temp 97.1 F L 09/30/17 08:00 Pulse 81 09/30/17 08:00 Resp 18 09/30/17 08:00 BP 83/39 09/30/17 08:00 Pulse Ox 98 09/30/17 08:00 Intake & Output 09/29/17 09/30/17 09/30/17 18:59 06:59 18:59 Intake Total 354.862 790.951 Output Total 550 325 Balance -195.138 465.951 Weight 124.2 kg Intake: IV 100 90 0.9 90 Sodium Ferric Gluconat- 100 Sucrose 125 mg In Sodium Chloride 0.9% 100 ml @ 100 mls/hr IVPB DAILY [facility] Rx#:[id number] Intake, IV Titration 54.862 500.951 Amount Heparin Sodium,Porcine/ 4.862 450.951 D5w Pmx 25,000 unit In Dextrose/Water 1 500ml. bag @ 9 UNITS/KG/HR 19.89 mls/hr IV .Q24H [facility] Rx#: [id number] Piperacillin-Tazobactam 3 50 50 .375 gm In Dextrose/Water 1 50ml.bag @ 12.5 mls/hr IVPB Q8HR [facility] Rx#: [id number] Oral 200 200 Output: Urine 550 325 Other: Voiding Method Urinal Urinal ABP, PAP, CO, CI - Last Documented Arterial Blood Pressure 115/58 On examination awake alert oriented. HEENT exam no JVP neck is supple no facial asymmetry Lungs are clear to auscultation fair air entry bilaterally Heart sounds are unremarkable for any murmur rub gallop Abdomen soft nontender Extremity exam was 2-3+ edema Neurologically awake alert oriented but generalized weakness. He was able to be transferred from the bed to the bedside commode with the help of 2-3 people. - Labs CBC & Chem 7: 09/30/17 06:00 09/30/17 06:00 Labs: Abnormal Lab Results - Last 24 Hours (Table) 09/29/17 09/29/17 09/29/17 Range/Units 11:28 16:35 21:06 RBC (4.30-5.90) m/uL Hgb (13.0-17.5) gm/dL Hct (39.0-53.0) % RDW (11.5-15.5) % APTT (22.0-30.0) sec Sodium (137-145) mmol/L Chloride (98-107) mmol/L BUN (9-20) mg/dL Creatinine (0.66-1.25) mg/dL Glucose (74-99) mg/dL POC Glucose (mg/dL) 238 H 207 H 221 H (75-99) mg/dL Calcium (8.4-10.2) mg/dL 09/30/17 09/30/17 09/30/17 Range/Units 06:00 06:00 06:00 RBC 3.24 L (4.30-5.90) m/uL Hgb 8.4 L (13.0-17.5) gm/dL Hct 26.9 L (39.0-53.0) % RDW 19.6 H (11.5-15.5) % APTT (22.0-30.0) sec Sodium 128 L (137-145) mmol/L Chloride 95 L (98-107) mmol/L BUN 67 H (9-20) mg/dL Creatinine 1.81 H (0.66-1.25) mg/dL Glucose 128 H (74-99) mg/dL POC Glucose (mg/dL) 161 H (75-99) mg/dL Calcium 7.7 L (8.4-10.2) mg/dL 09/30/17 Range/Units 08:50 RBC (4.30-5.90) m/uL Hgb (13.0-17.5) gm/dL Hct (39.0-53.0) % RDW (11.5-15.5) % APTT 51.0 H (22.0-30.0) sec Sodium (137-145) mmol/L Chloride (98-107) mmol/L BUN (9-20) mg/dL Creatinine (0.66-1.25) mg/dL Glucose (74-99) mg/dL POC Glucose (mg/dL) (75-99) mg/dL Calcium (8.4-10.2) mg/dL Assessment and Plan Assessment: Impression. 1. Acute kidney injury with ATN secondary to hypotension and cardiac arrest, dated 09/24/2017. Slight worsening of creatinine from 1.2-1.5 slowly suggestive of a ongoing ATN, creatinine further went up to 1.8 this morning. 2. Hyponatremia secondary to about acute kidney injury, stable. 3. Anemia with hemoglobin of 8.4, stable last few days. 4. Iron deficiency. Saturation is 9% on 09/26/2017. 5. Hypotension secondary to cardiomyopathy, blood pressure is 83-95 systolic Plan-. 1. We will resume Lasix 20 mg daily by mouth, his blood pressure may not tolerated. If so we will have to reconsider Lasix. 2. Maintain strict I's and O's. 3. Monitor labs. 4. Discussed with his and answered all questions
[2017-09-30 11:47] LABS: Glucose,Whole Blood 168 mg/dL (75-99)
[2017-09-30] MEDS: FUROSEMIDE 20 MG TAB PO SCH (12:20)
--- NOTE | 2017-09-30 13:04 | P.PN ---
Subjective Progress Note Date: 09/30/17 Principal diagnosis: Acute cardiac arrest and acute hypoxic respiratory failure requiring intubation and mechanical ventilation. This is a 77-year-old male patient with known history of chronic atrial fibrillation, chronic lumbar degenerative disc disease with limited mobility and impaired performance and functional status at baseline. He is also known to have diabetes, gout, and prostate enlargement. The patient comes in with worsening shortness of breath and addition to generalized weakness and some dizziness. His chest x-ray showed low lung volumes and cardiomegaly and possibly some right-sided pleural effusion. EKG showed chronic atrial fibrillation with some nonspecific ST segment changes. Based on that the patient a CAT scan of the chest abdomen and pelvis and the CAT scan showed a small to moderate-sized right-sided pleural effusion in addition to some changes in the liver consistent with liver cirrhosis and ascites with anasarca. The patient also reports some increased lower oximetry edema and further investigation with an echo of the heart showed an ejection fraction of 25-30% and global hypokinesis of the left ventricle, RV was mildly enlarged, moderate to severe aortic stenosis, severe mitral regurgitation, severe tricuspid regurgitation, severe pulmonary hypertension was also noted. The patient is currently on 2 L of oxygen nasal cannula. His INR is at 1.5 as the patient is on warfarin. The patient's creatinine is at 1.1 and the patient was started on diuretics and he seems to be responding. He feels less short of breath compared to yesterday. He feels that the abdomen is also less distended. He is lower extremity edema is also improving. He was seen by cardiology. He was also seen by gastroenterology. He is not a drinker. No significant hepatitis. Most of alcoholism. No history of GI bleeding. The patient will have a paracentesis with the next 24 hours regarding his ascites. He is able to lay down to 20 bed elevation without any major difficulties. The patient seen again today 09/19/2017 in follow-up on the selective care unit. He is currently sitting up at bedside. He is awake and alert in no acute distress. His abdomen remains quite distended. He is still this moment with minimal exertion. He is maintaining O2 saturations in the upper 90s on 1.5 L/m per nasal cannula. He is currently afebrile. Hemodynamically stable. INR is 1.6 today. IR will possibly do a paracentesis tomorrow. He is voiding well and remains in a negative balance. His weight is down 1 kg. On 09/20/2017 patient seen in follow-up on selective care unit, he is status post large volume paracentesis of approximately 14.1 L of straw-colored fluid. Patient tolerated the procedure well. Her weight resting in bed, in no acute distress, abdomen is a lot less distended, soft, nontender. Patient is having some soreness along the left costal margin, mild, but no acute distress. Oxygenation improved, patient is currently on 1/2 L per nasal cannula, he reports his breathing easier, vital signs are stable, he is afebrile. Patient has been started on IV Lasix drip at 10 mg per hour, in addition to the Zaroxolyn. Patient continues on potassium and Aldactone,, and lisinopril. Overall his breathing is improved, continue with current medical treatment, will obtain a follow-up chest x-ray in the morning On 09/21/2017, the patient is awake and alert. The patient is looking much better as the patient had significant large volume paracentesis with evacuation of more than 10 L from the abdomen. In fact the total amount was 14 L. Subsequent chest x-ray showed a presence of a right-sided pleural effusion which is moderate in size. Nevertheless, the patient denies having any significant shortness of breath and he is not wanting a thoracentesis for the time being. I think it's reasonable as long as the patient has significant improvement in her breathing with large volume paracentesis. Meanwhile, the patient has become slightly prerenal on today's blood work. BUN is up to 77 and the creatinine is up to 1.48. The patient is currently on Lasix drip at 10 mg an hour. The patient is also on Zaroxolyn 5 mg by mouth daily. The patient is also on Aldactone 100 mg by mouth daily. No major edema lower extremities. Note that the blood work also showed positivity and GEOVANI and anti-smooth muscle antibodies were also positive raising the possibility of an underlying autoimmune related hepatitis/liver disease. This antibodies positive for autoimmune liver disease as such as primary biliary cholangitis and autoimmune hepatitis. Note that the patient also has cardiomyopathy Contributing to His Profound Edema and Fluid Overload. On 09/22/2017, the patient has no specific complaints. Hemodynamically stable. The patient is currently off the Lasix drip. The patient will be started on Aldactone.. The patient has no abdominal pain. Abdominal distention is improved. We decided not to drain the pleural effusion in the lung volume the patient has been having no significant respiratory distress at this point in time. The renal function is stable and the creatinine is at 1.37. On 09/23/2017, this 77-year-old male patient who got brought into the intensive care unit after he rested on the floor. I do not have the chance to evaluate this patient in the morning. The patient was seen by cardiology and apparently his IV Lasix was on hold due to issues related to hypotension. At that point the patient was placed on dopamine at 5 mics. Within 30 minutes of initiation of dopamine, the patient became tachycardic and subsequently a CODE BLUE was called and the patient went into cardiopulmonary arrest. I was on the floor and I attended to the Code and this patient was in PEA initially. CPR was initiated and ACLS protocol was followed. The patient was given epinephrine. I intubated the patient on the scene. Within 2-3 minutes a pulse on her blood pressure was obtained. The patient was interactive and moving all 4 extremities. I'm of the patient in intensive care unit. I started the prevent on him while him being intubated on a mechanical ventilator. A brief neurologic evaluation was done and the patient was fully awake and alert and moving all 4 extremities. Nevertheless, based on his underlying cardio pulmonary status, I decided not to extubate the patient. He was placed on propofol infusion for sedation. Currently is on assist control mode at a rate of 24, tidal volume of 500, FiO2 of 100% and a PEEP of 5. Blood gas showed a pH of 7.37 with a pCO2 of 36 and pO2 of 300 and the FiO2 was not down to 50%. The patient is currently on 5 mics of norepinephrine infusion for blood pressure control. The patient had a post intubation chest x-ray that showed right basilar pleural effusion in addition to cardiomegaly. ET tube was in a good location. Subsequently, I inserted a triple lumen catheter for the left subclavian vein and a chest x-ray findings remain stable and there was no evidence of any pneumothorax. Reviewing the patient's blood work from earlier this morning, the patient a white cell count of 8 with a hemoglobin of 9.7. His BUN is at 83 with a creatinine of 1.5. And note that the patient has become progressively more prerenal as the patient had large volume paracentesis and subsequently was aggressively treated with diuretics. Note that his echocardiogram showed ejection fraction of 25% along with global hypokinesis. LAD was severely dilated. There was severe aortic sclerosis and moderate aortic regurgitation and moderate to severe aortic stenosis with a PA pressure of 61 in addition to severe mitral regurgitation, severe tricuspid regurgitation and severe pulmonary hypertension with a PA pressure of 91. The CAT scan of the abdomen showed changes consistent with cirrhosis of the liver and ascites. Large volume paracentesis was done. The patient continued to have a moderate-sized right-sided pleural effusion. The cirrhosis is probably of a cardiac in nature. No significant splenomegaly or splenic varices was seen. Upon further workup the patient do not to have a positive GEOVANI and anti- smooth muscle antibody which also raises concern for autoimmune hepatitis. Patient was reevaluated today on 09/24/2017, remains on mechanical ventilation, remains on 2 g of norepinephrine, chest x-ray is showing some improvement, but patient continues to have bilateral pleural effusions. Right more so than left , and I believe the right pleural effusion is related to his underlying liver disease and ascites. May or may not consider thoracentesis at this point. His ventilator settings were reviewed, patient was awakened, I gave him a trial of pressure support and CPAP, patient did quite well, and I went ahead and recommended extubating the patient. His weaning parameters were great. His labs were also reviewed WBC count is 12 hemoglobin is 10.7. ABG showed a pO2 of 217 pCO2 of 32 pH of 7.45. PTT is 47.7, patient remains on heparin. Electrolytes are normal BUN is 73 creatinine 1.20. Patient was noted to be appropriate, responsive, and in no distress on pressure support and CPAP. Then I proceeded to extubating the patient. Patient was reevaluated today on 09/25/2017, he is presently on room air, extubated yesterday, and tolerated the extubation quite well. Patient is off mechanical ventilation, off pressors, seems to be very comfortable, in no distress. Continues to have multiple complex medical problems including pulmonary, cardiac, and her renal issues. And most definitely liver issues/ hepatitis. Based on the notes from the professional security officer, patient was felt to have cirrhotic liver and abdominal pelvic ascites with pleural effusion secondary to cirrhosis possibly cryptogenic secondary to Parekh. Chest x-ray today continues to show some pleural effusion and consolidation of the right lower lobe, but seems to be a bit improved compared to the chest x-ray yesterday. Labs showed relatively normal CBC hemoglobin is 9.3. Normal BUN is improving down to 63, and creatinine is also improving down to 1.20. At this point the patient seems to be making good amount of urine, and he is off diuretics. Being followed closely by nephrology. On 09/26/2017, patient remains in the ICU, tolerated extubation over the last 2 days quite well, presently on 2 L nasal cannula. Patient denies any shortness of breath, he is off all the pressors, not receiving any diuretics, but early today, he was seen by nephrology and recommended a dose of Lasix. His chest x- ray continues to show a good sized right-sided pleural effusion, patient is diuresing well, hence I have no plans to do a thoracentesis at this point. His mentation seems to be intact. Patient does have low ejection fraction, and cardiomyopathy with LV dysfunction, his ejection fraction is 25%. Continues to have some swelling in the lower extremities, and that is being addressed with diuretics. Patient denies any shortness of breath, no chest pain, no cough, no wheezing, no nausea no vomiting and no abdominal pain. Labs WBC count is 6.9 hemoglobin is 8.8 ETT is therapeutic at 54.6 electrolytes were noted BUN is 60 creatinine is 1.30. Liver enzymes were noted to be relatively normal. Chest x- ray as noted above. Reevaluated today on 09/27/2017, patient remains in the ICU, he was extubated a few days back, and he continues to tolerate extubation. Presently on room air. Denies any specific complaints, feeling great compared to how he felt over the last few days. All his labs were reviewed including a CBC showed a hemoglobin of 8.1, WBC count of 6.1 PTT is therapeutic at 49.5. Basic metabolic profile was relatively normal. BUN is 60 creatinine 1.30 unchanged compared to yesterday. Urine sodium is 23 urine osmolality is 423. Reevaluated today on 09/28/2017, patient remains as an overflow in the ICU, doing great. He is basically asymptomatic. However his sodium seems to be drifting down, and his renal functioning is a bit worse today. X-ray is showing improvement in his bilateral pleural effusions. Patient remains on room air, denies any shortness of breath. Remains edematous and swollen in the lower extremities, but clinically the patient is relatively dry. Has been making over 200 mL of urine per hour without any diuretics. Hence I will restart the patient on a 0.9 normal saline at 70 mL per hour. His BUN today is 61 creatinine is 1.40 and his sodium is 129. WBC count is 6.4 hemoglobin is 8.4 , patient remains on heparin, and his PTT is therapeutic, he is also receiving IV iron. Reevaluated today on 09/30/2017, patient is doing relatively well, he is now on selective care unit, resting in bed, in no distress, on room air, on empiric antibiotics/Zosyn, patient is relatively asymptomatic. Sodium remains low at 128, BUN is 67 creatinine is 1.81, WBC count is 7.1 hemoglobin is 8.4. Objective - Vital Signs Vital signs: Vital Signs Temp 97.1 F L 09/30/17 08:00 Pulse 81 09/30/17 08:00 Resp 18 09/30/17 08:00 BP 83/39 09/30/17 08:00 Pulse Ox 98 09/30/17 08:00 Intake & Output 09/29/17 09/30/17 09/30/17 18:59 06:59 18:59 Intake Total 354.862 790.951 Output Total 550 325 Balance -195.138 465.951 Weight 124.2 kg Intake: IV 100 90 0.9 90 Sodium Ferric Gluconat- 100 Sucrose 125 mg In Sodium Chloride 0.9% 100 ml @ 100 mls/hr IVPB DAILY [facility] Rx#:[id number] Intake, IV Titration 54.862 500.951 Amount Heparin Sodium,Porcine/ 4.862 450.951 D5w Pmx 25,000 unit In Dextrose/Water 1 500ml. bag @ 9 UNITS/KG/HR 19.89 mls/hr IV .Q24H [facility] Rx#: [id number] Piperacillin-Tazobactam 3 50 50 .375 gm In Dextrose/Water 1 50ml.bag @ 12.5 mls/hr IVPB Q8HR [facility] Rx#: [id number] Oral 200 200 Output: Urine 550 325 Other: Voiding Method Urinal Urinal # Bowel Movements 1 ABP, PAP, CO, CI - Last Documented Arterial Blood Pressure 115/58 - Exam Gen. appearance revealed a 77-year-old white male, on room air, in no form of respiratory distress, Head exam was generally normal. There was no scleral icterus or corneal arcus. Mucous membranes noted to be quite dry today. Neck is supple and the patient is negative JVDs bilaterally without any goiter or neck masses. Lung sounds are diminished in lung bases bilaterally along with some bibasilar crackles. Breath sounds are quite diminished in the right lung base. Heart sounds are irregular and the patient has a systolic ejection murmur grade 2/6 heard throughout the precordium. S1 and S2 are irregular. Abdomen is slightly distended. There is positive fluid wave. No rebound, no guarding. Extremities revealed 1+ bipedal edema and there is no cyanosis or clubbing. There is diminished pulses in lower extremities bilaterally. Neurologically the patient was wide awake, appropriate, alert oriented 3, no gross focal neurologic deficit. Examination of the skin revealed no evidence of significant rashes, suspicious appearing nevi or other concerning lesions. T - Labs CBC & Chem 7: 09/30/17 06:00 09/30/17 06:00 Labs: Abnormal Lab Results - Last 24 Hours (Table) 09/29/17 09/29/17 09/30/17 Range/Units 16:35 21:06 06:00 RBC 3.24 L (4.30-5.90) m/uL Hgb 8.4 L (13.0-17.5) gm/dL Hct 26.9 L (39.0-53.0) % RDW 19.6 H (11.5-15.5) % APTT (22.0-30.0) sec Sodium (137-145) mmol/L Chloride (98-107) mmol/L BUN (9-20) mg/dL Creatinine (0.66-1.25) mg/dL Glucose (74-99) mg/dL POC Glucose (mg/dL) 207 H 221 H (75-99) mg/dL Calcium (8.4-10.2) mg/dL 09/30/17 09/30/17 09/30/17 Range/Units 06:00 06:00 08:50 RBC (4.30-5.90) m/uL Hgb (13.0-17.5) gm/dL Hct (39.0-53.0) % RDW (11.5-15.5) % APTT 51.0 H (22.0-30.0) sec Sodium 128 L (137-145) mmol/L Chloride 95 L (98-107) mmol/L BUN 67 H (9-20) mg/dL Creatinine 1.81 H (0.66-1.25) mg/dL Glucose 128 H (74-99) mg/dL POC Glucose (mg/dL) 161 H (75-99) mg/dL Calcium 7.7 L (8.4-10.2) mg/dL 09/30/17 Range/Units 11:45 RBC (4.30-5.90) m/uL Hgb (13.0-17.5) gm/dL Hct (39.0-53.0) % RDW (11.5-15.5) % APTT (22.0-30.0) sec Sodium (137-145) mmol/L Chloride (98-107) mmol/L BUN (9-20) mg/dL Creatinine (0.66-1.25) mg/dL Glucose (74-99) mg/dL POC Glucose (mg/dL) 168 H (75-99) mg/dL Calcium (8.4-10.2) mg/dL Assessment and Plan Assessment: 1 acute cardiac arrest. Acute hypoxic respiratory failure secondary to acute cardiac arrest The patient was in PEA with a downtime of around 2-3 minutes. He had successful resuscitation based on ACLS protocol. Postextubation day #4 3 right-sided pleural effusion likely on the basis of congestion heart failure. Possibility of chronic liver disease causing ascites and right-sided pleural effusion/hydrothorax cannot be completely excluded. 2 CHF with impaired left a ejection fraction of 25%. In addition the patient has severe aortic stenosis, mitral regurgitation, severe tricuspid regurgitation secondary pulmonary hypertension. 3 chronic atrial fibrillation 4 ascites and anasarca secondary to above, there is post large volume paracentesis with removal of 14.1 L of ascitic fluid 5 questionable liver cirrhosis although the findings could be also related to parekh. I also believe his heart failure is another contributing factor to his liver hepatopathy and congestion and possibly contributing to his massive ascites. 6 long-term anticoagulation with warfarin , presently patient is on heparin. 6 diabetes mellitus 7 gout 8 BPH 9 prerenal azotemia secondary to aggressive diuresis and prerenal effect secondary to heart failure 10 hyponatremia, related to advanced cirrhosis and relative impairment of renal capacity to eliminate solute free water that causes irritation of water disproportionate to the retention of sodium hence causing hyponatremia and hypoosmolality. The main pathogenic factor responsible for the hyponatremia is a non-osmotic hypersecretion of arginine vasopressin/antidiuretic hormone related to circulatory dysfunction. This by itself alone is associated with higher morbidity. May have to consider treatment with vaptans, especially if serum sodium drifts down into the mid 120 range. Recommendation: Continue present treatment plan, will recommend follow-up chest x-ray in a.m., doubt if the patient will actually required or needed thoracentesis. Time with Patient: Less than 30
--- NOTE | 2017-09-30 15:44 | P.PN ---
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 Patient had an episode of PEA after she was initiated on dopamine. Patient was briefly resuscitated. Patient has been intubated but currently extubated and has been stable for the last 48 hours. Patient has good urine output. He denies any chest pain. He still has some edema of the legs. His lungs show some diminished breath sounds at bases. Patient has atrial fibrillation. It is controlled. His sodium is low. Patient is being given some IV saline. We'll continue to monitor him. I discussed with and patient regarding significance of valvular abnormalities. I also discussed the option of surgical intervention were continued medical therapy.. Family wants to think about it. Meanwhile we'll continue current medical therapy. Prognosis is guarded. 09/29/2017: Patient is clinically stable. Able to lie in bed flat and seemed to be in no acute distress. Chest x-ray continued to show bilateral infiltrates and effusions. Patient still has significant edema. Creatinine is about 1.5. Sodium is about 129. Not having any chest pain. We'll continue current medical therapy. It appears that patient had a poor candidate for any valvular surgery. We'll continue discussed with family. 09/30/2017:. Patient seemed to be relatively stable. He is comfortable at rest. He is a still very weak and unable to ambulate or get up. Denies any chest pain. Still has significant edema of the legs. His sodium is low. I discussed with and patient regarding valvular disease and possible surgical approach. I explained to them that his risk for the surgical approach is high. They want to speak with the surgeons about the risks and benefits of the procedure. We'll may get a cardiothoracic surgery consult tomorrow. Meanwhile, continue current medical therapy Objective - Vital Signs Vital signs: Vital Signs Temp 97.1 F L 09/30/17 08:00 Pulse 102 H 09/30/17 12:00 Resp 17 09/30/17 12:00 BP 100/51 09/30/17 12:00 Pulse Ox 100 09/30/17 12:00 Intake & Output 09/29/17 09/30/17 09/30/17 18:59 06:59 18:59 Intake Total 354.862 790.951 Output Total 550 325 Balance -195.138 465.951 Weight 124.2 kg Intake: IV 100 90 0.9 90 Sodium Ferric Gluconat- 100 Sucrose 125 mg In Sodium Chloride 0.9% 100 ml @ 100 mls/hr IVPB DAILY [facility] Rx#:[id number] Intake, IV Titration 54.862 500.951 Amount Heparin Sodium,Porcine/ 4.862 450.951 D5w Pmx 25,000 unit In Dextrose/Water 1 500ml. bag @ 9 UNITS/KG/HR 19.89 mls/hr IV .Q24H [facility] Rx#: [id number] Piperacillin-Tazobactam 3 50 50 .375 gm In Dextrose/Water 1 50ml.bag @ 12.5 mls/hr IVPB Q8HR [facility] Rx#: [id number] Oral 200 200 Output: Urine 550 325 Other: Voiding Method Urinal Urinal # Bowel Movements 1 ABP, PAP, CO, CI - Last Documented Arterial Blood Pressure 115/58 - Exam GENERAL EXAM: Patient is alert and oriented and doesn't appear to be in any acute distress HEENT: Normocephalic. Normal reaction of pupils, equal size, normal range of extraocular motion. No erythema or exudates in the throat. NECK: No masses, no nuchal rigidity. CHEST: No chest wall deformity. LUNGS: Expiratory rhonchi HEART: S1 and S2 normal, systolic murmur ABDOMEN: No hepatosplenomegaly, normal bowel sounds, no guarding or rigidity. SKIN: No rashes CENTRAL NERVOUS SYSTEM: No focal deficits. Moving all the extremities EXTREMITIES significant edema and blisters. - Labs CBC & Chem 7: 09/30/17 06:00 09/30/17 06:00 Labs: Abnormal Lab Results - Last 24 Hours (Table) 09/29/17 09/29/17 09/30/17 Range/Units 16:35 21:06 06:00 RBC 3.24 L (4.30-5.90) m/uL Hgb 8.4 L (13.0-17.5) gm/dL Hct 26.9 L (39.0-53.0) % RDW 19.6 H (11.5-15.5) % APTT (22.0-30.0) sec Sodium (137-145) mmol/L Chloride (98-107) mmol/L BUN (9-20) mg/dL Creatinine (0.66-1.25) mg/dL Glucose (74-99) mg/dL POC Glucose (mg/dL) 207 H 221 H (75-99) mg/dL Calcium (8.4-10.2) mg/dL 09/30/17 09/30/17 09/30/17 Range/Units 06:00 06:00 08:50 RBC (4.30-5.90) m/uL Hgb (13.0-17.5) gm/dL Hct (39.0-53.0) % RDW (11.5-15.5) % APTT 51.0 H (22.0-30.0) sec Sodium 128 L (137-145) mmol/L Chloride 95 L (98-107) mmol/L BUN 67 H (9-20) mg/dL Creatinine 1.81 H (0.66-1.25) mg/dL Glucose 128 H (74-99) mg/dL POC Glucose (mg/dL) 161 H (75-99) mg/dL Calcium 7.7 L (8.4-10.2) mg/dL 09/30/17 Range/Units 11:45 RBC (4.30-5.90) m/uL Hgb (13.0-17.5) gm/dL Hct (39.0-53.0) % RDW (11.5-15.5) % APTT (22.0-30.0) sec Sodium (137-145) mmol/L Chloride (98-107) mmol/L BUN (9-20) mg/dL Creatinine (0.66-1.25) mg/dL Glucose (74-99) mg/dL POC Glucose (mg/dL) 168 H (75-99) mg/dL Calcium (8.4-10.2) mg/dL Assessment and Plan (1) Atrial fibrillation Current Visit: Yes Status: Chronic Priority: High Code(s): I48.91 - UNSPECIFIED ATRIAL FIBRILLATION SNOMED Code(s): 78543982 (2) Cardiac arrest Current Visit: Yes Status: Acute Code(s): I46.9 - CARDIAC ARREST, CAUSE UNSPECIFIED SNOMED Code(s): 555897417 (3) Congestive heart failure Current Visit: Yes Status: Acute Priority: High Code(s): I50.9 - HEART FAILURE, UNSPECIFIED SNOMED Code(s): 04477316 (4) Diabetes mellitus Current Visit: Yes Status: Acute Priority: Medium Code(s): E11.9 - TYPE 2 DIABETES MELLITUS WITHOUT COMPLICATIONS SNOMED Code(s): 10166430 Plan: Continue current management. Physical therapy. Cardiac thoracic surgery consult tomorrow
[2017-09-30 17:07] LABS: Glucose,Whole Blood 168 mg/dL (75-99)
[2017-09-30 20:58] LABS: Glucose,Whole Blood 173 mg/dL (75-99)
[2017-09-30] MEDS: TAMSULOSIN 0.4 MG CAP.ER.24H PO SCH (22:26)
[2017-10-01] MEDS: ACETAMINOPHEN TAB 500 MG TAB PO PRN (04:29)
[2017-10-01 06:25] LABS: Glucose,Whole Blood 155 mg/dL (75-99)
[2017-10-01] MEDS: INSULIN ASPART 100 UNIT/ML 1 ML 10 ML VIAL SQ SCH ×5 (06:59→22:04)
[2017-10-01] MEDS: PANTOPRAZOLE 40 MG TABLET PO SCH (06:59)
[2017-10-01] MEDS: HEPARIN SODIUM,PORCINE/D5W PMX 25,000 UNIT in DEXTROSE/WATER 1 500ML.BAG IV SCH (07:01)
--- NOTE | 2017-10-01 08:39 | P.PN ---
Subjective Patient is seen in follow-up for acute kidney injury. Renal function has been worsening with creatinine up to 1.8 as of yesterday. Sodium level was 128 yesterday. He remains off all vasopressors. Oral intake is improving. Denies chest pain or shortness of breath. He does of systolic CHF with ejection fraction of 20-25%. He is status post cardiac arrest. Now maintained on Lasix 20 mg orally once daily. Vital signs are stable. General: The patient appeared well nourished and normally developed. HEENT: Head exam is unremarkable. Neck is without jugular venous distension. LUNGS: Lungs are clear to auscultation and percussion. Breath sounds decreased. HEART: Rate and Rhythm are regular. First and second heart sounds normal. No murmurs, rubs or gallops. ABDOMEN: Abdominal exam reveals normal bowel sounds. Non-tender and non- distended. No evidence of peritonitis. EXTREMITITES: 1+ edema. Objective - Vital Signs Vital signs: Vital Signs Temp 98.1 F 10/01/17 04:15 Pulse 84 10/01/17 04:15 Resp 19 10/01/17 04:15 BP 87/52 10/01/17 04:15 Pulse Ox 99 10/01/17 04:15 Intake & Output 09/30/17 10/01/17 10/01/17 18:59 06:59 18:59 Intake Total 500 Output Total 200 Balance 300 Weight 127 kg Intake: Intake, IV Titration 500 Amount Heparin Sodium,Porcine/ 500 D5w Pmx 25,000 unit In Dextrose/Water 1 500ml. bag @ 9 UNITS/KG/HR 19.89 mls/hr IV .Q24H [facility] Rx#: [id number] Output: Urine 200 Other: Voiding Method Urinal # Voids 275 # Bowel Movements 1 ABP, PAP, CO, CI - Last Documented Arterial Blood Pressure 115/58 - Labs CBC & Chem 7: 09/30/17 06:00 09/30/17 06:00 Labs: Abnormal Lab Results - Last 24 Hours (Table) 09/30/17 09/30/17 09/30/17 Range/Units 08:50 11:45 16:45 APTT 51.0 H (22.0-30.0) sec POC Glucose (mg/dL) 168 H 168 H (75-99) mg/dL 09/30/17 10/01/1718 Range/Units 20:56 06:15 06:23 APTT 76.5 H (22.0-30.0) sec POC Glucose (mg/dL) 173 H 155 H (75-99) mg/dL Assessment and Plan Plan: Assessment: 1. Nonoliguric acute kidney injury secondary to ATN secondary to hypotension and cardiac arrest. Creatinine worse at 1.8 as of yesterday. Labs from today are pending at this time. 2. Hyponatremia, hypovolemic. Urine sodium noted to be low at 23. Urine osmolality 423. 3. Systolic CHF with ejection fraction of 20-25%. 4. Ascites status post paracentesis on September 20 with over 14 L removed. 5. Liver cirrhosis. Questionable etiology. 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 6. Anemia. Iron deficiency noted - s/p 3 doses of IV iron. 7. Atrial fibrillation maintained on heparin drip. Rate controlled. Plan: Continue Lasix 20 mg orally once daily. Maintain 1500 mL fluid restriction. Maintain protein supplements. Avoid nephrotoxic agents and hypotensive episodes. Continue to monitor renal function and urine output. Follow-up morning labs.
[2017-10-01 09:32] LABS: Potassium 4.9 mmol/L (3.5-5.1)
[2017-10-01] MEDS: ALLOPURINOL 300 MG TAB PO SCH (10:06)
[2017-10-01] MEDS: APIXABAN 5 MG TAB PO SCH ×2 (10:06→22:04)
[2017-10-01] MEDS: FUROSEMIDE 20 MG TAB PO SCH (10:06)
[2017-10-01] MEDS: METOPROLOL TARTRATE 12.5 MG TAB PO SCH ×2 (10:06→21:55)
[2017-10-01] MEDS: PIPERACILLIN-TAZOBACTAM 3.375 GM in DEXTROSE/WATER 1 50ML.BAG IVPB SCH ×3 (10:07→23:46)
[2017-10-01] MEDS: ATORVASTATIN 40 MG TAB PO SCH (10:07)
[2017-10-01] MEDS ORDERED: TOLVAPTAN 15 MG 1/2 TABLET PO ONE (11:29)
--- NOTE | 2017-10-01 11:37 | P.PN ---
Subjective Progress Note Date: 10/01/17 This is a 77-year-old gentleman with history of chronic persistent atrial fibrillation, hypertension, diabetes, who presented to the hospital with symptoms of dizziness, shortness of breath, significant swelling in his abdomen and bilateral lower extremities. Apparently the symptoms of shortness of breath and dizziness have only been going on for the past 2-3 days according to the patient, but the swelling in his abdomen has been noticeable for some time. Patient denies any history of significant cardiac problems, no myocardial infarction in the past, never been told to have any congestive cardiac failure. Chest x-ray performed on admission here showed low lung volumes and cardiomegaly with patchy bibasilar atelectasis. KUB revealed overall nonobstructive bowel gas pattern. EKG showed atrial fibrillation with occasional PVC, nonspecific ST-T wave changes. CT of the chest, abdomen, and pelvis revealed a moderate right pleural effusion. Cirrhotic morphology of the liver with abdominopelvic ascites and anasarca. No splenomegaly or gross evidence of splenic varices. Enlarged main pulmonary artery suggesting underlying pulmonary arterial hypertension and a scant amount of pericardial effusion. An echocardiogram with Doppler study was performed which revealed an ejection fraction of 25-30%. Global hypokinesia of the LV. RV mildly enlarged. Moderate to severe aortic stenosis, severe mitral regurg, severe tricuspid regurg and severe pulmonary hypertension. Blood pressure on arrival 122/70 with a heart rate in the 90s, 99% on 2 L of oxygen. Laboratory data was reviewed, white blood cell count is normal, hemoglobin on admission 10.5, 9.7 this morning. Platelet count 163, sodium 142, potassium 3.9, BUN 65, creatinine 1.1. Magnesium level 2.5. Iron level 51, total bilirubin 2.7 on admission 2.0 this morning. Alkaline phosphatase 286 on admission 224 this morning. INR on admission 1.5. Troponin 0.056, BNP level 16,300. Patient's weight on admission was documented to be 123, it is 119 this morning. He does state that he was urinating a significant amount through the night last night. He is not on IV Lasix. At the time of my examination this morning, patient continues to have significant swelling of the abdomen and edema of the lower extremities. He does state overall that he feels his breathing is mildly improved. Telemetry strips show atrial fibrillation with frequent PVCs. 09/19/2017 Patient was seen and examined this morning, he does state overall that he feels his breathing is improving. He is scheduled for paracentesis tomorrow. Weight today is down 1 kg, creatinine 1.3. Echocardiogram with Doppler study revealed an ejection fraction of 25-30%. Moderate to severe aortic stenosis, severe mitral regurgitation and severe tricuspid regurgitation. 09/22/2017 Patient was seen and examined this morning up ambulating in the hallway today with physical therapy. Blood pressure 92/40 with a heart rate in the 70s. Overall patient states he's feeling better. Diuretics are currently still on hold, patient is on lisinopril 5 mg daily and metoprolol twice a day. Patient continues to be on hydration at 75 mL an hour. If blood pressure improves, we will reinitiate diuretics tomorrow. Continue PEARL inhibitor, beta raymon, patient is not currently on Aldactone because of elevated potassium, once that improves we will also initiate some Aldactone on this patient. 10/01/2017 Patient was seen and examined this morning, he does state that he had a good night last night. Slept well, breathing is overall stable today. Blood pressure 100/50 with a heart rate in the 60s. Sodium is down to 126 today, potassium 4.9, BUN 72, creatinine 1.8. Objective - Vital Signs Vital signs: Vital Signs Temp 97.0 F L 10/01/17 08:00 Pulse 68 10/01/17 08:00 Resp 18 10/01/17 08:00 BP 99/55 10/01/17 08:00 Pulse Ox 97 10/01/17 08:00 Intake & Output 09/30/17 10/01/17 10/01/17 18:59 06:59 18:59 Intake Total 500 Output Total 200 100 Balance 300 -100 Weight 127 kg Intake: Intake, IV Titration 500 Amount Heparin Sodium,Porcine/ 500 D5w Pmx 25,000 unit In Dextrose/Water 1 500ml. bag @ 9 UNITS/KG/HR 19.89 mls/hr IV .Q24H [facility] Rx#: [id number] Output: Urine 200 100 Other: Voiding Method Urinal Urinal # Voids 275 # Bowel Movements 1 ABP, PAP, CO, CI - Last Documented Arterial Blood Pressure 115/58 - Exam PHYSICAL EXAMINATION: HEENT: Head is atraumatic, normocephalic. Pupils equal, round. Neck is supple. There is elevated jugular venous pressure up to the angle of the jaw. HEART EXAMINATION: Heart S1-S2 not audible, systolic ejection murmur heard CHEST EXAMINATION: Lungs clear to auscultation. ABDOMEN: [ Soft, distended, positive thrill. Bowel sounds are heard. EXTREMITIES:[ 1+ peripheral pulses with 1+ evidence of peripheral edema patient does have a dressing in place to the right and lower extremity, ulcerated weeping area underneath. NEUROLOGIC patient is awake, alert and oriented -3. - Labs CBC & Chem 7: 09/30/17 06:00 10/01/17 08:35 Labs: Abnormal Lab Results - Last 24 Hours (Table) 09/30/17 09/30/17 09/30/17 Range/Units 11:45 16:45 20:56 APTT (22.0-30.0) sec Sodium (137-145) mmol/L Chloride (98-107) mmol/L Carbon Dioxide (22-30) mmol/L BUN (9-20) mg/dL Creatinine (0.66-1.25) mg/dL Glucose (74-99) mg/dL POC Glucose (mg/dL) 168 H 168 H 173 H (75-99) mg/dL Calcium (8.4-10.2) mg/dL 10/01/17 10/01/17 10/01/17 Range/Units 06:15 06:23 08:35 APTT 76.5 H (22.0-30.0) sec Sodium 126 L (137-145) mmol/L Chloride 94 L (98-107) mmol/L Carbon Dioxide 21 L (22-30) mmol/L BUN 72 H (9-20) mg/dL Creatinine 1.80 H (0.66-1.25) mg/dL Glucose 179 H (74-99) mg/dL POC Glucose (mg/dL) 155 H (75-99) mg/dL Calcium 8.0 L (8.4-10.2) mg/dL Assessment and Plan Plan: Assessment and plan #1 dyspnea, evidence of congestive heart failure, systolic, acute on chronic. Echocardiogram with Doppler study reveals an ejection fraction of 25-30%, moderate to severe aortic stenosis, severe mitral regurg and severe tricuspid regurg noted. Severe pulmonary hypertension. Evidence of significant right- sided pleural effusion. #2 chronic persistent atrial fibrillation, on Coumadin for anticoagulation, #3 hypertension, according to the significant other, blood pressure has been running low at home, patient had been on metoprolol which was stopped because of hypotension by the patient. #4 diabetes #5 ascites #6 abnormal troponin, likely secondary to supply and demand mismatch #7 anemia #8 hyponatremia Plan Patient continues to be hyponatremic. Dr. Summers did have a discussion with the family regarding how the patient is high risk for surgery, a consultation with cardiothoracic surgery will be made. DNP note has been reviewed, I agree with a documented findings and plan of care. Patient was seen and examined.
[2017-10-01 11:49] LABS: Glucose,Whole Blood 218 mg/dL (75-99)
--- NOTE | 2017-10-01 14:41 | P.PN ---
Subjective Progress Note Date: 10/01/17 Principal diagnosis: Right-sided pleural effusion likely secondary to congestive heart failure This is a 77-year-old male patient with known history of chronic atrial fibrillation, chronic lumbar degenerative disc disease with limited mobility and impaired performance and functional status at baseline. He is also known to have diabetes, gout, and prostate enlargement. The patient comes in with worsening shortness of breath and addition to generalized weakness and some dizziness. His chest x-ray showed low lung volumes and cardiomegaly and possibly some right-sided pleural effusion. EKG showed chronic atrial fibrillation with some nonspecific ST segment changes. Based on that the patient a CAT scan of the chest abdomen and pelvis and the CAT scan showed a small to moderate-sized right-sided pleural effusion in addition to some changes in the liver consistent with liver cirrhosis and ascites with anasarca. The patient also reports some increased lower oximetry edema and further investigation with an echo of the heart showed an ejection fraction of 25-30% and global hypokinesis of the left ventricle, RV was mildly enlarged, moderate to severe aortic stenosis, severe mitral regurgitation, severe tricuspid regurgitation, severe pulmonary hypertension was also noted. The patient is currently on 2 L of oxygen nasal cannula. His INR is at 1.5 as the patient is on warfarin. The patient's creatinine is at 1.1 and the patient was started on diuretics and he seems to be responding. He feels less short of breath compared to yesterday. He feels that the abdomen is also less distended. He is lower extremity edema is also improving. He was seen by cardiology. He was also seen by gastroenterology. He is not a drinker. No significant hepatitis. Most of alcoholism. No history of GI bleeding. The patient will have a paracentesis with the next 24 hours regarding his ascites. He is able to lay down to 20 bed elevation without any major difficulties. The patient seen again today 09/19/2017 in follow-up on the selective care unit. He is currently sitting up at bedside. He is awake and alert in no acute distress. His abdomen remains quite distended. He is still this moment with minimal exertion. He is maintaining O2 saturations in the upper 90s on 1.5 L/m per nasal cannula. He is currently afebrile. Hemodynamically stable. INR is 1.6 today. IR will possibly do a paracentesis tomorrow. He is voiding well and remains in a negative balance. His weight is down 1 kg. On 09/20/2017 patient seen in follow-up on selective care unit, he is status post large volume paracentesis of approximately 14.1 L of straw-colored fluid. Patient tolerated the procedure well. Her weight resting in bed, in no acute distress, abdomen is a lot less distended, soft, nontender. Patient is having some soreness along the left costal margin, mild, but no acute distress. Oxygenation improved, patient is currently on 1/2 L per nasal cannula, he reports his breathing easier, vital signs are stable, he is afebrile. Patient has been started on IV Lasix drip at 10 mg per hour, in addition to the Zaroxolyn. Patient continues on potassium and Aldactone,, and lisinopril. Overall his breathing is improved, continue with current medical treatment, will obtain a follow-up chest x-ray in the morning OnOn 09/21/2017, the patient is awake and alert. The patient is looking much better as the patient had significant large volume paracentesis with evacuation of more than 10 L from the abdomen. In fact the total amount was 14 L. Subsequent chest x-ray showed a presence of a right-sided pleural effusion which is moderate in size. Nevertheless, the patient denies having any significant shortness of breath and he is not wanting a thoracentesis for the time being. I think it's reasonable as long as the patient has significant improvement in her breathing with large volume paracentesis. Meanwhile, the patient has become slightly prerenal on today's blood work. BUN is up to 77 and the creatinine is up to 1.48. The patient is currently on Lasix drip at 10 mg an hour. The patient is also on Zaroxolyn 5 mg by mouth daily. The patient is also on Aldactone 100 mg by mouth daily. No major edema lower extremities. Note that the blood work also showed positivity and GEOVANI and anti-smooth muscle antibodies were also positive raising the possibility of an underlying autoimmune related hepatitis/liver disease. This antibodies positive for autoimmune liver disease as such as primary biliary cholangitis and autoimmune hepatitis. Note that the patient also has cardiomyopathy Contributing to His Profound Edema and Fluid Overload. 09/22/2017, the patient has no specific complaints. Hemodynamically stable. The patient is currently off the Lasix drip. The patient will be started on Aldactone.. The patient has no abdominal pain. Abdominal distention is improved. We decided not to drain the pleural effusion in the lung volume the patient has been having no significant respiratory distress at this point in time. The renal function is stable and the creatinine is at 1.37. On 09/23/2017, this 77-year-old male patient who got brought into the intensive care unit after he rested on the floor. I do not have the chance to evaluate this patient in the morning. The patient was seen by cardiology and apparently his IV Lasix was on hold due to issues related to hypotension. At that point the patient was placed on dopamine at 5 mics. Within 30 minutes of initiation of dopamine, the patient became tachycardic and subsequently a CODE BLUE was called and the patient went into cardiopulmonary arrest. I was on the floor and I attended to the Code and this patient was in PEA initially. CPR was initiated and ACLS protocol was followed. The patient was given epinephrine. I intubated the patient on the scene. Within 2-3 minutes a pulse on her blood pressure was obtained. The patient was interactive and moving all 4 extremities. I'm of the patient in intensive care unit. I started the prevent on him while him being intubated on a mechanical ventilator. A brief neurologic evaluation was done and the patient was fully awake and alert and moving all 4 extremities. Nevertheless, based on his underlying cardio pulmonary status, I decided not to extubate the patient. He was placed on propofol infusion for sedation. Currently is on assist control mode at a rate of 24, tidal volume of 500, FiO2 of 100% and a PEEP of 5. Blood gas showed a pH of 7.37 with a pCO2 of 36 and pO2 of 300 and the FiO2 was not down to 50%. The patient is currently on 5 mics of norepinephrine infusion for blood pressure control. The patient had a post intubation chest x-ray that showed right basilar pleural effusion in addition to cardiomegaly. ET tube was in a good location. Subsequently, I inserted a triple lumen catheter for the left subclavian vein and a chest x-ray findings remain stable and there was no evidence of any pneumothorax. Reviewing the patient's blood work from earlier this morning, the patient a white cell count of 8 with a hemoglobin of 9.7. His BUN is at 83 with a creatinine of 1.5. And note that the patient has become progressively more prerenal as the patient had large volume paracentesis and subsequently was aggressively treated with diuretics. Note that his echocardiogram showed ejection fraction of 25% along with global hypokinesis. LAD was severely dilated. There was severe aortic sclerosis and moderate aortic regurgitation and moderate to severe aortic stenosis with a PA pressure of 61 in addition to severe mitral regurgitation, severe tricuspid regurgitation and severe pulmonary hypertension with a PA pressure of 91. The CAT scan of the abdomen showed changes consistent with cirrhosis of the liver and ascites. Large volume paracentesis was done. The patient continued to have a moderate-sized right-sided pleural effusion. The cirrhosis is probably of a cardiac in nature. No significant splenomegaly or splenic varices was seen. Upon further workup the patient do not to have a positive GEOVANI and anti- smooth muscle antibody which also raises concern for autoimmune hepatitis. Patient was reevaluated today on 09/24/2017, remains on mechanical ventilation, remains on 2 g of norepinephrine, chest x-ray is showing some improvement, but patient continues to have bilateral pleural effusions. Right more so than left , and I believe the right pleural effusion is related to his underlying liver disease and ascites. May or may not consider thoracentesis at this point. His ventilator settings were reviewed, patient was awakened, I gave him a trial of pressure support and CPAP, patient did quite well, and I went ahead and recommended extubating the patient. His weaning parameters were great. His labs were also reviewed WBC count is 12 hemoglobin is 10.7. ABG showed a pO2 of 217 pCO2 of 32 pH of 7.45. PTT is 47.7, patient remains on heparin. Electrolytes are normal BUN is 73 creatinine 1.20. Patient was noted to be appropriate, responsive, and in no distress on pressure support and CPAP. Then I proceeded to extubating the patient. Patient was reevaluated today on 09/25/2017, he is presently on room air, extubated yesterday, and tolerated the extubation quite well. Patient is off mechanical ventilation, off pressors, seems to be very comfortable, in no distress. Continues to have multiple complex medical problems including pulmonary, cardiac, and her renal issues. And most definitely liver issues/ hepatitis. 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 Chest x-ray today continues to show some pleural effusion and consolidation of the right lower lobe, but seems to be a bit improved compared to the chest x-ray yesterday. Labs showed relatively normal CBC hemoglobin is 9.3. Normal BUN is improving down to 63, and creatinine is also improving down to 1.20. At this point the patient seems to be making good amount of urine, and he is off diuretics. Being followed closely by nephrology. On 09/26/2017, patient remains in the ICU, tolerated extubation over the last 2 days quite well, presently on 2 L nasal cannula. Patient denies any shortness of breath, he is off all the pressors, not receiving any diuretics, but early today, he was seen by nephrology and recommended a dose of Lasix. His chest x- ray continues to show a good sized right-sided pleural effusion, patient is diuresing well, hence I have no plans to do a thoracentesis at this point. His mentation seems to be intact. Patient does have low ejection fraction, and cardiomyopathy with LV dysfunction, his ejection fraction is 25%. Continues to have some swelling in the lower extremities, and that is being addressed with diuretics. Patient denies any shortness of breath, no chest pain, no cough, no wheezing, no nausea no vomiting and no abdominal pain. Labs WBC count is 6.9 hemoglobin is 8.8 ETT is therapeutic at 54.6 electrolytes were noted BUN is 60 creatinine is 1.30. Liver enzymes were noted to be relatively normal. Chest x- ray as noted above. Reevaluated today on 09/27/2017, patient remains in the ICU, he was extubated a few days back, and he continues to tolerate extubation. Presently on room air. Denies any specific complaints, feeling great compared to how he felt over the last few days. All his labs were reviewed including a CBC showed a hemoglobin of 8.1, WBC count of 6.1 PTT is therapeutic at 49.5. Basic metabolic profile was relatively normal. BUN is 60 creatinine 1.30 unchanged compared to yesterday. Urine sodium is 23 urine osmolality is 423. Reevaluated today on 09/28/2017, patient remains as an overflow in the ICU, doing great. He is basically asymptomatic. However his sodium seems to be drifting down, and his renal functioning is a bit worse today. X-ray is showing improvement in his bilateral pleural effusions. Patient remains on room air, denies any shortness of breath. Remains edematous and swollen in the lower extremities, but clinically the patient is relatively dry. Has been making over 200 mL of urine per hour without any diuretics. Hence I will restart the patient on a 0.9 normal saline at 70 mL per hour. His BUN today is 61 creatinine is 1.40 and his sodium is 129. WBC count is 6.4 hemoglobin is 8.4 , patient remains on heparin, and his PTT is therapeutic, he is also receiving IV iron. On 09/29/2017 patient seen in follow-up on selective care unit. He is resting in bed, in no acute distress, currently on room air, and the pulse ox of 97%, lung sounds are positive for bibasilar rales, and chest x-ray was reviewed and shows stable bilateral consolidation and pleural effusion. Patient continue is on empiric antibiotics in the form of Zosyn, and ascites fluid culture has been negative so far. No chest congestion, no sputum production or chest pain. No hemoptysis. Denies any fever or chills, today's lab work shows the BBC of 5.9, hemoglobin of 8.4, sodium is improving slightly, and is currently is at 129, B UN is 62, creatinine is 1.5. Patient remains on heparin infusion and tidal coagulation for his atrial fibrillation, cardiology discussed the possibility of surgical intervention for patient's valvular disease, and the patient and the family would like to think about their options. For now he remains stable, no specific complaints. On 10/01/2017 patient seen in follow-up on selective care unit. In no acute distress, currently on room air, 97%, vital signs are stable, patient is afebrile. Lung sounds are diminished with a few scattered rales on the left. Patient is on oral Lasix at 20 mg once daily, he is on Ahlquist for anticoagulation, on antibiotics in the form of Zosyn. He received a dose of Tolvaptan for his hyponatremia. He is up walking with a walker with physical therapy, and tolerated activity fairly well. Obtain follow-up chest x-ray tomorrow. Patient overall reports his breathing is easier. A consultation her cardiothoracic surgery was requested in regards to potential surgery for moderate to severe aortic stenosis, severe mitral regurgitation and severe tricuspid regurgitation. Objective - Vital Signs Vital signs: Vital Signs Temp 97.0 F L 05/21/18 08:00 Pulse 68 10/01/17 08:00 Resp 18 10/01/17 08:00 BP 99/55 10/01/17 08:00 Pulse Ox 97 10/01/17 08:00 Intake & Output 09/30/17 10/01/17 10/01/17 18:59 06:59 18:59 Intake Total 500 Output Total 200 400 Balance 300 -400 Weight 127 kg Intake: Intake, IV Titration 500 Amount Heparin Sodium,Porcine/ 500 D5w Pmx 25,000 unit In Dextrose/Water 1 500ml. bag @ 9 UNITS/KG/HR 19.89 mls/hr IV .Q24H [facility]IS Rx#: [id number] Output: Urine 200 400 Other: Voiding Method Urinal Urinal # Voids 275 # Bowel Movements 1 1 ABP, PAP, CO, CI - Last Documented Arterial Blood Pressure 115/58 - Exam General appearance: The patient is alert, oriented, in no acute distress. The patient does not seem to be in acute respiratory distress. No use of excess amount of the breathing. HET: Head is normocephalic and atraumatic. Pupils are equal and reactive. Oropharynx is clear without lesions. Neck: Supple without lymphadenopathy. Trachea midline. There is significant jugular venous distention bilaterally. Neck is overall supple and there is no goiter or neck masses. Heart: The patient has a harsh systolic ejection murmur grade 4/6 heard throughout the precordium. The rhythm is irregular. The murmur is radiating to his neck. No right ventricular heave or thrill. Lungs: No crackles or wheezes are heard. There is diminished breath on the right lung base consistent with his underlying pleural effusion. Abdomen: Soft, nondistended, patient is status post large volume paracentesis would removal of 14.1 L of ascitic fluid. No peritoneal signs. No palpable organomegaly or masses. Extremities: +1 bilateral lower extremity edema with bilateral lower leg dressings edematous feet. Neurological: No focal deficits. Strength and sensation are grossly intact. Examination of the skin revealed no evidence of significant rashes, suspicious appearing nevi or other concerning lesions. Psychiatric the patient has normal mood and affect - Labs CBC & Chem 7: 09/30/17 06:00 10/01/17 08:35 Labs: Abnormal Lab Results - Last 24 Hours (Table) 09/30/17 09/30/17 10/01/17 Range/Units 16:45 20:56 06:15 APTT 76.5 H (22.0-30.0) sec Sodium (137-145) mmol/L Chloride (98-107) mmol/L Carbon Dioxide (22-30) mmol/L BUN (9-20) mg/dL Creatinine (0.66-1.25) mg/dL Glucose (74-99) mg/dL POC Glucose (mg/dL) 168 H 173 H (75-99) mg/dL Calcium (8.4-10.2) mg/dL 10/01/17 10/01/17 10/01/17 Range/Units 06:23 08:35 11:35 APTT (22.0-30.0) sec Sodium 126 L (137-145) mmol/L Chloride 94 L (98-107) mmol/L Carbon Dioxide 21 L (22-30) mmol/L BUN 72 H (9-20) mg/dL Creatinine 1.80 H (0.66-1.25) mg/dL Glucose 179 H (74-99) mg/dL POC Glucose (mg/dL) 155 H 218 H (75-99) mg/dL Calcium 8.0 L (8.4-10.2) mg/dL Assessment and Plan Plan: Assessment: 1 acute cardiac arrest, acute hypoxic respiratory failure secondary to acute cardiac arrest. The patient was with the downtime of about 2-3 minutes. He had successful resuscitation based on ACS protocol, post extubation day #7 2 right-sided pleural effusion likely on the basis of congestive heart failure. Possibility of chronic liver disease causing ascites and right-sided pleural effusion/hydrothorax cannot be completely excluded 3 CHF with impaired left a ejection fraction of 25%. In addition the patient has severe aortic stenosis, mitral regurgitation, severe tricuspid regurgitation secondary pulmonary hypertension. 4 chronic atrial fibrillation 5 ascites and anasarca secondary to above, there is post large volume paracentesis with removal of 14.1 L of ascitic fluid 6 questionable liver cirrhosis although the findings could also be related to [place]. I also believe his heart failure is another contributing factor to his liver hepatopathy and congestion and possibly contributing to his massive ascites 7 long-term anticoagulation with warfarin, and presently the patient is on heparin infusion for anticoagulation 8 diabetes mellitus 9 gout 10 BPH Plan: Continue current plan of treatment, he denies any worsening dyspnea, continue oral diuretics, patient is hyponatremic, and nephrology is following in regards to that. Patient is awaiting evaluation CT surgery in regards to his significant valvular heart disease. Obtain repeat chest x-ray in the morning, to evaluate recurrence of pleural effusions. I performed a history & physical examination of the patient and discussed their management with my nurse practitioner, Sydnee Blanco. I reviewed the nurse practitioner's note and agree with the documented findings and plan of care. Lung sounds are positive for a few bibasilar crackles. The findings and the impression was discussed with the patient. I attest to the documentation by the nurse practitioner. Time with Patient: Less than 30
[2017-10-01] MEDS: GABAPENTIN 300 MG CAP PO PRN (15:37)
--- NOTE | 2017-10-01 16:35 | P.GSCN ---
<Jesika Shultz - Last Filed: 10/01/17 16:14> History of Present Illness Consult date: 10/01/17 Reason for Consult: Severe aortic stenosis, surgical recommendations. Requesting physician: Mike Summers History of present illness: This is 69-year-old gentleman who follows on an outpatient basis with Dr. Smith. 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 Recently he has experienced increased shortness of breath, nonproductive cough, weakness, dizziness, abdominal distention and increased lower extremity edema. He presented to [facility] September 17. He was admitted for evaluation and treatment. He had a CT of the chest/abdomen/pelvis demonstrating right pleural effusion, calcified coronary arteries, and abdominal ascites. He also had a transthoracic echocardiogram on September 17 demonstrating severe global hypokinesis with an ejection fraction 25-30%, moderate aortic insufficiency, moderate to severe aortic stenosis with peak/ mean gradient across the aortic valve 61.54/38.15, severe mitral regurgitation , severe tricuspid regurgitation severe pulmonary hypertension with an RVSP of 91.85. He was treated for acute on chronic systolic heart failure. On September 23 he experienced a cardiac arrest but was adequately resuscitated. Repeat transthoracic echocardiogram demonstrated continued ejection fraction 25-30%, mild to moderate aortic insufficiency, moderate aortic stenosis with peak/mean gradients 55.57/36.34, mild to moderate regurgitation, and mild tricuspid regurgitation. Dr. Gonzalez from cardiothoracic surgery was consulted for surgical recommendations. Review of Systems 14 point review of systems was completed and was negative except as noted. - Constitutional Reports as per HPI - Cardiovascular Reports dyspnea on exertion, Reports irregular heart beat, Reports leg edema, Reports shortness of breath - Respiratory Reports cough, Reports dyspnea - Musculoskeletal Musculoskeleta Comment(s): Mostly bedbound, does get up for meals, uses walker for short distance ambulation. Reports muscle weakness - Integumentary Reports foot/leg ulcers - Neurological Reports weakness Past Medical History Past Medical History: Atrial Fibrillation, Diabetes Mellitus, Hypertension, Prostate Disorder Additional Past Medical History / Comment(s): Gout History of Any Multi-Drug Resistant Organisms: None Reported Past Surgical History: Cholecystectomy Additional Past Surgical History / Comment(s): bilateral cataract Past Anesthesia/Blood Transfusion Reactions: No Reported Reaction Past Psychological History: No Psychological Hx Reported Smoking Status: Former smoker Past Alcohol Use History: Rare Past Drug Use History: None Reported - Past Family History Father Family Medical History: No Reported History Additional Family Medical History / Comment(s): Father lived to be 91 yrs old. Mother Family Medical History: Cancer Additional Family Medical History / Comment(s): Mother had blood cancer and heart problems. She lived to be 83 yrs old. Medications and Allergies Home Medications Medication Instructions Recorded Confirmed Type Allopurinol [Zyloprim] 300 mg PO MOWEFR 09/17/17 09/17/17 History Digoxin [Lanoxin] 250 mcg PO DAILY 09/17/17 09/17/17 History Furosemide [Lasix] 40 mg PO BID 09/17/17 09/17/17 History Indomethacin [Indocin] 50 mg PO HS 09/17/17 09/17/17 History Insulin NPH Hum/Reg Insulin Hm 15 unit SQ AC-BID 09/17/17 09/17/17 History [NovoLIN 70-30 100 UNIT/ML VIAL] Lutein 10 mg PO HS 09/17/17 09/17/17 History Multivit-Min/FA/Lycopen/Lutein 1 tab PO DAILY 09/17/17 09/17/17 History [Centrum Silver Tablet] Potassium Chloride [Klor-Con 20] 20 meq PO DAILY 09/17/17 09/17/17 History Quinapril HCl [Accupril] 5 mg PO DAILY 09/17/17 09/17/17 History Tamsulosin HCl [Flomax] 0.4 mg PO HS 09/17/17 09/17/17 History Warfarin [Coumadin] 5 mg PO MOTUTHFRSA 09/17/17 09/17/17 History guaiFENesin-DM 600/30MG [Mucinex 1 tab PO Q12HR 09/17/17 09/17/17 History Dm] Allergies Allergy/AdvReac Type Severity Reaction Status Date / Time No Known Allergies Allergy Verified 09/17/17 09:11 Surgical - Exam Vital Signs Temp Pulse Resp BP Pulse Ox 98.5 F 95 18 123/74 99 09/17/17 08:49 09/17/17 08:49 09/17/17 08:49 09/17/17 08:49 09/17/17 08:49 - General well developed, well nourished, no distress, no pain, chronically ill, obese - Eyes PERRL, normal ocular movement - ENT no hearing loss - Neck no masses, no bruits, trachea midline - Respiratory Lungs sounds bilaterally. Respirations even, nonlabored. Currently on room air with oxygen saturation 95%. - Cardiovascular S1, S2 present. Irregular rate and rhythm, controlled atrial fibrillation on telemetry. Positive systolic murmur. Palpable peripheral pulses bilaterally. 3+ pitting edema to bilateral lower extremities. No calf pain or tenderness noted. - Abdomen No organomegaly, very large round abdomen. Abdomen: soft, non tender, bowel sounds - Genitourinary Deferred - Rectum Deferred - Integumentary Multiple areas of chronic ulceration to bilateral lower extremities, right and left upper extremities. no rash - Neurologic normal coordination, normal sensation - Musculoskeletal Decreased strength to upper and lower extremities. Walker at bedside. - Psychiatric oriented to time, oriented to person, oriented to place, speech is normal, memory intact Results - Labs 09/30/17 06:00 10/01/17 08:35 Abnormal Lab Results - Last 24 Hours (Table) 09/30/17 09/30/17 10/01/17 Range/Units 16:45 20:56 06:15 APTT 76.5 H (22.0-30.0) sec Sodium (137-145) mmol/L Chloride (98-107) mmol/L Carbon Dioxide (22-30) mmol/L BUN (9-20) mg/dL Creatinine (0.66-1.25) mg/dL Glucose (74-99) mg/dL POC Glucose (mg/dL) 168 H 173 H (75-99) mg/dL Calcium (8.4-10.2) mg/dL 10/01/17 10/01/17 10/01/17 Range/Units 06:23 08:35 11:35 APTT (22.0-30.0) sec Sodium 126 L (137-145) mmol/L Chloride 94 L (98-107) mmol/L Carbon Dioxide 21 L (22-30) mmol/L BUN 72 H (9-20) mg/dL Creatinine 1.80 H (0.66-1.25) mg/dL Glucose 179 H (74-99) mg/dL POC Glucose (mg/dL) 155 H 218 H (75-99) mg/dL Calcium 8.0 L (8.4-10.2) mg/dL Diabetes panel 10/01/17 Range/Units 08:35 Sodium 126 L (137-145) mmol/L Potassium 4.9 (3.5-5.1) mmol/L Chloride 94 L (98-107) mmol/L Carbon Dioxide 21 L (22-30) mmol/L BUN 72 H (9-20) mg/dL Creatinine 1.80 H (0.66-1.25) mg/dL Glucose 179 H (74-99) mg/dL Calcium 8.0 L (8.4-10.2) mg/dL Calcium panel 10/01/17 Range/Units 08:35 Calcium 8.0 L (8.4-10.2) mg/dL Pituitary panel 10/01/17 Range/Units 08:35 Sodium 126 L (137-145) mmol/L Potassium 4.9 (3.5-5.1) mmol/L Chloride 94 L (98-107) mmol/L Carbon Dioxide 21 L (22-30) mmol/L BUN 72 H (9-20) mg/dL Creatinine 1.80 H (0.66-1.25) mg/dL Glucose 179 H (74-99) mg/dL Calcium 8.0 L (8.4-10.2) mg/dL Adrenal panel 10/01/17 Range/Units 08:35 Sodium 126 L (137-145) mmol/L Potassium 4.9 (3.5-5.1) mmol/L Chloride 94 L (98-107) mmol/L Carbon Dioxide 21 L (22-30) mmol/L BUN 72 H (9-20) mg/dL Creatinine 1.80 H (0.66-1.25) mg/dL Glucose 179 H (74-99) mg/dL Calcium 8.0 L (8.4-10.2) mg/dL - Imaging Chest x-ray: report reviewed, image reviewed CT scan - abdomen: report reviewed, image reviewed CT scan - chest: report reviewed, image reviewed CT scan - pelvis: report reviewed, image reviewed EKG: image reviewed Additional studies: Echocardiogram results reviewed. Assessment and Plan (1) Acute kidney injury Current Visit: Yes Status: Acute Code(s): N17.9 - ACUTE KIDNEY FAILURE, UNSPECIFIED SNOMED Code(s): 36550498 (2) Acute systolic CHF (congestive heart failure), NYHA class 4 Current Visit: Yes Status: Acute Code(s): I50.21 - ACUTE SYSTOLIC ( CONGESTIVE) HEART FAILURE SNOMED Code(s): 434214331 (3) Cardiac arrest Current Visit: Yes Status: Acute Code(s): I46.9 - CARDIAC ARREST, CAUSE UNSPECIFIED SNOMED Code(s): 660239730 (4) Cirrhosis Current Visit: Yes Status: Acute Priority: High Code(s): K74.60 - UNSPECIFIED CIRRHOSIS OF LIVER SNOMED Code(s): 04528804 (5) Diabetes mellitus Current Visit: Yes Status: Chronic Priority: Medium Code(s): E11.9 - TYPE 2 DIABETES MELLITUS WITHOUT COMPLICATIONS SNOMED Code(s): 17813253 (6) Hoarseness of voice Current Visit: Yes Status: Chronic Priority: High Onset Date: ~08/23/17 Code(s): R49.0 - DYSPHONIA SNOMED Code(s): 49006510 (7) Pleural effusion Current Visit: Yes Status: Acute Code(s): J90 - PLEURAL EFFUSION, NOT ELSEWHERE CLASSIFIED SNOMED Code(s): 52621195 (8) Atrial fibrillation Current Visit: Yes Status: Chronic Priority: High Code(s): I48.91 - UNSPECIFIED ATRIAL FIBRILLATION SNOMED Code(s): 23688179 (9) Ascites Current Visit: Yes Status: Resolved Priority: High Code(s): R18.8 - OTHER ASCITES SNOMED Code(s): 053276411 Plan: The patient was seen and examined at the bedside. Chart/diagnostics were reviewed. Case will be discussed with Dr. Gonzalez. At this time patient is very high risk for surgery. Would need heart catheterization to evaluate coronary disease prior to any valvular intervention, which patient is not stable for at this time. Would recommend maximizing medical therapy. This was discussed in detail with the patient. Continue current medical therapy per primary care/cardiology. More recommendations to follow. Thank you Dr. Summers for this consult. Please call us with any questions. Time with Patient: Greater than 30 <Neelam Gonzalez - Last Filed: 10/01/17 17:50> Surgical - Exam Vital Signs Temp Pulse Resp BP Pulse Ox 98.5 F 95 18 123/74 99 09/17/17 08:49 09/17/17 08:49 09/17/17 08:49 09/17/17 08:49 09/17/17 08:49 Results - Labs 09/30/17 06:00 10/01/17 08:35 Abnormal Lab Results - Last 24 Hours (Table) 09/30/17 10/01/17 10/01/17 Range/Units 20:56 06:15 06:23 APTT 76.5 H (22.0-30.0) sec Sodium (137-145) mmol/L Chloride (98-107) mmol/L Carbon Dioxide (22-30) mmol/L BUN (9-20) mg/dL Creatinine (0.66-1.25) mg/dL Glucose (74-99) mg/dL POC Glucose (mg/dL) 173 H 155 H (75-99) mg/dL Calcium (8.4-10.2) mg/dL 10/01/17 10/01/17 10/01/17 Range/Units 08:35 11:35 16:26 APTT (22.0-30.0) sec Sodium 126 L (137-145) mmol/L Chloride 94 L (98-107) mmol/L Carbon Dioxide 21 L (22-30) mmol/L BUN 72 H (9-20) mg/dL Creatinine 1.80 H (0.66-1.25) mg/dL Glucose 179 H (74-99) mg/dL POC Glucose (mg/dL) 218 H 202 H (75-99) mg/dL Calcium 8.0 L (8.4-10.2) mg/dL Diabetes panel 10/01/17 Range/Units 08:35 Sodium 126 L (137-145) mmol/L Potassium 4.9 (3.5-5.1) mmol/L Chloride 94 L (98-107) mmol/L Carbon Dioxide 21 L (22-30) mmol/L BUN 72 H (9-20) mg/dL Creatinine 1.80 H (0.66-1.25) mg/dL Glucose 179 H (74-99) mg/dL Calcium 8.0 L (8.4-10.2) mg/dL Calcium panel 10/01/17 Range/Units 08:35 Calcium 8.0 L (8.4-10.2) mg/dL Pituitary panel 10/01/17 Range/Units 08:35 Sodium 126 L (137-145) mmol/L Potassium 4.9 (3.5-5.1) mmol/L Chloride 94 L (98-107) mmol/L Carbon Dioxide 21 L (22-30) mmol/L BUN 72 H (9-20) mg/dL Creatinine 1.80 H (0.66-1.25) mg/dL Glucose 179 H (74-99) mg/dL Calcium 8.0 L (8.4-10.2) mg/dL Adrenal panel 10/01/17 Range/Units 08:35 Sodium 126 L (137-145) mmol/L Potassium 4.9 (3.5-5.1) mmol/L Chloride 94 L (98-107) mmol/L Carbon Dioxide 21 L (22-30) mmol/L BUN 72 H (9-20) mg/dL Creatinine 1.80 H (0.66-1.25) mg/dL Glucose 179 H (74-99) mg/dL Calcium 8.0 L (8.4-10.2) mg/dL Assessment and Plan Assessment: Patient seen and examined. Chart reviewed. CT, labs, Echos etc... reviewed. At least moderate to severe . Mitral regurgitation dynamic. Likely cirrhosis. S/ P code. Debility for years. Evidently not a candidate for conventional AVR. Needs continuous optimization and rehabilitation at this point. If general status does improve, consider a cath to check potential candidacy for potential TAVR. Plan discussed with patient. Will discuss with Dr Mccann. NEELAM GONZALEZ MD
[2017-10-01 16:39] LABS: Glucose,Whole Blood 202 mg/dL (75-99)
--- NOTE | 2017-10-01 16:42 | P.PN ---
Subjective Patient feeling better today was resting peaceably. Apparently the patient is still pretty weak needing 3 person assist to get to the bedside commode. He thinks his swelling in his extremities are improved since yesterday. In discussing ongoing plan of care and surgical options and appears that the patient seems to be leaning the direction of ongoing medical therapy at this time but would still like to discuss options with cardiology and CTS surgery. No acute events overnight Objective - Vital Signs Vital signs: Vital Signs Temp 97.0 F L 10/01/17 08:00 Pulse 77 10/01/17 12:00 Resp 18 10/01/17 12:00 BP 83/44 10/01/17 12:00 Pulse Ox 95 10/01/17 12:00 Intake & Output 09/30/17 10/01/17 10/01/17 18:59 06:59 18:59 Intake Total 500 Output Total 200 400 Balance 300 -400 Weight 127 kg Intake: Intake, IV Titration 500 Amount Heparin Sodium,Porcine/ 500 D5w Pmx 25,000 unit In Dextrose/Water 1 500ml. bag @ 9 UNITS/KG/HR 19.89 mls/hr IV .Q24H [facility] Rx#: [id number] Output: Urine 200 400 Other: Voiding Method Urinal Urinal # Voids 275 # Bowel Movements 1 1 ABP, PAP, CO, CI - Last Documented Arterial Blood Pressure 115/58 - Exam Constitutional: No acute distress, conversant, pleasant Eyes: Anicteric sclerae, moist conjunctiva, no lid-lag, PERRLA ENMT: NC/AT,Oropharynx clear, no erythema, exudates Neck:Supple, FROM, no masses, or JVD, No carotid bruits; No thyromegaly Lungs: Improved aeration, Normal respiratory effort on room air no accessory muscle use Cardiovascular: Irregularly irregular, holosystolic murmur, gallops, or rubs + 1 pedal peripheral edema Abdominal: Soft Nontender, moderately distended, no guarding, no rebound or rigidity, Normoactive bowel sounds No hepatomegaly, No splenomegaly, No palpable mass No abdominal wall hernia noted Skin: Normal temperature, tone, texture, turgor, No induration No subcutaneous nodules, No rash, lesions, No ulcers Extremities:No digital cyanosis No clubbing, Pedal pulses intact and symmetrical Radial pulses intact and symmetrical Normal gait and station, No calf tenderness, painful range of motion in the left shoulder Psychiatric: Alert and oriented to person, place and time, Appropriate affect Intact judgement Neuro: Muscles Strength 5/5 in all 4 extremities, Sensation to light touch grossly present throughout, Cranial nerves II-XII grossly intact. No focal sensory deficits - Labs CBC & Chem 7: 09/30/17 06:00 10/01/17 08:35 Labs: Abnormal Lab Results - Last 24 Hours (Table) 09/30/17 09/30/17 10/01/17 Range/Units 16:45 20:56 06:15 APTT 76.5 H (22.0-30.0) sec Sodium (137-145) mmol/L Chloride (98-107) mmol/L Carbon Dioxide (22-30) mmol/L BUN (9-20) mg/dL Creatinine (0.66-1.25) mg/dL Glucose (74-99) mg/dL POC Glucose (mg/dL) 168 H 173 H (75-99) mg/dL Calcium (8.4-10.2) mg/dL 10/01/17 10/01/17 10/01/17 Range/Units 06:23 08:35 11:35 APTT (22.0-30.0) sec Sodium 126 L (137-145) mmol/L Chloride 94 L (98-107) mmol/L Carbon Dioxide 21 L (22-30) mmol/L BUN 72 H (9-20) mg/dL Creatinine 1.80 H (0.66-1.25) mg/dL Glucose 179 H (74-99) mg/dL POC Glucose (mg/dL) 155 H 218 H (75-99) mg/dL Calcium 8.0 L (8.4-10.2) mg/dL Assessment and Plan (1) Acute systolic CHF (congestive heart failure), NYHA class 4 Narrative/Plan: * Lasix resumed at 20 mg by mouth daily yesterday continue with low-dose beta raymon * ProBNP 16 300 on presentation, Echocardiogram ejection fraction of 25-30% severely dilated left atrium with moderate to severe aortic stenosis (patient deemed to be a poor surgical candidate given his comorbidities by cardiothoracic surgery) * Cardiology following appreciate recommendations * Status post cardiac arrest with PeA after being started on dopamine with ROSC after approximately 3-4 minutes. * We will likely need a LifeVest prior to discharge r Current Visit: Yes Status: Acute Code(s): I50.21 - ACUTE SYSTOLIC ( CONGESTIVE) HEART FAILURE SNOMED Code(s): 295003574 (2) Acute kidney injury Narrative/Plan: * nonoliguric acute kidney injury secondary to ATN secondary to hypotension and cardiac arrest. * Creatinine slightly worse at 1.8 today * Continue to monitor Current Visit: Yes Status: Acute Code(s): N17.9 - ACUTE KIDNEY FAILURE, UNSPECIFIED SNOMED Code(s): 29095823 (3) Ascites Narrative/Plan: * GI consulted Dr. 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 fib rate is controlled * patient continued on low dose metoprolol continue with heparin drip Current Visit: Yes Status: Chronic Priority: High Code(s): I48.91 - UNSPECIFIED ATRIAL FIBRILLATION SNOMED Code(s): 66030248 (6) Elevated troponin Current Visit: Yes Status: Acute Code(s): R74.8 - ABNORMAL LEVELS OF OTHER SERUM ENZYMES SNOMED Code(s): 762316378 (7) Pleural effusion Narrative/Plan: * Likely cardiogenic in etiology * Chest ultrasound confirming pleural effusion pocket 7.8 cm Current Visit: Yes Status: Acute Code(s): J90 - PLEURAL EFFUSION, NOT ELSEWHERE CLASSIFIED SNOMED Code(s): 04936113 (8) Arthritis of left shoulder region Narrative/Plan: * X-ray confirming severe left shoulder arthropathy of AC joint * Patient scheduled to have steroid shot later today Current Visit: Yes Status: Chronic Priority: Medium Code(s): M19.012 - PRIMARY OSTEOARTHRITIS, LEFT SHOULDER SNOMED Code(s): 802783372 (9) Hyperbilirubinemia Current Visit: Yes Status: Resolved Code(s): E80.6 - OTHER DISORDERS OF BILIRUBIN METABOLISM SNOMED Code(s): 21916206 Plan: * Patient seems to be leaning towards ongoing medical care versus surgery but still like to discuss options with cardiology and cardiothoracic surgery, I would assume the patient will be high risk for cardiac surgery given his extremely low EF 20-25%; waiting input from CTS surgery once the patient has been his final decision will transition him to oral anticoagulation, will also likely need a LifeVest prior to discharge to rehab
[2017-10-01] MEDS: INSULIN NPH/REG INSULIN 70/30 300 UNIT/3 ML VIAL SQ SCH (18:59)
[2017-10-01] MEDS: TAMSULOSIN 0.4 MG CAP.ER.24H PO SCH (21:56)
[2017-10-01 21:59] LABS: Glucose,Whole Blood 184 mg/dL (75-99)
[2017-10-02 06:08] LABS: Glucose,Whole Blood 164 mg/dL (75-99)
[2017-10-02] MEDS: INSULIN ASPART 100 UNIT/ML 1 ML 10 ML VIAL SQ SCH ×4 (06:30→21:48)
[2017-10-02] MEDS: PANTOPRAZOLE 40 MG TABLET PO SCH (06:31)
[2017-10-02] MEDS: FUROSEMIDE 20 MG TAB PO SCH (08:25)
[2017-10-02] MEDS: ATORVASTATIN 40 MG TAB PO SCH (08:25)
[2017-10-02] MEDS: APIXABAN 5 MG TAB PO SCH ×2 (08:25→21:46)
[2017-10-02] MEDS: PIPERACILLIN-TAZOBACTAM 3.375 GM in DEXTROSE/WATER 1 50ML.BAG IVPB SCH (08:25)
[2017-10-02] MEDS: METOPROLOL TARTRATE 12.5 MG TAB PO SCH ×2 (08:25→21:46)
--- NOTE | 2017-10-02 08:57 | P.PN ---
Subjective Patient is seen in follow-up for acute kidney injury. Renal function has been worsening with creatinine up to 1.9. Sodium level stable at 126. Oral intake is improving. Denies chest pain or shortness of breath. He does of systolic CHF with ejection fraction of 20-25%. He is status post cardiac arrest. Now maintained on Lasix 20 mg orally once daily. He also received 1 dose of Samsca on October 01. Vital signs are stable. General: The patient appeared well nourished and normally developed. HEENT: Head exam is unremarkable. Neck is without jugular venous distension. LUNGS: Lungs are clear to auscultation and percussion. Breath sounds decreased. HEART: Rate and Rhythm are regular. First and second heart sounds normal. No murmurs, rubs or gallops. ABDOMEN: Abdominal exam reveals normal bowel sounds. Non-tender and non- distended. No evidence of peritonitis. EXTREMITITES: Trace edema. Objective - Vital Signs Vital signs: Vital Signs Temp 98 F 10/02/17 08:00 Pulse 81 10/02/17 08:00 Resp 17 10/02/17 08:00 BP 111/58 10/02/17 08:00 Pulse Ox 98 10/02/17 08:00 Intake & Output 10/01/17 10/02/17 10/02/17 18:59 06:59 18:59 Intake Total 50 236 Output Total 400 300 100 Balance -400 -250 136 Intake: Intake, IV Titration 50 Amount Piperacillin-Tazobactam 3 50 .375 gm In Dextrose/Water 1 50ml.bag @ 12.5 mls/hr IVPB Q8HR [facility] Rx#: [id number] Oral 236 Output: Urine 400 300 100 Other: Voiding Method Urinal Urinal Urinal # Voids 1 # Bowel Movements 1 ABP, PAP, CO, CI - Last Documented Arterial Blood Pressure 115/58 - Labs CBC & Chem 7: 09/30/17 06:00 10/02/17 06:11 Labs: Abnormal Lab Results - Last 24 Hours (Table) 10/01/17 10/01/17 10/01/17 Range/Units 08:35 11:35 16:26 Sodium 126 L (137-145) mmol/L Chloride 94 L (98-107) mmol/L Carbon Dioxide 21 L (22-30) mmol/L BUN 72 H (9-20) mg/dL Creatinine 1.80 H (0.66-1.25) mg/dL Glucose 179 H (74-99) mg/dL POC Glucose (mg/dL) 218 H 202 H (75-99) mg/dL Calcium 8.0 L (8.4-10.2) mg/dL 10/01/17 10/01/17 10/02/17 Range/Units 17:26 21:58 06:06 Sodium 126 L (137-145) mmol/L Chloride (98-107) mmol/L Carbon Dioxide (22-30) mmol/L BUN (9-20) mg/dL Creatinine (0.66-1.25) mg/dL Glucose (74-99) mg/dL POC Glucose (mg/dL) 184 H 164 H (75-99) mg/dL Calcium (8.4-10.2) mg/dL 10/02/17 Range/Units 06:11 Sodium 126 L (137-145) mmol/L Chloride 93 L (98-107) mmol/L Carbon Dioxide (22-30) mmol/L BUN 75 H (9-20) mg/dL Creatinine 1.94 H (0.66-1.25) mg/dL Glucose 137 H (74-99) mg/dL POC Glucose (mg/dL) (75-99) mg/dL Calcium 8.0 L (8.4-10.2) mg/dL Assessment and Plan Plan: Assessment: 1. Nonoliguric acute kidney injury secondary to ATN secondary to hypotension and cardiac arrest. Creatinine 1.9 today. 2. Hyponatremia, euvolemic. Urine sodium noted to be low at 23. Urine osmolality 423. 3. Systolic CHF with ejection fraction of 20-25%. 4. Ascites status post paracentesis on September 20 with over 14 L removed. 5. Liver cirrhosis. Questionable etiology. 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 6. Anemia. Iron deficiency noted - s/p 3 doses of IV iron. 7. Atrial fibrillation maintained on heparin drip. Rate controlled. Plan: Continue Lasix 20 mg orally once daily. Maintain 1500 mL fluid restriction. Maintain protein supplements. Avoid nephrotoxic agents and hypotensive episodes. Continue to monitor renal function and urine output. Follow-up CXR from this AM. Follow-up repeat urine studies. Check PVR.
--- NOTE | 2017-10-02 11:25 | P.PN ---
Subjective Progress Note Date: 10/02/17 Principal diagnosis: Right-sided pleural effusion likely secondary to congestive heart failure This is a 77-year-old male patient with known history of chronic atrial fibrillation, chronic lumbar degenerative disc disease with limited mobility and impaired performance and functional status at baseline. He is also known to have diabetes, gout, and prostate enlargement. The patient comes in with worsening shortness of breath and addition to generalized weakness and some dizziness. His chest x-ray showed low lung volumes and cardiomegaly and possibly some right-sided pleural effusion. EKG showed chronic atrial fibrillation with some nonspecific ST segment changes. Based on that the patient a CAT scan of the chest abdomen and pelvis and the CAT scan showed a small to moderate-sized right-sided pleural effusion in addition to some changes in the liver consistent with liver cirrhosis and ascites with anasarca. The patient also reports some increased lower oximetry edema and further investigation with an echo of the heart showed an ejection fraction of 25-30% and global hypokinesis of the left ventricle, RV was mildly enlarged, moderate to severe aortic stenosis, severe mitral regurgitation, severe tricuspid regurgitation, severe pulmonary hypertension was also noted. The patient is currently on 2 L of oxygen nasal cannula. His INR is at 1.5 as the patient is on warfarin. The patient's creatinine is at 1.1 and the patient was started on diuretics and he seems to be responding. He feels less short of breath compared to yesterday. He feels that the abdomen is also less distended. He is lower extremity edema is also improving. He was seen by cardiology. He was also seen by gastroenterology. He is not a drinker. No significant hepatitis. Most of alcoholism. No history of GI bleeding. The patient will have a paracentesis with the next 24 hours regarding his ascites. He is able to lay down to 20 bed elevation without any major difficulties. The patient seen again today 09/19/2017 in follow-up on the selective care unit. He is currently sitting up at bedside. He is awake and alert in no acute distress. His abdomen remains quite distended. He is still this moment with minimal exertion. He is maintaining O2 saturations in the upper 90s on 1.5 L/m per nasal cannula. He is currently afebrile. Hemodynamically stable. INR is 1.6 today. IR will possibly do a paracentesis tomorrow. He is voiding well and remains in a negative balance. His weight is down 1 kg. On 09/20/2017 patient seen in follow-up on selective care unit, he is status post large volume paracentesis of approximately 14.1 L of straw-colored fluid. Patient tolerated the procedure well. Her weight resting in bed, in no acute distress, abdomen is a lot less distended, soft, nontender. Patient is having some soreness along the left costal margin, mild, but no acute distress. Oxygenation improved, patient is currently on 1/2 L per nasal cannula, he reports his breathing easier, vital signs are stable, he is afebrile. Patient has been started on IV Lasix drip at 10 mg per hour, in addition to the Zaroxolyn. Patient continues on potassium and Aldactone,, and lisinopril. Overall his breathing is improved, continue with current medical treatment, will obtain a follow-up chest x-ray in the morning OnOn 09/21/2017, the patient is awake and alert. The patient is looking much better as the patient had significant large volume paracentesis with evacuation of more than 10 L from the abdomen. In fact the total amount was 14 L. Subsequent chest x-ray showed a presence of a right-sided pleural effusion which is moderate in size. Nevertheless, the patient denies having any significant shortness of breath and he is not wanting a thoracentesis for the time being. I think it's reasonable as long as the patient has significant improvement in her breathing with large volume paracentesis. Meanwhile, the patient has become slightly prerenal on today's blood work. BUN is up to 77 and the creatinine is up to 1.48. The patient is currently on Lasix drip at 10 mg an hour. The patient is also on Zaroxolyn 5 mg by mouth daily. The patient is also on Aldactone 100 mg by mouth daily. No major edema lower extremities. Note that the blood work also showed positivity and GEOVANI and anti-smooth muscle antibodies were also positive raising the possibility of an underlying autoimmune related hepatitis/liver disease. This antibodies positive for autoimmune liver disease as such as primary biliary cholangitis and autoimmune hepatitis. Note that the patient also has cardiomyopathy Contributing to His Profound Edema and Fluid Overload. 09/22/2017, the patient has no specific complaints. Hemodynamically stable. The patient is currently off the Lasix drip. The patient will be started on Aldactone.. The patient has no abdominal pain. Abdominal distention is improved. We decided not to drain the pleural effusion in the lung volume the patient has been having no significant respiratory distress at this point in time. The renal function is stable and the creatinine is at 1.37. On 09/23/2017, this 77-year-old male patient who got brought into the intensive care unit after he rested on the floor. I do not have the chance to evaluate this patient in the morning. The patient was seen by cardiology and apparently his IV Lasix was on hold due to issues related to hypotension. At that point the patient was placed on dopamine at 5 mics. Within 30 minutes of initiation of dopamine, the patient became tachycardic and subsequently a CODE BLUE was called and the patient went into cardiopulmonary arrest. I was on the floor and I attended to the Code and this patient was in PEA initially. CPR was initiated and ACLS protocol was followed. The patient was given epinephrine. I intubated the patient on the scene. Within 2-3 minutes a pulse on her blood pressure was obtained. The patient was interactive and moving all 4 extremities. I'm of the patient in intensive care unit. I started the prevent on him while him being intubated on a mechanical ventilator. A brief neurologic evaluation was done and the patient was fully awake and alert and moving all 4 extremities. Nevertheless, based on his underlying cardio pulmonary status, I decided not to extubate the patient. He was placed on propofol infusion for sedation. Currently is on assist control mode at a rate of 24, tidal volume of 500, FiO2 of 100% and a PEEP of 5. Blood gas showed a pH of 7.37 with a pCO2 of 36 and pO2 of 300 and the FiO2 was not down to 50%. The patient is currently on 5 mics of norepinephrine infusion for blood pressure control. The patient had a post intubation chest x-ray that showed right basilar pleural effusion in addition to cardiomegaly. ET tube was in a good location. Subsequently, I inserted a triple lumen catheter for the left subclavian vein and a chest x-ray findings remain stable and there was no evidence of any pneumothorax. Reviewing the patient's blood work from earlier this morning, the patient a white cell count of 8 with a hemoglobin of 9.7. His BUN is at 83 with a creatinine of 1.5. And note that the patient has become progressively more prerenal as the patient had large volume paracentesis and subsequently was aggressively treated with diuretics. Note that his echocardiogram showed ejection fraction of 25% along with global hypokinesis. LAD was severely dilated. There was severe aortic sclerosis and moderate aortic regurgitation and moderate to severe aortic stenosis with a PA pressure of 61 in addition to severe mitral regurgitation, severe tricuspid regurgitation and severe pulmonary hypertension with a PA pressure of 91. The CAT scan of the abdomen showed changes consistent with cirrhosis of the liver and ascites. Large volume paracentesis was done. The patient continued to have a moderate-sized right-sided pleural effusion. The cirrhosis is probably of a cardiac in nature. No significant splenomegaly or splenic varices was seen. Upon further workup the patient do not to have a positive GEOVANI and anti- smooth muscle antibody which also raises concern for autoimmune hepatitis. Patient was reevaluated today on 09/24/2017, remains on mechanical ventilation, remains on 2 g of norepinephrine, chest x-ray is showing some improvement, but patient continues to have bilateral pleural effusions. Right more so than left , and I believe the right pleural effusion is related to his underlying liver disease and ascites. May or may not consider thoracentesis at this point. His ventilator settings were reviewed, patient was awakened, I gave him a trial of pressure support and CPAP, patient did quite well, and I went ahead and recommended extubating the patient. His weaning parameters were great. His labs were also reviewed WBC count is 12 hemoglobin is 10.7. ABG showed a pO2 of 217 pCO2 of 32 pH of 7.45. PTT is 47.7, patient remains on heparin. Electrolytes are normal BUN is 73 creatinine 1.20. Patient was noted to be appropriate, responsive, and in no distress on pressure support and CPAP. Then I proceeded to extubating the patient. Patient was reevaluated today on 09/25/2017, he is presently on room air, extubated yesterday, and tolerated the extubation quite well. Patient is off mechanical ventilation, off pressors, seems to be very comfortable, in no distress. Continues to have multiple complex medical problems including pulmonary, cardiac, and her renal issues. And most definitely liver issues/ hepatitis. Based on the notes from the med peds, patient was felt to have cirrhotic liver and abdominal pelvic ascites with pleural effusion secondary to cirrhosis possibly cryptogenic secondary to [place]. Chest x-ray today continues to show some pleural effusion and consolidation of the right lower lobe, but seems to be a bit improved compared to the chest x-ray yesterday. Labs showed relatively normal CBC hemoglobin is 9.3. Normal BUN is improving down to 63, and creatinine is also improving down to 1.20. At this point the patient seems to be making good amount of urine, and he is off diuretics. Being followed closely by nephrology. On 09/26/2017, patient remains in the ICU, tolerated extubation over the last 2 days quite well, presently on 2 L nasal cannula. Patient denies any shortness of breath, he is off all the pressors, not receiving any diuretics, but early today, he was seen by nephrology and recommended a dose of Lasix. His chest x- ray continues to show a good sized right-sided pleural effusion, patient is diuresing well, hence I have no plans to do a thoracentesis at this point. His mentation seems to be intact. Patient does have low ejection fraction, and cardiomyopathy with LV dysfunction, his ejection fraction is 25%. Continues to have some swelling in the lower extremities, and that is being addressed with diuretics. Patient denies any shortness of breath, no chest pain, no cough, no wheezing, no nausea no vomiting and no abdominal pain. Labs WBC count is 6.9 hemoglobin is 8.8 ETT is therapeutic at 54.6 electrolytes were noted BUN is 60 creatinine is 1.30. Liver enzymes were noted to be relatively normal. Chest x- ray as noted above. Reevaluated today on 09/27/2017, patient remains in the ICU, he was extubated a few days back, and he continues to tolerate extubation. Presently on room air. Denies any specific complaints, feeling great compared to how he felt over the last few days. All his labs were reviewed including a CBC showed a hemoglobin of 8.1, WBC count of 6.1 PTT is therapeutic at 49.5. Basic metabolic profile was relatively normal. BUN is 60 creatinine 1.30 unchanged compared to yesterday. Urine sodium is 23 urine osmolality is 423. Reevaluated today on 09/28/2017, patient remains as an overflow in the ICU, doing great. He is basically asymptomatic. However his sodium seems to be drifting down, and his renal functioning is a bit worse today. X-ray is showing improvement in his bilateral pleural effusions. Patient remains on room air, denies any shortness of breath. Remains edematous and swollen in the lower extremities, but clinically the patient is relatively dry. Has been making over 200 mL of urine per hour without any diuretics. Hence I will restart the patient on a 0.9 normal saline at 70 mL per hour. His BUN today is 61 creatinine is 1.40 and his sodium is 129. WBC count is 6.4 hemoglobin is 8.4 , patient remains on heparin, and his PTT is therapeutic, he is also receiving IV iron. On 09/29/2017 patient seen in follow-up on selective care unit. He is resting in bed, in no acute distress, currently on room air, and the pulse ox of 97%, lung sounds are positive for bibasilar rales, and chest x-ray was reviewed and shows stable bilateral consolidation and pleural effusion. Patient continue is on empiric antibiotics in the form of Zosyn, and ascites fluid culture has been negative so far. No chest congestion, no sputum production or chest pain. No hemoptysis. Denies any fever or chills, today's lab work shows the BBC of 5.9, hemoglobin of 8.4, sodium is improving slightly, and is currently is at 129, B UN is 62, creatinine is 1.5. Patient remains on heparin infusion and tidal coagulation for his atrial fibrillation, cardiology discussed the possibility of surgical intervention for patient's valvular disease, and the patient and the family would like to think about their options. For now he remains stable, no specific complaints. On 10/01/2017 patient seen in follow-up on selective care unit. In no acute distress, currently on room air, 97%, vital signs are stable, patient is afebrile. Lung sounds are diminished with a few scattered rales on the left. Patient is on oral Lasix at 20 mg once daily, he is on Ahlquist for anticoagulation, on antibiotics in the form of Zosyn. He received a dose of Tolvaptan for his hyponatremia. He is up walking with a walker with physical therapy, and tolerated activity fairly well. Obtain follow-up chest x-ray tomorrow. Patient overall reports his breathing is easier. A consultation her cardiothoracic surgery was requested in regards to potential surgery for moderate to severe aortic stenosis, severe mitral regurgitation and severe tricuspid regurgitation. On 10/02/2017 patient seen again in follow-up on selective care unit, denies any acute distress, denies any dyspnea. He remains on room air, with O2 sat at 98%, lung sounds clear to auscultation, no rhonchi no rales. Today's chest x- ray was reviewed by Dr. Metzger, and shows small right pleural effusion, and some interstitial prominence consistent with congestive heart failure, not significantly worse from the previous exam. Clinically patient denies any distress, is maintaining stable oxygenation on room air. He was evaluated by CT surgery for her his significant valvular heart disease, and is not a surgical candidate at this time, but will be followed up on an outpatient basis , also a heart cath was recommended by to any consideration for valve surgery. Patient's IV diuretics have been transitioned to oral Lasix, patient has received 7 days of empiric antibiotics with Zosyn. Ascites fluid culture was negative, showing no chest congestion, no fever or chills. We'll discontinue Zosyn today. Objective - Vital Signs Vital signs: Vital Signs Temp 98 F 10/02/17 08:00 Pulse 81 10/02/17 08:00 Resp 17 10/02/17 08:00 BP 111/58 10/02/17 08:00 Pulse Ox 98 10/02/17 08:00 Intake & Output 10/01/17 10/02/17 10/02/17 18:59 06:59 18:59 Intake Total 50 236 Output Total 400 300 100 Balance -400 -250 136 Weight 127 kg Intake: Intake, IV Titration 50 Amount Piperacillin-Tazobactam 3 50 .375 gm In Dextrose/Water 1 50ml.bag @ 12.5 mls/hr IVPB Q8HR [facility] Rx#: [id number] Oral 236 Output: Urine 400 300 100 Other: Voiding Method Urinal Urinal Urinal # Voids 1 # Bowel Movements 1 ABP, PAP, CO, CI - Last Documented Arterial Blood Pressure 115/58 - Exam General appearance: The patient is alert, oriented, in no acute distress. The patient does not seem to be in acute respiratory distress. No use of excess amount of the breathing. HET: Head is normocephalic and atraumatic. Pupils are equal and reactive. Oropharynx is clear without lesions. Neck: Supple without lymphadenopathy. Trachea midline. There is significant jugular venous distention bilaterally. Neck is overall supple and there is no goiter or neck masses. Heart: The patient has a harsh systolic ejection murmur grade 4/6 heard throughout the precordium. The rhythm is irregular. The murmur is radiating to his neck. No right ventricular heave or thrill. Lungs: No crackles or wheezes are heard. There is diminished breath on the right lung base consistent with his underlying pleural effusion. Abdomen: Soft, nondistended, patient is status post large volume paracentesis would removal of 14.1 L of ascitic fluid. No peritoneal signs. No palpable organomegaly or masses. Extremities: +1 bilateral lower extremity edema with bilateral lower leg dressings edematous feet. Neurological: No focal deficits. Strength and sensation are grossly intact. Examination of the skin revealed no evidence of significant rashes, suspicious appearing nevi or other concerning lesions. Psychiatric the patient has normal mood and affect - Labs CBC & Chem 7: 09/30/17 06:00 10/02/17 06:11 Labs: Abnormal Lab Results - Last 24 Hours (Table) 10/01/17 10/01/17 10/01/17 Range/Units 11:35 16:26 17:26 Sodium 126 L (137-145) mmol/L Chloride (98-107) mmol/L BUN (9-20) mg/dL Creatinine (0.66-1.25) mg/dL Glucose (74-99) mg/dL POC Glucose (mg/dL) 218 H 202 H (75-99) mg/dL Calcium (8.4-10.2) mg/dL 10/01/17 10/02/17 10/02/17 Range/Units 21:58 06:06 06:11 Sodium 126 L (137-145) mmol/L Chloride 93 L (98-107) mmol/L BUN 75 H (9-20) mg/dL Creatinine 1.94 H (0.66-1.25) mg/dL Glucose 137 H (74-99) mg/dL POC Glucose (mg/dL) 184 H 164 H (75-99) mg/dL Calcium 8.0 L (8.4-10.2) mg/dL Assessment and Plan Plan: Assessment: 1 acute cardiac arrest, acute hypoxic respiratory failure secondary to acute cardiac arrest. The patient was with the downtime of about 2-3 minutes. He had successful resuscitation based on ACS protocol, post extubation day #8 2 right-sided pleural effusion likely on the basis of congestive heart failure. Possibility of chronic liver disease causing ascites and right-sided pleural effusion/hydrothorax cannot be completely excluded 3 CHF with impaired left a ejection fraction of 25%. In addition the patient has severe aortic stenosis, mitral regurgitation, severe tricuspid regurgitation secondary pulmonary hypertension. 4 chronic atrial fibrillation 5 ascites and anasarca secondary to above, there is post large volume paracentesis with removal of 14.1 L of ascitic fluid 6 questionable liver cirrhosis although the findings could also be related to [place]. I also believe his heart failure is another contributing factor to his liver hepatopathy and congestion and possibly contributing to his massive ascites 7 long-term anticoagulation with warfarin, and presently the patient is on heparin infusion for anticoagulation 8 diabetes mellitus 9 gout 10 BPH Plan: Patient remains stable from pulmonary standpoint, today's chest x-ray has been reviewed, and shows stable findings of small right pleural effusion, patient's IV diuretics have been transitioned to oral. No fever no chills, no chest congestion or sputum production, we will discontinue patient Zosyn, continue with nebulized treatments. I performed a history & physical examination of the patient and discussed their management with my nurse practitioner, Sydnee Blanco. I reviewed the nurse practitioner's note and agree with the documented findings and plan of care. Lung sounds are clear, diminished at the right base. The findings and the impression was discussed with the patient. I attest to the documentation by the nurse practitioner. Time with Patient: Less than 30
[2017-10-02] MEDS ORDERED: TOLVAPTAN 15 MG 1/2 TABLET PO ONE ×2 (11:30→20:44)
[2017-10-02 11:39] LABS: Glucose,Whole Blood 193 mg/dL (75-99)
[2017-10-02 12:36] LABS: Glucose,Whole Blood 164 mg/dL (75-99)
--- NOTE | 2017-10-02 14:29 | XR ---
EXAMINATION TYPE: XR chest 2V DATE OF EXAM: 10/02/2017 COMPARISON: Prior chest x-ray 09/28/2017 HISTORY: Follow-up pleural effusion, congestive heart failure TECHNIQUE: Frontal and lateral views of the chest are obtained. FINDINGS: The heart is enlarged. Pulmonary artery appears prominently as does the aorta which may be ectatic or aneurysmal. Perihilar increased density is noted. There is right basilar density obscurin g hemidiaphragm. No pneumothorax. Left subclavian central venous catheter is stable. IMPRESSION: Findings are similar. Correlate for congestive heart failure. Pneumonia not excluded. Ad ditional findings above.
--- NOTE | 2017-10-02 15:07 | P.PN ---
Subjective Progress Note Date: 10/02/17 This is a 77-year-old gentleman with history of chronic persistent atrial fibrillation, hypertension, diabetes, who presented to the hospital with symptoms of dizziness, shortness of breath, significant swelling in his abdomen and bilateral lower extremities. Apparently the symptoms of shortness of breath and dizziness have only been going on for the past 2-3 days according to the patient, but the swelling in his abdomen has been noticeable for some time. Patient denies any history of significant cardiac problems, no myocardial infarction in the past, never been told to have any congestive cardiac failure. Chest x-ray performed on admission here showed low lung volumes and cardiomegaly with patchy bibasilar atelectasis. KUB revealed overall nonobstructive bowel gas pattern. EKG showed atrial fibrillation with occasional PVC, nonspecific ST-T wave changes. CT of the chest, abdomen, and pelvis revealed a moderate right pleural effusion. Cirrhotic morphology of the liver with abdominopelvic ascites and anasarca. No splenomegaly or gross evidence of splenic varices. Enlarged main pulmonary artery suggesting underlying pulmonary arterial hypertension and a scant amount of pericardial effusion. An echocardiogram with Doppler study was performed which revealed an ejection fraction of 25-30%. Global hypokinesia of the LV. RV mildly enlarged. Moderate to severe aortic stenosis, severe mitral regurg, severe tricuspid regurg and severe pulmonary hypertension. Blood pressure on arrival 122/70 with a heart rate in the 90s, 99% on 2 L of oxygen. Laboratory data was reviewed, white blood cell count is normal, hemoglobin on admission 10.5, 9.7 this morning. Platelet count 163, sodium 142, potassium 3.9, BUN 65, creatinine 1.1. Magnesium level 2.5. Iron level 51, total bilirubin 2.7 on admission 2.0 this morning. Alkaline phosphatase 286 on admission 224 this morning. INR on admission 1.5. Troponin 0.056, BNP level 16,300. Patient's weight on admission was documented to be 123, it is 119 this morning. He does state that he was urinating a significant amount through the night last night. He is not on IV Lasix. At the time of my examination this morning, patient continues to have significant swelling of the abdomen and edema of the lower extremities. He does state overall that he feels his breathing is mildly improved. Telemetry strips show atrial fibrillation with frequent PVCs. 09/19/2017 Patient was seen and examined this morning, he does state overall that he feels his breathing is improving. He is scheduled for paracentesis tomorrow. Weight today is down 1 kg, creatinine 1.3. Echocardiogram with Doppler study revealed an ejection fraction of 25-30%. Moderate to severe aortic stenosis, severe mitral regurgitation and severe tricuspid regurgitation. 09/22/2017 Patient was seen and examined this morning up ambulating in the hallway today with physical therapy. Blood pressure 92/40 with a heart rate in the 70s. Overall patient states he's feeling better. Diuretics are currently still on hold, patient is on lisinopril 5 mg daily and metoprolol twice a day. Patient continues to be on hydration at 75 mL an hour. If blood pressure improves, we will reinitiate diuretics tomorrow. Continue PEARL inhibitor, beta raymon, patient is not currently on Aldactone because of elevated potassium, once that improves we will also initiate some Aldactone on this patient. 10/01/2017 Patient was seen and examined this morning, he does state that he had a good night last night. Slept well, breathing is overall stable today. Blood pressure 100/50 with a heart rate in the 60s. Sodium is down to 126 today, potassium 4.9, BUN 72, creatinine 1.8. 10/02/2017 Patient seen and examined this morning, feeling well overall, was up with the physical therapy earlier today. Patient was seen in consultation by cardiothoracic surgery yesterday, the recommendation was to optimize patient's treatment, reevaluated in one month or so. Objective - Vital Signs Vital signs: Vital Signs Temp 98 F 10/02/17 08:00 Pulse 80 10/02/17 11:49 Resp 16 10/02/17 11:49 BP 95/44 10/02/17 11:49 Pulse Ox 95 10/02/17 11:49 Intake & Output 10/01/17 10/02/17 10/02/17 18:59 06:59 18:59 Intake Total 50 236 Output Total 400 300 100 Balance -400 -250 136 Weight 127 kg Intake: Intake, IV Titration 50 Amount Piperacillin-Tazobactam 3 50 .375 gm In Dextrose/Water 1 50ml.bag @ 12.5 mls/hr IVPB Q8HR [facility] Rx#: [id number] Oral 236 Output: Urine 400 300 100 Other: Voiding Method Urinal Urinal Urinal # Voids 1 # Bowel Movements 1 ABP, PAP, CO, CI - Last Documented Arterial Blood Pressure 115/58 - Exam PHYSICAL EXAMINATION: HEENT: Head is atraumatic, normocephalic. Pupils equal, round. Neck is supple. There is elevated jugular venous pressure up to the angle of the jaw. HEART EXAMINATION: Heart S1-S2 not audible, systolic ejection murmur heard CHEST EXAMINATION: Lungs clear to auscultation. ABDOMEN: [ Soft, distended, positive thrill. Bowel sounds are heard. EXTREMITIES:[ 1+ peripheral pulses with 1+ evidence of peripheral edema patient does have a dressing in place to the right and lower extremity, ulcerated weeping area underneath. NEUROLOGIC patient is awake, alert and oriented -3. - Labs CBC & Chem 7: 09/30/17 06:00 10/02/17 06:11 Labs: Abnormal Lab Results - Last 24 Hours (Table) 10/01/17 10/01/17 10/01/17 Range/Units 16:26 17:26 19:53 Sodium 126 L (137-145) mmol/L Chloride (98-107) mmol/L BUN (9-20) mg/dL Creatinine (0.66-1.25) mg/dL Glucose (74-99) mg/dL POC Glucose (mg/dL) 202 H (75-99) mg/dL Calcium (8.4-10.2) mg/dL Ur Random Sodium 14 L (30-90) mmol/L 10/01/17 10/02/17 10/02/17 Range/Units 21:58 06:06 06:11 Sodium 126 L (137-145) mmol/L Chloride 93 L (98-107) mmol/L BUN 75 H (9-20) mg/dL Creatinine 1.94 H (0.66-1.25) mg/dL Glucose 137 H (74-99) mg/dL POC Glucose (mg/dL) 184 H 164 H (75-99) mg/dL Calcium 8.0 L (8.4-10.2) mg/dL Ur Random Sodium (30-90) mmol/L 10/02/17 10/02/17 Range/Units 11:37 12:34 Sodium (137-145) mmol/L Chloride (98-107) mmol/L BUN (9-20) mg/dL Creatinine (0.66-1.25) mg/dL Glucose (74-99) mg/dL POC Glucose (mg/dL) 193 H 164 H (75-99) mg/dL Calcium (8.4-10.2) mg/dL Ur Random Sodium (30-90) mmol/L Assessment and Plan Plan: Assessment and plan #1 dyspnea, evidence of congestive heart failure, systolic, acute on chronic. Echocardiogram with Doppler study reveals an ejection fraction of 25-30%, moderate to severe aortic stenosis, severe mitral regurg and severe tricuspid regurg noted. Severe pulmonary hypertension. Evidence of significant right- sided pleural effusion. #2 chronic persistent atrial fibrillation, on Coumadin for anticoagulation, #3 hypertension, according to the significant other, blood pressure has been running low at home, patient had been on metoprolol which was stopped because of hypotension by the patient. #4 diabetes #5 ascites #6 abnormal troponin, likely secondary to supply and demand mismatch #7 anemia #8 hyponatremia Plan From cardiology's perspective, we will continue the patient on his current medications. We will continue to follow. DNP note has been reviewed, I agree with a documented findings and plan of care. Patient was seen and examined.
--- NOTE | 2017-10-02 15:39 | P.PN ---
Subjective Progress Note Date: 10/02/17 Patient feeling better today was resting peaceably. No acute events overnight Objective - Vital Signs Vital signs: Vital Signs Temp 97.5 F L 10/02/17 15:23 Pulse 77 10/02/17 15:23 Resp 17 10/02/17 15:23 BP 99/60 10/02/17 15:23 Pulse Ox 97 10/02/17 15:23 Intake & Output 10/01/17 10/02/17 10/02/17 18:59 06:59 18:59 Intake Total 50 286 Output Total 400 300 100 Balance -400 -250 186 Weight 127 kg Intake: Intake, IV Titration 50 50 Amount Piperacillin-Tazobactam 3 50 50 .375 gm In Dextrose/Water 1 50ml.bag @ 12.5 mls/hr IVPB Q8HR [facility] Rx#: [id number] Oral 236 Output: Urine 400 300 100 Other: Voiding Method Urinal Urinal Urinal # Voids 1 # Bowel Movements 1 ABP, PAP, CO, CI - Last Documented Arterial Blood Pressure 115/58 - Exam Constitutional: No acute distress, conversant, pleasant Eyes: Anicteric sclerae, moist conjunctiva, no lid-lag, PERRLA ENMT: NC/AT,Oropharynx clear, no erythema, exudates Neck:Supple, FROM, no masses, or JVD, No carotid bruits; No thyromegaly Lungs: Improved aeration, Normal respiratory effort on room air no accessory muscle use Cardiovascular: Irregularly irregular, holosystolic murmur, gallops, or rubs + 1 pedal peripheral edema Abdominal: Soft Nontender, moderately distended, no guarding, no rebound or rigidity, Normoactive bowel sounds No hepatomegaly, No splenomegaly, No palpable mass No abdominal wall hernia noted Skin: Normal temperature, tone, texture, turgor, No induration No subcutaneous nodules, No rash, lesions, No ulcers Extremities:No digital cyanosis No clubbing, Pedal pulses intact and symmetrical Radial pulses intact and symmetrical Normal gait and station, No calf tenderness, painful range of motion in the left shoulder Psychiatric: Alert and oriented to person, place and time, Appropriate affect Intact judgement Neuro: Muscles Strength 5/5 in all 4 extremities, Sensation to light touch grossly present throughout, Cranial nerves II-XII grossly intact. No focal sensory deficits - Labs CBC & Chem 7: 09/30/17 06:00 10/02/17 06:11 Labs: Abnormal Lab Results - Last 24 Hours (Table) 10/01/17 10/01/17 10/01/17 Range/Units 16:26 17:26 19:53 Sodium 126 L (137-145) mmol/L Chloride (98-107) mmol/L BUN (9-20) mg/dL Creatinine (0.66-1.25) mg/dL Glucose (74-99) mg/dL POC Glucose (mg/dL) 202 H (75-99) mg/dL Calcium (8.4-10.2) mg/dL Ur Random Sodium 14 L (30-90) mmol/L 10/01/17 10/02/17 10/02/17 Range/Units 21:58 06:06 06:11 Sodium 126 L (137-145) mmol/L Chloride 93 L (98-107) mmol/L BUN 75 H (9-20) mg/dL Creatinine 1.94 H (0.66-1.25) mg/dL Glucose 137 H (74-99) mg/dL POC Glucose (mg/dL) 184 H 164 H (75-99) mg/dL Calcium 8.0 L (8.4-10.2) mg/dL Ur Random Sodium (30-90) mmol/L 10/02/17 10/02/17 Range/Units 11:37 12:34 Sodium (137-145) mmol/L Chloride (98-107) mmol/L BUN (9-20) mg/dL Creatinine (0.66-1.25) mg/dL Glucose (74-99) mg/dL POC Glucose (mg/dL) 193 H 164 H (75-99) mg/dL Calcium (8.4-10.2) mg/dL Ur Random Sodium (30-90) mmol/L Assessment and Plan (1) Acute systolic CHF (congestive heart failure), NYHA class 4 Narrative/Plan: * Lasix resumed at 20 mg by mouth daily yesterday continue with low-dose beta raymon * ProBNP 16 300 on presentation, Echocardiogram ejection fraction of 25-30% severely dilated left atrium with moderate to severe aortic stenosis (patient deemed to be a poor surgical candidate given his comorbidities by cardiothoracic surgery) * Cardiology following appreciate recommendations * Status post cardiac arrest with PeA after being started on dopamine with ROSC after approximately 3-4 minutes. * We will likely need a LifeVest prior to discharge r Current Visit: Yes Status: Acute Code(s): I50.21 - ACUTE SYSTOLIC ( CONGESTIVE) HEART FAILURE SNOMED Code(s): 194531817 (2) Acute kidney injury Narrative/Plan: * nonoliguric acute kidney injury secondary to ATN secondary to hypotension and cardiac arrest. * Creatinine slightly worse at 1.94 today * Continue to monitor Current Visit: Yes Status: Acute Code(s): N17.9 - ACUTE KIDNEY FAILURE, UNSPECIFIED SNOMED Code(s): 42990581 (3) Ascites Narrative/Plan: * GI consulted Dr. 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 fib rate is controlled * patient continued on low dose metoprolol continue with heparin drip Current Visit: Yes Status: Chronic Priority: High Code(s): I48.91 - UNSPECIFIED ATRIAL FIBRILLATION SNOMED Code(s): 72661635 (6) Elevated troponin Current Visit: Yes Status: Acute Code(s): R74.8 - ABNORMAL LEVELS OF OTHER SERUM ENZYMES SNOMED Code(s): 590684050 (7) Pleural effusion Narrative/Plan: * Likely cardiogenic in etiology * Chest ultrasound confirming pleural effusion pocket 7.8 cm Current Visit: Yes Status: Acute Code(s): J90 - PLEURAL EFFUSION, NOT ELSEWHERE CLASSIFIED SNOMED Code(s): 05076683 (8) Arthritis of left shoulder region Current Visit: Yes Status: Chronic Priority: Medium Code(s): M19.012 - PRIMARY OSTEOARTHRITIS, LEFT SHOULDER SNOMED Code(s): 878799780 (9) Hyperbilirubinemia Current Visit: Yes Status: Resolved Code(s): E80.6 - OTHER DISORDERS OF BILIRUBIN METABOLISM SNOMED Code(s): 43187519 Plan: * Approaching discharge in the next 1-2 days
[2017-10-02] MEDS: GABAPENTIN 300 MG CAP PO PRN (15:47)
[2017-10-02 16:52] LABS: Glucose,Whole Blood 181 mg/dL (75-99)
[2017-10-02 21:00] LABS: Glucose,Whole Blood 167 mg/dL (75-99)
[2017-10-02] MEDS: TAMSULOSIN 0.4 MG CAP.ER.24H PO SCH (21:46)
[2017-10-02] MEDS: ACETAMINOPHEN TAB 500 MG TAB PO PRN (21:59)
[2017-10-03 06:07] LABS: Glucose,Whole Blood 139 mg/dL (75-99)
[2017-10-03 06:21] LABS: Calcium 8.3 mg/dL (8.4-10.2)
[2017-10-03] MEDS: INSULIN ASPART 100 UNIT/ML 1 ML 10 ML VIAL SQ SCH ×4 (06:53→21:00)
[2017-10-03] MEDS: PANTOPRAZOLE 40 MG TABLET PO SCH (06:55)
[2017-10-03] MEDS: FUROSEMIDE 20 MG TAB PO SCH (07:51)
[2017-10-03] MEDS: ATORVASTATIN 40 MG TAB PO SCH (07:52)
[2017-10-03] MEDS: APIXABAN 5 MG TAB PO SCH (07:52)
[2017-10-03] MEDS: ALLOPURINOL 300 MG TAB PO SCH (07:52)
[2017-10-03] MEDS: METOPROLOL TARTRATE 12.5 MG TAB PO SCH ×2 (07:52→20:59)
[2017-10-03] MEDS ORDERED: FUROSEMIDE 10 MG/ML 4 ML VIAL IV STA (09:06)
[2017-10-03] MEDS ORDERED: TOLVAPTAN 15 MG 1/2 TABLET PO ONE (09:07)
--- NOTE | 2017-10-03 09:07 | P.PN ---
Subjective Patient is seen in follow-up for acute kidney injury. Renal function has been worsening with creatinine up to 2.2. Sodium level improved at 127. Oral intake is improving. Denies chest pain or shortness of breath. He does of systolic CHF with ejection fraction of 20-25%. He is status post cardiac arrest. Now maintained on Lasix 20 mg orally once daily. Vital signs are stable. General: The patient appeared well nourished and normally developed. HEENT: Head exam is unremarkable. Neck is without jugular venous distension. LUNGS: Lungs are clear to auscultation and percussion. Breath sounds decreased. HEART: Rate and Rhythm are regular. First and second heart sounds normal. No murmurs, rubs or gallops. ABDOMEN: Abdominal exam reveals normal bowel sounds. Distention noted. EXTREMITITES: Trace edema. Objective - Vital Signs Vital signs: Vital Signs Temp 97.6 F 10/03/17 07:56 Pulse 89 10/03/17 07:57 Resp 18 10/03/17 07:57 BP 97/56 10/03/17 07:56 Pulse Ox 96 10/03/17 07:56 Intake & Output 10/02/17 10/03/17 10/03/17 18:59 06:59 18:59 Intake Total 586 Output Total 725 600 Balance -139 -600 Weight 127 kg 126.5 kg Intake: Intake, IV Titration 50 Amount Piperacillin-Tazobactam 3 50 .375 gm In Dextrose/Water 1 50ml.bag @ 12.5 mls/hr IVPB Q8HR [facility] Rx#: [id number] Oral 536 Output: Urine 725 600 Other: Voiding Method Urinal Urinal Urinal # Voids 1 # Bowel Movements 1 ABP, PAP, CO, CI - Last Documented Arterial Blood Pressure 115/58 - Labs CBC & Chem 7: 09/30/17 06:00 10/03/17 05:43 Labs: Abnormal Lab Results - Last 24 Hours (Table) 10/01/17 10/02/17 10/02/17 Range/Units 19:53 11:37 12:34 Sodium (137-145) mmol/L Chloride (98-107) mmol/L BUN (9-20) mg/dL Creatinine (0.66-1.25) mg/dL Glucose (74-99) mg/dL POC Glucose (mg/dL) 193 H 164 H (75-99) mg/dL Calcium (8.4-10.2) mg/dL Ur Random Sodium 14 L (30-90) mmol/L 10/02/17 10/02/17 10/02/17 Range/Units 16:49 17:11 20:58 Sodium 127 L (137-145) mmol/L Chloride (98-107) mmol/L BUN (9-20) mg/dL Creatinine (0.66-1.25) mg/dL Glucose (74-99) mg/dL POC Glucose (mg/dL) 181 H 167 H (75-99) mg/dL Calcium (8.4-10.2) mg/dL Ur Random Sodium (30-90) mmol/L 10/03/17 10/03/17 Range/Units 05:43 06:05 Sodium 127 L (137-145) mmol/L Chloride 93 L (98-107) mmol/L BUN 79 H (9-20) mg/dL Creatinine 2.20 H (0.66-1.25) mg/dL Glucose 119 H (74-99) mg/dL POC Glucose (mg/dL) 139 H (75-99) mg/dL Calcium 8.3 L (8.4-10.2) mg/dL Ur Random Sodium (30-90) mmol/L Assessment and Plan Plan: Assessment: 1. Nonoliguric acute kidney injury secondary to ATN secondary to hypotension and cardiac arrest. Also component of cardiorenal syndrome. Creatinine 2.2 today. Urinalysis is quite benign. 2. Hyponatremia, appears hypervolemic today. Urine sodium noted to be low at 23 and repeat 14. Urine osmolality 423, repeat 291. 3. Systolic CHF with ejection fraction of 20-25%. 4. Ascites status post paracentesis on September 20 with over 14 L removed. 5. Liver cirrhosis. Questionable etiology. 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 6. Anemia. Iron deficiency noted - s/p 3 doses of IV iron. 7. Atrial fibrillation maintained on heparin drip. Rate controlled. Plan: Continue Lasix 20 mg orally once daily. Additional 40 mg IV once now. Samsca 15 mg once now. Maintain 1500 mL fluid restriction. Maintain protein supplements. Avoid nephrotoxic agents and hypotensive episodes. Continue to monitor renal function and urine output. Repeat sodium level at 5 PM today. Consider abdominal ultrasound for repeat paracentesis today. Discussed with primary team.
[2017-10-03] MEDS: ACETAMINOPHEN TAB 500 MG TAB PO PRN (09:47)
--- NOTE | 2017-10-03 10:12 | P.PN ---
Subjective Progress Note Date: 10/03/17 Patient feeling better today was resting peaceably. Mentions abdominal distention, denies any nausea or vomiting abdominal pain. No acute events overnight Objective - Vital Signs Vital signs: Vital Signs Temp 97.6 F 10/03/17 07:56 Pulse 89 10/03/17 07:57 Resp 18 10/03/17 07:57 BP 97/56 10/03/17 07:56 Pulse Ox 96 10/03/17 07:56 Intake & Output 10/02/17 10/03/17 10/03/17 18:59 06:59 18:59 Intake Total 586 Output Total 725 600 Balance -139 -600 Weight 127 kg 126.5 kg Intake: Intake, IV Titration 50 Amount Piperacillin-Tazobactam 3 50 .375 gm In Dextrose/Water 1 50ml.bag @ 12.5 mls/hr IVPB Q8HR [facility] 234 BEDS AT [facility] Rx#: [id number] Oral 536 Output: Urine 725 600 Other: Voiding Method Urinal Urinal Urinal # Voids 1 # Bowel Movements 1 ABP, PAP, CO, CI - Last Documented Arterial Blood Pressure 115/58 - Exam Constitutional: No acute distress, conversant, pleasant Eyes: Anicteric sclerae, moist conjunctiva, no lid-lag, PERRLA ENMT: NC/AT,Oropharynx clear, no erythema, exudates Neck:Supple, FROM, no masses, or JVD, No carotid bruits; No thyromegaly Lungs: Improved aeration, Normal respiratory effort on room air no accessory muscle use Cardiovascular: Irregularly irregular, holosystolic murmur, gallops, or rubs + 2 pedal peripheral edema Abdominal: Soft Nontender, distended, no guarding, no rebound or rigidity, Normoactive bowel sounds No hepatomegaly, No splenomegaly, No palpable mass No abdominal wall hernia noted Skin: Normal temperature, tone, texture, turgor, No induration No subcutaneous nodules, No rash, lesions, No ulcers Extremities:No digital cyanosis No clubbing, Pedal pulses intact and symmetrical Radial pulses intact and symmetrical Normal gait and station, No calf tenderness, painful range of motion in the left shoulder Psychiatric: Alert and oriented to person, place and time, Appropriate affect Intact judgement Neuro: Muscles Strength 5/5 in all 4 extremities, Sensation to light touch grossly present throughout, Cranial nerves II-XII grossly intact. No focal sensory deficits - Labs CBC & Chem 7: 09/30/17 06:00 10/03/17 05:43 Labs: Abnormal Lab Results - Last 24 Hours (Table) 10/01/17 10/02/17 10/02/17 Range/Units 19:53 11:37 12:34 Sodium (137-145) mmol/L Chloride (98-107) mmol/L BUN (9-20) mg/dL Creatinine (0.66-1.25) mg/dL Glucose (74-99) mg/dL POC Glucose (mg/dL) 193 H 164 H (75-99) mg/dL Calcium (8.4-10.2) mg/dL Ur Random Sodium 14 L (30-90) mmol/L 10/02/17 10/02/17 10/02/17 Range/Units 16:49 17:11 20:58 Sodium 127 L (137-145) mmol/L Chloride (98-107) mmol/L BUN (9-20) mg/dL Creatinine (0.66-1.25) mg/dL Glucose (74-99) mg/dL POC Glucose (mg/dL) 181 H 167 H (75-99) mg/dL Calcium (8.4-10.2) mg/dL Ur Random Sodium (30-90) mmol/L 10/03/17 10/03/17 Range/Units 05:43 06:05 Sodium 127 L (137-145) mmol/L Chloride 93 L (98-107) mmol/L BUN 79 H (9-20) mg/dL Creatinine 2.20 H (0.66-1.25) mg/dL Glucose 119 H (74-99) mg/dL POC Glucose (mg/dL) 139 H (75-99) mg/dL Calcium 8.3 L (8.4-10.2) mg/dL Ur Random Sodium (30-90) mmol/L Assessment and Plan (1) Acute systolic CHF (congestive heart failure), NYHA class 4 Narrative/Plan: * Lasix r20 mg by mouth daily, received a single dose of Lasix 40 mg earlier today continue with low-dose beta raymon * ProBNP 16 300 on presentation, Echocardiogram ejection fraction of 25-30% severely dilated left atrium with moderate to severe aortic stenosis (patient deemed to be a poor surgical candidate given his comorbidities by cardiothoracic surgery) * Cardiology following appreciate recommendations * Status post cardiac arrest with PeA after being started on dopamine with ROSC after approximately 3-4 minutes. * We will likely need a LifeVest prior to discharge r Current Visit: Yes Status: Acute Code(s): I50.21 - ACUTE SYSTOLIC ( CONGESTIVE) HEART FAILURE SNOMED Code(s): 098639776 (2) Acute kidney injury Narrative/Plan: * nonoliguric acute kidney injury secondary to ATN secondary to hypotension and cardiac arrest. * Also with hyponatremia _ received a dose of Samsca today * Creatinine trending up to 2.2 today * Continue to monitor Current Visit: Yes Status: Acute Code(s): N17.9 - ACUTE KIDNEY FAILURE, UNSPECIFIED SNOMED Code(s): 03267730 (3) Ascites Narrative/Plan: * GI consulted Dr. 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 * Approximately 14.1 L removed via paracentesis 09/20 * More distended today patient will have ultrasound-guided paracentesis on Sunday due to being on eliquis at present will hold eloquis Current Visit: Yes Status: Resolved Priority: High Code(s): R18.8 - OTHER ASCITES SNOMED Code(s): 254225537 (4) Cirrhosis Narrative/Plan: * GI following * GEOVANI and anti-smooth muscle positive suggesting autoimmune etiology primary biliary cirrhosis * Continues with Lasix Current Visit: Yes Status: Acute Priority: High Code(s): K74.60 - UNSPECIFIED CIRRHOSIS OF LIVER SNOMED Code(s): 97583982 (5) Atrial fibrillation Narrative/Plan: * Chronic A. fib rate is controlled * patient continued on low dose metoprolol continue with heparin drip Current Visit: Yes Status: Chronic Priority: High Code(s): I48.91 - UNSPECIFIED ATRIAL FIBRILLATION SNOMED Code(s): 42480880 (6) Elevated troponin Current Visit: Yes Status: Acute Code(s): R74.8 - ABNORMAL LEVELS OF OTHER SERUM ENZYMES SNOMED Code(s): 269633747 (7) Pleural effusion Narrative/Plan: * Likely cardiogenic in etiology * Chest ultrasound confirming pleural effusion pocket 7.8 cm Current Visit: Yes Status: Acute Code(s): J90 - PLEURAL EFFUSION, NOT ELSEWHERE CLASSIFIED SNOMED Code(s): 04408215 (8) Arthritis of left shoulder region Narrative/Plan: * X-ray confirming severe left shoulder arthropathy of AC joint * Patient scheduled to have steroid shot later today Current Visit: Yes Status: Chronic Priority: Medium Code(s): M19.012 - PRIMARY OSTEOARTHRITIS, LEFT SHOULDER SNOMED Code(s): 919513561 (9) Hyperbilirubinemia Current Visit: Yes Status: Resolved Code(s): E80.6 - OTHER DISORDERS OF BILIRUBIN METABOLISM SNOMED Code(s): 27355945
[2017-10-03 11:39] LABS: Glucose,Whole Blood 266 mg/dL (75-99)
--- NOTE | 2017-10-03 12:08 | US ---
EXAMINATION TYPE: US abdomen limited DATE OF EXAM: 10/03/2017 COMPARISON: NONE CLINICAL HISTORY: assess for ascites only. Ascites Moderate amount of ascites visualized Limited exam performed. IMPRESSION: Moderate ascites is present.
--- NOTE | 2017-10-03 12:54 | P.PN ---
Subjective Progress Note Date: 10/03/17 Principal diagnosis: Right-sided pleural effusion likely secondary to congestive heart failure This is a 77-year-old male patient with known history of chronic atrial fibrillation, chronic lumbar degenerative disc disease with limited mobility and impaired performance and functional status at baseline. He is also known to have diabetes, gout, and prostate enlargement. The patient comes in with worsening shortness of breath and addition to generalized weakness and some dizziness. His chest x-ray showed low lung volumes and cardiomegaly and possibly some right-sided pleural effusion. EKG showed chronic atrial fibrillation with some nonspecific ST segment changes. Based on that the patient a CAT scan of the chest abdomen and pelvis and the CAT scan showed a small to moderate-sized right-sided pleural effusion in addition to some changes in the liver consistent with liver cirrhosis and ascites with anasarca. The patient also reports some increased lower oximetry edema and further investigation with an echo of the heart showed an ejection fraction of 25-30% and global hypokinesis of the left ventricle, RV was mildly enlarged, moderate to severe aortic stenosis, severe mitral regurgitation, severe tricuspid regurgitation, severe pulmonary hypertension was also noted. The patient is currently on 2 L of oxygen nasal cannula. His INR is at 1.5 as the patient is on warfarin. The patient's creatinine is at 1.1 and the patient was started on diuretics and he seems to be responding. He feels less short of breath compared to yesterday. He feels that the abdomen is also less distended. He is lower extremity edema is also improving. He was seen by cardiology. He was also seen by gastroenterology. He is not a drinker. No significant hepatitis. Most of alcoholism. No history of GI bleeding. The patient will have a paracentesis with the next 24 hours regarding his ascites. He is able to lay down to 20 bed elevation without any major difficulties. The patient seen again today 09/19/2017 in follow-up on the selective care unit. He is currently sitting up at bedside. He is awake and alert in no acute distress. His abdomen remains quite distended. He is still this moment with minimal exertion. He is maintaining O2 saturations in the upper 90s on 1.5 L/m per nasal cannula. He is currently afebrile. Hemodynamically stable. INR is 1.6 today. IR will possibly do a paracentesis tomorrow. He is voiding well and remains in a negative balance. His weight is down 1 kg. On 09/20/2017 patient seen in follow-up on selective care unit, he is status post large volume paracentesis of approximately 14.1 L of straw-colored fluid. Patient tolerated the procedure well. Her weight resting in bed, in no acute distress, abdomen is a lot less distended, soft, nontender. Patient is having some soreness along the left costal margin, mild, but no acute distress. Oxygenation improved, patient is currently on 1/2 L per nasal cannula, he reports his breathing easier, vital signs are stable, he is afebrile. Patient has been started on IV Lasix drip at 10 mg per hour, in addition to the Zaroxolyn. Patient continues on potassium and Aldactone,, and lisinopril. Overall his breathing is improved, continue with current medical treatment, will obtain a follow-up chest x-ray in the morning OnOn 09/21/2017, the patient is awake and alert. The patient is looking much better as the patient had significant large volume paracentesis with evacuation of more than 10 L from the abdomen. In fact the total amount was 14 L. Subsequent chest x-ray showed a presence of a right-sided pleural effusion which is moderate in size. Nevertheless, the patient denies having any significant shortness of breath and he is not wanting a thoracentesis for the time being. I think it's reasonable as long as the patient has significant improvement in her breathing with large volume paracentesis. Meanwhile, the patient has become slightly prerenal on today's blood work. BUN is up to 77 and the creatinine is up to 1.48. The patient is currently on Lasix drip at 10 mg an hour. The patient is also on Zaroxolyn 5 mg by mouth daily. The patient is also on Aldactone 100 mg by mouth daily. No major edema lower extremities. Note that the blood work also showed positivity and GEOVANI and anti-smooth muscle antibodies were also positive raising the possibility of an underlying autoimmune related hepatitis/liver disease. This antibodies positive for autoimmune liver disease as such as primary biliary cholangitis and autoimmune hepatitis. Note that the patient also has cardiomyopathy Contributing to His Profound Edema and Fluid Overload. 09/22/2017, the patient has no specific complaints. Hemodynamically stable. The patient is currently off the Lasix drip. The patient will be started on Aldactone.. The patient has no abdominal pain. Abdominal distention is improved. We decided not to drain the pleural effusion in the lung volume the patient has been having no significant respiratory distress at this point in time. The renal function is stable and the creatinine is at 1.37. On 09/23/2017, this 77-year-old male patient who got brought into the intensive care unit after he rested on the floor. I do not have the chance to evaluate this patient in the morning. The patient was seen by cardiology and apparently his IV Lasix was on hold due to issues related to hypotension. At that point the patient was placed on dopamine at 5 mics. Within 30 minutes of initiation of dopamine, the patient became tachycardic and subsequently a CODE BLUE was called and the patient went into cardiopulmonary arrest. I was on the floor and I attended to the Code and this patient was in PEA initially. CPR was initiated and ACLS protocol was followed. The patient was given epinephrine. I intubated the patient on the scene. Within 2-3 minutes a pulse on her blood pressure was obtained. The patient was interactive and moving all 4 extremities. I'm of the patient in intensive care unit. I started the prevent on him while him being intubated on a mechanical ventilator. A brief neurologic evaluation was done and the patient was fully awake and alert and moving all 4 extremities. Nevertheless, based on his underlying cardio pulmonary status, I decided not to extubate the patient. He was placed on propofol infusion for sedation. Currently is on assist control mode at a rate of 24, tidal volume of 500, FiO2 of 100% and a PEEP of 5. Blood gas showed a pH of 7.37 with a pCO2 of 36 and pO2 of 300 and the FiO2 was not down to 50%. The patient is currently on 5 mics of norepinephrine infusion for blood pressure control. The patient had a post intubation chest x-ray that showed right basilar pleural effusion in addition to cardiomegaly. ET tube was in a good location. Subsequently, I inserted a triple lumen catheter for the left subclavian vein and a chest x-ray findings remain stable and there was no evidence of any pneumothorax. Reviewing the patient's blood work from earlier this morning, the patient a white cell count of 8 with a hemoglobin of 9.7. His BUN is at 83 with a creatinine of 1.5. And note that the patient has become progressively more prerenal as the patient had large volume paracentesis and subsequently was aggressively treated with diuretics. Note that his echocardiogram showed ejection fraction of 25% along with global hypokinesis. LAD was severely dilated. There was severe aortic sclerosis and moderate aortic regurgitation and moderate to severe aortic stenosis with a PA pressure of 61 in addition to severe mitral regurgitation, severe tricuspid regurgitation and severe pulmonary hypertension with a PA pressure of 91. The CAT scan of the abdomen showed changes consistent with cirrhosis of the liver and ascites. Large volume paracentesis was done. The patient continued to have a moderate-sized right-sided pleural effusion. The cirrhosis is probably of a cardiac in nature. No significant splenomegaly or splenic varices was seen. Upon further workup the patient do not to have a positive GEOVANI and anti- smooth muscle antibody which also raises concern for autoimmune hepatitis. Patient was reevaluated today on 09/24/2017, remains on mechanical ventilation, remains on 2 g of norepinephrine, chest x-ray is showing some improvement, but patient continues to have bilateral pleural effusions. Right more so than left , and I believe the right pleural effusion is related to his underlying liver disease and ascites. May or may not consider thoracentesis at this point. His ventilator settings were reviewed, patient was awakened, I gave him a trial of pressure support and CPAP, patient did quite well, and I went ahead and recommended extubating the patient. His weaning parameters were great. His labs were also reviewed WBC count is 12 hemoglobin is 10.7. ABG showed a pO2 of 217 pCO2 of 32 pH of 7.45. PTT is 47.7, patient remains on heparin. Electrolytes are normal BUN is 73 creatinine 1.20. Patient was noted to be appropriate, responsive, and in no distress on pressure support and CPAP. Then I proceeded to extubating the patient. Patient was reevaluated today on 09/25/2017, he is presently on room air, extubated yesterday, and tolerated the extubation quite well. Patient is off mechanical ventilation, off pressors, seems to be very comfortable, in no distress. Continues to have multiple complex medical problems including pulmonary, cardiac, and her renal issues. And most definitely liver issues/ hepatitis. 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 Chest x-ray today continues to show some pleural effusion and consolidation of the right lower lobe, but seems to be a bit improved compared to the chest x-ray yesterday. Labs showed relatively normal CBC hemoglobin is 9.3. Normal BUN is improving down to 63, and creatinine is also improving down to 1.20. At this point the patient seems to be making good amount of urine, and he is off diuretics. Being followed closely by nephrology. On 09/26/2017, patient remains in the ICU, tolerated extubation over the last 2 days quite well, presently on 2 L nasal cannula. Patient denies any shortness of breath, he is off all the pressors, not receiving any diuretics, but early today, he was seen by nephrology and recommended a dose of Lasix. His chest x- ray continues to show a good sized right-sided pleural effusion, patient is diuresing well, hence I have no plans to do a thoracentesis at this point. His mentation seems to be intact. Patient does have low ejection fraction, and cardiomyopathy with LV dysfunction, his ejection fraction is 25%. Continues to have some swelling in the lower extremities, and that is being addressed with diuretics. Patient denies any shortness of breath, no chest pain, no cough, no wheezing, no nausea no vomiting and no abdominal pain. Labs WBC count is 6.9 hemoglobin is 8.8 ETT is therapeutic at 54.6 electrolytes were noted BUN is 60 creatinine is 1.30. Liver enzymes were noted to be relatively normal. Chest x- ray as noted above. Reevaluated today on 09/27/2017, patient remains in the ICU, he was extubated a few days back, and he continues to tolerate extubation. Presently on room air. Denies any specific complaints, feeling great compared to how he felt over the last few days. All his labs were reviewed including a CBC showed a hemoglobin of 8.1, WBC count of 6.1 PTT is therapeutic at 49.5. Basic metabolic profile was relatively normal. BUN is 60 creatinine 1.30 unchanged compared to yesterday. Urine sodium is 23 urine osmolality is 423. Reevaluated today on 09/28/2017, patient remains as an overflow in the ICU, doing great. He is basically asymptomatic. However his sodium seems to be drifting down, and his renal functioning is a bit worse today. X-ray is showing improvement in his bilateral pleural effusions. Patient remains on room air, denies any shortness of breath. Remains edematous and swollen in the lower extremities, but clinically the patient is relatively dry. Has been making over 200 mL of urine per hour without any diuretics. Hence I will restart the patient on a 0.9 normal saline at 70 mL per hour. His BUN today is 61 creatinine is 1.40 and his sodium is 129. WBC count is 6.4 hemoglobin is 8.4 , patient remains on heparin, and his PTT is therapeutic, he is also receiving IV iron. On 09/29/2017 patient seen in follow-up on selective care unit. He is resting in bed, in no acute distress, currently on room air, and the pulse ox of 97%, lung sounds are positive for bibasilar rales, and chest x-ray was reviewed and shows stable bilateral consolidation and pleural effusion. Patient continue is on empiric antibiotics in the form of Zosyn, and ascites fluid culture has been negative so far. No chest congestion, no sputum production or chest pain. No hemoptysis. Denies any fever or chills, today's lab work shows the BBC of 5.9, hemoglobin of 8.4, sodium is improving slightly, and is currently is at 129, B UN is 62, creatinine is 1.5. Patient remains on heparin infusion and tidal coagulation for his atrial fibrillation, cardiology discussed the possibility of surgical intervention for patient's valvular disease, and the patient and the family would like to think about their options. For now he remains stable, no specific complaints. On 10/01/2017 patient seen in follow-up on selective care unit. In no acute distress, currently on room air, 97%, vital signs are stable, patient is afebrile. Lung sounds are diminished with a few scattered rales on the left. Patient is on oral Lasix at 20 mg once daily, he is on Ahlquist for anticoagulation, on antibiotics in the form of Zosyn. He received a dose of Tolvaptan for his hyponatremia. He is up walking with a walker with physical therapy, and tolerated activity fairly well. Obtain follow-up chest x-ray tomorrow. Patient overall reports his breathing is easier. A consultation her cardiothoracic surgery was requested in regards to potential surgery for moderate to severe aortic stenosis, severe mitral regurgitation and severe tricuspid regurgitation. On 10/02/2017 patient seen again in follow-up on selective care unit, denies any acute distress, denies any dyspnea. He remains on room air, with O2 sat at 98%, lung sounds clear to auscultation, no rhonchi no rales. Today's chest x- ray was reviewed by Dr. Metzger, and shows small right pleural effusion, and some interstitial prominence consistent with congestive heart failure, not significantly worse from the previous exam. Clinically patient denies any distress, is maintaining stable oxygenation on room air. He was evaluated by CT surgery for her his significant valvular heart disease, and is not a surgical candidate at this time, but will be followed up on an outpatient basis , also a heart cath was recommended by to any consideration for valve surgery. Patient's IV diuretics have been transitioned to oral Lasix, patient has received 7 days of empiric antibiotics with Zosyn. Ascites fluid culture was negative, showing no chest congestion, no fever or chills. We'll discontinue Zosyn today. On 10/03/2017 patient seen in follow-up. Sitting up in the chair, denies any acute distress, patient states he is scheduled for another paracentesis later on this week. Remains on room air with O2 sat 96%, he denies any worsening dyspnea. Vital signs are stable, patient remains on oral diuretics. Renal profile is noted to be worsening, for ALLERGY swallowing. Denies any fever or chills lung sounds are positive for basilar crackles. Abdomen is a bit more distended or 2 previous exams. Patient has received 7 days of empiric antibiotics in the form of Zosyn, there has been no evidence of leukocytosis, no fever or chills, no chest congestion or sputum production. Zosyn has been discontinued today. Abdominal ultrasound today showed moderate ascites. Status chest x-ray showed small right pleural effusion, and persistent interstitial prominence consistent with congestive heart failure. Repeat paracentesis to improve the appearance of the right pleural effusion. Objective - Vital Signs Vital signs: Vital Signs Temp 97.6 F 10/03/17 07:56 Pulse 89 10/03/17 07:57 Resp 18 10/03/17 07:57 BP 97/56 10/03/17 07:56 Pulse Ox 96 10/03/17 07:56 Intake & Output 10/02/17 10/03/17 10/03/17 18:59 06:59 18:59 Intake Total 586 Output Total 725 600 Balance -139 -600 Weight 127 kg 126.5 kg Intake: Intake, IV Titration 50 Amount Piperacillin-Tazobactam 3 50 .375 gm In Dextrose/Water 1 50ml.bag @ 12.5 mls/hr IVPB Q8HR [facility] Rx#: [id number] Oral 536 Output: Urine 725 600 Other: Voiding Method Urinal Urinal Urinal # Voids 1 # Bowel Movements 1 ABP, PAP, CO, CI - Last Documented Arterial Blood Pressure 115/58 - Exam General appearance: The patient is alert, oriented, in no acute distress. The patient does not seem to be in acute respiratory distress. No use of excess amount of the breathing. HET: Head is normocephalic and atraumatic. Pupils are equal and reactive. Oropharynx is clear without lesions. Neck: Supple without lymphadenopathy. Trachea midline. There is significant jugular venous distention bilaterally. Neck is overall supple and there is no goiter or neck masses. Heart: The patient has a harsh systolic ejection murmur grade 4/6 heard throughout the precordium. The rhythm is irregular. The murmur is radiating to his neck. No right ventricular heave or thrill. Lungs: Crackles at bilateral bases, diminished breath sounds right lower lobe Abdomen: Soft, nondistended, patient is status post large volume paracentesis would removal of 14.1 L of ascitic fluid. No peritoneal signs. No palpable organomegaly or masses. Extremities: +1 bilateral lower extremity edema with bilateral lower leg dressings edematous feet. Neurological: No focal deficits. Strength and sensation are grossly intact. Examination of the skin revealed no evidence of significant rashes, suspicious appearing nevi or other concerning lesions. Psychiatric the patient has normal mood and affect - Labs CBC & Chem 7: 09/30/17 06:00 10/03/17 05:43 Labs: Abnormal Lab Results - Last 24 Hours (Table) 10/02/17 10/02/17 10/02/17 Range/Units 16:49 17:11 20:58 Sodium 127 L (137-145) mmol/L Chloride (98-107) mmol/L BUN (9-20) mg/dL Creatinine (0.66-1.25) mg/dL Glucose (74-99) mg/dL POC Glucose (mg/dL) 181 H 167 H (75-99) mg/dL Calcium (8.4-10.2) mg/dL 10/03/17 10/03/17 10/03/17 Range/Units 05:43 06:05 11:37 Sodium 127 L (137-145) mmol/L Chloride 93 L (98-107) mmol/L BUN 79 H (9-20) mg/dL Creatinine 2.20 H (0.66-1.25) mg/dL Glucose 119 H (74-99) mg/dL POC Glucose (mg/dL) 139 H 266 H (75-99) mg/dL Calcium 8.3 L (8.4-10.2) mg/dL Assessment and Plan Plan: Assessment: 1 acute cardiac arrest, acute hypoxic respiratory failure secondary to acute cardiac arrest. The patient was with the downtime of about 2-3 minutes. He had successful resuscitation based on ACS protocol, post extubation day #9 2 right-sided pleural effusion likely on the basis of congestive heart failure. Possibility of chronic liver disease causing ascites and right-sided pleural effusion/hydrothorax cannot be completely excluded 3 CHF with impaired left a ejection fraction of 25%. In addition the patient has severe aortic stenosis, mitral regurgitation, severe tricuspid regurgitation secondary pulmonary hypertension. 4 chronic atrial fibrillation 5 ascites and anasarca secondary to above, there is post large volume paracentesis with removal of 14.1 L of ascitic fluid 6 questionable liver cirrhosis although the findings could also be related to [place]. I also believe his heart failure is another contributing factor to his liver hepatopathy and congestion and possibly contributing to his massive ascites 7 long-term anticoagulation with warfarin, and presently the patient is on heparin infusion for anticoagulation 8 diabetes mellitus 9 gout 10 BPH Plan: Continue nebulized dilators, yesterday we stopped Zosyn, patient remains afebrile, he is scheduled to undergo paracentesis later this week for moderate abdominal ascites. This will also help decrease the right pleural effusion. For now she remains stable from pulmonary standpoint, we'll continue with the same plan of care. I performed a history & physical examination of the patient and discussed their management with my nurse practitioner, Sydnee Blanco. I reviewed the nurse practitioner's note and agree with the documented findings and plan of care. Lung sounds are clear, diminished at the right base. The findings and the impression was discussed with the patient. I attest to the documentation by the nurse practitioner. Time with Patient: Less than 30
--- NOTE | 2017-10-03 14:34 | P.PN ---
Subjective Progress Note Date: 10/03/17 This is a 77-year-old gentleman with history of chronic persistent atrial fibrillation, hypertension, diabetes, who presented to the hospital with symptoms of dizziness, shortness of breath, significant swelling in his abdomen and bilateral lower extremities. Apparently the symptoms of shortness of breath and dizziness have only been going on for the past 2-3 days according to the patient, but the swelling in his abdomen has been noticeable for some time. Patient denies any history of significant cardiac problems, no myocardial infarction in the past, never been told to have any congestive cardiac failure. Chest x-ray performed on admission here showed low lung volumes and cardiomegaly with patchy bibasilar atelectasis. KUB revealed overall nonobstructive bowel gas pattern. EKG showed atrial fibrillation with occasional PVC, nonspecific ST-T wave changes. CT of the chest, abdomen, and pelvis revealed a moderate right pleural effusion. Cirrhotic morphology of the liver with abdominopelvic ascites and anasarca. No splenomegaly or gross evidence of splenic varices. Enlarged main pulmonary artery suggesting underlying pulmonary arterial hypertension and a scant amount of pericardial effusion. An echocardiogram with Doppler study was performed which revealed an ejection fraction of 25-30%. Global hypokinesia of the LV. RV mildly enlarged. Moderate to severe aortic stenosis, severe mitral regurg, severe tricuspid regurg and severe pulmonary hypertension. Blood pressure on arrival 122/70 with a heart rate in the 90s, 99% on 2 L of oxygen. Laboratory data was reviewed, white blood cell count is normal, hemoglobin on admission 10.5, 9.7 this morning. Platelet count 163, sodium 142, potassium 3.9, BUN 65, creatinine 1.1. Magnesium level 2.5. Iron level 51, total bilirubin 2.7 on admission 2.0 this morning. Alkaline phosphatase 286 on admission 224 this morning. INR on admission 1.5. Troponin 0.056, BNP level 16,300. Patient's weight on admission was documented to be 123, it is 119 this morning. He does state that he was urinating a significant amount through the night last night. He is not on IV Lasix. At the time of my examination this morning, patient continues to have significant swelling of the abdomen and edema of the lower extremities. He does state overall that he feels his breathing is mildly improved. Telemetry strips show atrial fibrillation with frequent PVCs. 09/19/2017 Patient was seen and examined this morning, he does state overall that he feels his breathing is improving. He is scheduled for paracentesis tomorrow. Weight today is down 1 kg, creatinine 1.3. Echocardiogram with Doppler study revealed an ejection fraction of 25-30%. Moderate to severe aortic stenosis, severe mitral regurgitation and severe tricuspid regurgitation. 09/22/2017 Patient was seen and examined this morning up ambulating in the hallway today with physical therapy. Blood pressure 92/40 with a heart rate in the 70s. Overall patient states he's feeling better. Diuretics are currently still on hold, patient is on lisinopril 5 mg daily and metoprolol twice a day. Patient continues to be on hydration at 75 mL an hour. If blood pressure improves, we will reinitiate diuretics tomorrow. Continue PEARL inhibitor, beta raymon, patient is not currently on Aldactone because of elevated potassium, once that improves we will also initiate some Aldactone on this patient. 10/01/2017 Patient was seen and examined this morning, he does state that he had a good night last night. Slept well, breathing is overall stable today. Blood pressure 100/50 with a heart rate in the 60s. Sodium is down to 126 today, potassium 4.9, BUN 72, creatinine 1.8. 10/02/2017 Patient seen and examined this morning, feeling well overall, was up with the physical therapy earlier today. Patient was seen in consultation by cardiothoracic surgery yesterday, the recommendation was to optimize patient's treatment, reevaluated in one month or so. 10/03/2017 Patient was seen and examined this morning, feeling considerably better overall. He is scheduled to undergo a paracentesis tomorrow. We will hold this evening stenosis of Eliquis. Hemodynamically he is stable. Objective - Vital Signs Vital signs: Vital Signs Temp 97.8 F 10/03/17 13:51 Pulse 77 10/03/17 13:51 Resp 18 10/03/17 13:51 BP 103/61 10/03/17 13:51 Pulse Ox 95 10/03/17 13:51 Intake & Output 10/02/17 10/03/17 10/03/17 18:59 06:59 18:59 Intake Total 586 Output Total 725 600 Balance -139 -600 Weight 127 kg 126.5 kg Intake: Intake, IV Titration 50 Amount Piperacillin-Tazobactam 3 50 .375 gm In Dextrose/Water 1 50ml.bag @ 12.5 mls/hr IVPB Q8HR [facility] Rx#: [id number] Oral 536 Output: Urine 725 600 Other: Voiding Method Urinal Urinal Urinal # Voids 1 # Bowel Movements 1 ABP, PAP, CO, CI - Last Documented Arterial Blood Pressure 115/58 - Exam PHYSICAL EXAMINATION: HEENT: Head is atraumatic, normocephalic. Pupils equal, round. Neck is supple. There is elevated jugular venous pressure up to the angle of the jaw. HEART EXAMINATION: Heart S1-S2 not audible, systolic ejection murmur heard CHEST EXAMINATION: Lungs clear to auscultation. ABDOMEN: [ Soft, distended, positive thrill. Bowel sounds are heard. EXTREMITIES:[ 1+ peripheral pulses with 1+ evidence of peripheral edema patient does have a dressing in place to the right and lower extremity, ulcerated weeping area underneath. NEUROLOGIC patient is awake, alert and oriented -3. - Labs CBC & Chem 7: 09/30/17 06:00 10/03/17 05:43 Labs: Abnormal Lab Results - Last 24 Hours (Table) 10/02/17 10/02/17 10/02/17 Range/Units 16:49 17:11 20:58 Sodium 127 L (137-145) mmol/L Chloride (98-107) mmol/L BUN (9-20) mg/dL Creatinine (0.66-1.25) mg/dL Glucose (74-99) mg/dL POC Glucose (mg/dL) 181 H 167 H (75-99) mg/dL Calcium (8.4-10.2) mg/dL 10/03/17 10/03/17 10/03/17 Range/Units 05:43 06:05 11:37 Sodium 127 L (137-145) mmol/L Chloride 93 L (98-107) mmol/L BUN 79 H (9-20) mg/dL Creatinine 2.20 H (0.66-1.25) mg/dL Glucose 119 H (74-99) mg/dL POC Glucose (mg/dL) 139 H 266 H (75-99) mg/dL Calcium 8.3 L (8.4-10.2) mg/dL Assessment and Plan Plan: Assessment and plan #1 dyspnea, evidence of congestive heart failure, systolic, acute on chronic. Echocardiogram with Doppler study reveals an ejection fraction of 25-30%, moderate to severe aortic stenosis, severe mitral regurg and severe tricuspid regurg noted. Severe pulmonary hypertension. Evidence of significant right- sided pleural effusion. #2 chronic persistent atrial fibrillation, on Coumadin for anticoagulation, #3 hypertension, according to the significant other, blood pressure has been running low at home, patient had been on metoprolol which was stopped because of hypotension by the patient. #4 diabetes #5 ascites #6 abnormal troponin, likely secondary to supply and demand mismatch #7 anemia #8 hyponatremia Plan From cardiology's perspective, we will hold the dose of Eliquis this evening, patient is scheduled to undergo a paracentesis tomorrow. We will continue to follow. DNP note has been reviewed, I agree with a documented findings and plan of care. Patient was seen and examined.
[2017-10-03] MEDS: GABAPENTIN 300 MG CAP PO PRN (17:22)
[2017-10-03 17:46] LABS: Glucose,Whole Blood 188 mg/dL (75-99)
[2017-10-03 20:55] LABS: Glucose,Whole Blood 188 mg/dL (75-99)
[2017-10-03] MEDS: TAMSULOSIN 0.4 MG CAP.ER.24H PO SCH (20:59)
[2017-10-04] MEDS: ACETAMINOPHEN TAB 500 MG TAB PO PRN ×3 (02:26→22:04)
[2017-10-04 07:04] LABS: Glucose,Whole Blood 148 mg/dL (75-99)
[2017-10-04] MEDS: INSULIN ASPART 100 UNIT/ML 1 ML 10 ML VIAL SQ SCH ×4 (07:40→21:26)
[2017-10-04] MEDS: PANTOPRAZOLE 40 MG TABLET PO SCH (07:40)
[2017-10-04] MEDS: ATORVASTATIN 40 MG TAB PO SCH (07:40)
[2017-10-04] MEDS: FUROSEMIDE 20 MG TAB PO SCH (07:40)
[2017-10-04] MEDS: METOPROLOL TARTRATE 12.5 MG TAB PO SCH ×2 (07:41→21:26)
[2017-10-04 08:57] LABS: INR 1.4 (<1.2); Mean Platelet Volume 7.5; Platelet Count 217 k/uL (150-450)
[2017-10-04 09:13] LABS: Calcium 8.5 mg/dL (8.4-10.2); Potassium 5.5 mmol/L (3.5-5.1)
--- NOTE | 2017-10-04 10:26 | P.PN ---
Subjective Progress Note Date: 10/04/17 Patient feeling better today was resting peaceably. Mentions worsening abdominal distention continues to deny any nausea or vomiting abdominal pain. No acute events overnight Objective - Vital Signs Vital signs: Vital Signs Temp 97.0 F L 10/04/17 05:55 Pulse 82 10/04/17 05:55 Resp 16 10/04/17 05:55 BP 106/65 10/04/17 05:55 Pulse Ox 95 10/04/17 09:00 Intake & Output 10/03/17 10/04/17 10/04/17 18:59 06:59 18:59 Intake Total 250 Output Total 300 425 Balance -300 -175 Intake: Oral 250 Output: Urine 300 425 Other: Voiding Method Urinal Urinal # Voids 1 ABP, PAP, CO, CI - Last Documented Arterial Blood Pressure 115/58 - Exam Constitutional: No acute distress, conversant, pleasant Eyes: Anicteric sclerae, moist conjunctiva, no lid-lag, PERRLA ENMT: NC/AT,Oropharynx clear, no erythema, exudates Neck:Supple, FROM, no masses, or JVD, No carotid bruits; No thyromegaly Lungs: Improved aeration, Normal respiratory effort on room air no accessory muscle use Cardiovascular: Irregularly irregular, holosystolic murmur, gallops, or rubs + 2 pedal peripheral edema Abdominal: Soft Nontender, moderately distended, no guarding, no rebound or rigidity, Normoactive bowel sounds No hepatomegaly, No splenomegaly, No palpable mass No abdominal wall hernia noted Skin: Normal temperature, tone, texture, turgor, No induration No subcutaneous nodules, No rash, lesions, No ulcers Extremities:No digital cyanosis No clubbing, Pedal pulses intact and symmetrical Radial pulses intact and symmetrical Normal gait and station, No calf tenderness, painful range of motion in the left shoulder Psychiatric: Alert and oriented to person, place and time, Appropriate affect Intact judgement Neuro: Muscles Strength 5/5 in all 4 extremities, Sensation to light touch grossly present throughout, Cranial nerves II-XII grossly intact. No focal sensory deficits - Labs CBC & Chem 7: 10/04/17 08:04 10/04/17 08:04 Labs: Abnormal Lab Results - Last 24 Hours (Table) 10/03/17 10/03/17 10/03/17 Range/Units 11:37 17:44 17:48 PT (9.0-12.0) sec INR (<1.2) Sodium 127 L (137-145) mmol/L Potassium (3.5-5.1) mmol/L Chloride (98-107) mmol/L BUN (9-20) mg/dL Creatinine (0.66-1.25) mg/dL Glucose (74-99) mg/dL POC Glucose (mg/dL) 266 H 188 H (75-99) mg/dL 10/03/17 10/04/17 10/04/17 Range/Units 20:53 07:02 08:04 PT (9.0-12.0) sec INR (<1.2) Sodium 130 L (137-145) mmol/L Potassium 5.5 H (3.5-5.1) mmol/L Chloride 95 L (98-107) mmol/L BUN 87 H* (9-20) mg/dL Creatinine 2.10 H (0.66-1.25) mg/dL Glucose 143 H (74-99) mg/dL POC Glucose (mg/dL) 188 H 148 H (75-99) mg/dL 10/04/17 Range/Units 08:04 PT 13.0 H (9.0-12.0) sec INR 1.4 H (<1.2) Sodium (137-145) mmol/L Potassium (3.5-5.1) mmol/L Chloride (98-107) mmol/L BUN (9-20) mg/dL Creatinine (0.66-1.25) mg/dL Glucose (74-99) mg/dL POC Glucose (mg/dL) (75-99) mg/dL Assessment and Plan (1) Acute systolic CHF (congestive heart failure), NYHA class 4 Narrative/Plan: * Lasix r20 mg by mouth daily, received a single dose of Lasix 40 mg earlier today continue with low-dose beta raymon * ProBNP 16 300 on presentation, Echocardiogram ejection fraction of 25-30% severely dilated left atrium with moderate to severe aortic stenosis (patient deemed to be a poor surgical candidate given his comorbidities by cardiothoracic surgery) * Cardiology following appreciate recommendations * Status post cardiac arrest with PeA after being started on dopamine with ROSC after approximately 3-4 minutes. * We will likely need a LifeVest prior to discharge r Current Visit: Yes Status: Acute Code(s): I50.21 - ACUTE SYSTOLIC ( CONGESTIVE) HEART FAILURE SNOMED Code(s): 278700700 (2) Acute kidney injury Narrative/Plan: * nonoliguric acute kidney injury secondary to ATN secondary to hypotension and cardiac arrest. * Also with hyponatremia _ received a dose of Samsca yesterday * Creatinine at 2.1 today with hyperkalemia 5.5 give a dose a kayexlate today * Continue to monitor Current Visit: Yes Status: Acute Code(s): N17.9 - ACUTE KIDNEY FAILURE, UNSPECIFIED SNOMED Code(s): 72412411 (3) Ascites Narrative/Plan: * GI consulted Dr. 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 * Approximately 14.1 L removed via paracentesis 09/20 * More distended today patient will have ultrasound-guided paracentesis on Sunday due to being on eliquis at present will hold eloquis Current Visit: Yes Status: Resolved Priority: High Code(s): R18.8 - OTHER ASCITES SNOMED Code(s): 405279457 (4) Cirrhosis Narrative/Plan: * GI following * GEOVANI and anti-smooth muscle positive liver studies remain normal, pointing to a non-alcoholic fatty liver disease or [place] as causative etiology * Continues with Lasix Current Visit: Yes Status: Acute Priority: High Code(s): K74.60 - UNSPECIFIED CIRRHOSIS OF LIVER SNOMED Code(s): 64257452 (5) Atrial fibrillation Current Visit: Yes Status: Chronic Priority: High Code(s): I48.91 - UNSPECIFIED ATRIAL FIBRILLATION SNOMED Code(s): 03694684 (6) Elevated troponin Current Visit: Yes Status: Acute Code(s): R74.8 - ABNORMAL LEVELS OF OTHER SERUM ENZYMES SNOMED Code(s): 558344817 (7) Pleural effusion Current Visit: Yes Status: Acute Code(s): J90 - PLEURAL EFFUSION, NOT ELSEWHERE CLASSIFIED SNOMED Code(s): 56812457 (8) Arthritis of left shoulder region Current Visit: Yes Status: Chronic Priority: Medium Code(s): M19.012 - PRIMARY OSTEOARTHRITIS, LEFT SHOULDER SNOMED Code(s): 024769504 (9) Hyperbilirubinemia Current Visit: Yes Status: Resolved Code(s): E80.6 - OTHER DISORDERS OF BILIRUBIN METABOLISM SNOMED Code(s): 33421942
[2017-10-04] MEDS ORDERED: SODIUM POLYSTYRENE SULFONATE 15 GM/60 ML BOTTLE PO STA (10:36)
[2017-10-04] MEDS ORDERED: DEXTROSE 50%-WATER 50 ML SYRINGE IVP STA (10:59)
[2017-10-04] MEDS ORDERED: INSULIN REGULAR 100 UNIT/ML VIAL IV ONE (11:00)
[2017-10-04] MEDS ORDERED: FUROSEMIDE 10 MG/ML 4 ML VIAL IV STA (11:43)
--- NOTE | 2017-10-04 11:44 | P.PN ---
Subjective Patient is seen in follow-up for acute kidney injury. Renal function has been worsening with creatinine up to 2.2 as of October 03 - 2.1 today. Sodium level improved at 130. Oral intake is improving. Denies chest pain or shortness of breath. He does of systolic CHF with ejection fraction of 20-25%. He is status post cardiac arrest. He received a total of 60 mg Lasix yesterday. Vital signs are stable. General: The patient appeared well nourished and normally developed. HEENT: Head exam is unremarkable. Neck is without jugular venous distension. LUNGS: Lungs are clear to auscultation and percussion. Breath sounds decreased. HEART: Rate and Rhythm are regular. First and second heart sounds normal. No murmurs, rubs or gallops. ABDOMEN: Abdominal exam reveals normal bowel sounds. Distention noted. EXTREMITITES: Trace edema. Objective - Vital Signs Vital signs: Vital Signs Temp 97.0 F L 10/04/17 05:55 Pulse 82 10/04/17 05:55 Resp 16 10/04/17 05:55 BP 106/65 10/04/17 05:55 Pulse Ox 95 10/04/17 09:00 Intake & Output 10/03/17 10/04/17 10/04/17 18:59 06:59 18:59 Intake Total 250 Output Total 300 425 Balance -300 -175 Intake: Oral 250 Output: Urine 300 425 Other: Voiding Method Urinal Urinal # Voids 1 ABP, PAP, CO, CI - Last Documented Arterial Blood Pressure 115/58 - Labs CBC & Chem 7: 10/04/17 08:04 10/04/17 08:04 Labs: Abnormal Lab Results - Last 24 Hours (Table) 10/03/17 10/03/17 10/03/17 Range/Units 17:44 17:48 20:53 PT (9.0-12.0) sec INR (<1.2) Sodium 127 L (137-145) mmol/L Potassium (3.5-5.1) mmol/L Chloride (98-107) mmol/L BUN (9-20) mg/dL Creatinine (0.66-1.25) mg/dL Glucose (74-99) mg/dL POC Glucose (mg/dL) 188 H 188 H (75-99) mg/dL 10/04/17 10/04/17 10/04/17 Range/Units 07:02 08:04 08:04 PT 13.0 H (9.0-12.0) sec INR 1.4 H (<1.2) Sodium 130 L (137-145) mmol/L Potassium 5.5 H (3.5-5.1) mmol/L Chloride 95 L (98-107) mmol/L BUN 87 H* (9-20) mg/dL Creatinine 2.10 H (0.66-1.25) mg/dL Glucose 143 H (74-99) mg/dL POC Glucose (mg/dL) 148 H (75-99) mg/dL Assessment and Plan Plan: Assessment: 1. Nonoliguric acute kidney injury secondary to ATN secondary to hypotension and cardiac arrest. Also component of cardiorenal syndrome. Creatinine 2.2 as of October 03 - 2.1 today. Urinalysis is quite benign. 2. Hyponatremia, hypervolemic. Urine sodium noted to be low at 23 and repeat 14. Urine osmolality 423, repeat 291. 3. Systolic CHF with ejection fraction of 20-25%. 4. Ascites status post paracentesis on September 20 with over 14 L removed. 5. Liver cirrhosis. Likely related to non-alcoholic fatty liver disease. GI following. 6. Anemia. Iron deficiency noted - s/p 3 doses of IV iron. 7. Atrial fibrillation maintained on heparin drip. Rate controlled. 8. Hyperkalemia secondary to acute kidney injury. Plan: Continue Lasix 20 mg orally once daily. Additional 40 mg IV once now. Maintain 1500 mL fluid restriction. Maintain protein supplements. Avoid nephrotoxic agents and hypotensive episodes. Continue to monitor renal function and urine output. Paracentesis scheduled for tomorrow - 25 g of albumin prior to the procedure and additional 25 g if 4-8 L removed. This was discussed with GI. 10 units of IV insulin with amp of D50 now. Repeat potassium level this evening.
[2017-10-04 12:12] LABS: Glucose,Whole Blood 224 mg/dL (75-99)
--- NOTE | 2017-10-04 12:23 | P.PN ---
Subjective Progress Note Date: 10/04/17 Principal diagnosis: Right-sided pleural effusion likely secondary to congestive heart failure This is a 77-year-old male patient with known history of chronic atrial fibrillation, chronic lumbar degenerative disc disease with limited mobility and impaired performance and functional status at baseline. He is also known to have diabetes, gout, and prostate enlargement. The patient comes in with worsening shortness of breath and addition to generalized weakness and some dizziness. His chest x-ray showed low lung volumes and cardiomegaly and possibly some right-sided pleural effusion. EKG showed chronic atrial fibrillation with some nonspecific ST segment changes. Based on that the patient a CAT scan of the chest abdomen and pelvis and the CAT scan showed a small to moderate-sized right-sided pleural effusion in addition to some changes in the liver consistent with liver cirrhosis and ascites with anasarca. The patient also reports some increased lower oximetry edema and further investigation with an echo of the heart showed an ejection fraction of 25-30% and global hypokinesis of the left ventricle, RV was mildly enlarged, moderate to severe aortic stenosis, severe mitral regurgitation, severe tricuspid regurgitation, severe pulmonary hypertension was also noted. The patient is currently on 2 L of oxygen nasal cannula. His INR is at 1.5 as the patient is on warfarin. The patient's creatinine is at 1.1 and the patient was started on diuretics and he seems to be responding. He feels less short of breath compared to yesterday. He feels that the abdomen is also less distended. He is lower extremity edema is also improving. He was seen by cardiology. He was also seen by gastroenterology. He is not a drinker. No significant hepatitis. Most of alcoholism. No history of GI bleeding. The patient will have a paracentesis with the next 24 hours regarding his ascites. He is able to lay down to 20 bed elevation without any major difficulties. The patient seen again today 09/19/2017 in follow-up on the selective care unit. He is currently sitting up at bedside. He is awake and alert in no acute distress. His abdomen remains quite distended. He is still this moment with minimal exertion. He is maintaining O2 saturations in the upper 90s on 1.5 L/m per nasal cannula. He is currently afebrile. Hemodynamically stable. INR is 1.6 today. IR will possibly do a paracentesis tomorrow. He is voiding well and remains in a negative balance. His weight is down 1 kg. On 09/20/2017 patient seen in follow-up on selective care unit, he is status post large volume paracentesis of approximately 14.1 L of straw-colored fluid. Patient tolerated the procedure well. Her weight resting in bed, in no acute distress, abdomen is a lot less distended, soft, nontender. Patient is having some soreness along the left costal margin, mild, but no acute distress. Oxygenation improved, patient is currently on 1/2 L per nasal cannula, he reports his breathing easier, vital signs are stable, he is afebrile. Patient has been started on IV Lasix drip at 10 mg per hour, in addition to the Zaroxolyn. Patient continues on potassium and Aldactone,, and lisinopril. Overall his breathing is improved, continue with current medical treatment, will obtain a follow-up chest x-ray in the morning OnOn 09/21/2017, the patient is awake and alert. The patient is looking much better as the patient had significant large volume paracentesis with evacuation of more than 10 L from the abdomen. In fact the total amount was 14 L. Subsequent chest x-ray showed a presence of a right-sided pleural effusion which is moderate in size. Nevertheless, the patient denies having any significant shortness of breath and he is not wanting a thoracentesis for the time being. I think it's reasonable as long as the patient has significant improvement in her breathing with large volume paracentesis. Meanwhile, the patient has become slightly prerenal on today's blood work. BUN is up to 77 and the creatinine is up to 1.48. The patient is currently on Lasix drip at 10 mg an hour. The patient is also on Zaroxolyn 5 mg by mouth daily. The patient is also on Aldactone 100 mg by mouth daily. No major edema lower extremities. Note that the blood work also showed positivity and GEOVANI and anti-smooth muscle antibodies were also positive raising the possibility of an underlying autoimmune related hepatitis/liver disease. This antibodies positive for autoimmune liver disease as such as primary biliary cholangitis and autoimmune hepatitis. Note that the patient also has cardiomyopathy Contributing to His Profound Edema and Fluid Overload. 09/22/2017, the patient has no specific complaints. Hemodynamically stable. The patient is currently off the Lasix drip. The patient will be started on Aldactone.. The patient has no abdominal pain. Abdominal distention is improved. We decided not to drain the pleural effusion in the lung volume the patient has been having no significant respiratory distress at this point in time. The renal function is stable and the creatinine is at 1.37. On 09/23/2017, this 77-year-old male patient who got brought into the intensive care unit after he rested on the floor. I do not have the chance to evaluate this patient in the morning. The patient was seen by cardiology and apparently his IV Lasix was on hold due to issues related to hypotension. At that point the patient was placed on dopamine at 5 mics. Within 30 minutes of initiation of dopamine, the patient became tachycardic and subsequently a CODE BLUE was called and the patient went into cardiopulmonary arrest. I was on the floor and I attended to the Code and this patient was in PEA initially. CPR was initiated and ACLS protocol was followed. The patient was given epinephrine. I intubated the patient on the scene. Within 2-3 minutes a pulse on her blood pressure was obtained. The patient was interactive and moving all 4 extremities. I'm of the patient in intensive care unit. I started the prevent on him while him being intubated on a mechanical ventilator. A brief neurologic evaluation was done and the patient was fully awake and alert and moving all 4 extremities. Nevertheless, based on his underlying cardio pulmonary status, I decided not to extubate the patient. He was placed on propofol infusion for sedation. Currently is on assist control mode at a rate of 24, tidal volume of 500, FiO2 of 100% and a PEEP of 5. Blood gas showed a pH of 7.37 with a pCO2 of 36 and pO2 of 300 and the FiO2 was not down to 50%. The patient is currently on 5 mics of norepinephrine infusion for blood pressure control. The patient had a post intubation chest x-ray that showed right basilar pleural effusion in addition to cardiomegaly. ET tube was in a good location. Subsequently, I inserted a triple lumen catheter for the left subclavian vein and a chest x-ray findings remain stable and there was no evidence of any pneumothorax. Reviewing the patient's blood work from earlier this morning, the patient a white cell count of 8 with a hemoglobin of 9.7. His BUN is at 83 with a creatinine of 1.5. And note that the patient has become progressively more prerenal as the patient had large volume paracentesis and subsequently was aggressively treated with diuretics. Note that his echocardiogram showed ejection fraction of 25% along with global hypokinesis. LAD was severely dilated. There was severe aortic sclerosis and moderate aortic regurgitation and moderate to severe aortic stenosis with a PA pressure of 61 in addition to severe mitral regurgitation, severe tricuspid regurgitation and severe pulmonary hypertension with a PA pressure of 91. The CAT scan of the abdomen showed changes consistent with cirrhosis of the liver and ascites. Large volume paracentesis was done. The patient continued to have a moderate-sized right-sided pleural effusion. The cirrhosis is probably of a cardiac in nature. No significant splenomegaly or splenic varices was seen. Upon further workup the patient do not to have a positive GEOVANI and anti- smooth muscle antibody which also raises concern for autoimmune hepatitis. Patient was reevaluated today on 09/24/2017, remains on mechanical ventilation, remains on 2 g of norepinephrine, chest x-ray is showing some improvement, but patient continues to have bilateral pleural effusions. Right more so than left , and I believe the right pleural effusion is related to his underlying liver disease and ascites. May or may not consider thoracentesis at this point. His ventilator settings were reviewed, patient was awakened, I gave him a trial of pressure support and CPAP, patient did quite well, and I went ahead and recommended extubating the patient. His weaning parameters were great. His labs were also reviewed WBC count is 12 hemoglobin is 10.7. ABG showed a pO2 of 217 pCO2 of 32 pH of 7.45. PTT is 47.7, patient remains on heparin. Electrolytes are normal BUN is 73 creatinine 1.20. Patient was noted to be appropriate, responsive, and in no distress on pressure support and CPAP. Then I proceeded to extubating the patient. Patient was reevaluated today on 09/25/2017, he is presently on room air, extubated yesterday, and tolerated the extubation quite well. Patient is off mechanical ventilation, off pressors, seems to be very comfortable, in no distress. Continues to have multiple complex medical problems including pulmonary, cardiac, and her renal issues. And most definitely liver issues/ hepatitis. Based on the notes from the battery builder, patient was felt to have cirrhotic liver and abdominal pelvic ascites with pleural effusion secondary to cirrhosis possibly cryptogenic secondary to [place]. Chest x-ray today continues to show some pleural effusion and consolidation of the right lower lobe, but seems to be a bit improved compared to the chest x-ray yesterday. Labs showed relatively normal CBC hemoglobin is 9.3. Normal BUN is improving down to 63, and creatinine is also improving down to 1.20. At this point the patient seems to be making good amount of urine, and he is off diuretics. Being followed closely by nephrology. On 09/26/2017, patient remains in the ICU, tolerated extubation over the last 2 days quite well, presently on 2 L nasal cannula. Patient denies any shortness of breath, he is off all the pressors, not receiving any diuretics, but early today, he was seen by nephrology and recommended a dose of Lasix. His chest x- ray continues to show a good sized right-sided pleural effusion, patient is diuresing well, hence I have no plans to do a thoracentesis at this point. His mentation seems to be intact. Patient does have low ejection fraction, and cardiomyopathy with LV dysfunction, his ejection fraction is 25%. Continues to have some swelling in the lower extremities, and that is being addressed with diuretics. Patient denies any shortness of breath, no chest pain, no cough, no wheezing, no nausea no vomiting and no abdominal pain. Labs WBC count is 6.9 hemoglobin is 8.8 ETT is therapeutic at 54.6 electrolytes were noted BUN is 60 creatinine is 1.30. Liver enzymes were noted to be relatively normal. Chest x- ray as noted above. Reevaluated today on 09/27/2017, patient remains in the ICU, he was extubated a few days back, and he continues to tolerate extubation. Presently on room air. Denies any specific complaints, feeling great compared to how he felt over the last few days. All his labs were reviewed including a CBC showed a hemoglobin of 8.1, WBC count of 6.1 PTT is therapeutic at 49.5. Basic metabolic profile was relatively normal. BUN is 60 creatinine 1.30 unchanged compared to yesterday. Urine sodium is 23 urine osmolality is 423. Reevaluated today on 09/28/2017, patient remains as an overflow in the ICU, doing great. He is basically asymptomatic. However his sodium seems to be drifting down, and his renal functioning is a bit worse today. X-ray is showing improvement in his bilateral pleural effusions. Patient remains on room air, denies any shortness of breath. Remains edematous and swollen in the lower extremities, but clinically the patient is relatively dry. Has been making over 200 mL of urine per hour without any diuretics. Hence I will restart the patient on a 0.9 normal saline at 70 mL per hour. His BUN today is 61 creatinine is 1.40 and his sodium is 129. WBC count is 6.4 hemoglobin is 8.4 , patient remains on heparin, and his PTT is therapeutic, he is also receiving IV iron. On 09/29/2017 patient seen in follow-up on selective care unit. He is resting in bed, in no acute distress, currently on room air, and the pulse ox of 97%, lung sounds are positive for bibasilar rales, and chest x-ray was reviewed and shows stable bilateral consolidation and pleural effusion. Patient continue is on empiric antibiotics in the form of Zosyn, and ascites fluid culture has been negative so far. No chest congestion, no sputum production or chest pain. No hemoptysis. Denies any fever or chills, today's lab work shows the BBC of 5.9, hemoglobin of 8.4, sodium is improving slightly, and is currently is at 129, B UN is 62, creatinine is 1.5. Patient remains on heparin infusion and tidal coagulation for his atrial fibrillation, cardiology discussed the possibility of surgical intervention for patient's valvular disease, and the patient and the family would like to think about their options. For now he remains stable, no specific complaints. On 10/01/2017 patient seen in follow-up on selective care unit. In no acute distress, currently on room air, 97%, vital signs are stable, patient is afebrile. Lung sounds are diminished with a few scattered rales on the left. Patient is on oral Lasix at 20 mg once daily, he is on Ahlquist for anticoagulation, on antibiotics in the form of Zosyn. He received a dose of Tolvaptan for his hyponatremia. He is up walking with a walker with physical therapy, and tolerated activity fairly well. Obtain follow-up chest x-ray tomorrow. Patient overall reports his breathing is easier. A consultation her cardiothoracic surgery was requested in regards to potential surgery for moderate to severe aortic stenosis, severe mitral regurgitation and severe tricuspid regurgitation. On 10/02/2017 patient seen again in follow-up on selective care unit, denies any acute distress, denies any dyspnea. He remains on room air, with O2 sat at 98%, lung sounds clear to auscultation, no rhonchi no rales. Today's chest x- ray was reviewed by Dr. Metzger, and shows small right pleural effusion, and some interstitial prominence consistent with congestive heart failure, not significantly worse from the previous exam. Clinically patient denies any distress, is maintaining stable oxygenation on room air. He was evaluated by CT surgery for her his significant valvular heart disease, and is not a surgical candidate at this time, but will be followed up on an outpatient basis , also a heart cath was recommended by to any consideration for valve surgery. Patient's IV diuretics have been transitioned to oral Lasix, patient has received 7 days of empiric antibiotics with Zosyn. Ascites fluid culture was negative, showing no chest congestion, no fever or chills. We'll discontinue Zosyn today. On 10/03/2017 patient seen in follow-up. Sitting up in the chair, denies any acute distress, patient states he is scheduled for another paracentesis later on this week. Remains on room air with O2 sat 96%, he denies any worsening dyspnea. Vital signs are stable, patient remains on oral diuretics. Renal profile is noted to be worsening, for ALLERGY swallowing. Denies any fever or chills lung sounds are positive for basilar crackles. Abdomen is a bit more distended or 2 previous exams. Patient has received 7 days of empiric antibiotics in the form of Zosyn, there has been no evidence of leukocytosis, no fever or chills, no chest congestion or sputum production. Zosyn has been discontinued today. Abdominal ultrasound today showed moderate ascites. Status chest x-ray showed small right pleural effusion, and persistent interstitial prominence consistent with congestive heart failure. Repeat paracentesis to improve the appearance of the right pleural effusion. On 10/04/2017 patient seen in follow-up in medical surgical floor. He is scheduled for a paracentesis for tomorrow on 10/05/2017. He denies any worsening dyspnea, he is on room air, with a pulse ox of 95%, hemodynamically stable, afebrile. Yesterday we discontinued patient Zosyn, she denies any fever or chills, denies any chest congestion or sputum production. Patient continues on diuretics, and has received IV Lasix today, and nephrology is following. Serum sodium is up to 1:30 on today's labs, potassium is 5.5, B1 is 87, creatinine is 2.10. No new chest x-ray today. Patient is stable from pulmonary standpoint, we will follow the patient on as-needed basis. Objective - Vital Signs Vital signs: Vital Signs Temp 97.0 F L 10/04/17 05:55 Pulse 82 10/04/17 05:55 Resp 16 10/04/17 05:55 BP 106/65 10/04/17 05:55 Pulse Ox 95 10/04/17 09:00 Intake & Output 10/03/17 10/04/17 10/04/17 18:59 06:59 18:59 Intake Total 250 Output Total 300 425 Balance -300 -175 Intake: Oral 250 Output: Urine 300 425 Other: Voiding Method Urinal Urinal # Voids 1 ABP, PAP, CO, CI - Last Documented Arterial Blood Pressure 115/58 - Exam General appearance: The patient is alert, oriented, in no acute distress. The patient does not seem to be in acute respiratory distress. No use of excess amount of the breathing. HET: Head is normocephalic and atraumatic. Pupils are equal and reactive. Oropharynx is clear without lesions. Neck: Supple without lymphadenopathy. Trachea midline. There is significant jugular venous distention bilaterally. Neck is overall supple and there is no goiter or neck masses. Heart: The patient has a harsh systolic ejection murmur grade 4/6 heard throughout the precordium. The rhythm is irregular. The murmur is radiating to his neck. No right ventricular heave or thrill. Lungs: Crackles at bilateral bases, diminished breath sounds right lower lobe Abdomen: Soft, nondistended, patient is status post large volume paracentesis would removal of 14.1 L of ascitic fluid. No peritoneal signs. No palpable organomegaly or masses. Extremities: +1 bilateral lower extremity edema with bilateral lower leg dressings edematous feet. Neurological: No focal deficits. Strength and sensation are grossly intact. Examination of the skin revealed no evidence of significant rashes, suspicious appearing nevi or other concerning lesions. Psychiatric the patient has normal mood and affect - Labs CBC & Chem 7: 10/04/17 08:04 10/04/17 08:04 Labs: Abnormal Lab Results - Last 24 Hours (Table) 10/03/17 10/03/17 10/03/17 Range/Units 17:44 17:48 20:53 PT (9.0-12.0) sec INR (<1.2) Sodium 127 L (137-145) mmol/L Potassium (3.5-5.1) mmol/L Chloride (98-107) mmol/L BUN (9-20) mg/dL Creatinine (0.66-1.25) mg/dL Glucose (74-99) mg/dL POC Glucose (mg/dL) 188 H 188 H (75-99) mg/dL 10/04/17 10/04/17 10/04/17 Range/Units 07:02 08:04 08:04 PT 13.0 H (9.0-12.0) sec INR 1.4 H (<1.2) Sodium 130 L (137-145) mmol/L Potassium 5.5 H (3.5-5.1) mmol/L Chloride 95 L (98-107) mmol/L BUN 87 H* (9-20) mg/dL Creatinine 2.10 H (0.66-1.25) mg/dL Glucose 143 H (74-99) mg/dL POC Glucose (mg/dL) 148 H (75-99) mg/dL 10/04/17 Range/Units 12:00 PT (9.0-12.0) sec INR (<1.2) Sodium (137-145) mmol/L Potassium (3.5-5.1) mmol/L Chloride (98-107) mmol/L BUN (9-20) mg/dL Creatinine (0.66-1.25) mg/dL Glucose (74-99) mg/dL POC Glucose (mg/dL) 224 H (75-99) mg/dL Assessment and Plan Plan: Assessment: 1 acute cardiac arrest, acute hypoxic respiratory failure secondary to acute cardiac arrest. The patient was with the downtime of about 2-3 minutes. He had successful resuscitation based on ACS protocol, post extubation day #9 2 right-sided pleural effusion likely on the basis of congestive heart failure. Possibility of chronic liver disease causing ascites and right-sided pleural effusion/hydrothorax cannot be completely excluded 3 CHF with impaired left a ejection fraction of 25%. In addition the patient has severe aortic stenosis, mitral regurgitation, severe tricuspid regurgitation secondary pulmonary hypertension. 4 chronic atrial fibrillation 5 ascites and anasarca secondary to above, there is post large volume paracentesis with removal of 14.1 L of ascitic fluid 6 questionable liver cirrhosis although the findings could also be related to [place]. I also believe his heart failure is another contributing factor to his liver hepatopathy and congestion and possibly contributing to his massive ascites 7 long-term anticoagulation with warfarin, and presently the patient is on heparin infusion for anticoagulation 8 diabetes mellitus 9 gout 10 BPH Plan: Patient remains stable from pulmonary standpoint, although long-term prognosis is extremely guarded in view of his significant valvular heart disease, chronic A. fib, impaired left ventricular systolic function, renal impairment. Agree with repeating his abdominal paracentesis. We will see the patient on as- needed basis. Thank you for this consultation. I performed a history & physical examination of the patient and discussed their management with my nurse practitioner, Sydnee Blanco. I reviewed the nurse practitioner's note and agree with the documented findings and plan of care. Lung sounds are diminished at the right base. The findings and the impression was discussed with the patient. I attest to the documentation by the nurse practitioner. Time with Patient: Less than 30
--- NOTE | 2017-10-04 13:12 | P.PN ---
Subjective Progress Note Date: 10/04/17 Principal diagnosis: Ascites Protracted hospitalization secondary to CHF postcardiac arrest. History of underlying atrial fibrillation. Reevaluated today in regards to abdominal distention recurrent ascites. Scheduled for therapeutic paracentesis tomorrow secondary to receiving anticoagulation yesterday morning. Underlying history of nonalcoholic fatty liver disease cirrhosis contributing to his ascites possible cardiac component as well. Positive GEOVANI and elevated smooth muscle antibody but liver function tests have remained and remarkable, underlying autoimmune hepatitis felt to be less likely of the cause of cirrhosis. Hepatitis screen negative. Objective - Vital Signs Vital signs: Vital Signs Temp 97.0 F L 10/04/17 05:55 Pulse 82 10/04/17 05:55 Resp 16 10/04/17 05:55 BP 106/65 10/04/17 05:55 Pulse Ox 95 10/04/17 09:00 Intake & Output 10/03/17 10/04/17 10/04/17 18:59 06:59 18:59 Intake Total 250 Output Total 300 425 Balance -300 -175 Intake: Oral 250 Output: Urine 300 425 Other: Voiding Method Urinal Urinal # Voids 1 ABP, PAP, CO, CI - Last Documented Arterial Blood Pressure 115/58 - Exam General appearance: The patient is alert, oriented, in no acute distress. HET: Head is normocephalic and atraumatic. Pupils are equal and reactive. Oropharynx is clear without lesions. Neck: Supple without lymphadenopathy. Trachea midline. Heart: S1 S2. Regular rate and rhythm. Lungs: Diminished in bases bilaterally rate her on right than left. Abdomen: Soft, nontender moderately bloated moderate ascites. No peritoneal signs. No palpable organomegaly or masses. Extremities: +2 lower extremity edema Neurological: No focal deficits. Strength and sensation are grossly intact. - Labs CBC & Chem 7: 10/04/17 08:04 10/04/17 08:04 Labs: Abnormal Lab Results - Last 24 Hours (Table) 10/03/17 10/03/17 10/03/17 Range/Units 17:44 17:48 20:53 PT (9.0-12.0) sec INR (<1.2) Sodium 127 L (137-145) mmol/L Potassium (3.5-5.1) mmol/L Chloride (98-107) mmol/L BUN (9-20) mg/dL Creatinine (0.66-1.25) mg/dL Glucose (74-99) mg/dL POC Glucose (mg/dL) 188 H 188 H (75-99) mg/dL 18 10/04/17 10/04/17 Range/Units 07:02 08:04 08:04 PT 13.0 H (9.0-12.0) sec INR 1.4 H (<1.2) Sodium 130 L (137-145) mmol/L Potassium 5.5 H (3.5-5.1) mmol/L Chloride 95 L (98-107) mmol/L BUN 87 H* (9-20) mg/dL Creatinine 2.10 H (0.66-1.25) mg/dL Glucose 143 H (74-99) mg/dL POC Glucose (mg/dL) 148 H (75-99) mg/dL 10/04/17 Range/Units 12:00 PT (9.0-12.0) sec INR (<1.2) Sodium (137-145) mmol/L Potassium (3.5-5.1) mmol/L Chloride (98-107) mmol/L BUN (9-20) mg/dL Creatinine (0.66-1.25) mg/dL Glucose (74-99) mg/dL POC Glucose (mg/dL) 224 H (75-99) mg/dL Assessment and Plan (1) Cirrhosis Narrative/Plan: 77-year-old male admitted with shortness of breath worsening abdominal distention with radiographic imaging reporting a cirrhotic liver and abdominal pelvic ascites pleural effusion. Etiology of cirrhosis unclear at this time possible cryptogenic secondary to NAFLD possible ARMSTRONG. Autoimmune cirrhosis cannot be entirely excluded but felt to be less likely considering LFTs within normal limits most likely LFTs were elevated to underlying heart failure and is since improved secondary to diuresis additional serologic workup for chronic liver disease reviewed. Current Visit: Yes Status: Acute Priority: High Code(s): K74.60 - UNSPECIFIED CIRRHOSIS OF LIVER SNOMED Code(s): 08565919 (2) Ascites Narrative/Plan: Suspected portal hypertension Current Visit: Yes Status: Resolved Priority: High Code(s): R18.8 - OTHER ASCITES SNOMED Code(s): 423258670 (3) Elevated liver enzymes Narrative/Plan: Suspect secondary to passive venous congestion from underlying heart failure elevated BNP Current Visit: Yes Status: Acute Code(s): R74.8 - ABNORMAL LEVELS OF OTHER SERUM ENZYMES SNOMED Code(s): 867603553 (4) Diabetes mellitus Current Visit: Yes Status: Chronic Priority: Medium Code(s): E11.9 - TYPE 2 DIABETES MELLITUS WITHOUT COMPLICATIONS SNOMED Code(s): 54489526 (5) Warfarin-induced coagulopathy Current Visit: Yes Status: Acute Priority: High Code(s): D68.32 - HEMORRHAGIC DISORD D/T EXTRINSIC CIRCULATING ANTICOAGULANTS; T45.515A - ADVERSE EFFECT OF ANTICOAGULANTS, INITIAL ENCOUNTER SNOMED Code(s): 96575056 (6) Atrial fibrillation Current Visit: Yes Status: Chronic Priority: High Code(s): I48.91 - UNSPECIFIED ATRIAL FIBRILLATION SNOMED Code(s): 36099033 (7) Dyspnea Current Visit: Yes Status: Acute Code(s): R06.00 - DYSPNEA, UNSPECIFIED SNOMED Code(s): 278735287 (8) Congestive heart failure Current Visit: Yes Status: Acute Priority: High Code(s): I50.9 - HEART FAILURE, UNSPECIFIED SNOMED Code(s): 94513710 (9) Pleural effusion Current Visit: Yes Status: Acute Code(s): J90 - PLEURAL EFFUSION, NOT ELSEWHERE CLASSIFIED SNOMED Code(s): 14452936 Plan: 1. Paracentesis tomorrow. Case was discussed with assistant store manager Dr. Evans patient will receive albumin prior to and post procedure. We'll obtain a CMP in a.m. and ascitic albumin level to evaluate for suspected portal hypertension. CMP was not obtained same day when previous paracentesis was performed. 2. Will defer to nephrology service for diuresis therapy secondary to elevated BUN/creatinine/LUIS DANIEL. 3. Restart anticoagulation after paracentesis is complete. 4. Return to GI office October 11 for reevaluation. Assessment and plan a care discussed with Dr. Olivo
[2017-10-04 17:36] LABS: Glucose,Whole Blood 196 mg/dL (75-99)
[2017-10-04 20:43] LABS: Glucose,Whole Blood 195 mg/dL (75-99)
[2017-10-04] MEDS: TAMSULOSIN 0.4 MG CAP.ER.24H PO SCH (21:26)
[2017-10-05 07:38] LABS: Mean Platelet Volume 6.5; Platelet Count 201 k/uL (150-450)
[2017-10-05 07:42] LABS: Glucose,Whole Blood 183 mg/dL (75-99)
[2017-10-05 07:45] LABS: INR 1.4 (<1.2); Prothrombin Time 12.8 sec (9.0-12.0)
[2017-10-05 07:59] LABS: Albumin 2.9 g/dL (3.5-5.0); Calcium 8.2 mg/dL (8.4-10.2); Magnesium 2.6 mg/dL (1.6-2.3); Potassium 4.9 mmol/L (3.5-5.1); Total Bilirubin 1.1 mg/dL (0.2-1.3); Total Protein 5.5 g/dL (6.3-8.2)
[2017-10-05] MEDS: METOPROLOL TARTRATE 12.5 MG TAB PO SCH ×2 (08:45→20:59)
[2017-10-05] MEDS: ALBUMIN HUMAN 25% 50 ML in EMPTY BAG 1 BAG IVPB SCH ×6 (08:46→13:57)
[2017-10-05] MEDS: ALLOPURINOL 300 MG TAB PO SCH (09:10)
[2017-10-05] MEDS: PANTOPRAZOLE 40 MG TABLET PO SCH (09:10)
[2017-10-05] MEDS: INSULIN ASPART 100 UNIT/ML 1 ML 10 ML VIAL SQ SCH ×2 (09:11→14:00)
[2017-10-05] MEDS: ATORVASTATIN 40 MG TAB PO SCH (09:11)
[2017-10-05] MEDS ORDERED: LIDOCAINE (PF) 10 MG/ML 2 ML VIAL SQ ONE (10:20)
--- NOTE | 2017-10-05 11:14 | P.PN ---
Subjective Progress Note Date: 10/05/17 Principal diagnosis: Ascites s/p paracentesis 10 L removed. Received 25 grams albumin pre-procedure and 50 grams post-procedure. Feels better. Objective - Vital Signs Vital signs: Vital Signs Temp 97.0 F L 10/05/17 06:10 Pulse 91 10/05/17 10:54 Resp 16 10/05/17 10:54 BP 98/63 10/05/17 10:54 Pulse Ox 96 10/05/17 10:54 Intake & Output 10/04/17 10/05/17 10/05/17 18:59 06:59 18:59 Intake Total 480 200 240 Output Total 200 Balance 480 200 40 Intake: IV 0 0.9 0 Oral 480 200 240 Output: Urine 200 Other: # Voids 3 1 # Bowel Movements 0 0 ABP, PAP, CO, CI - Last Documented Arterial Blood Pressure 115/58 - Exam General appearance: The patient is alert, oriented, in no acute distress. HET: Head is normocephalic and atraumatic. Pupils are equal and reactive. Oropharynx is clear without lesions. Neck: Supple without lymphadenopathy. Trachea midline. Heart: S1 S2. Regular rate and rhythm. Lungs: Diminished in bases bilaterally rate her on right than left. Abdomen: Soft, nontender minimal ascites. No peritoneal signs. No palpable organomegaly or masses. Extremities: +2 lower extremity edema Neurological: No focal deficits. Strength and sensation are grossly intact. - Labs CBC & Chem 7: 10/05/17 07:09 10/05/17 07:09 Labs: Abnormal Lab Results - Last 24 Hours (Table) 10/04/17 10/04/17 10/04/17 Range/Units 12:00 17:33 20:28 PT (9.0-12.0) sec INR (<1.2) Sodium (137-145) mmol/L Chloride (98-107) mmol/L Carbon Dioxide (22-30) mmol/L BUN (9-20) mg/dL Creatinine (0.66-1.25) mg/dL Glucose (74-99) mg/dL POC Glucose (mg/dL) 224 H 196 H 195 H (75-99) mg/dL Calcium (8.4-10.2) mg/dL Magnesium (1.6-2.3) mg/dL Alkaline Phosphatase (38-126) U/L Total Protein (6.3-8.2) g/dL Albumin (3.5-5.0) g/dL 10/05/17 10/05/17 10/05/17 Range/Units 07:09 07:09 07:14 PT 12.8 H (9.0-12.0) sec INR 1.4 H (<1.2) Sodium 129 L (137-145) mmol/L Chloride 96 L (98-107) mmol/L Carbon Dioxide 21 L (22-30) mmol/L BUN 92 H* (9-20) mg/dL Creatinine 1.83 H (0.66-1.25) mg/dL Glucose 160 H (74-99) mg/dL POC Glucose (mg/dL) 183 H (75-99) mg/dL Calcium 8.2 L (8.4-10.2) mg/dL Magnesium 2.6 H (1.6-2.3) mg/dL Alkaline Phosphatase 282 H (38-126) U/L Total Protein 5.5 L (6.3-8.2) g/dL Albumin 2.9 L (3.5-5.0) g/dL Assessment and Plan (1) Cirrhosis Narrative/Plan: 77-year-old male admitted with shortness of breath worsening abdominal distention with radiographic imaging reporting a cirrhotic liver and abdominal pelvic ascites pleural effusion. Etiology of cirrhosis unclear at this time possible cryptogenic secondary to NAFLD possible ARMSTRONG. Autoimmune cirrhosis cannot be entirely excluded but felt to be less likely considering LFTs within normal limits most likely LFTs were elevated to underlying heart failure and is since improved secondary to diuresis additional serologic workup for chronic liver disease reviewed. Current Visit: Yes Status: Acute Priority: High Code(s): K74.60 - UNSPECIFIED CIRRHOSIS OF LIVER SNOMED Code(s): 34972517 (2) Ascites Narrative/Plan: Suspected portal hypertension Current Visit: Yes Status: Resolved Priority: High Code(s): R18.8 - OTHER ASCITES SNOMED Code(s): 238994439 (3) Elevated liver enzymes Narrative/Plan: Suspect secondary to passive venous congestion from underlying heart failure elevated BNP Current Visit: Yes Status: Acute Code(s): R74.8 - ABNORMAL LEVELS OF OTHER SERUM ENZYMES SNOMED Code(s): 897767620 (4) Diabetes mellitus Current Visit: Yes Status: Chronic Priority: Medium Code(s): E11.9 - TYPE 2 DIABETES MELLITUS WITHOUT COMPLICATIONS SNOMED Code(s): 18885728 (5) Warfarin-induced coagulopathy Current Visit: Yes Status: Acute Priority: High Code(s): D68.32 - HEMORRHAGIC DISORD D/T EXTRINSIC CIRCULATING ANTICOAGULANTS; T45.515A - ADVERSE EFFECT OF ANTICOAGULANTS, INITIAL ENCOUNTER SNOMED Code(s): 57395016 (6) Atrial fibrillation Current Visit: Yes Status: Chronic Priority: High Code(s): I48.91 - UNSPECIFIED ATRIAL FIBRILLATION SNOMED Code(s): 30721611 (7) Dyspnea Current Visit: Yes Status: Acute Code(s): R06.00 - DYSPNEA, UNSPECIFIED SNOMED Code(s): 354032436 (8) Congestive heart failure Current Visit: Yes Status: Acute Priority: High Code(s): I50.9 - HEART FAILURE, UNSPECIFIED SNOMED Code(s): 63198103 (9) Pleural effusion Current Visit: Yes Status: Acute Code(s): J90 - PLEURAL EFFUSION, NOT ELSEWHERE CLASSIFIED SNOMED Code(s): 13404675 Plan: 1. DC per medicine and consultants. 2. Diuretic therapy per nephrology. 3. Restart anticoagulation. 4. Cardiac low salt diet. 5. RTO October 11. Assessment and plan of care discussed with Dr. Olivo.
[2017-10-05] MEDS: GABAPENTIN 300 MG CAP PO PRN (12:06)
[2017-10-05 12:13] LABS: Glucose,Whole Blood 203 mg/dL (75-99)
--- NOTE | 2017-10-05 13:30 | P.PN ---
Subjective Progress Note Date: 10/05/17 Principal diagnosis: abdominal distension Patient is a 77-year-old male with a past medical history of A. fib on chronic anticoagulation with Coumadin, diabetes, and gout who initially presented to the ER via EMS with chief complaint of increasing fatigue and abdominal distention. In the ER he underwent an extensive evaluation. He had a CT of the chest abdomen and pelvis which showed a moderate right-sided pleural effusion, associated subsegmental atelectasis, cirrhosis of the liver, abdominal ascites, and enlarged pulmonary artery. He was noted to have an elevated INR of 1.5, hemoglobin of 10.5, and an elevated bilirubin of 2.5. His troponin was mildly elevated at 0.056. He is admitted for workup of symptomatic ascites. GI was consulted and plan was for [facility] possible thoracentesis. He was seen by GI who recommended paracentesis with cytology, holding anticoagulation, low salt diet. He was seen by GI who started the patient on IV Lasix drip and continue his Aldactone and lisinopril. He was continued on his digoxin. His Indocin was held and he was started on a low-dose beta raymon. He underwent an echocardiogram which showed ejection fraction of 25-30%, severe global hypokinesis, and moderate to severe aortic stenosis. Pulmonary was consulted and saw the patient on 09/18. They agreed with continued Lasix drip and Zaroxolyn. They suggested possible drainage of pleural effusions at a later stage if patient continued to be short of breath. His Coumadin was placed on hold for his possible paracentesis. On 09/20 orthopedics was consulted for his left shoulder pain. They found severe left shoulder osteoarthritis. Patient underwent a paracentesis on 09/20 with removal of 14 L of fluid. He was seen by Dr. Reyes of inpatient rehab. He underwent an intra-articular cortisone injection on 09/21/2017. He will need to follow-up in outpatient setting for further treatment options after discharge. On 09/22 he was noted to have an elevated potassium and low blood pressures. His diuretics were on hold. His aldactone was discontinued. He was maintained on lisinopril and metoprolol and was started on gentle hydration at 75 MLS per hour. On 09/23 he was started on low-dose dopamine drip due to being somewhat hypotensive and his IV fluids were changed to KVO. Shortly being after placed on dopamine drip at 5 g the patient started developing palpitations in his heart rate went up to the 180s. He subsequent only lost consciousness and JEFF PENG was called. He was noted to be in PEA. He did have return of spontaneous circulation and was transferred to the ICU. He is intubated and had a central line placed. He did require pressors and was on levophed. He was able to be successfully extubated on 09/24. He was noted to develop significant hematuria was seen by urology. This felt that his gross hematuria was due to Miranda catheter trauma. Urology suggested removing Miranda catheter along with his no longer medically needed. Nephrology was consulted due to worsening renal failure. He was off all pressors by 09/26. He was found to have severe iron deficiency anemia and was started on IV iron 3 days. As his renal function continued to improve he was restarted on Lasix. He did develop significant hyponatremia which was felt to be secondary to his fluid overload status and his cirrhosis. He was given 3 doses of Samsca and his sodium increased appropriately. This was after a trial of fluid restriction and Lasix failed to increase sodium significantly. He was seen by Dr. Gonzalez surgery for valvular replacement. They determined him to be a poor surgical candidate and suggested possible TAVR procedure. He underwent repeat paracentesis on 10/05 with removal of 10L of fluid. Patient seen and examined at bedside with present. He denies any chest pain or shortness of breath but does complain of some rib pain. Denies any nausea, vomiting, or constipation. He does complain of hard stools. He has no other complaints currently. We had a detailed discussion regarding his changes in medications. We'll resume his NovoLog 70/30. All other questions answered. Other questions answered. Objective - Vital Signs Vital signs: Vital Signs Temp 97.0 F L 10/05/17 06:10 Pulse 91 10/05/17 10:54 Resp 16 10/05/17 10:54 BP 98/63 10/05/17 10:54 Pulse Ox 96 10/05/17 10:54 Intake & Output 10/04/17 10/05/17 10/05/17 18:59 06:59 18:59 Intake Total 480 200 240 Output Total 200 Balance 480 200 40 Intake: IV 0 0.9 0 Oral 480 200 240 Output: Urine 200 Other: Voiding Method Urinal # Voids 3 1 # Bowel Movements 0 0 ABP, PAP, CO, CI - Last Documented Arterial Blood Pressure 115/58 - Exam General: non toxic, no distress, appears younger than stated age Derm: warm, dry, multiple areas of ecchymoses Head: atraumatic, normocephalic, symmetric Eyes: EOMI, no lid lag, + anicteric sclera Mouth: no lip lesion, mucus membranes moist Cardiovascular: S1S2 reg, no murmur, positive posterior tibial pulse bilateral, Lungs: Decreased breath sounds bilateral, no rhonchi, no rales , no accessory muscle use Abdominal: soft, nontender to palpation, no guarding, no appreciable organomegaly Ext: no gross muscle atrophy, 4+ swelling, no contractures Neuro: CN II-XI grossly intact, no focal neuro deficits Psych: Alert, oriented, appropriate affect - Labs CBC & Chem 7: 10/05/17 07:09 10/05/17 07:09 Labs: Abnormal Lab Results - Last 24 Hours (Table) 10/04/17 10/04/17 10/05/17 Range/Units 17:33 20:28 07:09 PT (9.0-12.0) sec INR (<1.2) Sodium 129 L (137-145) mmol/L Chloride 96 L (98-107) mmol/L Carbon Dioxide 21 L (22-30) mmol/L BUN 92 H* (9-20) mg/dL Creatinine 1.83 H (0.66-1.25) mg/dL Glucose 160 H (74-99) mg/dL POC Glucose (mg/dL) 196 H 195 H (75-99) mg/dL Calcium 8.2 L (8.4-10.2) mg/dL Magnesium 2.6 H (1.6-2.3) mg/dL Alkaline Phosphatase 282 H (38-126) U/L Total Protein 5.5 L (6.3-8.2) g/dL Albumin 2.9 L (3.5-5.0) g/dL 10/05/17 10/05/17 10/05/17 Range/Units 07:09 07:14 12:10 PT 12.8 H (9.0-12.0) sec INR 1.4 H (<1.2) Sodium (137-145) mmol/L Chloride (98-107) mmol/L Carbon Dioxide (22-30) mmol/L BUN (9-20) mg/dL Creatinine (0.66-1.25) mg/dL Glucose (74-99) mg/dL POC Glucose (mg/dL) 183 H 203 H (75-99) mg/dL Calcium (8.4-10.2) mg/dL Magnesium (1.6-2.3) mg/dL Alkaline Phosphatase (38-126) U/L Total Protein (6.3-8.2) g/dL Albumin (3.5-5.0) g/dL Assessment and Plan Assessment: Cirrhosis, decompensated with ascites, cryptogenic -GI recommendations, outpatient appointment has been set up for 10/11 -Cirrhosis appears to be cryptogenic as workup was essentially negative other than mildly elevated anti-smooth muscle antibodies therefore autoimmune cirrhosis could not be entirely excluded. - Lasix -No Aldactone at this point in time due to hyperkalemia. Acute exacerbation of systolic CHF with ejection fraction 25-30%, hx of cardiac arrest, Severe aortic stenosis, mitral regurg -Restart oral Lasix today, was given 1 dose of IV Lasix yesterday with hyperkalemia - PEARL inhibitor and Aldactone on hold secondary to LUIS DANIEL, hypotension, and hyperkalemia -Continue with metoprolol -Strict I's and O's, daily weights -LifeVest order written by cardiology today -Outpatient cardiology follow-up Diabetes mellitus - Hemoglobin A1c was 6.5 - D/C Sliding scale insulin and resume NovoLog 70/30 but at a smaller dose at 8 units twice a day. Continue to follow all every before meals and at bedtime sugars to ensure that this is correct dosing. LUIS DANIEL secondary to ATN - Nephro recs - avoid nephrotoxic agents - follow Cr Iron deficiency anemia - s/p IV iron x 3 - follow CBC - repeat labs as outpatient Right-sided pleural effusion -Due to cirrhosis -Pulmonary has seen the patient and there is no plans for thoracentesis at this point in time Chronic A. fib -Eliquis for anticoagulation - Tele - metoprolol -Off digoxin Chronic and resolved: Hyperkalemia Gout BPH Aborted sudden cardiac Neuropathy Severe left shoulder osteoarthritis-needs to follow-up with Dr. Gonzalez in the outpatient setting. DVT prophylaxis: eliquis Discussed with: Patient, family, nursing Anticipated discharge: undetermined awaiting life vest and nephrology recs Anticipated discharge place: inpatient rehab A total of 75 minutes was spent on the care of this complex patient more than 50 % of the time was spent in counseling and care coordination.
--- NOTE | 2017-10-05 13:33 | US ---
EXAMINATION TYPE: US paracentesis abd w/image DATE OF EXAM: 10/05/2017 COMPARISON: EXAMINATION TYPE: US paracentesis abd w/image DATE OF EXAM: 10/05/2017 COMPARISON: NONE HISTORY: Ascites. PROCEDURE: Maximal barrier technique was utilized. The skin overlying a suitable pocket of fluid was localized with ultrasound and the overlying skin was prepped and draped. Ultrasound was utilized with sterile technique. Lidocaine was used for local anesthesia and a skin dillon made with a scalpel. Catheter was advanced under direct ultrasound guidance into a suitable pocket of fluid and approximately 10 liters of serous vernell fluid were removed. Catheter was withdrawn and hemostasis achieved. There is no im mediate complication; the patient is discharged in stable condition. IMPRESSION: STATUS POST ULTRASOUND GUIDED PARACENTESIS FOR PALLIATION OF ASCITES. THIS PROCEDURE WA S PERFORMED BY THE UNDERSIGNED. Specimen sent for laboratory analysis.
[2017-10-05] MEDS: ACETAMINOPHEN TAB 500 MG TAB PO PRN (14:17)
[2017-10-05] MEDS: FUROSEMIDE 40 MG TAB PO SCH (16:34)
[2017-10-05 17:46] LABS: Glucose,Whole Blood 226 mg/dL (75-99)
[2017-10-05] MEDS: INSULN ASP PRT/INSULIN ASPART 100 UNIT/ML 10 ML VIAL SQ SCH (17:57)
[2017-10-05 20:56] LABS: Glucose,Whole Blood 228 mg/dL (75-99)
[2017-10-05] MEDS: TAMSULOSIN 0.4 MG CAP.ER.24H PO SCH (20:59)
[2017-10-06 06:55] LABS: Glucose,Whole Blood 168 mg/dL (75-99)
[2017-10-06 08:24] LABS: Anisocytosis Moderate; HCT 30.8 % (39.0-53.0); Hypochromasia Slight; MCH 27.2 pg (25.0-35.0); MCHC 32.4 g/dL (31.0-37.0); MCV 84.1 fL (80.0-100.0); Mean Platelet Volume 6.6; Microcytosis Slight; Platelet Count 195 k/uL (150-450); RBC 3.67 m/uL (4.30-5.90); RDW 22.8 % (11.5-15.5); WBC 8.3 k/uL (3.8-10.6)
[2017-10-06 08:27] LABS: Potassium 4.3 mmol/L (3.5-5.1)
--- NOTE | 2017-10-06 08:44 | P.PN ---
Progress Note - Text Progress Note Date: 10/06/17 this is a pleasant 77-year-old gentleman with an extensive medical history consistent of long-standing persistent atrial fibrillation on oral anticoagulation, severe cardiomyopathy with a known EF of less than 35%, and known if it's due to ischemic or nonischemic etiology, known liver cirrhosis also of unknown etiology at this point,chronic renal failure, as well as multiple comorbidities including diabetes and chronic anemia, was admitted to the hospital with acute decompensated cirrhosis and also acute exacerbation of systolic congestive heart failure. The patient was treated with diuretics with improvement in his symptoms. He underwent paracentesis yesterday with the removal of significant amount of fluid from the abdomen and the patient felt better in terms of shortness of breath after that. During his hospital stay, he did develop sustained ventricular tachycardia and sudden cardiac . Because he is at higher risk to develop another episode of sudden cardiac in view of his severe cardiomyopathy, the patient will be discharged home on LifeVest.
[2017-10-06] MEDS ORDERED: FUROSEMIDE 20 MG TAB PO SCH (09:00)
[2017-10-06] MEDS ORDERED: FUROSEMIDE 40 MG TAB PO SCH (09:00)
[2017-10-06] MEDS: FUROSEMIDE 40 MG TAB PO SCH (09:07)
[2017-10-06] MEDS: ATORVASTATIN 40 MG TAB PO SCH (09:07)
[2017-10-06] MEDS: METOPROLOL TARTRATE 12.5 MG TAB PO SCH ×2 (09:07→20:44)
[2017-10-06] MEDS: APIXABAN 5 MG TAB PO SCH ×2 (09:07→20:44)
[2017-10-06] MEDS: PANTOPRAZOLE 40 MG TABLET PO SCH (09:07)
[2017-10-06] MEDS: INSULN ASP PRT/INSULIN ASPART 100 UNIT/ML 10 ML VIAL SQ SCH ×2 (09:07→18:44)
--- NOTE | 2017-10-06 11:11 | P.PN ---
Subjective Progress Note Date: 10/06/17 Principal diagnosis: abdominal distension Patient is a 77-year-old male with a past medical history of A. fib on chronic anticoagulation with Coumadin, diabetes, and gout who initially presented to the ER via EMS with chief complaint of increasing fatigue and abdominal distention. In the ER he underwent an extensive evaluation. He had a CT of the chest abdomen and pelvis which showed a moderate right-sided pleural effusion, associated subsegmental atelectasis, cirrhosis of the liver, abdominal ascites, and enlarged pulmonary artery. He was noted to have an elevated INR of 1.5, hemoglobin of 10.5, and an elevated bilirubin of 2.5. His troponin was mildly elevated at 0.056. He is admitted for workup of symptomatic ascites. GI was consulted and plan was for paracentesis possible thoracentesis. He was seen by GI who recommended paracentesis with cytology, holding anticoagulation, low salt diet. He was seen by GI who started the patient on IV Lasix drip and continue his Aldactone and lisinopril. He was continued on his digoxin. His Indocin was held and he was started on a low- dose beta raymon. He underwent an echocardiogram which showed ejection fraction of 25-30%, severe global hypokinesis, and moderate to severe aortic stenosis. Pulmonary was consulted and saw the patient on 09/18. They agreed with continued Lasix drip and Zaroxolyn. They suggested possible drainage of pleural effusions at a later stage if patient continued to be short of breath. His Coumadin was placed on hold for his possible paracentesis. On 09/20 orthopedics was consulted for his left shoulder pain. They found severe left shoulder osteoarthritis. Patient underwent a paracentesis on 09/20 with removal of 14 L of fluid. He was seen by Dr. Reyes of inpatient rehab. He underwent an intra-articular cortisone injection on 09/21/2017. He will need to follow-up in outpatient setting for further treatment options after discharge. On 09/22 he was noted to have an elevated potassium and low blood pressures. His diuretics were on hold. His aldactone was discontinued. He was maintained on lisinopril and metoprolol and was started on gentle hydration at 75 MLS per hour. On 09/23 he was started on low-dose dopamine drip due to being somewhat hypotensive and his IV fluids were changed to KVO. Shortly being after placed on dopamine drip at 5 g the patient started developing palpitations in his heart rate went up to the 180s. He subsequent only lost consciousness and JEFF PENG was called. He did have return of spontaneous circulation and was transferred to the ICU. He is intubated and had a central line placed. He did require pressors and was on levophed. He was able to be successfully extubated on 09/24. He was noted to develop significant hematuria was seen by urology. This felt that his gross hematuria was due to Miranda catheter trauma. Urology suggested removing Miranda catheter along with his no longer medically needed. Nephrology was consulted due to worsening renal failure. He was off all pressors by 09/26. He was found to have severe iron deficiency anemia and was started on IV iron 3 days. As his renal function continued to improve he was restarted on Lasix. He did develop significant hyponatremia which was felt to be secondary to his fluid overload status and his cirrhosis. He was given 3 doses of Samsca and his sodium increased appropriately. This was after a trial of fluid restriction and Lasix failed to increase sodium significantly. He was seen by Dr. Gonzalez surgery for valvular replacement. They determined him to be a poor surgical candidate and suggested possible TAVR procedure. He underwent repeat paracentesis on 10/05 with removal of 10L of fluid. Life vest was placed on . He tolerated the procedure well. He is going to inpatient rehab. Patient seen and examined at bedside with present. He is much improved. Denies any chest pain or shortness of breath. No nausea or vomiting. No diarrhea. Has LifeVest in place. Again discussed prognosis of his systolic congestive heart failure, recent cardiac arrest, and indications for ICD. Discussed that ideally he will need to be placed on Aldactone, PEARL inhibitor, and increased dosing of beta raymon to help improve ejection fraction. However he is aware we need to follow his blood pressures and his renal function and potassium closely as medications are introduced. Objective - Vital Signs Vital signs: Vital Signs Temp 98.4 F 10/06/17 06:00 Pulse 82 10/06/17 06:00 Resp 16 10/06/17 06:00 BP 105/70 10/06/17 06:00 Pulse Ox 96 10/06/17 06:00 Intake & Output 10/05/17 10/06/1710/06/18 18:59 06:59 18:59 Intake Total 240 400 Output Total 200 950 Balance 40 -550 Intake: Oral 240 400 Output: Urine 200 950 Other: Voiding Method Urinal # Voids 2 # Bowel Movements 0 ABP, PAP, CO, CI - Last Documented Arterial Blood Pressure 115/58 - Exam General: non toxic, no distress, appears younger than stated age Derm: warm, dry, multiple areas of ecchymoses Head: atraumatic, normocephalic, symmetric Eyes: EOMI, no lid lag, + anicteric sclera Mouth: no lip lesion, mucus membranes moist Cardiovascular: S1S2 irreg with systolic ejection murmur, positive posterior tibial pulse bilateral, Lungs: Decreased breath sounds bilateral, no rhonchi, no rales , no accessory muscle use Abdominal: soft, nontender to palpation, no guarding, no appreciable organomegaly Ext: no gross muscle atrophy, 3+ swelling, no contractures Neuro: CN II-XI grossly intact, no focal neuro deficits Psych: Alert, oriented, appropriate affect - Labs CBC & Chem 7: 10/06/17 07:48 10/06/17 07:48 Labs: Abnormal Lab Results - Last 24 Hours (Table) 10/05/17 10/05/17 10/05/17 Range/Units 12:10 17:41 20:43 RBC (4.30-5.90) m/uL Hgb (13.0-17.5) gm/dL Hct (39.0-53.0) % RDW (11.5-15.5) % Sodium (137-145) mmol/L Chloride (98-107) mmol/L BUN (9-20) mg/dL Creatinine (0.66-1.25) mg/dL Glucose (74-99) mg/dL POC Glucose (mg/dL) 203 H 226 H 228 H (75-99) mg/dL Calcium (8.4-10.2) mg/dL 10/06/17 10/06/17 10/06/17 Range/Units 06:49 07:48 07:48 RBC 3.67 L (4.30-5.90) m/uL Hgb 10.0 L D (13.0-17.5) gm/dL Hct 30.8 L (39.0-53.0) % RDW 22.8 H (11.5-15.5) % Sodium 131 L (137-145) mmol/L Chloride 97 L (98-107) mmol/L BUN 89 H* (9-20) mg/dL Creatinine 1.61 H (0.66-1.25) mg/dL Glucose 150 H (74-99) mg/dL POC Glucose (mg/dL) 168 H (75-99) mg/dL Calcium 8.0 L (8.4-10.2) mg/dL Assessment and Plan Assessment: Cirrhosis, decompensated with ascites, cryptogenic -GI recommendations, outpatient appointment has been set up for 10/11 -Cirrhosis appears to be cryptogenic as workup was essentially negative other than mildly elevated anti-smooth muscle antibodies therefore autoimmune cirrhosis could not be entirely excluded. - Lasix -No Aldactone at this point in time due to hyperkalemia. Hope to restart in AM. Acute exacerbation of systolic CHF with ejection fraction 25-30%, cardiac arrest , Severe aortic stenosis, mitral regurg - Lasix - PEARL inhibitor and Aldactone on hold secondary to LUIS DANIEL, hypotension, and hyperkalemia - Continue with metoprolol - Strict I's and O's, daily weights - LifeVest - Outpatient cardiology follow-up Diabetes mellitus - Hemoglobin A1c was 6.5 - NovoLog 70/30 8 units twice a day. Continue to follow all every before meals and at bedtime sugars to ensure that this is correct dosing. LUIS DANIEL secondary to ATN -Improving, hope to restart aldactone in AM to help with ascities. - Nephro recs - avoid nephrotoxic agents - follow Cr Iron deficiency anemia - s/p IV iron x 3 - follow CBC - repeat labs as outpatient Right-sided pleural effusion -Due to cirrhosis -Pulmonary has seen the patient and there is no plans for thoracentesis at this point in time Chronic A. fib -Eliquis for anticoagulation - Tele - metoprolol -Off digoxin Chronic and resolved: Hyperkalemia Gout BPH Aborted sudden cardiac Neuropathy Severe left shoulder osteoarthritis-needs to follow-up with Dr. Gonzalez in the outpatient setting. DVT prophylaxis: eliquis Discussed with: Patient, family, nursing Anticipated discharge: undetermined awaiting life vest and nephrology recs Anticipated discharge place: inpatient rehab A total of 30 minutes was spent on the care of this complex patient more than 50 % of the time was spent in counseling and care coordination.
[2017-10-06 11:39] LABS: Glucose,Whole Blood 237 mg/dL (75-99)
--- NOTE | 2017-10-06 16:00 | P.PN ---
Subjective Progress Note Date: 10/06/17 Seen and examined for the follow-up of acute kidney injury. Lying in bed no acute distress Objective - Vital Signs Vital signs: Vital Signs Temp 97.6 F 10/06/17 14:05 Pulse 96 10/06/17 14:05 Resp 18 10/06/17 14:05 BP 118/58 10/06/17 14:05 Pulse Ox 97 10/06/17 15:50 Intake & Output 10/05/17 10/06/17 10/06/17 18:59 06:59 18:59 Intake Total 240 400 600 Output Total 200 950 900 Balance 40 -550 -300 Intake: Oral 240 400 600 Output: Urine 200 950 900 Other: Voiding Method Urinal # Voids 2 2 # Bowel Movements 0 1 ABP, PAP, CO, CI - Last Documented Arterial Blood Pressure 115/58 - Exam Lying in bed no acute distress S1-S2 heard Abdomen soft bowel sounds present Edema. - Labs CBC & Chem 7: 10/06/17 07:48 10/06/17 07:48 Labs: Abnormal Lab Results - Last 24 Hours (Table) 10/05/17 10/05/17 10/06/17 Range/Units 17:41 20:43 06:49 RBC (4.30-5.90) m/uL Hgb (13.0-17.5) gm/dL Hct (39.0-53.0) % RDW (11.5-15.5) % Sodium (137-145) mmol/L Chloride (98-107) mmol/L BUN (9-20) mg/dL Creatinine (0.66-1.25) mg/dL Glucose (74-99) mg/dL POC Glucose (mg/dL) 226 H 228 H 168 H (75-99) mg/dL Calcium (8.4-10.2) mg/dL 10/06/17 10/06/17 10/06/17 Range/Units 07:48 07:48 11:36 RBC 3.67 L (4.30-5.90) m/uL Hgb 10.0 L D (13.0-17.5) gm/dL Hct 30.8 L (39.0-53.0) % RDW 22.8 H (11.5-15.5) % Sodium 131 L (137-145) mmol/L Chloride 97 L (98-107) mmol/L BUN 89 H* (9-20) mg/dL Creatinine 1.61 H (0.66-1.25) mg/dL Glucose 150 H (74-99) mg/dL POC Glucose (mg/dL) 237 H (75-99) mg/dL Calcium 8.0 L (8.4-10.2) mg/dL Assessment and Plan Assessment: Impression: #1 nonoliguric ATI secondary to ATN. #2 status post cardiopulmonary arrest #3 hypervolemic hyponatremia #4 ascites status post paracentesis with 14 L removed #6 anemia #7 liver cirrhosis Recommendations: #1 continue with Lasix current dose. Creatinine stable and improving. #2 avoid nephrotoxic agents and hypotensive episodes #3 maintain fluid restriction.
[2017-10-06 17:23] LABS: Glucose,Whole Blood 177 mg/dL (75-99)
[2017-10-06] MEDS: GABAPENTIN 300 MG CAP PO PRN (17:40)
[2017-10-06] MEDS: ACETAMINOPHEN TAB 500 MG TAB PO PRN (17:40)
[2017-10-06] MEDS: TAMSULOSIN 0.4 MG CAP.ER.24H PO SCH (20:44)
[2017-10-06 21:28] LABS: Glucose,Whole Blood 198 mg/dL (75-99)
[2017-10-07 07:10] LABS: Glucose,Whole Blood 171 mg/dL (75-99)
[2017-10-07] MEDS: METOPROLOL TARTRATE 12.5 MG TAB PO SCH ×2 (07:52→22:30)
[2017-10-07] MEDS: INSULN ASP PRT/INSULIN ASPART 100 UNIT/ML 10 ML VIAL SQ SCH ×2 (07:52→17:29)
[2017-10-07] MEDS: PANTOPRAZOLE 40 MG TABLET PO SCH (07:52)
[2017-10-07] MEDS: ATORVASTATIN 40 MG TAB PO SCH (07:52)
[2017-10-07] MEDS: FUROSEMIDE 40 MG TAB PO SCH (07:52)
[2017-10-07] MEDS: APIXABAN 5 MG TAB PO SCH ×2 (07:52→22:19)
[2017-10-07 11:37] LABS: Potassium 4.1 mmol/L (3.5-5.1)
--- NOTE | 2017-10-07 12:07 | P.PN ---
Subjective Progress Note Date: 10/07/17 Principal diagnosis: abdominal distension Patient is a 77-year-old male with a past medical history of A. fib on chronic anticoagulation with Coumadin, diabetes, and gout who initially presented to the ER via EMS with chief complaint of increasing fatigue and abdominal distention. In the ER he underwent an extensive evaluation. He had a CT of the chest abdomen and pelvis which showed a moderate right-sided pleural effusion, associated subsegmental atelectasis, cirrhosis of the liver, abdominal ascites, and enlarged pulmonary artery. He was noted to have an elevated INR of 1.5, hemoglobin of 10.5, and an elevated bilirubin of 2.5. His troponin was mildly elevated at 0.056. He is admitted for workup of symptomatic ascites. GI was consulted and plan was for paracentesis possible thoracentesis. He was seen by GI who recommended paracentesis with cytology, holding anticoagulation, low salt diet. He was seen by GI who started the patient on IV Lasix drip and continue his Aldactone and lisinopril. He was continued on his digoxin. His Indocin was held and he was started on a low- dose beta raymon. He underwent an echocardiogram which showed ejection fraction of 25-30%, severe global hypokinesis, and moderate to severe aortic stenosis. Pulmonary was consulted and saw the patient on 09/18. They agreed with continued Lasix drip and Zaroxolyn. They suggested possible drainage of pleural effusions at a later stage if patient continued to be short of breath. His Coumadin was placed on hold for his possible paracentesis. On 09/20 orthopedics was consulted for his left shoulder pain. They found severe left shoulder osteoarthritis. Patient underwent a paracentesis on 09/20 with removal of 14 L of fluid. He was seen by Dr. Reyes of inpatient rehab. He underwent an intra-articular cortisone injection on 09/21/2017. He will need to follow-up in outpatient setting for further treatment options after discharge. On 09/22 he was noted to have an elevated potassium and low blood pressures. His diuretics were on hold. His aldactone was discontinued. He was maintained on lisinopril and metoprolol and was started on gentle hydration at 75 MLS per hour. On 09/23 he was started on low-dose dopamine drip due to being somewhat hypotensive and his IV fluids were changed to KVO. Shortly being after placed on dopamine drip at 5 g the patient started developing palpitations in his heart rate went up to the 180s. He subsequent only lost consciousness and JEFF PENG was called. He did have return of spontaneous circulation and was transferred to the ICU. He is intubated and had a central line placed. He did require pressors and was on levophed. He was able to be successfully extubated on 09/24. He was noted to develop significant hematuria was seen by urology. This felt that his gross hematuria was due to Miranda catheter trauma. Urology suggested removing Miranda catheter along with his no longer medically needed. Nephrology was consulted due to worsening renal failure. He was off all pressors by 09/26. He was found to have severe iron deficiency anemia and was started on IV iron 3 days. As his renal function continued to improve he was restarted on Lasix. He did develop significant hyponatremia which was felt to be secondary to his fluid overload status and his cirrhosis. He was given 3 doses of Samsca and his sodium increased appropriately. This was after a trial of fluid restriction and Lasix failed to increase sodium significantly. He was seen by Dr. Gonzalez surgery for valvular replacement. They determined him to be a poor surgical candidate and suggested possible TAVR procedure. He underwent repeat paracentesis on 10/05 with removal of 10L of fluid. Life vest was placed on . He tolerated the procedure well. He is going to inpatient rehab. Patient seen and examined at bedside. Healing well today. Slept well last night. No chest pain or shortness of breath. No nausea or vomiting. Appetite good. He is concerned that he did not receive his insulin last night. Objective - Vital Signs Vital signs: Vital Signs Temp 97.4 F L 10/07/17 05:55 Pulse 91 10/07/17 05:55 Resp 18 10/07/17 07:45 BP 100/59 10/07/17 05:55 Pulse Ox 92 L 10/07/17 05:55 Intake & Output 10/06/17 10/07/17 10/07/17 18:59 06:59 18:59 Intake Total 600 Output Total 1900 1000 Balance -1300 -1000 Intake: Oral 600 Output: Urine 1900 1000 Other: Voiding Method Urinal # Voids 2 2 # Bowel Movements 1 ABP, PAP, CO, CI - Last Documented Arterial Blood Pressure 115/58 - Exam General: non toxic, no distress, appears younger than stated age Derm: warm, dry, multiple areas of ecchymoses Head: atraumatic, normocephalic, symmetric Eyes: EOMI, no lid lag, + anicteric sclera Mouth: no lip lesion, mucus membranes moist Cardiovascular: S1S2 irreg with systolic ejection murmur, positive posterior tibial pulse bilateral, Lungs: Decreased breath sounds bilateral, no rhonchi, no rales , no accessory muscle use Abdominal: soft, nontender to palpation, no guarding, no appreciable organomegaly Ext: no gross muscle atrophy, 3+ swelling, no contractures Neuro: CN II-XI grossly intact, no focal neuro deficits Psych: Alert, oriented, appropriate affect - Labs CBC & Chem 7: 10/06/17 07:48 10/07/17 11:09 Labs: Abnormal Lab Results - Last 24 Hours (Table) 10/06/17 10/06/17 10/07/17 Range/Units 17:20 21:13 07:06 Sodium (137-145) mmol/L Chloride (98-107) mmol/L BUN (9-20) mg/dL Creatinine (0.66-1.25) mg/dL Glucose (74-99) mg/dL POC Glucose (mg/dL) 177 H 198 H 171 H (75-99) mg/dL Calcium (8.4-10.2) mg/dL 10/07/17 Range/Units 11:09 Sodium 132 L (137-145) mmol/L Chloride 96 L (98-107) mmol/L BUN 87 H* (9-20) mg/dL Creatinine 1.50 H (0.66-1.25) mg/dL Glucose 150 H (74-99) mg/dL POC Glucose (mg/dL) (75-99) mg/dL Calcium 8.0 L (8.4-10.2) mg/dL Assessment and Plan Assessment: Cirrhosis, decompensated with ascites, cryptogenic -GI recommendations, outpatient appointment has been set up for 10/11 -Cirrhosis appears to be cryptogenic as workup was essentially negative other than mildly elevated anti-smooth muscle antibodies therefore autoimmune cirrhosis could not be entirely excluded. - Lasix, start Aldactone 25 mg Acute exacerbation of systolic CHF with ejection fraction 25-30%, cardiac arrest , Severe aortic stenosis, mitral regurg - Lasix, Aldactone - PEARL inhibitor on hold secondary to LUIS DANIEL, hypotension, and hyperkalemia - Continue with metoprolol - Strict I's and O's, daily weights - LifeVest - Outpatient cardiology follow-up Diabetes mellitus - Hemoglobin A1c was 6.5 - NovoLog 70/30 10 units twice a day. Continue to follow all every before meals and at bedtime sugars to ensure that this is correct dosing. LUIS DANIEL secondary to ATN -Improving, hope - Nephro recs - avoid nephrotoxic agents - follow Cr Iron deficiency anemia - s/p IV iron x 3 - follow CBC - repeat labs as outpatient Right-sided pleural effusion -Due to cirrhosis -Pulmonary has seen the patient and there is no plans for thoracentesis at this point in time Chronic A. fib -Eliquis for anticoagulation - Tele - metoprolol -Off digoxin Chronic and resolved: Hyperkalemia Gout BPH Aborted sudden cardiac Neuropathy Severe left shoulder osteoarthritis-needs to follow-up with Dr. Gonzalez in the outpatient setting. Nursing to see if can obtain PIV and D/C central line DVT prophylaxis: morgan Discussed with: Patient, nursing Anticipated discharge: Sunday Anticipated discharge place: inpatient rehab A total of 30 minutes was spent on the care of this complex patient more than 50 % of the time was spent in counseling and care coordination.
[2017-10-07 12:21] LABS: Glucose,Whole Blood 160 mg/dL (75-99)
[2017-10-07] MEDS: SPIRONOLACTONE 25 MG TAB PO SCH (13:36)
--- NOTE | 2017-10-07 13:50 | P.PN ---
Subjective Progress Note Date: 10/07/17 Seen and examined for the follow-up of acute kidney injury. Feels better. No nausea vomiting or diarrhea. Objective - Vital Signs Vital signs: Vital Signs Temp 97.4 F L 10/07/17 05:55 Pulse 91 10/07/17 05:55 Resp 18 10/07/17 07:45 BP 100/59 10/07/17 05:55 Pulse Ox 92 L 10/07/17 05:55 Intake & Output 10/06/17 10/07/17 10/07/17 18:59 06:59 18:59 Intake Total 600 Output Total 1900 1000 Balance -1300 -1000 Intake: Oral 600 Output: Urine 1900 1000 Other: Voiding Method Urinal # Voids 2 2 # Bowel Movements 1 ABP, PAP, CO, CI - Last Documented Arterial Blood Pressure 115/58 - Exam Lying in bed no acute distress S1-S2 heard Abdomen soft bowel sounds present Edema. - Labs CBC & Chem 7: 10/06/17 07:48 10/07/17 11:09 Labs: Abnormal Lab Results - Last 24 Hours (Table) 10/06/17 10/06/17 10/07/17 Range/Units 17:20 21:13 07:06 Sodium (137-145) mmol/L Chloride (98-107) mmol/L BUN (9-20) mg/dL Creatinine (0.66-1.25) mg/dL Glucose (74-99) mg/dL POC Glucose (mg/dL) 177 H 198 H 171 H (75-99) mg/dL Calcium (8.4-10.2) mg/dL 10/07/17 10/07/17 Range/Units 11:09 12:19 Sodium 132 L (137-145) mmol/L Chloride 96 L (98-107) mmol/L BUN 87 H* (9-20) mg/dL Creatinine 1.50 H (0.66-1.25) mg/dL Glucose 150 H (74-99) mg/dL POC Glucose (mg/dL) 160 H (75-99) mg/dL Calcium 8.0 L (8.4-10.2) mg/dL Assessment and Plan Assessment: Impression: #1 nonoliguric ATI secondary to ATN. #2 status post cardiopulmonary arrest #3 hypervolemic hyponatremia #4 ascites status post paracentesis with 14 L removed #6 anemia #7 liver cirrhosis Recommendations: #1 continue with Lasix current dose. Creatinine stable and improving close to baseline. #2 avoid nephrotoxic agents and hypotensive episodes #3 maintain fluid restriction. Stable from nephrology point of view for discharge
[2017-10-07] MEDS: ACETAMINOPHEN TAB 500 MG TAB PO PRN (15:04)
[2017-10-07] MEDS: GABAPENTIN 300 MG CAP PO PRN (15:05)
[2017-10-07 17:18] LABS: Glucose,Whole Blood 168 mg/dL (75-99)
[2017-10-07] MEDS: FERROUS SULFATE 325 MG TAB PO SCH (17:29)
[2017-10-07 21:06] LABS: Glucose,Whole Blood 125 mg/dL (75-99)
[2017-10-07] MEDS: TAMSULOSIN 0.4 MG CAP.ER.24H PO SCH (22:18)
[2017-10-08 00:47] LABS: Glucose,Whole Blood 128 mg/dL (75-99)
[2017-10-08 07:38] LABS: Glucose,Whole Blood 134 mg/dL (75-99)
[2017-10-08 08:27] LABS: Calcium 7.9 mg/dL (8.4-10.2); Potassium 4.3 mmol/L (3.5-5.1)
[2017-10-08] MEDS: ALLOPURINOL 300 MG TAB PO SCH (08:57)
[2017-10-08] MEDS: FUROSEMIDE 40 MG TAB PO SCH (08:57)
[2017-10-08] MEDS: METOPROLOL TARTRATE 12.5 MG TAB PO SCH ×2 (08:57→22:24)
[2017-10-08] MEDS: PANTOPRAZOLE 40 MG TABLET PO SCH (08:57)
[2017-10-08] MEDS: APIXABAN 5 MG TAB PO SCH ×2 (08:57→19:54)
[2017-10-08] MEDS: ATORVASTATIN 40 MG TAB PO SCH (08:57)
[2017-10-08] MEDS: SPIRONOLACTONE 25 MG TAB PO SCH (08:57)
[2017-10-08] MEDS: FERROUS SULFATE 325 MG TAB PO SCH ×2 (08:57→17:01)
[2017-10-08] MEDS: INSULN ASP PRT/INSULIN ASPART 100 UNIT/ML 10 ML VIAL SQ SCH (08:58)
[2017-10-08] MEDS ORDERED: SPIRONOLACTONE 25 MG TAB PO STA ×2 (10:53→11:29)
--- NOTE | 2017-10-08 11:07 | P.PN ---
Subjective Progress Note Date: 10/08/17 Principal diagnosis: abdominal distension Patient is a 77-year-old male with a past medical history of A. fib on chronic anticoagulation with Coumadin, diabetes, and gout who initially presented to the ER via EMS with chief complaint of increasing fatigue and abdominal distention. In the ER he underwent an extensive evaluation. He had a CT of the chest abdomen and pelvis which showed a moderate right-sided pleural effusion, associated subsegmental atelectasis, cirrhosis of the liver, abdominal ascites, and enlarged pulmonary artery. He was noted to have an elevated INR of 1.5, hemoglobin of 10.5, and an elevated bilirubin of 2.5. His troponin was mildly elevated at 0.056. He is admitted for workup of symptomatic ascites. GI was consulted and plan was for paracentesis possible thoracentesis. He was seen by GI who recommended paracentesis with cytology, holding anticoagulation, low salt diet. He was seen by GI who started the patient on IV Lasix drip and continue his Aldactone and lisinopril. He was continued on his digoxin. His Indocin was held and he was started on a low- dose beta raymon. He underwent an echocardiogram which showed ejection fraction of 25-30%, severe global hypokinesis, and moderate to severe aortic stenosis. Pulmonary was consulted and saw the patient on 09/18. They agreed with continued Lasix drip and Zaroxolyn. They suggested possible drainage of pleural effusions at a later stage if patient continued to be short of breath. His Coumadin was placed on hold for his possible paracentesis. On 09/20 orthopedics was consulted for his left shoulder pain. They found severe left shoulder osteoarthritis. Patient underwent a paracentesis on 09/20 with removal of 14 L of fluid. He was seen by Dr. Reyes of inpatient rehab. He underwent an intra-articular cortisone injection on 09/21/2017. He will need to follow-up in outpatient setting for further treatment options after discharge. On 09/22 he was noted to have an elevated potassium and low blood pressures. His diuretics were on hold. His aldactone was discontinued. He was maintained on lisinopril and metoprolol and was started on gentle hydration at 75 MLS per hour. On 09/23 he was started on low-dose dopamine drip due to being somewhat hypotensive and his IV fluids were changed to KVO. Shortly being after placed on dopamine drip at 5 g the patient started developing palpitations in his heart rate went up to the 180s. He subsequent only lost consciousness and JEFF PENG was called. He did have return of spontaneous circulation and was transferred to the ICU. He is intubated and had a central line placed. He did require pressors and was on levophed. He was able to be successfully extubated on 09/24. He was noted to develop significant hematuria was seen by urology. This felt that his gross hematuria was due to Miranda catheter trauma. Urology suggested removing Miranda catheter along with his no longer medically needed. Nephrology was consulted due to worsening renal failure. He was off all pressors by 09/26. He was found to have severe iron deficiency anemia and was started on IV iron 3 days. As his renal function continued to improve he was restarted on Lasix. He did develop significant hyponatremia which was felt to be secondary to his fluid overload status and his cirrhosis. He was given 3 doses of Samsca and his sodium increased appropriately. This was after a trial of fluid restriction and Lasix failed to increase sodium significantly. He was seen by Dr. Gonzalez surgery for valvular replacement. They determined him to be a poor surgical candidate and suggested possible TAVR procedure. He underwent repeat paracentesis on 10/05 with removal of 10L of fluid. Life vest was placed on . He tolerated the procedure well. He is going to inpatient rehab. Patient seen and examined at bedside. Doing well today. No nausea, no vomiting, no diarrhea, no chest pain. Still breathing well. Does not feel like he is having ascities recurrence at this point in time. Objective - Vital Signs Vital signs: Vital Signs Temp 96.7 F L 10/08/17 07:00 Pulse 92 10/08/17 07:00 Resp 18 10/08/17 07:00 BP 111/48 10/08/17 07:00 Pulse Ox 95 10/08/17 07:00 Intake & Output 10/07/17 10/08/17 10/08/17 18:59 06:59 18:59 Intake Total 120 1050 240 Output Total 275 Balance 120 1050 -35 Weight 118 kg Intake: Oral 120 1050 240 Output: Urine 275 Other: # Voids 1 3 # Bowel Movements 0 0 ABP, PAP, CO, CI - Last Documented Arterial Blood Pressure 115/58 - Exam General: non toxic, no distress, appears younger than stated age Derm: warm, dry, multiple areas of ecchymoses Head: atraumatic, normocephalic, symmetric Eyes: EOMI, no lid lag, + anicteric sclera Mouth: no lip lesion, mucus membranes moist Cardiovascular: S1S2 irreg with systolic ejection murmur, positive posterior tibial pulse bilateral, Lungs: Decreased breath sounds bilateral, no rhonchi, no rales , no accessory muscle use Abdominal: soft, nontender to palpation, no guarding, no appreciable organomegaly Ext: no gross muscle atrophy, 2+ swelling, no contractures Neuro: CN II-XI grossly intact, no focal neuro deficits Psych: Alert, oriented, appropriate affect - Labs CBC & Chem 7: 10/06/17 07:48 10/08/17 07:55 Labs: Abnormal Lab Results - Last 24 Hours (Table) 10/07/17 10/07/17 10/07/17 Range/Units 11:09 12:19 17:16 Sodium 132 L (137-145) mmol/L Chloride 96 L (98-107) mmol/L Carbon Dioxide (22-30) mmol/L BUN 87 H* (9-20) mg/dL Creatinine 1.50 H (0.66-1.25) mg/dL Glucose 150 H (74-99) mg/dL POC Glucose (mg/dL) 160 H 168 H (75-99) mg/dL Calcium 8.0 L (8.4-10.2) mg/dL 10/07/17 10/08/17 10/08/17 Range/Units 21:05 00:44 07:13 Sodium (137-145) mmol/L Chloride (98-107) mmol/L Carbon Dioxide (22-30) mmol/L BUN (9-20) mg/dL Creatinine (0.66-1.25) mg/dL Glucose (74-99) mg/dL POC Glucose (mg/dL) 125 H 128 H 134 H (75-99) mg/dL Calcium (8.4-10.2) mg/dL 10/08/17 Range/Units 07:55 Sodium 131 L (137-145) mmol/L Chloride (98-107) mmol/L Carbon Dioxide 21 L (22-30) mmol/L BUN 84 H* (9-20) mg/dL Creatinine 1.31 H (0.66-1.25) mg/dL Glucose 120 H (74-99) mg/dL POC Glucose (mg/dL) (75-99) mg/dL Calcium 7.9 L (8.4-10.2) mg/dL Assessment and Plan Assessment: Cirrhosis, decompensated with ascites, cryptogenic -GI recommendations, outpatient appointment has been set up for 10/11 -Cirrhosis appears to be cryptogenic as workup was essentially negative other than mildly elevated anti-smooth muscle antibodies therefore autoimmune cirrhosis could not be entirely excluded. - Lasix, Increase Aldactone Acute exacerbation of systolic CHF with ejection fraction 25-30%, cardiac arrest , Severe aortic stenosis, mitral regurg - Lasix, Aldactone - PEARL inhibitor on hold secondary to LUIS DANIEL, hypotension, and hyperkalemia - Continue with metoprolol - Strict I's and O's, daily weights - LifeVest - Outpatient cardiology follow-up Diabetes mellitus - Hemoglobin A1c was 6.5 - NovoLog 70/30 10 units in AM and 8 units at dinner. Continue to follow every before meals and at bedtime sugars to ensure that this is correct dosing. LUIS DANIEL secondary to ATN - Improving, will need ACEI added back once BP can tolerate it. - Nephro recs - avoid nephrotoxic agents - follow Cr Iron deficiency anemia - s/p IV iron x 3 - follow CBC - repeat labs as outpatient Right-sided pleural effusion -Due to cirrhosis -Pulmonary has seen the patient and there is no plans for thoracentesis at this point in time Chronic A. fib -Eliquis for anticoagulation - Tele - metoprolol -Off digoxin Chronic and resolved: Hyperkalemia Gout BPH Aborted sudden cardiac Neuropathy Severe left shoulder osteoarthritis-needs to follow-up with Dr. Gonzalez in the outpatient setting. Nursing to see if can obtain PIV and D/C central line DVT prophylaxis: morgan Discussed with: Patient, nursing Anticipated discharge: Sunday Anticipated discharge place: inpatient rehab A total of 30 minutes was spent on the care of this complex patient more than 50 % of the time was spent in counseling and care coordination.
[2017-10-08 12:16] LABS: Glucose,Whole Blood 164 mg/dL (75-99)
--- NOTE | 2017-10-08 13:28 | P.PN ---
Subjective Progress Note Date: 10/08/17 Seen and examined for the follow-up of acute kidney injury. Feels better. family at bedside Objective - Vital Signs Vital signs: Vital Signs Temp 96.7 F L 10/08/17 07:00 Pulse 92 10/08/17 07:00 Resp 18 10/08/17 07:00 BP 111/48 10/08/17 07:00 Pulse Ox 95 10/08/17 07:00 Intake & Output 10/07/17 10/08/17 10/08/17 18:59 06:59 18:59 Intake Total 120 1050 240 Output Total 275 Balance 120 1050 -35 Weight 118 kg Intake: Oral 120 1050 240 Output: Urine 275 Other: # Voids 1 3 # Bowel Movements 0 0 ABP, PAP, CO, CI - Last Documented Arterial Blood Pressure 115/58 - Exam Lying in bed no acute distress S1-S2 heard Abdomen soft bowel sounds present Edema. - Labs CBC & Chem 7: 10/06/17 07:48 10/08/17 07:55 Labs: Abnormal Lab Results - Last 24 Hours (Table) 10/07/17 10/07/17 10/08/17 Range/Units 17:16 21:05 00:44 Sodium (137-145) mmol/L Carbon Dioxide (22-30) mmol/L BUN (9-20) mg/dL Creatinine (0.66-1.25) mg/dL Glucose (74-99) mg/dL POC Glucose (mg/dL) 168 H 125 H 128 H (75-99) mg/dL Calcium (8.4-10.2) mg/dL 10/08/17 10/08/17 10/08/17 Range/Units 07:13 07:55 11:46 Sodium 131 L (137-145) mmol/L Carbon Dioxide 21 L (22-30) mmol/L BUN 84 H* (9-20) mg/dL Creatinine 1.31 H (0.66-1.25) mg/dL Glucose 120 H (74-99) mg/dL POC Glucose (mg/dL) 134 H 164 H (75-99) mg/dL Calcium 7.9 L (8.4-10.2) mg/dL Assessment and Plan Assessment: Impression: #1 nonoliguric ATI secondary to ATN. #2 status post cardiopulmonary arrest #3 hypervolemic hyponatremia #4 ascites status post paracentesis with 14 L removed #6 anemia #7 liver cirrhosis Recommendations: #1 continue with Lasix current dose. Creatinine stable and improving close to baseline. #2 avoid nephrotoxic agents and hypotensive episodes #3 maintain fluid restriction. #4 on Aldactone by the primary team. Monitor closely for hyperkalemia. Stable from nephrology point of view for discharge
[2017-10-08 17:27] LABS: Glucose,Whole Blood 169 mg/dL (75-99)
[2017-10-08] MEDS ORDERED: INSULN ASP PRT/INSULIN ASPART 100 UNIT/ML 10 ML VIAL SQ SCH (17:30)
[2017-10-08] MEDS: TAMSULOSIN 0.4 MG CAP.ER.24H PO SCH (19:54)
[2017-10-08 21:04] LABS: Glucose,Whole Blood 191 mg/dL (75-99)
[2017-10-08] MEDS: GABAPENTIN 300 MG CAP PO PRN (22:13)
[2017-10-09 00:39] LABS: Glucose,Whole Blood 145 mg/dL (75-99)
[2017-10-09 07:26] LABS: Glucose,Whole Blood 143 mg/dL (75-99)
[2017-10-09] MEDS ORDERED: INSULN ASP PRT/INSULIN ASPART 100 UNIT/ML 10 ML VIAL SQ SCH (07:30)
[2017-10-09 08:43] LABS: Calcium 8.1 mg/dL (8.4-10.2); Potassium 4.7 mmol/L (3.5-5.1)
[2017-10-09] MEDS: FUROSEMIDE 40 MG TAB PO SCH (08:55)
[2017-10-09] MEDS: APIXABAN 5 MG TAB PO SCH (08:55)
[2017-10-09] MEDS: FERROUS SULFATE 325 MG TAB PO SCH (08:56)
[2017-10-09] MEDS: PANTOPRAZOLE 40 MG TABLET PO SCH (08:56)
[2017-10-09] MEDS: METOPROLOL TARTRATE 12.5 MG TAB PO SCH (08:56)
[2017-10-09] MEDS ORDERED: ALLOPURINOL 300 MG TAB PO SCH (09:00)
[2017-10-09] MEDS ORDERED: SPIRONOLACTONE 25 MG TAB PO SCH ×2 (09:00→16:00)
[2017-10-09] MEDS: ACETAMINOPHEN TAB 500 MG TAB PO PRN (09:13)
[2017-10-09] MEDS: ATORVASTATIN 40 MG TAB PO SCH (09:18)
--- NOTE | 2017-10-09 10:37 | P.PN ---
Subjective Patient is seen in follow-up for acute kidney injury. Renal function improving with creatinine down to 1.15 today. Sodium level stable at 131. Oral intake is improving. Denies chest pain or shortness of breath. He does of systolic CHF with ejection fraction of 20-25%. He is status post cardiac arrest. Vital signs are stable. General: The patient appeared well nourished and normally developed. HEENT: Head exam is unremarkable. Neck is without jugular venous distension. LUNGS: Lungs are clear to auscultation and percussion. Breath sounds decreased. HEART: Rate and Rhythm are regular. First and second heart sounds normal. No murmurs, rubs or gallops. ABDOMEN: Abdominal exam reveals normal bowel sounds. Distention noted. EXTREMITITES: Trace edema. Objective - Vital Signs Vital signs: Vital Signs Temp 98.0 F 10/09/17 05:50 Pulse 87 10/09/17 05:50 Resp 16 10/09/17 05:50 BP 102/64 10/09/17 05:50 Pulse Ox 97 10/09/17 05:50 Intake & Output 10/08/17 10/09/17 10/09/17 18:59 06:59 18:59 Intake Total 480 200 240 Output Total 475 300 125 Balance 5 -100 115 Weight 119 kg Intake: Oral 480 200 240 Output: Urine 475 300 125 Other: Voiding Method Urinal # Voids 3 3 # Bowel Movements 1 0 0 ABP, PAP, CO, CI - Last Documented Arterial Blood Pressure 115/58 - Labs CBC & Chem 7: 10/06/17 07:48 10/09/17 07:38 Labs: Abnormal Lab Results - Last 24 Hours (Table) 10/08/17 10/08/17 10/08/17 Range/Units 11:46 17:08 20:58 Sodium (137-145) mmol/L Carbon Dioxide (22-30) mmol/L BUN (9-20) mg/dL Glucose (74-99) mg/dL POC Glucose (mg/dL) 164 H 169 H 191 H (75-99) mg/dL Calcium (8.4-10.2) mg/dL 10/09/17 10/09/17 10/09/17 Range/Units 00:37 07:12 07:38 Sodium 131 L (137-145) mmol/L Carbon Dioxide 20 L (22-30) mmol/L BUN 83 H* (9-20) mg/dL Glucose 114 H (74-99) mg/dL POC Glucose (mg/dL) 145 H 143 H (75-99) mg/dL Calcium 8.1 L (8.4-10.2) mg/dL Assessment and Plan Plan: Assessment: 1. Nonoliguric acute kidney injury secondary to ATN secondary to hypotension and cardiac arrest. Also component of cardiorenal syndrome. Renal function improving - cr 1.15 today. Urinalysis is quite benign. 2. Hyponatremia, hypervolemic. Urine sodium noted to be low at 23 and repeat 14. Urine osmolality 423, repeat 291. 3. Systolic CHF with ejection fraction of 20-25%. 4. Ascites status post paracentesis on September 20 with over 14 L removed; 10 L removed 10/05/17. 5. Liver cirrhosis. Likely related to non-alcoholic fatty liver disease. GI following. 6. Anemia. Iron deficiency noted - s/p 3 doses of IV iron. 7. Atrial fibrillation maintained on heparin drip. Rate controlled. 8. Hyperkalemia secondary to acute kidney injury. Resolved. Plan: Continue Lasix 40 mg every morning. Add 20 mg qPM. Continue Aldactone 50 mg every morning. Add 25 mg qPM. Maintain 1500 mL fluid restriction. Maintain protein supplements. Avoid nephrotoxic agents and hypotensive episodes. Continue to monitor renal function and urine output. Next paracentesis being planned for . Anticipate discharge to inpatient rehab soon.
[2017-10-09] MEDS ORDERED: FUROSEMIDE 20 MG TAB PO SCH ×2 (10:45→10:50)
[2017-10-09] MEDS: GABAPENTIN 300 MG CAP PO PRN (10:56)
--- NOTE | 2017-10-09 10:59 | P.DS ---
Providers Date of admission: 09/17/17 12:31 Expected date of discharge: 10/09/17 Attending physician: Giuseppe Ferrara MD Consults: 09/17/17 12:45 Consult Physician Routine Consulting Provider: Silverio Berry Consult Reason/Comments: elevated troponin Do you want consulting provider notified?: Yes 09/17/17 13:28 Consult Physician Routine Consulting Provider: Marcelo Armas Consult Reason/Comments: dyspnea, pleural effusion with compressive atelectasis Do you want consulting provider notified?: Yes 09/20/17 09:37 Consult Physician Routine Consulting Provider: Anton Dao Consult Reason/Comments: Eval for Rehab Do you want consulting provider notified?: Yes 09/20/17 09:38 Consult Physician Routine Consulting Provider: Tin Nguyen Consult Reason/Comments: L shoulder steroid shot Do you want consulting provider notified?: Yes 09/23/17 12:02 Consult Physician Routine Consulting Provider: Alex Evans Consult Reason/Comments: LUIS DANIEL on CKD Do you want consulting provider notified?: Yes 09/25/17 10:35 Consult Physician Routine Consulting Provider: Evin Dillard Consult Reason/Comments: Hematuria Do you want consulting provider notified?: Yes 10/01/17 15:10 Consult Physician Routine Consulting Provider: Neelam Gonzalez Consult Reason/Comments: aortic stenosis Do you want consulting provider notified?: Already Contacted Primary care physician: Dov Smith - James Diagnosis(es) (1) Decompensated hepatic cirrhosis Current Visit: Yes Status: Acute (2) Acute systolic CHF (congestive heart failure), NYHA class 4 Current Visit: Yes Status: Acute (3) Cardiac arrest Current Visit: Yes Status: Acute (4) ATN (acute tubular necrosis) Current Visit: Yes Status: Acute (5) Iron deficiency anemia Current Visit: Yes Status: Acute (6) Hyperkalemia Current Visit: Yes Status: Acute (7) Gout Current Visit: Yes Status: Acute (8) BPH (benign prostatic hyperplasia) Current Visit: Yes Status: Acute (9) Neuropathy Current Visit: Yes Status: Acute (10) Acute kidney injury Current Visit: Yes Status: Acute (11) Pleural effusion Current Visit: Yes Status: Acute (12) Respiratory failure Current Visit: Yes Status: Acute (13) Arthritis of left shoulder region Current Visit: Yes Status: Chronic Priority: Medium (14) Atrial fibrillation Current Visit: Yes Status: Chronic Priority: High (15) Diabetes mellitus Current Visit: Yes Status: Chronic Priority: Medium Hospital Course: Patient is a 77-year-old male with a past medical history of A. fib on chronic anticoagulation with Coumadin, diabetes, and gout who initially presented to the ER via EMS with chief complaint of increasing fatigue and abdominal distention. In the ER he underwent an extensive evaluation. He had a CT of the chest abdomen and pelvis which showed a moderate right-sided pleural effusion, associated subsegmental atelectasis, cirrhosis of the liver, abdominal ascites, and enlarged pulmonary artery. He was noted to have an elevated INR of 1.5, hemoglobin of 10.5, and an elevated bilirubin of 2.5. His troponin was mildly elevated at 0.056. He is admitted for workup of symptomatic ascites. GI was consulted and plan was for paracentesis possible thoracentesis. He was seen by GI who recommended paracentesis with cytology, holding anticoagulation, low salt diet. He was seen by GI who started the patient on IV Lasix drip and continue his Aldactone and lisinopril. He was continued on his digoxin. His Indocin was held and he was started on a low- dose beta raymon. He underwent an echocardiogram which showed ejection fraction of 25-30%, severe global hypokinesis, and moderate to severe aortic stenosis. Pulmonary was consulted and saw the patient on 09/18. They agreed with continued Lasix drip and Zaroxolyn. They suggested possible drainage of pleural effusions at a later stage if patient continued to be short of breath. His Coumadin was placed on hold for his possible paracentesis. On 09/20 orthopedics was consulted for his left shoulder pain. They found severe left shoulder osteoarthritis. Patient underwent a paracentesis on 09/20 with removal of 14 L of fluid. He was seen by Dr. Reyes of inpatient rehab. He underwent an intra-articular cortisone injection on 09/21/2017. He will need to follow-up in outpatient setting for further treatment options after discharge. On 09/22 he was noted to have an elevated potassium and low blood pressures. His diuretics were on hold. His aldactone was discontinued. He was maintained on lisinopril and metoprolol and was started on gentle hydration at 75 MLS per hour. On 09/23 he was started on low-dose dopamine drip due to being somewhat hypotensive and his IV fluids were changed to KVO. Shortly being after placed on dopamine drip at 5 g the patient started developing palpitations in his heart rate went up to the 180s. He subsequent only lost consciousness and CODE DANISH was called. He did have return of spontaneous circulation and was transferred to the ICU. He is intubated and had a central line placed. He did require pressors and was on levophed. He was able to be successfully extubated on 09/24. He was noted to develop significant hematuria was seen by urology. This felt that his gross hematuria was due to Miranda catheter trauma. Urology suggested removing Miranda catheter along with his no longer medically needed. Nephrology was consulted due to worsening renal failure. He was off all pressors by 09/26. He was found to have severe iron deficiency anemia and was started on IV iron 3 days. As his renal function continued to improve he was restarted on Lasix. He did develop significant hyponatremia which was felt to be secondary to his fluid overload status and his cirrhosis. He was given 3 doses of Samsca and his sodium increased appropriately. This was after a trial of fluid restriction and Lasix failed to increase sodium significantly. He was seen by Dr. Lisa hutton for valvular replacement. They determined him to be a poor surgical candidate and suggested possible TAVR procedure. He underwent repeat paracentesis on 10/05 with removal of 10L of fluid. Life vest was placed on . He tolerated the procedure well. His kidney function continued to improve and he was restarted on lasix and aldactone. He did start to have some reoccurrence of his acuities on 10/09. Eliquis was placed on hold for 48 hours, plan is for paracentesis on . Amparo Roberts NP is working on coordinating. The patient will need albumin with paracentesis. He should be started back on eliquis 5mg BID the day after his paracentesis. It was determined that paracentesis could be coordinated at Inpatient Rehab and he was determined stable for discharge. Patient seen and examined at bedside. He is having some abdominal distention. Minimal shortness of breath. No nausea. No vomiting. No chest pain. Vital signs reviewed and stable. General: non toxic, no distress, appears at stated age Derm: warm, dry Head: atraumatic, normocephalic, symmetric Eyes: EOMI, no lid lag, anicteric sclera Mouth: no lip lesion, mucus membranes moist Cardiovascular: S1S2 reg, no murmur, positive posterior tibial pulse bilateral, Lungs: CTA bilateral, no rhonchi, no rales , no accessory muscle use Abdominal: soft, nontender to palpation, no guarding, no appreciable organomegaly Ext: no gross muscle atrophy, 3+ edema, no contractures Neuro: CN II-XI grossly intact, no focal neuro deficits Psych: Alert, oriented, appropriate affect A total of 65 minutes of time were spent preparing this complex discharge summary . Pertinent Studies: CT chest abdomen pelvis-moderate right-sided pleural effusion with associated right-sided mental multifocal atelectasis, cirrhotic morphology of the liver with ascites and anasarca, enlarged main pulmonary artery Pericardial effusion Echo-ejection fraction 25-30%, severe global hypokinesis of the left ventricle, severely dilated left atrium, severe mitral regurg, severe tricuspid regurg, severe pulmonary hypertension, severe aortic stenosis Procedures: Paracentesis via ultrasound 10/05 Paracentesis via ultrasound 09/20 Central line 09/23 Arterial line 09/23 Intubation 09/23 Steroid injection left shoulder 09/21 Patient Condition at Discharge: Fair Plan - Discharge Summary Discharge Rx Participant: No New Discharge Prescriptions: New Allopurinol [Zyloprim] 300 mg PO DAILY tab Atorvastatin [Lipitor] 40 mg PO DAILY tab Ferrous Sulfate [Iron (65 MG Elemental)] 325 mg PO BID-W/MEALS tab Furosemide [Lasix] 40 mg PO QAM tab Furosemide [Lasix] 20 mg PO HS #30 tab Gabapentin [Neurontin] 300 mg PO BID PRN cap PRN Reason: NERVE Pain Insuln Asp Prt/Insulin Aspart [NovoLOG MIX 70-30 VIAL] 10 unit SQ AC-BRKFST vial Insuln Asp Prt/Insulin Aspart [NovoLOG MIX 70-30 VIAL] 8 unit SQ AC-SUPPER vial Metoprolol Tartrate [Lopressor] 12.5 mg PO BID tab Pantoprazole [Protonix] 40 mg PO AC-BRKFST tablet. Spironolactone [Aldactone] 50 mg PO QAM #30 tab Spironolactone [Aldactone] 25 mg PO HS #30 tablet Discontinued guaiFENesin-DM 600/30MG [Mucinex Dm] 1 tab PO Q12HR Insulin NPH Hum/Reg Insulin Hm [NovoLIN 70-30 100 UNIT/ML VIAL] 15 unit SQ AC -BID Warfarin [Coumadin] 5 mg PO MOTUTHFRSA Multivit-Min/FA/Lycopen/Lutein [Centrum Silver Tablet] 1 tab PO DAILY Lutein 10 mg PO HS Indomethacin [Indocin] 50 mg PO HS Quinapril HCl [Accupril] 5 mg PO DAILY Allopurinol [Zyloprim] 300 mg PO MOWEFR Potassium Chloride [Klor-Con 20] 20 meq PO DAILY Furosemide [Lasix] 40 mg PO BID Digoxin [Lanoxin] 250 mcg PO DAILY No Action Tamsulosin HCl [Flomax] 0.4 mg PO HS Discharge Medication List Tamsulosin HCl [Flomax] 0.4 mg PO HS 09/17/17 [History] Allopurinol [Zyloprim] 300 mg PO DAILY tab 10/09/17 [Rx] Atorvastatin [Lipitor] 40 mg PO DAILY tab 10/09/17 [Rx] Ferrous Sulfate [Iron (65 MG Elemental)] 325 mg PO BID-W/MEALS tab 10/09/17 [Rx ] Furosemide [Lasix] 20 mg PO HS #30 tab 10/09/17 [Rx] Furosemide [Lasix] 40 mg PO QAM tab 10/09/17 [Rx] Gabapentin [Neurontin] 300 mg PO BID PRN cap 10/09/17 [Rx] Insuln Asp Prt/Insulin Aspart [NovoLOG MIX 70-30 VIAL] 8 unit SQ AC-SUPPER vial 10/09/17 [Rx] Insuln Asp Prt/Insulin Aspart [NovoLOG MIX 70-30 VIAL] 10 unit SQ AC-BRKFST vial 10/09/17 [Rx] Metoprolol Tartrate [Lopressor] 12.5 mg PO BID tab 10/09/17 [Rx] Pantoprazole [Protonix] 40 mg PO AC-BRKFST tablet. 10/09/17 [Rx] Spironolactone [Aldactone] 25 mg PO HS #30 tablet 10/09/17 [Rx] Spironolactone [Aldactone] 50 mg PO QAM #30 tab 10/09/17 [Rx] Follow up Appointment(s)/Referral(s): Arden Orozco MD [STAFF PHYSICIAN] - 2 Weeks Candace Berry MD [STAFF PHYSICIAN] - 10/11/17 12:30 pm Dov Smith MD [Primary Care Provider] - 1-2 days Alex Evans DO [STAFF PHYSICIAN] - 1 Week Tin Nguyen MD [STAFF PHYSICIAN] - 4 Weeks
[2017-10-09 12:31] LABS: Glucose,Whole Blood 131 mg/dL (75-99)
[2017-10-09 13:55] VITALS: BMI 32.8
[2017-10-09 15:21] VITALS: BP 100/62; PULSE 90; RESP 18; TEMP 97.8
== END 2017-10-09 15:29 | DRG 291 ==
LOC: EC 08:35 → 6SEL 12:31 → 6ICU 09-23 13:13 → 6SEL 09-28 22:06 → 4MS4W 10-03 13:25
PROVIDERS: ADMIT Family Medicine; ATTEND Family Medicine
PROC: 0W9G3ZZ Drainage of Peritoneal Cavity, Percutaneous Approach (ICD-10-PCS; 2017-09-20)
PROC: 3E0U3BZ Introduction of Anesthetic Agent into Joints, Percutaneous Approach (ICD-10-PCS; principal; 2017-09-21)
PROC: 3E0U33Z Introduction of Anti-inflammatory into Joints, Percutaneous Approach (ICD-10-PCS; principal; 2017-09-21)
PROC: 05H633Z Insertion of Infusion Device into Left Subclavian Vein, Percutaneous Approach (ICD-10-PCS; 2017-09-23)
PROC: 03HY32Z Insertion of Monitoring Device into Upper Artery, Percutaneous Approach (ICD-10-PCS; 2017-09-23)
PROC: 4A133J1 Monitoring of Arterial Pulse, Peripheral, Percutaneous Approach (ICD-10-PCS; 2017-09-23)
PROC: 5A1935Z Respiratory Ventilation, Less than 24 Consecutive Hours (ICD-10-PCS; 2017-09-23)
PROC: 4A133B1 Monitoring of Arterial Pressure, Peripheral, Percutaneous Approach (ICD-10-PCS; 2017-09-23)
PROC: 0BH17EZ Insertion of Endotracheal Airway into Trachea, Via Natural or Artificial Opening (ICD-10-PCS; 2017-09-23)
PROC: 0W9G3ZZ Drainage of Peritoneal Cavity, Percutaneous Approach (ICD-10-PCS; 2017-10-05)
DX: I13.0 Hypertensive heart and chronic kidney disease with heart failure and stage 1 through stage 4 chronic kidney disease, or unspecified chronic kidney disease (principal); I50.23 Acute on chronic systolic (congestive) heart failure; I46.9 Cardiac arrest, cause unspecified; J96.01 Acute respiratory failure with hypoxia; N17.0 Acute kidney failure with tubular necrosis; E87.1 Hypo-osmolality and hyponatremia; I47.2 Ventricular tachycardia; J98.11 Atelectasis; K83.0 Cholangitis; L97.919 Non-pressure chronic ulcer of unspecified part of right lower leg with unspecified severity; L97.929 Non-pressure chronic ulcer of unspecified part of left lower leg with unspecified severity; R18.8 Other ascites; R57.9 Shock, unspecified; T83.83XA Hemorrhage due to genitourinary prosthetic devices, implants and grafts, initial encounter; E11.22 Type 2 diabetes mellitus with diabetic chronic kidney disease; N18.9 Chronic kidney disease, unspecified; D50.9 Iron deficiency anemia, unspecified; E11.40 Type 2 diabetes mellitus with diabetic neuropathy, unspecified; E11.622 Type 2 diabetes mellitus with other skin ulcer; E86.1 Hypovolemia; E87.5 Hyperkalemia; I08.3 Combined rheumatic disorders of mitral, aortic and tricuspid valves; I25.10 Atherosclerotic heart disease of native coronary artery without angina pectoris; I27.29 Other secondary pulmonary hypertension; I42.9 Cardiomyopathy, unspecified; I48.2 Chronic atrial fibrillation; I49.3 Ventricular premature depolarization; I50.82 Biventricular heart failure; I70.0 Atherosclerosis of aorta; K75.4 Autoimmune hepatitis; K75.81 Nonalcoholic steatohepatitis (NASH); K76.1 Chronic passive congestion of liver; M10.9 Gout, unspecified; M19.011 Primary osteoarthritis, right shoulder; M19.012 Primary osteoarthritis, left shoulder; M51.36 Other intervertebral disc degeneration, lumbar region; N40.0 Benign prostatic hyperplasia without lower urinary tract symptoms; R31.0 Gross hematuria; R79.1 Abnormal coagulation profile; T45.515A Adverse effect of anticoagulants, initial encounter; T50.2X5A Adverse effect of carbonic-anhydrase inhibitors, benzothiadiazides and other diuretics, initial encounter; Z79.01 Long term (current) use of anticoagulants; Z79.4 Long term (current) use of insulin; Z79.899 Other long term (current) drug therapy; Z80.9 Family history of malignant neoplasm, unspecified; Z87.891 Personal history of nicotine dependence; Z90.49 Acquired absence of other specified parts of digestive tract; Z98.42 Cataract extraction status, left eye; Z98.41 Cataract extraction status, right eye
CPT/HCPCS: 36415; 49083; 71045; 71046; 71260; 74018; 74177; 76604; 76705; 80048; 80053; 80074; 80076; 81001; 81003; 82042; 82103; 82105; 82272; 82390; 82550; 82553; 82728; 82805; 82945; 83036; 83516; 83540; 83550; 83605; 83735; 83880; 83930; 83935; 84100; 84132; 84165; 84295; 84300; 84484; 85025; 85027; 85049; 85610; 85730; 86038; 86039; 87070; 87205; 88108; 88305; 89050; 93005; 93306; 94002; 94003; 94760; 99285

== ENCOUNTER 2017-11-07 06:51 | Observation (INO) | payer MEDICARE, BC ==
--- NOTE | 2017-11-07 12:56 | XR ---
2 view chest x-ray and abdomen HISTORY: Shortness of breath, history of heart murmur 2 views of the chest correlated to prior chest x-ray dated 10/02/2017, frontal view of the abdomen on 3 images Patient is rotated. Heart size is stable and enlarged. Right hemidiaphragm remains elevated. Patchy d ensity again noted at the right lung base, blunting of the right costophrenic angle. Pulmonary artery appears prominently, correlate for pulmonary artery hypertension. No evident pneumothorax. Central v enous catheter has been removed. IMPRESSION: Findings suggest right pleural effusion and associated atelectasis versus pneumonia or ed herman. Cardiomegaly. Correlate for pulmonary artery hypertension. ABDOMEN: Surgical clips present in the right upper quadrant. Degenerative disc changes are noted in t he visualized spine. There are dense vascular calcifications present. No evident bowel obstruction or pneumoperitoneum. Right pleural effusion is noted. Surgical clips present right upper quadrant. Live r may be enlarged. IMPRESSION: Possible hepatomegaly. Extensive vascular calcifications. Degenerative disc disease. Nono bstructive bowel gas pattern.
[2017-11-07 13:22] LABS: Anisocytosis Moderate; Basophils # (A) 0.1 k/uL (0-0.2); Basophils % (A) 1 %; Eosinophils # (A) 0.1 k/uL (0-0.7); Eosinophils % (A) 2 %; HCT 35.6 % (39.0-53.0); HGB 11.1 gm/dL (13.0-17.5); Hypochromasia Slight; Lymphocytes # (A) 1.4 k/uL (1.0-4.8); Lymphocytes % (A) 26 %; MCH 28.3 pg (25.0-35.0); MCHC 31.2 g/dL (31.0-37.0); Macrocytosis Slight; Mean Platelet Volume 6.8; Monocytes # (A) 0.4 k/uL (0-1.0); Monocytes % (A) 7 %; Neutrophils # (A) 3.2 k/uL (1.3-7.7); Neutrophils % (A) 62 %; Platelet Count 164 k/uL (150-450); RBC 3.93 m/uL (4.30-5.90); RDW 22.4 % (11.5-15.5); WBC 5.2 k/uL (3.8-10.6)
[2017-11-07 13:25] LABS: MCV 90.6 fL (80.0-100.0)
[2017-11-07 13:30] LABS: INR 1.4 (<1.2); Partial Thromboplastin Time 24.1 sec (22.0-30.0); Prothrombin Time 12.9 sec (9.0-12.0)
[2017-11-07 14:53] LABS: ALT 32 U/L (21-72); AST 27 U/L (17-59); Albumin 2.9 g/dL (3.5-5.0); Alkaline Phosphatase 246 U/L (38-126); Amylase <30 U/L (30-110); Anion Gap 8 mmol/L; Blood Urea Nitrogen 48 mg/dL (9-20); Calcium 8.2 mg/dL (8.4-10.2); Carbon Dioxide 27 mmol/L (22-30); Chloride 102 mmol/L (98-107); Glucose 121 mg/dL (74-99); Lipase 38 U/L (23-300); Magnesium 2.2 mg/dL (1.6-2.3); Potassium 4.5 mmol/L (3.5-5.1); Sodium 137 mmol/L (137-145); Total Bilirubin 1.2 mg/dL (0.2-1.3); Total Protein 5.4 g/dL (6.3-8.2)
[2017-11-07] MEDS ORDERED: LIDOCAINE 1% INJ 10MG/ML (20 ML MDV) SQ ONE (15:30)
[2017-11-07] MEDS: ALBUMIN HUMAN 25% 50 ML in EMPTY BAG 1 BAG IVPB SCH ×4 (15:50→16:36)
[2017-11-07] MEDS ORDERED: NALOXONE 0.4 MG/ML 1 ML VIAL IV PRN (20:58)
[2017-11-07] MEDS ORDERED: MELATONIN 3 MG TABLET PO PRN (20:58)
[2017-11-07] MEDS ORDERED: TAMSULOSIN 0.4 MG CAP.ER.24H PO SCH (21:00)
[2017-11-07] MEDS ORDERED: SODIUM CHLORIDE 0.9% 1,000 ML IV SCH (21:00)
[2017-11-07] MEDS ORDERED: traMADol 50 MG TAB PO PRN (21:01)
[2017-11-07 21:11] LABS: Glucose,Whole Blood 226 mg/dL (75-99)
[2017-11-07] MEDS ORDERED: GABAPENTIN 300 MG CAP PO PRN (21:31)
--- NOTE | 2017-11-07 21:54 | HP ---
HISTORY AND PHYSICAL CHIEF COMPLAINT: Abdominal ascites. HISTORY OF PRESENT ILLNESS: This 77-year-old gentleman with a past medical history of atrial fibrillation, CHF, diabetes mellitus, hypertension, history of gout, being followed by Dr. Finnegan from [facility], admitted with abdominal distention. The patient apparently had an abdominal tap by Radiology today. 11 L of fluid was removed. There is no history of fever, rigors. No history of headache, loss of consciousness or seizures at this time. PAST HISTORY: Atrial fibrillation, CHF, diabetes mellitus, hyperlipidemia, gout, neuropathy. MEDICATIONS PRIOR TO ADMISSION: Include: 1. NovoLog 70/30, 8 units subcu a.c. supper and 70/30, 10 units a.c. breakfast. 2. Multivitamin 1 p.o. daily. 3. Aldactone 50 mg daily. 4. Protonix 40 mg with breakfast. 5. Lopressor 25 mg b.i.d. 6. Neurontin 300 mg daily. 7. Lasix 40 mg daily. 8. Iron 320 mg p.o. daily. 9. Lipitor 40 mg daily. 10.Zyloprim 300 mg daily. 11.Flomax 0.4 q.h.s. ALLERGIES: DOPAMINE. FAMILY HISTORY: No history of any heart disease or strokes in the family. SOCIAL HISTORY: Previous history of smoking. Occasional alcohol intake. REVIEW OF SYSTEMS: ENT: No diminished hearing, diminished vision. CARDIOVASCULAR: No angina, palpitations. RESPIRATORY: As mentioned earlier. GI: As mentioned earlier. : No dysuria. NERVOUS: No numbness or weakness. ALLERGY/IMMUNOLOGY: No asthma or hay fever. MUSCULOSKELETAL: As mentioned earlier. HEMATOLOGY/ONCOLOGY: No history of anemia. ENDOCRINE: As mentioned earlier. CONSTITUTIONAL: As mentioned earlier. DERMATOLOGY: Negative. RHEUMATOLOGY: Negative. PSYCHIATRY: As mentioned earlier. PHYSICAL EXAMINATION: Alert and oriented x3. Pulse 80, blood pressure 101/60, respirations 16, temperature 97.9, pulse ox 96% on 2L. HEENT: Conjunctivae pale. Oral mucosa moist. NECK: No jugular venous distention. No carotid bruits. No lymph node enlargement. CARDIOVASCULAR: S1, S2 muffled. No S3, S4. RESPIRATORY: Breath sounds diminished in the bases. A few scattered rhonchi. No crackles. ABDOMEN: Soft, obese, ascites present, status post ascites tap. No mass palpable. No guarding. No rigidity. LEGS: No edema. No swelling. NERVOUS SYSTEM: Higher functions as mentioned earlier. Moves all 4 limbs. No focal motor or sensory deficits. LYMPHATIC: No lymphadenopathy in neck or axillae. SKIN: No ulcer, rash or bleeding. LABS: WBC 5, hemoglobin 11.1. INR is 1.4. Creatinine is 1.30. Alk phos 246. ASSESSMENT: 1. Ascites secondary to cirrhosis of liver, status post thoracocentesis. 2. Increased creatinine with chronic kidney disease stage 3. 3. Atrial ablation. 4. Congestive heart failure. 5. Diabetes mellitus type 2. 6. Hypertension. 8. History of gout. 9. History of neuropathy. 10.History of ascites. 11.History iron-deficiency anemia. 13.History of degenerative joint disease. RECOMMENDATIONS AND DISCUSSION: In this 77-year-old gentleman who presented with multiple complex medical issues , will monitor the patient closely, continue the current medical management and symptomatic treatment. Otherwise, at this time I recommend resume the home medications, monitor blood pressure closely. Otherwise, prognosis guarded because of multiple complex medical issues. Further recommendations to follow. A copy of this dictation will be forwarded to the primary care physician. MMODL / IJN: [id number] / ARVIN
[2017-11-07 22:06] LABS: Albumin 2.7 g/dL (3.5-5.0); Calcium 8.1 mg/dL (8.4-10.2); Potassium 4.6 mmol/L (3.5-5.1); Total Bilirubin 1.4 mg/dL (0.2-1.3); Total Protein 4.9 g/dL (6.3-8.2)
[2017-11-07] MEDS: INSULIN ASPART 100 UNIT/ML 1 ML 10 ML VIAL SQ SCH (22:13)
[2017-11-07] MEDS: METOPROLOL TARTRATE 12.5 MG TAB PO SCH (22:13)
[2017-11-08 05:59] LABS: Glucose,Whole Blood 145 mg/dL (75-99)
[2017-11-08 06:39] LABS: Anisocytosis Moderate; Basophils # (A) 0.1 k/uL (0-0.2); Basophils % (A) 1 %; Eosinophils # (A) 0.1 k/uL (0-0.7); Eosinophils % (A) 2 %; HCT 37.8 % (39.0-53.0); HGB 11.8 gm/dL (13.0-17.5); Hypochromasia Slight; Lymphocytes # (A) 1.5 k/uL (1.0-4.8); Lymphocytes % (A) 23 %; MCH 28.3 pg (25.0-35.0); MCHC 31.2 g/dL (31.0-37.0); MCV 90.7 fL (80.0-100.0); Mean Platelet Volume 6.7; Monocytes # (A) 0.5 k/uL (0-1.0); Monocytes % (A) 7 %; Neutrophils # (A) 4.2 k/uL (1.3-7.7); Neutrophils % (A) 65 %; Platelet Count 168 k/uL (150-450); RBC 4.17 m/uL (4.30-5.90); RDW 21.9 % (11.5-15.5); WBC 6.5 k/uL (3.8-10.6)
[2017-11-08 06:46] LABS: Albumin 2.4 g/dL (3.5-5.0); Calcium 7.9 mg/dL (8.4-10.2); Potassium 4.7 mmol/L (3.5-5.1); Total Bilirubin 1.1 mg/dL (0.2-1.3); Total Protein 4.6 g/dL (6.3-8.2)
[2017-11-08] MEDS ORDERED: INSULN ASP PRT/INSULIN ASPART 100 UNIT/ML 10 ML VIAL SQ SCH ×2 (07:30→17:30)
[2017-11-08] MEDS ORDERED: PANTOPRAZOLE 40 MG TABLET PO SCH (07:30)
[2017-11-08] MEDS: INSULIN ASPART 100 UNIT/ML 1 ML 10 ML VIAL SQ SCH ×2 (07:44→12:02)
[2017-11-08] MEDS ORDERED: GABAPENTIN 300 MG CAP PO SCH (09:00)
[2017-11-08] MEDS ORDERED: ATORVASTATIN 40 MG TAB PO SCH (09:00)
[2017-11-08] MEDS ORDERED: FERROUS SULFATE 325 MG TAB PO SCH (09:00)
[2017-11-08] MEDS ORDERED: FUROSEMIDE 40 MG TAB PO SCH (09:00)
[2017-11-08] MEDS ORDERED: ALLOPURINOL 300 MG TAB PO SCH (09:00)
[2017-11-08] MEDS ORDERED: SPIRONOLACTONE 25 MG TAB PO SCH (09:00)
[2017-11-08] MEDS: METOPROLOL TARTRATE 12.5 MG TAB PO SCH (09:11)
--- NOTE | 2017-11-08 09:30 | US ---
EXAMINATION TYPE: US paracentesis abd w/image DATE OF EXAM: 11/07/2017 COMPARISON: NONE HISTORY: Ascites. PROCEDURE: Maximal barrier technique was utilized. The skin overlying a suitable pocket of fluid was localized with ultrasound and the overlying skin was prepped and draped. Ultrasound was utilized with sterile technique. Lidocaine was used for local anesthesia and a skin dillon made with a scalpel. Catheter was advanced under direct ultrasound guidance into a suitable pocket of fluid and approximately 10.8 lite rs of vernell fluid were removed. Catheter was withdrawn and hemostasis achieved. There is no immedia te complication; the patient is discharged in stable condition. IMPRESSION: STATUS POST ULTRASOUND GUIDED PARACENTESIS FOR PALLIATION OF ASCITES. THIS PROCEDURE WA S PERFORMED BY THE UNDERSIGNED.
--- NOTE | 2017-11-08 10:02 | P.CONS ---
History of Present Illness - Reason for Consult Consult date: 11/08/17 cirrhosis ascites Requesting physician: Brian Wolf - History of Present Illness 77-year-old male with a history of nonalcoholic liver cirrhosis A. fib CHF refractory ascites admitted with abdominal distention status post paracentesis yesterday 10.8 L removal. Consult requested for assistance with initiating a standing order for outpatient paracentesis. Home medications include Ellik with , 50 mg of Aldactone daily, Lasix 40 mg daily. Presently sodium 135. Potassium 4.7. BUN 45. Creatinine 1.2. Patient did receive albumin prior to and post procedure. AST 24. ALT 30. Total bilirubin 1.1. AP 187. Presently feels well denies fever chills hematemesis melena. Denies abdominal pain. Review of Systems Constitutional: Denies fever, chills, sweats, weight gain, or loss. HEENT: Negative for migraines, blurred vision or loss, earaches, drainage, tinnitus, oral mucosal lesions, dysphagia, or odynophagia. Cardiac: History of A. fib heart failure hypertension. Negative for chest pain , arrhythmias, or palpitation. Respiratory: Negative for shortness of breath, hemoptysis, cough, or sputum production. Gastrointestinal: See HPI for pertinent findings. Genitourinary: Negative for hematuria, urgency, frequency, polyuria, dysuria, or penile discharge. Musculoskeletal: Negative for muscle aches, swelling, arthritis, and arthralgias. Neurologic: Negative for stroke or TIA. Endocrine: History of diabetes. Negative for thyroid problems. Skin: Negative for rash or itching. Psychiatric: Negative history for depression and anxiety Past Medical History Past Medical History: Atrial Fibrillation, Heart Failure, Diabetes Mellitus, Hypertension, Prostate Disorder Additional Past Medical History / Comment(s): Gout, neuropathy, cirrhois of the liver, ascities, iron deficiency anemia(iron supp), arthritis lt shoulder, mac degeneration sivan eyes, aortic stenosis, september 2017 cardiac arrest/vnet, leg ulcers History of Any Multi-Drug Resistant Organisms: None Reported Past Surgical History: Cholecystectomy Additional Past Surgical History / Comment(s): bilateral cataract, paracentesis Past Anesthesia/Blood Transfusion Reactions: No Reported Reaction Smoking Status: Former smoker - Past Family History Father Family Medical History: No Reported History Additional Family Medical History / Comment(s): Father lived to be 91 yrs old. Mother Family Medical History: Cancer Additional Family Medical History / Comment(s): Mother had blood cancer and heart problems. She lived to be 83 yrs old. Medications and Allergies Home Medications Medication Instructions Recorded Confirmed Type Tamsulosin HCl [Flomax] 0.4 mg PO HS 09/17/17 11/07/17 History Allopurinol [Zyloprim] 300 mg PO DAILY tab 10/09/17 11/07/17 Rx Atorvastatin [Lipitor] 40 mg PO DAILY tab 10/09/17 11/07/17 Rx Furosemide [Lasix] 40 mg PO QAM tab 10/09/17 11/07/17 Rx Insuln Asp Prt/Insulin Aspart 8 unit SQ AC-SUPPER vial 10/09/17 11/07/17 Rx [NovoLOG MIX 70-30 VIAL] Insuln Asp Prt/Insulin Aspart 10 unit SQ AC-BRKFST vial 10/09/17 11/07/17 Rx [NovoLOG MIX 70-30 VIAL] Pantoprazole [Protonix] 40 mg PO AC-BRKFST tablet. 10/09/17 11/07/17 Rx Spironolactone [Aldactone] 50 mg PO QAM #30 tab 10/09/17 11/07/17 Rx Apixaban [Eliquis] 5 mg PO BID 11/07/17 11/07/17 History Ferrous Sulfate [Iron (65 MG 325 mg PO DAILY 11/07/17 11/07/17 History Elemental)] Gabapentin [Neurontin] 300 mg PO DAILY 11/07/17 11/07/17 History Metoprolol Tartrate [Lopressor] 25 mg PO BID 11/07/17 11/07/17 History Multivit-Min/FA/Lycopen/Lutein 1 tab PO DAILY 11/07/17 11/07/17 History [Centrum Silver Tablet] Allergies Allergy/AdvReac Type Severity Reaction Status Date / Time dopamine Allergy Chest Pain Verified 11/07/17 15:54 Physical Exam Vitals: Vital Signs Temp Pulse Pulse Resp BP BP Pulse Ox 11/08/17 04:00 97.3 F L 96 20 106/61 98 11/08/17 00:00 114 H 18 96/62 98 11/07/17 20:00 97.1 F L 101 H 22 93/66 100 11/07/17 19:15 97.9 F 80 16 101/60 96 11/07/17 16:30 91 18 98/65 100 11/07/17 16:08 99 18 100/66 100 11/07/17 15:56 96 18 96/69 100 11/07/17 15:39 100 20 100/62 98 11/07/17 15:20 97 18 92/74 100 Intake and Output 11/07/17 11/08/17 11/08/17 22:59 06:59 14:59 Intake Total 360 236 Output Total 175 Balance 185 236 Intake: Oral 360 236 Output: Urine 175 Other: Voiding Method Urinal Weight 105.687 kg 102.6 kg General appearance: The patient is alert, oriented, in no acute distress. HET: Head is normocephalic and atraumatic. Pupils are equal and reactive. Oropharynx is clear without lesions. Neck: Supple without lymphadenopathy. Trachea midline. Heart: S1 S2. Regular rate and rhythm. Lungs: No crackles or wheezes are heard. Abdomen: Soft, nontender, mildly bloated with mild ascites with bowel sounds. No peritoneal signs. No palpable organomegaly or masses. Extremities: Normal skin color and turgor. No cyanosis, rash, ulceration, clubbing, or edema. Radial and pedal pulses are 2/4 bilaterally. Neurological: No focal deficits. Strength and sensation are grossly intact. Results CBC & Chem 7: 11/08/17 06:14 11/08/17 06:14 Labs: Abnormal Lab Results - Last 24 Hours (Table) 11/07/17 11/07/17 11/07/17 Range/Units 08:15 08:15 08:15 RBC 3.93 L (4.30-5.90) m/uL Hgb 11.1 L (13.0-17.5) gm/dL Hct 35.6 L (39.0-53.0) % RDW 22.4 H (11.5-15.5) % PT 12.9 H (9.0-12.0) sec INR 1.4 H (<1.2) Sodium (137-145) mmol/L BUN 48 H (9-20) mg/dL Creatinine 1.30 H (0.66-1.25) mg/dL Glucose 121 H (74-99) mg/dL POC Glucose (mg/dL) (75-99) mg/dL Calcium 8.2 L (8.4-10.2) mg/dL Total Bilirubin (0.2-1.3) mg/dL Alkaline Phosphatase 246 H (38-126) U/L Total Protein 5.4 L (6.3-8.2) g/dL Albumin 2.9 L (3.5-5.0) g/dL Amylase <30 L (30-110) U/L 11/07/17 11/07/17 11/08/17 Range/Units 21:07 21:37 05:57 RBC (4.30-5.90) m/uL Hgb (13.0-17.5) gm/dL Hct (39.0-53.0) % RDW (11.5-15.5) % PT (9.0-12.0) sec INR (<1.2) Sodium 134 L (137-145) mmol/L BUN 45 H (9-20) mg/dL Creatinine (0.66-1.25) mg/dL Glucose 197 H (74-99) mg/dL POC Glucose (mg/dL) 226 H 145 H (75-99) mg/dL Calcium 8.1 L (8.4-10.2) mg/dL Total Bilirubin 1.4 H (0.2-1.3) mg/dL Alkaline Phosphatase 194 H (38-126) U/L Total Protein 4.9 L (6.3-8.2) g/dL Albumin 2.7 L (3.5-5.0) g/dL Amylase (30-110) U/L 11/08/17 11/08/17 Range/Units 06:14 06:14 RBC 4.17 L (4.30-5.90) m/uL Hgb 11.8 L (13.0-17.5) gm/dL Hct 37.8 L (39.0-53.0) % RDW 21.9 H (11.5-15.5) % PT (9.0-12.0) sec INR (<1.2) Sodium 135 L (137-145) mmol/L BUN 45 H (9-20) mg/dL Creatinine 1.26 H (0.66-1.25) mg/dL Glucose 146 H (74-99) mg/dL POC Glucose (mg/dL) (75-99) mg/dL Calcium 7.9 L (8.4-10.2) mg/dL Total Bilirubin (0.2-1.3) mg/dL Alkaline Phosphatase 187 H (38-126) U/L Total Protein 4.6 L (6.3-8.2) g/dL Albumin 2.4 L (3.5-5.0) g/dL Amylase (30-110) U/L Assessment and Plan (1) Cirrhosis Narrative/Plan: Nonalcoholic liver cirrhosis Current Visit: No Status: Acute Priority: High Code(s): K74.60 - UNSPECIFIED CIRRHOSIS OF LIVER SNOMED Code(s): 18586991 (2) Ascites Current Visit: Yes Status: Acute Code(s): R18.8 - OTHER ASCITES SNOMED Code(s): 323685077 Plan: 1. Continue with Aldactone and Lasix as previously advised. Will set up a standing order for outpatient paracentesis every 2 weeks with 50 g albumin to be infused preprocedure and postprocedure albumin depending on how many liters removed. Patient will hold anticoagulation 2 days prior to paracentesis. 2. Discharge per medicine. Low-salt diet. Thank you for this kind referral and the opportunity to participate in the care of your patient. This consultation was discussed with Dr. Berry. The impression and plan of care have been directed as dictated.
[2017-11-08 10:22] VITALS: RESP 18
[2017-11-08 11:58] LABS: Glucose,Whole Blood 195 mg/dL (75-99)
[2017-11-08] MEDS ORDERED: MULTIVITAMINS, THERA 1 EACH TAB PO SCH (12:00)
--- NOTE | 2017-11-08 12:09 | P.DS ---
Providers Date of admission: 11/07/17 11:00 Attending physician: Brian Wolf Consults: 11/08/17 01:42 Consult Physician Routine Consulting Provider: Candace Berry Consult Reason/Comments: known, liver failure, family requested Do you want consulting provider notified?: Yes, Notify in am Primary care physician: Maxi Ibarra MD Hospital Course: Patient is admitted for ascites and patient underwent the paracentesis with removal of level liters of fluid. Patient was evaluated by gastroenterology patient does not have any peritonitis patient will be discharged today with the same home dose of Lasix and all that on and the patient will follow up with gastro-oncology as an outpatient and outpatient paracentesis was scheduled. Patient is otherwise clinically doing well. Patient does have bilateral lower limb ulcers in the healing stages none of them appear to be infected patient has home care at home. PHYSICAL EXAMINATION: GENERAL: The patient is alert and oriented x3, not in any acute distress. Well developed, well nourished. HEENT: Pupils are round and equally reacting to light. EOMI. No scleral icterus. No conjunctival pallor. Normocephalic, atraumatic. No pharyngeal erythema. No thyromegaly. CARDIOVASCULAR: S1 and S2 present. No murmurs, rubs, or gallops. PULMONARY: Chest is clear to auscultation, no wheezing or crackles. ABDOMEN: Soft, distended with the shifting dullness no fluid thrill normoactive bowel sounds. No palpable organomegaly. MUSCULOSKELETAL: No joint swelling or deformity. EXTREMITIES: No cyanosis, clubbing, or pedal edema. NEUROLOGICAL: Gross neurological examination did not reveal any focal deficits. SKIN: No rashes. Ascites secondary to cirrhosis and status post paracentesis -Atrial fibrillation on anticoagulation which will be continued -Type 2 diabetes mellitus -Hypertension -Diabetic neuropathy -Gout -Anemia probably anemia of chronic disease and liver disease. Plan - Discharge Summary Discharge Rx Participant: No New Discharge Prescriptions: No Action Tamsulosin HCl [Flomax] 0.4 mg PO HS Allopurinol [Zyloprim] 300 mg PO DAILY tab Atorvastatin [Lipitor] 40 mg PO DAILY tab Furosemide [Lasix] 40 mg PO QAM tab Insuln Asp Prt/Insulin Aspart [NovoLOG MIX 70-30 VIAL] 10 unit SQ AC-BRKFST vial Insuln Asp Prt/Insulin Aspart [NovoLOG MIX 70-30 VIAL] 8 unit SQ AC-SUPPER vial Pantoprazole [Protonix] 40 mg PO AC-BRKFST tablet. Spironolactone [Aldactone] 50 mg PO QAM #30 tab Metoprolol Tartrate [Lopressor] 25 mg PO BID Gabapentin [Neurontin] 300 mg PO DAILY Ferrous Sulfate [Iron (65 MG Elemental)] 325 mg PO DAILY Multivit-Min/FA/Lycopen/Lutein [Centrum Silver Tablet] 1 tab PO DAILY Apixaban [Eliquis] 5 mg PO BID Discharge Medication List Tamsulosin HCl [Flomax] 0.4 mg PO HS 09/17/17 [History] Allopurinol [Zyloprim] 300 mg PO DAILY tab 10/09/17 [Rx] Atorvastatin [Lipitor] 40 mg PO DAILY tab 10/09/17 [Rx] Furosemide [Lasix] 40 mg PO QAM tab 10/09/17 [Rx] Insuln Asp Prt/Insulin Aspart [NovoLOG MIX 70-30 VIAL] 8 unit SQ AC-SUPPER vial 10/09/17 [Rx] Insuln Asp Prt/Insulin Aspart [NovoLOG MIX 70-30 VIAL] 10 unit SQ AC-BRKFST vial 10/09/17 [Rx] Pantoprazole [Protonix] 40 mg PO AC-BRKFST tablet. 10/09/17 [Rx] Spironolactone [Aldactone] 50 mg PO QAM #30 tab 10/09/17 [Rx] Apixaban [Eliquis] 5 mg PO BID 11/07/17 [History] Ferrous Sulfate [Iron (65 MG Elemental)] 325 mg PO DAILY 11/07/17 [History] Gabapentin [Neurontin] 300 mg PO DAILY 11/07/17 [History] Metoprolol Tartrate [Lopressor] 25 mg PO BID 11/07/17 [History] Multivit-Min/FA/Lycopen/Lutein [Centrum Silver Tablet] 1 tab PO DAILY 11/07/17 [ History] Follow up Appointment(s)/Referral(s): Maxi Ibarra MD [Primary Care Provider] - 1 Week Candace Berry MD [STAFF PHYSICIAN] - 12/05/17 4:30 pm Activity/Diet/Wound Care/Special Instructions: Outpatient paracentesis scheduled for November arrival time 12:20 pm Discharge Disposition: HOME WITH HOME HEALTH SERVICES
[2017-11-08 13:22] LABS: Hemoglobin A1C 6.3 % (4.0-6.0)
[2017-11-08 13:37] VITALS: BP 105/74; PULSE 90; TEMP 96.7
== END 2017-11-08 16:02 | disposition home health service (06) ==
LOC: EC 06:51 → 6SEL 11:00 → INTOOBSV 11:00 → 6SEL 18:44
PROVIDERS: ADMIT Hospitalist; ATTEND Hospitalist
DX: K74.60 Unspecified cirrhosis of liver (principal); R18.8 Other ascites; I13.0 Hypertensive heart and chronic kidney disease with heart failure and stage 1 through stage 4 chronic kidney disease, or unspecified chronic kidney disease; N18.3 Chronic kidney disease, stage 3 (moderate); I50.9 Heart failure, unspecified; E11.22 Type 2 diabetes mellitus with diabetic chronic kidney disease; I48.91 Unspecified atrial fibrillation; E11.40 Type 2 diabetes mellitus with diabetic neuropathy, unspecified; E11.622 Type 2 diabetes mellitus with other skin ulcer; L97.919 Non-pressure chronic ulcer of unspecified part of right lower leg with unspecified severity; L97.929 Non-pressure chronic ulcer of unspecified part of left lower leg with unspecified severity; D50.9 Iron deficiency anemia, unspecified; N42.9 Disorder of prostate, unspecified; E66.9 Obesity, unspecified; Z68.28 Body mass index [BMI] 28.0-28.9, adult; H35.30 Unspecified macular degeneration; I35.0 Nonrheumatic aortic (valve) stenosis; M19.012 Primary osteoarthritis, left shoulder; M10.9 Gout, unspecified; Z79.01 Long term (current) use of anticoagulants; Z79.4 Long term (current) use of insulin; Z79.899 Other long term (current) drug therapy; Z88.8 Allergy status to other drugs, medicaments and biological substances; Z87.891 Personal history of nicotine dependence; Z86.74 Personal history of sudden cardiac arrest; Z90.49 Acquired absence of other specified parts of digestive tract; Z80.8 Family history of malignant neoplasm of other organs or systems; Z82.49 Family history of ischemic heart disease and other diseases of the circulatory system
CPT/HCPCS: 99285 ×2; 36415; 80053 ×2; 82140; 82150; 83690; 83735; 85025 ×2; 85610; 85730; 83036; 71046; 74018; 49083; G0378 ×2; J2001; P9047

== ENCOUNTER 2017-11-22 11:54 | Day surgery (SDC) | payer MEDICARE, BC ==
[2017-11-22 12:44] VITALS: RESP 20; TEMP 98.1
[2017-11-22 12:51] LABS: Mean Platelet Volume 6.5; Platelet Count 224 k/uL (150-450)
[2017-11-22 12:56] LABS: INR 1.3 (<1.2); Prothrombin Time 12.6 sec (9.0-12.0)
[2017-11-22] MEDS: ALBUMIN HUMAN 25% 50 ML in EMPTY BAG 1 BAG IVPB SCH ×8 (13:09→16:09)
[2017-11-22 16:09] VITALS: PULSE 80
--- NOTE | 2017-11-22 16:11 | US ---
EXAMINATION TYPE: US paracentesis abd w/image DATE OF EXAM: 11/22/2017 COMPARISON: NONE HISTORY: Ascites. PROCEDURE: Maximal barrier technique was utilized. The skin overlying a suitable pocket of fluid was localized with ultrasound and the overlying skin was prepped and draped. Ultrasound was utilized with sterile technique. Lidocaine was used for local anesthesia and a skin dillon made with a scalpel. Catheter was advanced under direct ultrasound guidance into a suitable pocket of fluid and approximately 11.1 lite rs of serous fluid were removed. Catheter was withdrawn and hemostasis achieved. There is no immedi ate complication; the patient is discharged in stable condition. IMPRESSION: STATUS POST ULTRASOUND GUIDED PARACENTESIS FOR PALLIATION OF ASCITES. THIS PROCEDURE WA S PERFORMED BY THE UNDERSIGNED.
[2017-11-22 16:24] VITALS: BP 101/56
== END 2017-11-22 16:35 | disposition home or self-care (01) ==
LOC: RADPROMAIN 11:54
PROVIDERS: ATTEND Internal Medicine Gastroenterology
DX: R18.8 Other ascites (principal)
CPT/HCPCS: 82565; 85049; 85610; 36415; 49083; P9047

== ENCOUNTER 2017-12-06 11:43 | Day surgery (SDC) | payer MEDICARE, BC ==
[2017-12-06] MEDS: ALBUMIN HUMAN 25% 50 ML in EMPTY BAG 1 BAG IVPB SCH ×8 (12:43→16:31)
[2017-12-06 12:46] LABS: Mean Platelet Volume 6.4; Platelet Count 170 k/uL (150-450)
[2017-12-06 12:51] LABS: INR 1.4 (<1.2); Prothrombin Time 12.9 sec (9.0-12.0)
[2017-12-06 12:57] VITALS: TEMP 97.7
[2017-12-06] MEDS ORDERED: ALBUMIN HUMAN 25% 50 ML in EMPTY BAG 1 BAG IVPB STA (15:19)
[2017-12-06 16:34] VITALS: RESP 16
[2017-12-06 17:17] VITALS: BP 99/60; PULSE 84
--- NOTE | 2017-12-10 13:24 | US ---
Therapeutic paracentesis. DATE OF EXAM: 12/06/2017 CLINICAL HISTORY: Ascites The procedure was discussed with the patient. The risks, complications, benefits, and alternatives we re discussed and any questions were answered. Informed consent was obtained. The patient was placed s upine on the ultrasound table and prepped and draped in the usual sterile fashion. All elements of maximal barrier technique were utilized. Under ultrasound guidance, access into the right lower quadrant was obtained, via the paracentesis catheter system and direct ultrasound guidanc e. Approximately 11.5 liters of straw-colored fluid was removed. The patient was stable throughout the p rocedure and remained stable upon discharge from Department of Radiology. IMPRESSION: Successful therapeutic paracentesis under ultrasound guidance.
== END 2017-12-06 17:00 | disposition home or self-care (01) ==
LOC: RADPROMAIN 11:43
PROVIDERS: ATTEND Internal Medicine Gastroenterology
DX: R18.8 Other ascites (principal)
CPT/HCPCS: 82565; 82947; 85049; 85610; 87070; 87205; 49083; P9047